=== PATIENT | female | born 1930 | race Caucasian/White ===

== ENCOUNTER 2017-09-14 13:12 | Inpatient (IN) | payer OTHER ==
[~2017-09-14] VITALS: Ht 154.9 cm; Wt 79.9 kg
[~2017-09-14 13:12] MED LIST: ASPI-232 PO; CALC500C70 PO; DIGO0.122 PO; DOXY100C76 PO; DTR5 PO; INSU1INJ SC; INSU70IN2 SC; LEVO25TA PO; LOSA1TAB PO; SENN-65 PO; SYN200 PO; VITA400C3 PO; WARF5TAB90 PO
[2017-09-14] MEDS ORDERED: INSULIN HUMAN REGULAR IV STA (13:28)
[2017-09-14] MEDS ORDERED: SODIUM CHLORIDE 0.9% 1000ML 1,000 ML IV STA ×2 (13:28→13:57)
[2017-09-14] MEDS ORDERED: NovoLIN-R INSULIN PER UNIT CHARGE ONE (13:43)
--- NOTE | 2017-09-14 14:16 | DIAGNOSTIC IMAGING REPORT ---
SINGLE VIEW CHEST CLINICAL HISTORY: Dyspnea. FINDINGS: An AP, portable, upright chest radiograph is compared to study dated 10/20/2014. The examination is degraded by portable technique and patient rotation. The heart is enlarged and there is atherosclerotic calcification of the thoracic aorta. The pulmonary vasculature is noncongested. Chronic interstitial thickening is similar to previous. Left basilar atelectasis is identified. No airspace consolidation or large pleural effusion is seen. There is no pneumothorax. The skeletal structures are osteopenic. Arthritic change is seen in the shoulders and thoracic spine. IMPRESSION: Cardiomegaly with no acute cardiopulmonary abnormality. Electronically signed by: Kar Kurtz M.D. 09/14/2017 2:15 PM Dictated Date/Time: 09/14/2017 2:14 PM
[2017-09-14] MEDS ORDERED: CEFTRIAXONE SOD INJ 1 GM ADDVIAL IV STA (14:53)
[2017-09-14 15:01] LABS: BASO % 0.3 %; BASO ABS # 0.03 K/uL (0-0.2); EOS % 0.6 %; EOS ABS # 0.05 K/uL (0-0.5); HEMATOCRIT 41.4 % (37-47); HEMOGLOBIN 14.5 g/dL (12.0-16.0); IG# 0.02 K/uL (0.00-0.02); LYMPH % 15.7 %; LYMPH ABS # 1.38 K/uL (1.2-3.4); MEAN CELL VOLUME 84.1 fL (80-100); MEAN CORPUSCULAR HEMOGLOBIN 29.5 pg (25-34); MEAN PLATELET VOLUME 10.6 fL (7.4-10.4); MONO % 9.2 %; MONO ABS # 0.81 K/uL (0.11-0.59); NEUT ABS # 6.52 K/uL (1.4-6.5); PLATELET COUNT 249 K/uL (130-400); RED CELL DISTRIBUTION WIDTH CV 14.8 % (11.5-14.5); RED CELL DISTRIBUTION WIDTH SD 45.7 fL (36.4-46.3); WHITE BLOOD COUNT 8.81 K/uL (4.8-10.8)
--- NOTE | 2017-09-14 15:01 | EMERGENCY ROOM VISIT NOTE ---
History Report prepared by Arianna: Vince Fiore Under the Supervision of: Dr. Jasvir Mao M.D. First contact with patient: 13:14 Stated Complaint: HYPERGLYCEMIA History of Present Illness The patient is a 87 year old white female with a past medical history of A-fib, diabetes (type 2) who presents to the ED by EMS with a cc of constant hyperglycemia. EMS reports that the patient's blood sugar was found to be over 600. They state that the patient has been reported to have been urinating herself, and drinking a large amount of water at home. Negative abdominal pain, chest pain, SOB, nausea, vomiting, fevers, chills. Patient reports taking her medications this morning as normal. HPI limited secondary to dementia. Source of History: patient, EMS History Limited By: dementia Symptom Intensity: over 600 Quality: other (hyperglycemia) Timing: constant Associated Symptoms: No fevers, No chills, No chest pain, No SOB, No nausea , No vomiting, No abdominal pain Review of Systems ROS limited secondary to dementia. Past Medical & Surgical Medical Problems: (1) A-fib (2) Diabetes mellitus, type II (3) Diastolic HF (heart failure) (4) HTN (hypertension) (5) Hypothyroidism (6) Lymphedema (7) Osteoarthritis Family History No significant family history Social History Smoking Status: Former Smoker Drug Use: none Marital Status: Housing Status: lives with significant other Occupation Status: retired Current/Historical Medications Scheduled Aspirin (Aspir-81), 81 PO HS Calcium/Vitamin D (Os-Natanael 500 Plus D), 1 TAB PO QAM Digoxin (Digoxin), 1 TAB PO QAM Insulin Isophan/Regular (Novolin 70/30), 0 SC BID17 Levothyroxine Sodium (Synthroid), 200 MCG PO QAM Losartan Potassium (Cozaar), 25 MG PO QAM Metoprolol Tartrate (Lopressor) (Lopressor), 25 MG PO QAM Senna/Docusate Sod (Senokot S), 1 TAB PO QAM Vitamin E (Vitamin E 400 Iu), 400 INTER.UNIT PO QAM Warfarin Sodium (Coumadin), 5 MG PO DAILY Allergies Coded Allergies: GABINO Inhibitors (Verified Allergy, Mild, Cough, 09/14/17) Amoxicillin (Verified Adverse Reaction, Mild, RASH, 09/14/17) Physical Exam Vital Signs Date Time Temp Pulse Resp B/P (MAP) Pulse Ox O2 Delivery O2 Flow Rate FiO2 09/14/17 14:50 114 151/116 94 Room Air 09/14/17 13:53 130 09/14/17 13:13 96 Room Air 09/14/17 13:13 36.5 128 24 184/114 96 Room Air Physical Exam GENERAL: Awake, alert, well-appearing, NAD. Smells of urine. HENT: Normocephalic, atraumatic. EYES: Normal conjunctiva. Sclera non-icteric. NECK: Supple. No nuchal rigidity. FROM. RESPIRATORY: CTAB, no rhonchi, wheezing, crackles CARDIAC: Tachycardic rate, irregular rhythm, no MRG ABDOMEN: Soft, NTND, BS+ MSK: No chest wall TTP. Bilateral lower extremity non-pitting edema with mild erythema up to the knee. NEURO: GCS 15, CN 2-12 intact, moves all 4s on command SKIN: No rash or jaundice noted. Medical Decision & Procedures ER Provider Diagnostic Interpretation: Radiology results as stated below per my review and radiologist interpretation: SINGLE VIEW CHEST FINDINGS: An AP, portable, upright chest radiograph is compared to study dated 10/20/2014. The examination is degraded by portable technique and patient rotation. The heart is enlarged and there is atherosclerotic calcification of the thoracic aorta. The pulmonary vasculature is noncongested. Chronic interstitial thickening is similar to previous. Left basilar atelectasis is identified. No airspace consolidation or large pleural effusion is seen. There is no pneumothorax. The skeletal structures are osteopenic. Arthritic change is seen in the shoulders and thoracic spine. IMPRESSION: Cardiomegaly with no acute cardiopulmonary abnormality. Electronically signed by: Kra Kurtz M.D. 09/14/2017 2:15 PM Laboratory Results 09/14/17 14:46 Red Blood Count 4.92, Mean Corpuscular Volume 84.1, Mean Corpuscular Hemoglobin 29.5, Mean Corpuscular Hemoglobin Concent 35.0, Mean Platelet Volume 10.6, Neutrophils (%) (Auto) 74.0, Lymphocytes (%) (Auto) 15.7, Monocytes (%) (Auto) 9.2, Eosinophils (%) (Auto) 0.6, Basophils (%) (Auto) 0.3, Neutrophils # (Auto) 6.52, Lymphocytes # (Auto) 1.38, Monocytes # (Auto) 0.81, Eosinophils # (Auto) 0.05, Basophils # (Auto) 0.03 09/14/17 14:46 Test 09/14/17 13:58 09/14/17 14:45 09/14/17 14:46 09/14/17 14:56 Urine Color YELLOW Urine Appearance CLEAR (CLEAR) Urine pH 6.0 (4.5-7.5) Urine Specific [place] 1.035 (1.000-1.030) Urine Protein NEG (NEG) Urine Glucose (UA) 3+ (NEG) Urine Ketones 1+ (NEG) Urine Occult Blood TRACE (NEG) Urine Nitrite POS (NEG) Urine Bilirubin NEG (NEG) Urine Urobilinogen NEG (NEG) Urine Leukocyte Esterase NEG (NEG) Urine WBC (Auto) 1-5 /hpf (0-5) Urine RBC (Auto) 0-4 /hpf (0-4) Urine Hyaline Casts (Auto) 1-5 /lpf (0-5) Urine Epithelial Cells (Auto) >30 /lpf (0-5) Urine Bacteria (Auto) 4+ (NEG) Phosphorus Level 2.4 mg/dl (2.5-4.9) Procalcitonin 0.12 ng/ml (0-0.5) White Blood Count 8.81 K/uL (4.8-10.8) Red Blood Count 4.92 M/uL (4.2-5.4) Hemoglobin 14.5 g/dL (12.0-16.0) Hematocrit 41.4 % (37-47) Mean Corpuscular Volume 84.1 fL (80-100) Mean Corpuscular Hemoglobin 29.5 pg (25-34) Mean Corpuscular Hemoglobin Concent 35.0 g/dl (32-36) Platelet Count 249 K/uL (130-400) Mean Platelet Volume 10.6 fL (7.4-10.4) Neutrophils (%) (Auto) 74.0 % Lymphocytes (%) (Auto) 15.7 % Monocytes (%) (Auto) 9.2 % Eosinophils (%) (Auto) 0.6 % Basophils (%) (Auto) 0.3 % Neutrophils # (Auto) 6.52 K/uL (1.4-6.5) Lymphocytes # (Auto) 1.38 K/uL (1.2-3.4) Monocytes # (Auto) 0.81 K/uL (0.11-0.59) Eosinophils # (Auto) 0.05 K/uL (0-0.5) Basophils # (Auto) 0.03 K/uL (0-0.2) RDW Standard Deviation 45.7 fL (36.4-46.3) RDW Coefficient of Variation 14.8 % (11.5-14.5) Immature Granulocyte % (Auto) 0.2 % Immature Granulocyte # (Auto) 0.02 K/uL (0.00-0.02) Prothrombin Time 50.1 SECONDS (9.0-12.0) Prothromb Time International Ratio 4.9 (0.9-1.1) Activated Partial Thromboplast Time 46.5 SECONDS (21.0-31.0) Partial Thromboplastin Ratio 1.8 Venous Blood pH 7.41 (7.36-7.41) Venous Blood Partial Pressure CO2 44 mmHg (38.0-50.0) Venous Blood Partial Pressure O2 31 mmHg Venous Blood HCO3 28 mmol/L Venous Blood Oxygen Saturation 60.7 % Venous Blood Base Excess 2.5 mEq/L Anion Gap 10.0 mmol/L (3-11) Est Creatinine Clear Calc Drug Dose 27.1 ml/min Estimated GFR () 39.0 Estimated GFR (Non- 33.6 BUN/Creatinine Ratio 23.4 (10-20) Calcium Level 9.3 mg/dl (8.5-10.1) Magnesium Level 2.4 mg/dl (1.8-2.4) Total Bilirubin 0.8 mg/dl (0.2-1) Aspartate Amino Transf (AST/SGOT) 14 U/L (15-37) Alanine Aminotransferase (ALT/SGPT) 26 U/L (12-78) Alkaline Phosphatase 199 U/L (45-117) Troponin I 0.030 ng/ml (0-0.045) Pro-B-Type Natriuretic Peptide 1202 pg/ml (0-1800) Total Protein 7.6 gm/dl (6.4-8.2) Albumin 3.1 gm/dl (3.4-5.0) Globulin 4.5 gm/dl (2.5-4.0) Albumin/Globulin Ratio 0.7 (0.9-2) Beta-Hydroxybutyric Acid 8.85 mg/dL (0.2-2.81) Digoxin Level 0.9 ng/ml (0.8-2.0) Bedside Lactic Acid Venous 3.85 mmol/L (0.90-1.70) Laboratory results reviewed by me Medications Administered Medications (Trade) Dose Ordered Sig/Ajith Route Start Time Stop Time Status Last Admin Dose Admin Insulin Human Regular (novoLIN-R) 5 units ONE STAT IV 09/14/17 13:28 09/14/17 13:30 DC 09/14/17 13:52 5 UNITS Sodium Chloride 1,000 ml @ 500 mls/hr Q2H STAT IV 09/14/17 13:28 09/14/17 15:27 DC 09/14/17 13:52 500 MLS/HR Sodium Chloride 1,000 ml @ 500 mls/hr Q2H STAT IV 09/14/17 13:57 09/14/17 15:56 DC 09/14/17 13:57 500 MLS/HR Ceftriaxone Sodium (Rocephin Inj) 1 gm NOW STAT IV 09/14/17 14:53 09/14/17 14:54 DC 09/14/17 14:53 1 GM ECG Per My Interpretation Indication: other (hyperglycemia) Rate (beats per minute): 109 Rhythm: atrial fibrillation (with RVR) Findings: RBBB, T-wave inversion (anterior, lateral), other (Wide QRS. ) ED Course 1321: The patient was evaluated in room B2. A complete history and physical exam was performed. 1540: Upon reexamination, the patient was resting comfortably. I discussed the test results and treatment plan with her. The patient will be evaluated for further management. Medical Decision The patient is a 87 year old white female with a past medical history of A-fib, diabetes (type 2) who presents to the ED by EMS with a cc of constant hyperglycemia. Differential diagnosis: Etiologies such as viral syndrome, otitis, pharyngitis, pneumonia, influenza, meningitis, urinary tract infection, sepsis, bacteremia, as well as others were entertained. Patient was seen and evaluated the bedside. Patient does have a chronic history of some A. fib and does have type 2 diabetes however upon review of her medication when she is supposed be taking insulin. Patient per EMS has had some increased polyuria and polydipsia. Patient was noted to have a sugar of greater than 600. Patient on exam does have some intermittent tachycardia that appears to be A. fib related. Bedside ultrasound was performed which did show A. fib with good EF and the patient's IVC was collapsible with respiratory variation. Patient was given 2 L of IV fluids and the patient had blood work completed. Patient's urinalysis concerning for UTI and this was given Rocephin. Patient's heart rate was improving with fluids. Patient was noted to have an elevated blood glucose. Patient's potassium and bicarb normal. Patient has a normal anion gap. Patient's lactate was mildly elevated at 3.8. Patient's white blood cell count was normal. Given the patient's concern for ability to take care of herself with her concomitant tachycardia, dehydration, UTI did discuss the patient with the hospitalist who agreed to further evaluate and treat the patient. Patient was admitted. Medication Reconcilliation Current Medication List: was personally reviewed by me Blood Pressure Screening Patient's blood pressure: Elevated blood pressure Blood pressure disposition: Referred to PCP Consults Time Called: 1540 Consulting Physician: Dr. Gurmeet Roberts Hospitalist Returned Call: [phone] Discussed the patient's case. The patient will be evaluated for further treatment and disposition. Impression Primary Impression: Dehydration Additional Impressions: A-fib Hyperglycemia UTI (urinary tract infection) Scribe Attestation The scribe's documentation has been prepared under my direction and personally reviewed by me in its entirety. I confirm that the note above accurately reflects all work, treatment, procedures, and medical decision making performed by me. Departure Information Dispostion Being Evaluated By Hospitalist Referrals Bobby Shah M.D. (PCP) Problem Qualifiers Additional Impressions: A-fib Atrial fibrillation type: unspecified Qualified Codes: I48.91 - Unspecified atrial fibrillation UTI (urinary tract infection) Urinary tract infection type: acute cystitis Hematuria presence: with hematuria Qualified Codes: N30.01 - Acute cystitis with hematuria
[2017-09-14] MEDS ORDERED: METO25TA56 PO (15:07)
[2017-09-14] MEDS ORDERED: LNX125 PO (15:07)
[2017-09-14] MEDS ORDERED: INSU70IN2 SC (15:25)
[2017-09-14 15:30] LABS: ALBUMIN 3.1 gm/dl (3.4-5.0); CALCIUM 9.3 mg/dl (8.5-10.1); CREATININE 1.41 mg/dl (0.60-1.20); INR 4.9 (0.9-1.1); TOTAL PROTEIN 7.6 gm/dl (6.4-8.2)
[2017-09-14 15:31] LABS: PTT PATIENT 46.5 SECONDS (21.0-31.0)
[2017-09-14] MEDS ORDERED: SODIUM CHLORIDE 0.9% 1000ML 1,000 ML IV ONE (15:53)
[2017-09-14] MEDS ORDERED: HHS GOAL RANGE 250-350 mg/dl ONE (16:00)
[2017-09-14] MEDS ORDERED: MAGNESIUM HYDROXIDE SUSP 30 ML UDC PO PRN (16:00)
[2017-09-14] MEDS ORDERED: MODERATE STRESS LEVEL ONE (16:00)
[2017-09-14] MEDS ORDERED: POLYETHYLENE (MIRALAX) 17 GM PACK PO PRN (16:00)
[2017-09-14] MEDS ORDERED: ACETAMINOPHEN 325 MG TAB PO PRN (16:00)
[2017-09-14] MEDS ORDERED: PHARMACY GLYCEMIC MGMT CONSULT PRN (16:00)
[2017-09-14] MEDS ORDERED: PENDING D5 1/2NS+20mEq KCL IVF SCH (16:00)
[2017-09-14] MEDS ORDERED: PENDING NSS+20mEq KCL IVF SCH (16:00)
[2017-09-14] MEDS ORDERED: ALUMINUM/MAGNESIUM/SIMETH (MAALOX MAX) 30 ML UDC PO PRN (16:00)
[2017-09-14] MEDS ORDERED: INSULIN IV INFUSION PROTOCOL SCH (16:31)
[2017-09-14] MEDS ORDERED: INSULIN HUMAN REGULAR IV BOLUS 2 UNIT in SYRINGE 0 ML IV SCH (17:15)
[2017-09-14 17:22] LABS: PHOSPHORUS 2.4 mg/dl (2.5-4.9)
[2017-09-14] MEDS ORDERED: INSULIN REGULAR 250 UNITS in SODIUM CHLORIDE 0.9% 250ML 250 ML IV SCH (17:30)
--- NOTE | 2017-09-14 18:31 | History and Physical ---
History & Physical Date & Time of Service: Sep 14, 2017 at 18:03 Chief Complaint: Hyperglycemia Primary Care Physician: Bobby Shah M.D. History of Present Illness Source: patient, clinic records, hospital records This is an 87yo F with a PMH of uncontrolled DM II (hgb a1c of 11.2 in Jun 2017) , dementia, A fib (on coumadin), diastolic HF, HTN, hypothyroidism and other medical problems listed below who presents with confusion and fatigue starting yesterday. Patient has had polyuria and polydipsia for the last few days as well as fatigue. Lives alone with her and depends on him for help with medication management. Patient has uncontrolled DM II and only takes 30u of her scheduled 50u of Novolin 70/30. noticed that she was confused and starting to slur her words this AM, so he called an ambulance. EMS found BSG to be >600. Patient states that she took 30u of insulin this AM. Denies fever, chills, lightheadedness, headache, visual changes, CP, SOB, abdominal pain, nausea, vomiting, dysuria, constipation, diarrhea or LE swelling. Has chronic wound on BLE and changes her dressings daily. Follows with [facility] for coumadin use. In ED, BSG was elevated to 516. Bicarb within normal limits, no anion gap. + UA with urine culture pending. No leukocytosis. Supratherapeutic INR of 4.9. EKG with A Fib at 109 bpm. Past Medical/Surgical History Medical Problems: (1) A-fib Permanent Comment: On coumadin Status: Chronic (2) Diabetes mellitus, type II Status: Chronic (3) Diastolic HF (heart failure) Status: Chronic (4) HTN (hypertension) Status: Chronic (5) Hypothyroidism Status: Chronic (6) Lymphedema Status: Chronic (7) Osteoarthritis Status: Chronic Family History No significant family history Social History Smoking Status: Former Smoker Drug Use: none Marital Status: Housing status: lives with significant other Occupational Status: retired Multi-Drug Resistant Organisms History of MDRO: Yes Type of MDRO: MRSA Allergies Coded Allergies: GABINO Inhibitors (Verified Allergy, Mild, Cough, 09/14/17) Amoxicillin (Verified Allergy, Mild, RASH, 09/15/17) Home Medications Scheduled Aspirin (Aspir-81), 81 PO HS Calcium/Vitamin D (Os-Natanael 500 Plus D), 1 TAB PO QAM Digoxin (Digoxin), 1 TAB PO QAM Insulin Isophan/Regular (Novolin 70/30), 0 SC BID17 Levothyroxine Sodium (Synthroid), 200 MCG PO QAM Losartan Potassium (Cozaar), 25 MG PO QAM Metoprolol Succinate (Metoprolol Succinate ER), 1 TAB PO DAILY Senna/Docusate Sod (Senokot S), 1 TAB PO QAM Warfarin Sod (Coumadin), 2.5 MG PO [id number] Warfarin Sod (Coumadin), 5 MG PO SuTh Review of Systems Ten systems reviewed and negative except as noted in the HPI. Physical Exam Vital Signs Date Time Temp Pulse Resp B/P (MAP) Pulse Ox O2 Delivery O2 Flow Rate FiO2 09/14/17 17:38 85 16 146/60 97 Room Air 09/14/17 16:54 98 16 127/70 95 Room Air 09/14/17 14:50 114 151/116 94 Room Air 09/14/17 13:53 130 09/14/17 13:13 96 Room Air 09/14/17 13:13 36.5 128 24 184/114 96 Room Air General Appearance: WD/WN, no apparent distress, + pertinent finding (Resting comfortably) Head: normocephalic, atraumatic Eyes: normal inspection, PERRL, sclerae normal ENT: normal ENT inspection, hearing grossly normal, pharynx normal (keith mucous membranes) Neck: supple, thyroid normal, trachea midline Respiratory/Chest: chest non-tender, lungs clear, normal breath sounds, no respiratory distress, no accessory muscle use Cardiovascular: no murmur, normal peripheral pulses, + irregularly irregular Abdomen/GI: non tender, soft, no organomegaly Back: normal inspection Extremities/Musculoskelatal: no calf tenderness, + pertinent finding (BLE with chronic venous stasis changes and overlying erythema and warmth. Multiple open wounds. ) Neurologic/Psych: no motor/sensory deficits, alert, normal mood/affect, oriented x 3 Skin: normal color, warm/dry Diagnostics Laboratory Results Results Past 24 Hours Test 09/14/17 13:58 09/14/17 14:45 09/14/17 14:46 09/14/17 14:55 Range/Units Urine Color YELLOW Urine Appearance CLEAR CLEAR Urine pH 6.0 4.5-7.5 Urine Specific [place] 1.035 1.000-1.030 Urine Protein NEG NEG Urine Glucose (UA) 3+ NEG Urine Ketones 1+ NEG Urine Occult Blood TRACE NEG Urine Nitrite POS NEG Urine Bilirubin NEG NEG Urine Urobilinogen NEG NEG Urine Leukocyte Esterase NEG NEG Urine WBC (Auto) 1-5 0-5 /hpf Urine RBC (Auto) 0-4 0-4 /hpf Urine Hyaline Casts (Auto) 1-5 0-5 /lpf Urine Epithelial Cells (Auto) >30 0-5 /lpf Urine Bacteria (Auto) 4+ NEG Phosphorus Level 2.4 2.5-4.9 mg/dl Magnesium Level 2.5 2.4 1.8-2.4 mg/dl Procalcitonin 0.12 0-0.5 ng/ml White Blood Count 8.81 4.8-10.8 K/uL Red Blood Count 4.92 4.2-5.4 M/uL Hemoglobin 14.5 12.0-16.0 g/dL Hematocrit 41.4 37-47 % Mean Corpuscular Volume 84.1 80-100 fL Mean Corpuscular Hemoglobin 29.5 25-34 pg Mean Corpuscular Hemoglobin Concent 35.0 32-36 g/dl Platelet Count 249 130-400 K/uL Mean Platelet Volume 10.6 7.4-10.4 fL Neutrophils (%) (Auto) 74.0 % Lymphocytes (%) (Auto) 15.7 % Monocytes (%) (Auto) 9.2 % Eosinophils (%) (Auto) 0.6 % Basophils (%) (Auto) 0.3 % Neutrophils # (Auto) 6.52 1.4-6.5 K/uL Lymphocytes # (Auto) 1.38 1.2-3.4 K/uL Monocytes # (Auto) 0.81 0.11-0.59 K/uL Eosinophils # (Auto) 0.05 0-0.5 K/uL Basophils # (Auto) 0.03 0-0.2 K/uL RDW Standard Deviation 45.7 36.4-46.3 fL RDW Coefficient of Variation 14.8 11.5-14.5 % Immature Granulocyte % (Auto) 0.2 % Immature Granulocyte # (Auto) 0.02 0.00-0.02 K/uL Prothrombin Time 50.1 9.0-12.0 SECONDS Prothromb Time International Ratio 4.9 0.9-1.1 Activated Partial Thromboplast Time 46.5 21.0-31.0 SECONDS Partial Thromboplastin Ratio 1.8 Venous Blood pH 7.41 7.36-7.41 Venous Blood Partial Pressure CO2 44 38.0-50.0 mmHg Venous Blood Partial Pressure O2 31 mmHg Venous Blood HCO3 28 mmol/L Venous Blood Oxygen Saturation 60.7 % Venous Blood Base Excess 2.5 mEq/L Sodium Level 136 136-145 mmol/L Potassium Level 4.0 3.5-5.1 mmol/L Chloride Level 101 98-107 mmol/L Carbon Dioxide Level 26 21-32 mmol/L Anion Gap 10.0 3-11 mmol/L Blood Urea Nitrogen 33 7-18 mg/dl Creatinine 1.41 0.60-1.20 mg/dl Est Creatinine Clear Calc Drug Dose 27.1 ml/min Estimated GFR () 39.0 Estimated GFR (Non- 33.6 BUN/Creatinine Ratio 23.4 10-20 Random Glucose 516 70-99 mg/dl Calcium Level 9.3 8.5-10.1 mg/dl Total Bilirubin 0.8 0.2-1 mg/dl Aspartate Amino Transf (AST/SGOT) 14 15-37 U/L Alanine Aminotransferase (ALT/SGPT) 26 12-78 U/L Alkaline Phosphatase 199 45-117 U/L Troponin I 0.030 0-0.045 ng/ml Pro-B-Type Natriuretic Peptide 1202 0-1800 pg/ml Total Protein 7.6 6.4-8.2 gm/dl Albumin 3.1 3.4-5.0 gm/dl Globulin 4.5 2.5-4.0 gm/dl Albumin/Globulin Ratio 0.7 0.9-2 Beta-Hydroxybutyric Acid 8.85 0.2-2.81 mg/dL Digoxin Level 0.9 0.8-2.0 ng/ml Bedside Glucose 489 70-90 mg/dl Test 09/14/17 14:56 09/14/17 16:24 09/14/17 16:53 Range/Units Bedside Lactic Acid Venous 3.85 0.90-1.70 mmol/L Arterial Blood pH 7.47 7.35-7.45 Arterial Blood Partial Pressure CO2 35 35-46 mmHg Arterial Blood Partial Pressure O2 85 80-95 mm/Hg Arterial Blood HCO3 25 19-24 mmol/L Arterial Blood Oxygen Saturation 96.9 90-95 % Arterial Blood Base Excess 1.6 -9-1.8 mEq/L Arterial Blood Gas Delivery ROOM AIR Kamlesh Test POS POS Lactic Acid Level 2.2 0.4-2.0 mmol/L Bedside Glucose 506 70-90 mg/dl Microbiology Results 09/14/17 Urine Culture, Received Pending Diagnostic Radiology CXR: IMPRESSION: Cardiomegaly with no acute cardiopulmonary abnormality. EKG Atrial fibrillation at 109 bpm , Low voltage QRS, Right bundle branch block, T wave abnormality, consider inferolateral ischemia No prior EKG available Impression Assessment and Plan Patient seen in collaboration with Dr. Levi. Please see attending addendum for assessment and plan. ATTENDING ADDENDUM : pt seen and examined , care co cordinated with Shanice Porter PA-C , 87yo F with poorly controlled DM II (hgb a1c of 11.2 in Jun 2017), dementia, A fib (on Coumadin), diastolic HF, HTN, hypothyroidism presented with confusion and fatigue starting yesterday. pt been symptomatic with -has been having increased fatigue , polyuria and polydipsia for the last few days has been taking lower dose of her Novolin 70/30 -30 U instead for 50 u pt is a very poor historian In ED, BSG was elevated to 516. Bicarb within normal limits, no anion gap. + UA with urine culture pending. No leukocytosis. Supratherapeutic INR of 4.9. EKG with A Fib at 109 bpm. P/E: as per Shanice Porter PA-C A/P : HYPERGLYCEMIA /HHS /POORLY CONTROLLED DM : presents with symptomatic polyuria /polydipsia/fatigue /confusion has not be taking Insulin 70/30 as directed pt found to be in HHS given IV insulin 5 U in ER , then started on IV insulin gtt aggressive hydration as pt is clinically dry ordered for Hb A1C ( last Acc in 06/2017 > 11) pharmacy consulted for glycemic management community educator pt needs out pt nursing visit /support to educate for proper monitoring of BSG and correct dose insulin administration R/O infectious cause precipitating HHS has bilateral lower ext cellulitis , empiric Abx with vanco/Primaxin ( allergy to PCN noted ) blood culture ordered + UA + ve Abx as above follow urine Cx CONFUSION /LETHARGY /METABOLIC ENCEPHALOPATHY : due to combination of HHS, infection , dehydration , UTI no focal neurological deficit noted cont management of precipitating factors as outlined above CHERYL ON CKD STAGE 3 : due to above cont IV hydration per [facility] protocol follow BMP SEPSIS DUE TO BILATERAL LOWER EXT CELLULITIS meets criteria for sepsis -presents with tachycardia /rapid Afib /CHERYL / confusion /elevated lactic acid source of infection either bilat lower ext cellulitis /UTI cont IV resuscitation , empiric broad spectrum Abx , follow culture report ID eval requested HTN : hold diuretics /ARB on beta roberto IVF fluids for dehydration /CHERYL HX OF AFIB ON COUMADIN : in rapid Afib for dehydration /infection cont Beta roberto and Digoxin Dig level therapeutic Coagulopathy due to sepsis Coumadin on hold follow daily INR FULL CODE DVT PROPHYLAXIS : INR elevated DISPOSITION : will need PT/OT eval for significant deconditioning will benefit with home health visiting nurse as pt need assistance /direction for medication /insulin dose Level of Care Telemetry Resuscitation Status FULL RESUSCITATION VTE Prophylaxis VTE Risk Assessment Done? Y/N: Yes Risk Level: Moderate Given or contraindicated: Warfarin (Coumadin)
[2017-09-14] MEDS ORDERED: SODIUM CHLORIDE 0.9% 1000ML 1,000 ML IV SCH (18:45)
[2017-09-14 18:55] VITALS: BP 133/74; PULSE 101; TEMP 36.5; O2SAT 99; BMI 32.2
[2017-09-14 19:01] VITALS: BP 123/62; PULSE 95; O2SAT 96
[2017-09-14] MEDS: D5W AND 1/2NSS + 20MEQ KCL 1,000 ML IV SCH (19:41)
--- NOTE | 2017-09-14 19:58 | DIAGNOSTIC IMAGING REPORT ---
ULTRASOUND VENOUS DOPPLER LWR EXT BILA CLINICAL HISTORY: Leg swelling and redness COMPARISON STUDY: No previous studies for comparison. FINDINGS: Real-time and color flow Doppler imaging were performed. Flow was seen within the femoral, popliteal and calf veins with no intraluminal thrombus demonstrated. The saphenous vein is patent. There is bilateral lower extremity edema. IMPRESSION: No evidence of lower extremity DVT. Electronically signed by: Aníbal Melvin M.D. 09/14/2017 7:56 PM Dictated Date/Time: 09/14/2017 7:56 PM
[2017-09-14 20:00] VITALS: O2SAT 96
[2017-09-14 20:02] VITALS: BP 145/69; PULSE 100; O2SAT 95
[2017-09-14 20:45] LABS: CALCIUM 8.8 mg/dl (8.5-10.1); CREATININE 1.3 mg/dl (0.60-1.20); PHOSPHORUS 1.7 mg/dl (2.5-4.9); POTASSIUM 3.6 mmol/L (3.5-5.1)
[2017-09-14] MEDS: INSULIN ASPART 100 UNITS/ML 3 ML PEN SC SCH (21:07)
[2017-09-14] MEDS ORDERED: CMD/25 PO ×2 (23:18)
[2017-09-14] MEDS ORDERED: TPRSR/25 PO (23:18)
[2017-09-14 23:28] VITALS: BP 95/59; PULSE 89; TEMP 36.6; O2SAT 96
[2017-09-15] MEDS ORDERED: PIPERACILL/TAZOBAC IV 3.375 GM in DEXTROSE 5% 100ML 100 ML IV SCH (00:15)
[2017-09-15] MEDS ORDERED: PIPERACILL/TAZOBAC CONSULT ACTIVE PRN (00:15)
[2017-09-15 00:16] LABS: CALCIUM 8.3 mg/dl (8.5-10.1); CREATININE 1.06 mg/dl (0.60-1.20); PHOSPHORUS 1.6 mg/dl (2.5-4.9); POTASSIUM 3.7 mmol/L (3.5-5.1)
[2017-09-15] MEDS ORDERED: POTASSIUM PHOS 3 MMOL/1 ML INFUSION IV STA (00:16)
[2017-09-15] MEDS ORDERED: POTASSIUM PHOSPHATE INJ 6 MMOL in SODIUM CHLORIDE 0.9% 250ML 250 ML IV ONE (00:30)
[2017-09-15] MEDS ORDERED: IMIPENEM/CILASTATIN IV 500 MG in D5W 100ML IV SCH (01:00)
[2017-09-15] MEDS ORDERED: VANCOMYCIN INJ 1,500 MG in SODIUM CHLORIDE 0.9% 500ML 500 ML IV SCH (03:00)
[2017-09-15 03:08] VITALS: BP 107/65; PULSE 88; TEMP 36.4; O2SAT 97
[2017-09-15] MEDS: NSS + 20MEQ KCL 1000ML 1,000 ML IV SCH ×3 (03:35→17:18)
[2017-09-15 03:48] LABS: HEMATOCRIT 38.2 % (37-47); HEMOGLOBIN 12.9 g/dL (12.0-16.0); MEAN CELL VOLUME 84.5 fL (80-100); MEAN CORPUSCULAR HEMOGLOBIN 28.5 pg (25-34); MEAN CORPUSCULAR HGB CONC 33.8 g/dl (32-36); MEAN PLATELET VOLUME 10.6 fL (7.4-10.4); PLATELET COUNT 217 K/uL (130-400); RED CELL DISTRIBUTION WIDTH CV 14.8 % (11.5-14.5); RED CELL DISTRIBUTION WIDTH SD 45.7 fL (36.4-46.3); WHITE BLOOD COUNT 9.11 K/uL (4.8-10.8)
[2017-09-15 04:03] LABS: INR 5.1 (0.9-1.1)
[2017-09-15] MEDS: D5W AND 1/2NSS + 20MEQ KCL 1,000 ML IV SCH (04:09)
[2017-09-15 04:12] LABS: ALBUMIN 2.3 gm/dl (3.4-5.0); CALCIUM 8.1 mg/dl (8.5-10.1); CREATININE 1.01 mg/dl (0.60-1.20); POTASSIUM 3.8 mmol/L (3.5-5.1)
[2017-09-15 04:25] LABS: PHOSPHORUS 2.1 mg/dl (2.5-4.9); TOTAL PROTEIN 5.9 gm/dl (6.4-8.2)
[2017-09-15 07:14] LABS: HEMOGLOBIN A1C 12.6 % (4.5-5.6)
[2017-09-15] MEDS ORDERED: VANCOMYCIN CONSULT ACTIVE PRN (07:15)
[2017-09-15] MEDS: INSULIN ASPART 100 UNITS/ML 3 ML PEN SC SCH ×5 (07:52→21:03)
[2017-09-15 07:55] VITALS: BP 127/81; PULSE 102; TEMP 37; O2SAT 97
[2017-09-15] MEDS ORDERED: VANCOMYCIN INJ 1,750 MG in SODIUM CHLORIDE 0.9% 500ML 500 ML IV ONE (08:00)
[2017-09-15 09:15] LABS: CALCIUM 7.9 mg/dl (8.5-10.1); CREATININE 1.09 mg/dl (0.60-1.20); HEMOGLOBIN A1C 12.9 % (4.5-5.6); PHOSPHORUS 1.8 mg/dl (2.5-4.9)
[2017-09-15] MEDS ORDERED: INSULIN GLARGINE SOLOSTAR 100 UNITS/ML 3 ML PEN SC ONE (11:00)
[2017-09-15 11:32] VITALS: BP 131/73; PULSE 95; TEMP 36.9; O2SAT 96
[2017-09-15] MEDS: DOCUSATE SODIUM/SENNA 50/8.6MG TAB PO SCH (11:53)
[2017-09-15] MEDS: CALCIUM 600MG + VIT D 400 IU TAB PO SCH (11:53)
[2017-09-15] MEDS: METOPROLOL SUCC 25MG EXT REL TAB PO SCH (11:53)
[2017-09-15] MEDS: LEVOTHYROXINE 200 MCG TAB PO SCH (11:53)
[2017-09-15] MEDS ORDERED: IMIPENEM-CILASTATIN 250 MG in DEXTROSE 5% 100ML 100 ML IV SCH (12:00)
[2017-09-15 13:30] LABS: CALCIUM 7.7 mg/dl (8.5-10.1); POTASSIUM 4.1 mmol/L (3.5-5.1)
[2017-09-15 13:31] LABS: PHOSPHORUS 1.7 mg/dl (2.5-4.9)
--- NOTE | 2017-09-15 14:17 | Progress Note ---
Internal Med Progress Note Date of Service: Sep 15, 2017. Provider Documentation: SUBJECTIVE: The patient was seen and examined Feels a little better Complains of high Sugar No other complaints OBJECTIVE: Vital Signs-as noted below Exam: General-no distress at rest Eyes-normal ENT-normal Neck-supple Lungs-Clear Heart-regular,no murmur Abdomen-Benign,no masses Extremities-No edema Legs are bandaged Neuro-AAOx3 Lab data as noted below. ASSESSMENT & PLAN: HYPERGLYCEMIA /HHS /POORLY CONTROLLED DM : -presents with symptomatic polyuria /polydipsia/fatigue /confusion -has not be taking Insulin 70/30 as directed -started on IV insulin 5 U in ER , then started on IV insulin gtt -aggressive hydration as pt is clinically dry -last Acc in 06/2017 > 11) and 12.9 now -diabetes education Bilateral lower ext cellulitis , empiric Abx with vanco/Primaxin ( allergy to PCN noted ) -blood culture ordered -+ UA + ve ,Culture =Gm neg organism -continue current antibiotic CONFUSION /LETHARGY /METABOLIC ENCEPHALOPATHY : -due to combination of HHS, infection , dehydration , UTI -no focal neurological deficit noted -clinically much better CHERYL ON CKD STAGE 3 : -due to above -cont IV hydration per [facility] protocol -follow BMP -improving renal function SEPSIS DUE TO BILATERAL LOWER EXT CELLULITIS -meets criteria for sepsis -presents with tachycardia /rapid Afib /CHERYL / confusion /elevated lactic acid -source of infection either bilat lower ext cellulitis /UTI -cont IV resuscitation , empiric broad spectrum Abx , follow culture report -ID eval requested HTN : hold diuretics /ARB on beta roberto IVF fluids for dehydration /CHERYL HX OF AFIB ON COUMADIN : in rapid Afib for dehydration /infection cont Beta roberto and Digoxin Dig level therapeutic Coagulopathy due to sepsis Coumadin on hold follow daily INR FULL CODE DVT PROPHYLAXIS : INR elevated DISPOSITION : -will need PT/OT eval for significant deconditioning -will benefit with home health visiting nurse as pt need assistance /direction for medication /insulin dose Vital Signs: Date Time Temp Pulse Resp B/P (MAP) Pulse Ox O2 Delivery O2 Flow Rate FiO2 09/15/17 12:00 Room Air 09/15/17 11:32 36.9 95 20 131/73 (92) 96 Room Air 09/15/17 08:00 Room Air 09/15/17 07:55 37.0 102 20 127/81 (96) 97 Room Air 09/15/17 04:00 Room Air 09/15/17 03:08 36.4 88 19 107/65 (79) 97 Room Air 09/15/17 00:01 Room Air 09/14/17 23:28 36.6 89 18 95/59 (71) 96 Room Air 09/14/17 20:02 100 21 145/69 (94) 95 Room Air 09/14/17 20:00 96 Room Air 09/14/17 19:01 95 21 123/62 (82) 96 Room Air 09/14/17 18:55 36.5 101 16 133/74 99 Room Air 09/14/17 17:38 85 16 146/60 97 Room Air 09/14/17 16:54 98 16 127/70 95 Room Air 09/14/17 14:50 114 151/116 94 Room Air Lab Results: Results Past 24 Hours Test 09/14/17 14:45 09/14/17 14:46 09/14/17 14:55 09/14/17 14:56 Range/Units Estimated Average Glucose 315 mg/dl Hemoglobin A1c 12.6 4.5-5.6 % Phosphorus Level 2.4 2.5-4.9 mg/dl Magnesium Level 2.5 2.4 1.8-2.4 mg/dl Procalcitonin 0.12 0-0.5 ng/ml White Blood Count 8.81 4.8-10.8 K/uL Red Blood Count 4.92 4.2-5.4 M/uL Hemoglobin 14.5 12.0-16.0 g/dL Hematocrit 41.4 37-47 % Mean Corpuscular Volume 84.1 80-100 fL Mean Corpuscular Hemoglobin 29.5 25-34 pg Mean Corpuscular Hemoglobin Concent 35.0 32-36 g/dl Platelet Count 249 130-400 K/uL Mean Platelet Volume 10.6 7.4-10.4 fL Neutrophils (%) (Auto) 74.0 % Lymphocytes (%) (Auto) 15.7 % Monocytes (%) (Auto) 9.2 % Eosinophils (%) (Auto) 0.6 % Basophils (%) (Auto) 0.3 % Neutrophils # (Auto) 6.52 1.4-6.5 K/uL Lymphocytes # (Auto) 1.38 1.2-3.4 K/uL Monocytes # (Auto) 0.81 0.11-0.59 K/uL Eosinophils # (Auto) 0.05 0-0.5 K/uL Basophils # (Auto) 0.03 0-0.2 K/uL RDW Standard Deviation 45.7 36.4-46.3 fL RDW Coefficient of Variation 14.8 11.5-14.5 % Immature Granulocyte % (Auto) 0.2 % Immature Granulocyte # (Auto) 0.02 0.00-0.02 K/uL Prothrombin Time 50.1 9.0-12.0 SECONDS Prothromb Time International Ratio 4.9 0.9-1.1 Activated Partial Thromboplast Time 46.5 21.0-31.0 SECONDS Partial Thromboplastin Ratio 1.8 Venous Blood pH 7.41 7.36-7.41 Venous Blood Partial Pressure CO2 44 38.0-50.0 mmHg Venous Blood Partial Pressure O2 31 mmHg Venous Blood HCO3 28 mmol/L Venous Blood Oxygen Saturation 60.7 % Venous Blood Base Excess 2.5 mEq/L Sodium Level 136 136-145 mmol/L Potassium Level 4.0 3.5-5.1 mmol/L Chloride Level 101 98-107 mmol/L Carbon Dioxide Level 26 21-32 mmol/L Anion Gap 10.0 3-11 mmol/L Blood Urea Nitrogen 33 7-18 mg/dl Creatinine 1.41 0.60-1.20 mg/dl Est Creatinine Clear Calc Drug Dose 27.1 ml/min Estimated GFR () 39.0 Estimated GFR (Non- 33.6 BUN/Creatinine Ratio 23.4 10-20 Random Glucose 516 70-99 mg/dl Calcium Level 9.3 8.5-10.1 mg/dl Total Bilirubin 0.8 0.2-1 mg/dl Aspartate Amino Transf (AST/SGOT) 14 15-37 U/L Alanine Aminotransferase (ALT/SGPT) 26 12-78 U/L Alkaline Phosphatase 199 45-117 U/L Troponin I 0.030 0-0.045 ng/ml Pro-B-Type Natriuretic Peptide 1202 0-1800 pg/ml Total Protein 7.6 6.4-8.2 gm/dl Albumin 3.1 3.4-5.0 gm/dl Globulin 4.5 2.5-4.0 gm/dl Albumin/Globulin Ratio 0.7 0.9-2 Beta-Hydroxybutyric Acid 8.85 0.2-2.81 mg/dL Digoxin Level 0.9 0.8-2.0 ng/ml Bedside Glucose 489 70-90 mg/dl Bedside Lactic Acid Venous 3.85 0.90-1.70 mmol/L Test 09/14/17 16:24 09/14/17 16:53 09/14/17 18:48 09/14/17 19:56 Range/Units Arterial Blood pH 7.47 7.35-7.45 Arterial Blood Partial Pressure CO2 35 35-46 mmHg Arterial Blood Partial Pressure O2 85 80-95 mm/Hg Arterial Blood HCO3 25 19-24 mmol/L Arterial Blood Oxygen Saturation 96.9 90-95 % Arterial Blood Base Excess 1.6 -9-1.8 mEq/L Arterial Blood Gas Delivery ROOM AIR Kamlesh Test POS POS Lactic Acid Level 2.2 0.4-2.0 mmol/L Bedside Glucose 506 355 325 70-90 mg/dl Test 09/14/17 20:17 09/14/17 20:49 09/14/17 22:08 09/14/17 23:07 Range/Units Venous Blood pH 7.44 7.36-7.41 Sodium Level 139 136-145 mmol/L Potassium Level 3.6 3.5-5.1 mmol/L Chloride Level 104 98-107 mmol/L Carbon Dioxide Level 25 21-32 mmol/L Anion Gap 10.0 3-11 mmol/L Blood Urea Nitrogen 28 7-18 mg/dl Creatinine 1.30 0.60-1.20 mg/dl Est Creatinine Clear Calc Drug Dose 29.2 ml/min Estimated GFR () 43.0 Estimated GFR (Non- 37.1 BUN/Creatinine Ratio 21.7 10-20 Random Glucose 270 70-99 mg/dl Lactic Acid Level 5.4 0.4-2.0 mmol/L Calcium Level 8.8 8.5-10.1 mg/dl Phosphorus Level 1.7 2.5-4.9 mg/dl Magnesium Level 2.1 1.8-2.4 mg/dl Bedside Glucose 362 303 295 70-90 mg/dl Test 09/14/17 23:53 09/15/17 00:02 09/15/17 00:24 09/15/17 01:11 Range/Units Venous Blood pH 7.45 7.36-7.41 Sodium Level 139 136-145 mmol/L Potassium Level 3.7 3.5-5.1 mmol/L Chloride Level 106 98-107 mmol/L Carbon Dioxide Level 26 21-32 mmol/L Anion Gap 7.0 3-11 mmol/L Blood Urea Nitrogen 27 7-18 mg/dl Creatinine 1.06 0.60-1.20 mg/dl Est Creatinine Clear Calc Drug Dose 35.8 ml/min Estimated GFR () 55.1 Estimated GFR (Non- 47.5 BUN/Creatinine Ratio 25.7 10-20 Random Glucose 287 70-99 mg/dl Calcium Level 8.3 8.5-10.1 mg/dl Phosphorus Level 1.6 2.5-4.9 mg/dl Magnesium Level 2.2 1.8-2.4 mg/dl Bedside Glucose 292 222 70-90 mg/dl Lactic Acid Level 2.6 0.4-2.0 mmol/L Test 09/15/17 01:31 09/15/17 01:45 09/15/17 02:05 09/15/17 03:07 Range/Units Bedside Glucose 214 242 238 255 70-90 mg/dl Test 09/15/17 03:39 09/15/17 03:58 09/15/17 05:01 09/15/17 05:58 Range/Units White Blood Count 9.11 4.8-10.8 K/uL Red Blood Count 4.52 4.2-5.4 M/uL Hemoglobin 12.9 12.0-16.0 g/dL Hematocrit 38.2 37-47 % Mean Corpuscular Volume 84.5 80-100 fL Mean Corpuscular Hemoglobin 28.5 25-34 pg Mean Corpuscular Hemoglobin Concent 33.8 32-36 g/dl RDW Standard Deviation 45.7 36.4-46.3 fL RDW Coefficient of Variation 14.8 11.5-14.5 % Platelet Count 217 130-400 K/uL Mean Platelet Volume 10.6 7.4-10.4 fL Prothrombin Time 51.5 9.0-12.0 SECONDS Prothromb Time International Ratio 5.1 0.9-1.1 Venous Blood pH 7.43 7.36-7.41 Sodium Level 139 136-145 mmol/L Potassium Level 3.8 3.5-5.1 mmol/L Chloride Level 107 98-107 mmol/L Carbon Dioxide Level 26 21-32 mmol/L Anion Gap 6.0 3-11 mmol/L Blood Urea Nitrogen 26 7-18 mg/dl Creatinine 1.01 0.60-1.20 mg/dl Est Creatinine Clear Calc Drug Dose 37.5 ml/min Estimated GFR () 58.4 Estimated GFR (Non- 50.4 BUN/Creatinine Ratio 25.3 10-20 Random Glucose 216 70-99 mg/dl Lactic Acid Level 2.6 0.4-2.0 mmol/L Calcium Level 8.1 8.5-10.1 mg/dl Phosphorus Level 2.1 2.5-4.9 mg/dl Magnesium Level 2.1 1.8-2.4 mg/dl Total Bilirubin 0.6 0.2-1 mg/dl Direct Bilirubin 0.2 0-0.2 mg/dl Aspartate Amino Transf (AST/SGOT) 13 15-37 U/L Alanine Aminotransferase (ALT/SGPT) 20 12-78 U/L Alkaline Phosphatase 144 45-117 U/L Total Protein 5.9 6.4-8.2 gm/dl Albumin 2.3 3.4-5.0 gm/dl Globulin 3.6 2.5-4.0 gm/dl Albumin/Globulin Ratio 0.6 0.9-2 Beta-Hydroxybutyric Acid 2.08 0.2-2.81 mg/dL Bedside Glucose 174 237 262 70-90 mg/dl Test 09/15/17 07:04 09/15/17 07:57 09/15/17 08:28 09/15/17 09:22 Range/Units Bedside Glucose 243 256 186 70-90 mg/dl Venous Blood pH 7.43 7.36-7.41 Sodium Level 138 136-145 mmol/L Potassium Level 4.0 3.5-5.1 mmol/L Chloride Level 106 98-107 mmol/L Carbon Dioxide Level 25 21-32 mmol/L Anion Gap 7.0 3-11 mmol/L Blood Urea Nitrogen 23 7-18 mg/dl Creatinine 1.09 0.60-1.20 mg/dl Est Creatinine Clear Calc Drug Dose 35.1 ml/min Estimated GFR () 53.2 Estimated GFR (Non- 45.9 BUN/Creatinine Ratio 20.9 10-20 Random Glucose 251 70-99 mg/dl Estimated Average Glucose 324 mg/dl Hemoglobin A1c 12.9 4.5-5.6 % Calcium Level 7.9 8.5-10.1 mg/dl Phosphorus Level 1.8 2.5-4.9 mg/dl Magnesium Level 2.0 1.8-2.4 mg/dl Test 09/15/17 10:13 09/15/17 11:02 09/15/17 11:58 09/15/17 12:52 Range/Units Bedside Glucose 184 205 211 70-90 mg/dl Venous Blood pH 7.44 7.36-7.41 Sodium Level 137 136-145 mmol/L Potassium Level 4.1 3.5-5.1 mmol/L Chloride Level 107 98-107 mmol/L Carbon Dioxide Level 23 21-32 mmol/L Anion Gap 7.0 3-11 mmol/L Blood Urea Nitrogen 21 7-18 mg/dl Creatinine 1.00 0.60-1.20 mg/dl Est Creatinine Clear Calc Drug Dose 38.2 ml/min Estimated GFR () 59.1 Estimated GFR (Non- 51.0 BUN/Creatinine Ratio 21.1 10-20 Random Glucose 205 70-99 mg/dl Lactic Acid Level 3.4 0.4-2.0 mmol/L Calcium Level 7.7 8.5-10.1 mg/dl Phosphorus Level 1.7 2.5-4.9 mg/dl Magnesium Level 2.0 1.8-2.4 mg/dl Test 09/15/17 13:17 09/15/17 13:59 Range/Units Bedside Glucose 203 154 70-90 mg/dl
--- NOTE | 2017-09-15 14:46 | Pharmacy Progress Note ---
Pharmacy Antibiotic Consult Date of Service: Sep 15, 2017. Pharmacy Dosing Scope Pharmacy is consulted to initiate Vancomycin IV dosing therapy, order appropriate labs and adjust drug dose/frequency. Subjective The patient is a 87 year old female admitted on Sep 14, 2017 at 15:49. Objective Height (Feet): 5 Height (Inches): 1.00 Weight (Kilograms): 78.200 Lab Results (24hrs): Test 09/14/17 14:45 09/14/17 14:46 09/14/17 14:56 09/14/17 16:24 Estimated Average Glucose 315 mg/dl Hemoglobin A1c 12.6 % (4.5-5.6) Procalcitonin 0.12 ng/ml (0-0.5) White Blood Count 8.81 K/uL (4.8-10.8) Red Blood Count 4.92 M/uL (4.2-5.4) Hemoglobin 14.5 g/dL (12.0-16.0) Hematocrit 41.4 % (37-47) Mean Corpuscular Volume 84.1 fL (80-100) Mean Corpuscular Hemoglobin 29.5 pg (25-34) Mean Corpuscular Hemoglobin Concent 35.0 g/dl (32-36) Platelet Count 249 K/uL (130-400) Mean Platelet Volume 10.6 fL (7.4-10.4) Neutrophils (%) (Auto) 74.0 % Lymphocytes (%) (Auto) 15.7 % Monocytes (%) (Auto) 9.2 % Eosinophils (%) (Auto) 0.6 % Basophils (%) (Auto) 0.3 % Neutrophils # (Auto) 6.52 K/uL (1.4-6.5) Lymphocytes # (Auto) 1.38 K/uL (1.2-3.4) Monocytes # (Auto) 0.81 K/uL (0.11-0.59) Eosinophils # (Auto) 0.05 K/uL (0-0.5) Basophils # (Auto) 0.03 K/uL (0-0.2) RDW Standard Deviation 45.7 fL (36.4-46.3) RDW Coefficient of Variation 14.8 % (11.5-14.5) Immature Granulocyte % (Auto) 0.2 % Immature Granulocyte # (Auto) 0.02 K/uL (0.00-0.02) Prothrombin Time 50.1 SECONDS (9.0-12.0) Prothromb Time International Ratio 4.9 (0.9-1.1) Activated Partial Thromboplast Time 46.5 SECONDS (21.0-31.0) Partial Thromboplastin Ratio 1.8 Venous Blood pH 7.41 (7.36-7.41) Venous Blood Partial Pressure CO2 44 mmHg (38.0-50.0) Venous Blood Partial Pressure O2 31 mmHg Venous Blood HCO3 28 mmol/L Venous Blood Oxygen Saturation 60.7 % Venous Blood Base Excess 2.5 mEq/L Total Bilirubin 0.8 mg/dl (0.2-1) Aspartate Amino Transf (AST/SGOT) 14 U/L (15-37) Alanine Aminotransferase (ALT/SGPT) 26 U/L (12-78) Alkaline Phosphatase 199 U/L (45-117) Troponin I 0.030 ng/ml (0-0.045) Pro-B-Type Natriuretic Peptide 1202 pg/ml (0-1800) Total Protein 7.6 gm/dl (6.4-8.2) Albumin 3.1 gm/dl (3.4-5.0) Globulin 4.5 gm/dl (2.5-4.0) Albumin/Globulin Ratio 0.7 (0.9-2) Beta-Hydroxybutyric Acid 8.85 mg/dL (0.2-2.81) Digoxin Level 0.9 ng/ml (0.8-2.0) Bedside Lactic Acid Venous 3.85 mmol/L (0.90-1.70) Arterial Blood pH 7.47 (7.35-7.45) Arterial Blood Partial Pressure CO2 35 mmHg (35-46) Arterial Blood Partial Pressure O2 85 mm/Hg (80-95) Arterial Blood HCO3 25 mmol/L (19-24) Arterial Blood Oxygen Saturation 96.9 % (90-95) Arterial Blood Base Excess 1.6 mEq/L (-9-1.8) Arterial Blood Gas Delivery ROOM AIR Kamlesh Test POS (POS) Test 09/15/17 03:39 09/15/17 08:28 09/15/17 12:52 09/15/17 13:17 White Blood Count 9.11 K/uL (4.8-10.8) Red Blood Count 4.52 M/uL (4.2-5.4) Hemoglobin 12.9 g/dL (12.0-16.0) Hematocrit 38.2 % (37-47) Mean Corpuscular Volume 84.5 fL (80-100) Mean Corpuscular Hemoglobin 28.5 pg (25-34) Mean Corpuscular Hemoglobin Concent 33.8 g/dl (32-36) RDW Standard Deviation 45.7 fL (36.4-46.3) RDW Coefficient of Variation 14.8 % (11.5-14.5) Platelet Count 217 K/uL (130-400) Mean Platelet Volume 10.6 fL (7.4-10.4) Prothrombin Time 51.5 SECONDS (9.0-12.0) Prothromb Time International Ratio 5.1 (0.9-1.1) Lactic Acid Level 2.6 mmol/L (0.4-2.0) 3.4 mmol/L (0.4-2.0) Total Bilirubin 0.6 mg/dl (0.2-1) Direct Bilirubin 0.2 mg/dl (0-0.2) Aspartate Amino Transf (AST/SGOT) 13 U/L (15-37) Alanine Aminotransferase (ALT/SGPT) 20 U/L (12-78) Alkaline Phosphatase 144 U/L (45-117) Total Protein 5.9 gm/dl (6.4-8.2) Albumin 2.3 gm/dl (3.4-5.0) Globulin 3.6 gm/dl (2.5-4.0) Albumin/Globulin Ratio 0.6 (0.9-2) Beta-Hydroxybutyric Acid 2.08 mg/dL (0.2-2.81) Venous Blood pH 7.43 (7.36-7.41) 7.44 (7.36-7.41) Sodium Level 138 mmol/L (136-145) 137 mmol/L (136-145) Potassium Level 4.0 mmol/L (3.5-5.1) 4.1 mmol/L (3.5-5.1) Chloride Level 106 mmol/L (98-107) 107 mmol/L (98-107) Carbon Dioxide Level 25 mmol/L (21-32) 23 mmol/L (21-32) Anion Gap 7.0 mmol/L (3-11) 7.0 mmol/L (3-11) Blood Urea Nitrogen 23 mg/dl (7-18) 21 mg/dl (7-18) Creatinine 1.09 mg/dl (0.60-1.20) 1.00 mg/dl (0.60-1.20) Est Creatinine Clear Calc Drug Dose 35.1 ml/min 38.2 ml/min Estimated GFR () 53.2 59.1 Estimated GFR (Non- 45.9 51.0 BUN/Creatinine Ratio 20.9 (10-20) 21.1 (10-20) Random Glucose 251 mg/dl (70-99) 205 mg/dl (70-99) Estimated Average Glucose 324 mg/dl Hemoglobin A1c 12.9 % (4.5-5.6) Calcium Level 7.9 mg/dl (8.5-10.1) 7.7 mg/dl (8.5-10.1) Phosphorus Level 1.8 mg/dl (2.5-4.9) 1.7 mg/dl (2.5-4.9) Magnesium Level 2.0 mg/dl (1.8-2.4) 2.0 mg/dl (1.8-2.4) Bedside Glucose 203 mg/dl (70-90) Test 09/15/17 13:59 Bedside Glucose 154 mg/dl (70-90) Assessment & Plan Assessment 87 year old with poorly controlled DM, Stage III CKD, chronic B LE cellulitis presented to [facility] with confusion and fatigue. C/o polyuria and polydipsia for a few days. Recently treated with doxycycline. Vancomycin and cefepime dosing per pharmacy for sepsis secondary to cellulitis/ UTI. * Urine culture with gram negative bacilli * Nasal swab negative for MRSA. * Renal function at baseline. * History of pseudomonas in leg wound Plan Vancomycin: * Pt received a 1500mg (19mg/kg) Loading dose in the ER * She was then re-loaded with 1750mg (22.4mg/kg) 5 hours later erroneously * With her given kidney disease, no further doses will be ordered until vanc level drops below 20. * Random vanc level ordered for tomorrow am with labs. * Goal trough for sepsis with cellulitis source: 15-20 mcg/mL Cefepime * 2 gm q 24 hours * Dose adjusted for crcl 30-60 ml/min * Target dose 2 gm q 12 hours Pharmacy will continue to follow and will adjust dose/frequency as necessary. Thank you
--- NOTE | 2017-09-15 14:47 | Pharmacy Progress Note ---
Glycemic Control Intl Consult Date of Service Sep 15, 2017. Scope Glycemic Pharmacist consulted by Dr Levi on 09/14/17 for glycemic control and to write orders per [facility] inpatient glycemic control protocol Objective Weight (Kilograms): 78.200 Accuchecks BSG (last 24hrs): Test 09/14/17 14:46 09/14/17 14:55 09/14/17 16:53 09/14/17 18:48 Random Glucose 516 mg/dl (70-99) Bedside Glucose 489 mg/dl (70-90) 506 mg/dl (70-90) 355 mg/dl (70-90) Test 09/14/17 19:56 09/14/17 20:17 09/14/17 20:49 09/14/17 22:08 Bedside Glucose 325 mg/dl (70-90) 362 mg/dl (70-90) 303 mg/dl (70-90) Random Glucose 270 mg/dl (70-99) Test 09/14/17 23:07 09/14/17 23:53 09/15/17 00:02 09/15/17 01:11 Bedside Glucose 295 mg/dl (70-90) 292 mg/dl (70-90) 222 mg/dl (70-90) Random Glucose 287 mg/dl (70-99) Test 09/15/17 01:31 09/15/17 01:45 09/15/17 02:05 09/15/17 03:07 Bedside Glucose 214 mg/dl (70-90) 242 mg/dl (70-90) 238 mg/dl (70-90) 255 mg/dl (70-90) Test 09/15/17 03:39 09/15/17 03:58 09/15/17 05:01 09/15/17 05:58 Random Glucose 216 mg/dl (70-99) Bedside Glucose 174 mg/dl (70-90) 237 mg/dl (70-90) 262 mg/dl (70-90) Test 09/15/17 07:04 09/15/17 07:57 09/15/17 08:28 09/15/17 09:22 Bedside Glucose 243 mg/dl (70-90) 256 mg/dl (70-90) 186 mg/dl (70-90) Random Glucose 251 mg/dl (70-99) Test 09/15/17 10:13 09/15/17 11:02 09/15/17 11:58 09/15/17 12:52 Bedside Glucose 184 mg/dl (70-90) 205 mg/dl (70-90) 211 mg/dl (70-90) Random Glucose 205 mg/dl (70-99) Test 09/15/17 13:17 09/15/17 13:59 Bedside Glucose 203 mg/dl (70-90) 154 mg/dl (70-90) Laboratory Data (last 24hrs) Test 09/14/17 14:45 09/14/17 14:46 09/14/17 20:17 09/14/17 23:53 Hemoglobin A1c 12.6 % Anion Gap 10.0 mmol/L 10.0 mmol/L 7.0 mmol/L BUN/Creatinine Ratio 23.4 21.7 25.7 Blood Urea Nitrogen 33 mg/dl 28 mg/dl 27 mg/dl Creatinine 1.41 mg/dl 1.30 mg/dl 1.06 mg/dl Potassium Level 4.0 mmol/L 3.6 mmol/L 3.7 mmol/L Sodium Level 136 mmol/L 139 mmol/L 139 mmol/L White Blood Count 8.81 K/uL Red Blood Count 4.92 M/uL Hemoglobin 14.5 g/dL Hematocrit 41.4 % Mean Corpuscular Volume 84.1 fL Mean Corpuscular Hemoglobin 29.5 pg Mean Corpuscular Hemoglobin Concent 35.0 g/dl Platelet Count 249 K/uL Mean Platelet Volume 10.6 fL Neutrophils (%) (Auto) 74.0 % Lymphocytes (%) (Auto) 15.7 % Monocytes (%) (Auto) 9.2 % Eosinophils (%) (Auto) 0.6 % Basophils (%) (Auto) 0.3 % Neutrophils # (Auto) 6.52 K/uL Lymphocytes # (Auto) 1.38 K/uL Monocytes # (Auto) 0.81 K/uL Eosinophils # (Auto) 0.05 K/uL Basophils # (Auto) 0.03 K/uL Test 09/15/17 03:39 09/15/17 08:28 09/15/17 12:52 Anion Gap 6.0 mmol/L 7.0 mmol/L 7.0 mmol/L BUN/Creatinine Ratio 25.3 20.9 21.1 Blood Urea Nitrogen 26 mg/dl 23 mg/dl 21 mg/dl Creatinine 1.01 mg/dl 1.09 mg/dl 1.00 mg/dl Potassium Level 3.8 mmol/L 4.0 mmol/L 4.1 mmol/L Sodium Level 139 mmol/L 138 mmol/L 137 mmol/L White Blood Count 9.11 K/uL Hemoglobin A1c 12.9 % HbA1c Test 09/15/17 08:28 Hemoglobin A1c 12.9 % (4.5-5.6) H Recent Pertinent Medications Outpatient Anti-diabetic Regimen: * Novolog 70/30 - 30 units in the morning (prescribed twice daily) * A1c = 12.9 % 09/15/17 The patient is currently receiving: * Basal insulin: Lantus -- units every -- hours * Correctional Insulin: Novolog Correction per scale ACHS Goal Range: Low 140 mg/dL - High 180 mg/dL Correction Factor: -- mg/dL/unit * Prandial insulin: Per carb ratio of 1 unit per -- grams CHO consumed * Insulin infusion : rates ranging from 1.4-2.3 units/hr Risk Factors for Insulin Resistance: * Infection: empiric sepsis treatment- cefepime and vancomycin * Diet: type 2 diabetic diet Assessment & Plan ASSESSMENT: * Ms Ayesha Rose is an 87 y/o F from home who has a PMH of dementia, Afib, HF, HTN, hypothyroidism, and uncontrolled type 2 diabetes (HbA1C goal range is around 8-8.5% per the Elements of Diabetes Care Scoring Scale). She presents with hyperglycemia, possibly HHS, and sepsis. Patient was initially started on an insulin infusion yesterday and was gently re-hydrated. * Since the patient was very noncompliant at home and her HbA1C is very uncontrolled, weight-based strategy was utilized. Used a full weight-based stress of 2 Lantus dose to "load" patient. Insulin infusion was instructing nursing to hold 3 hours after given so it was discontinued. For the evening, provided a scale of 0, 10, and 15 units (about weight-based stress of 1 and 2) in case the patient had hyperglycemia and resistance after the infusion was turned off. * For Novolog, utilized weight-based stress of 2 dosing as a starting point. Overnight-accucheck at 0200 added to ensure 24 hour coverage. * ADA & AACE recommend a goal blood sugar range 140-180 mg/dl for the majority of critically ill & non-critically ill patients. PLAN FOR INPATIENT GLYCEMIC CONTROL: * Basal insulin with LANTUS 30 units SQ x 1 then 0-15 units tonight SQ (0 units for BSG less than 140 mg/dL and 15 units for BSG 180 mg/dL or greater) * Correctional Insulin with NOVOLOG per scale ACHS or Q6hrs while NPO * Goal Range: Low 140 mg/dL - High 180 mg/dL * Correction Factor: 30 mg/dL/unit * Nutritional / Prandial insulin per carb ratio of 1 unit per 10 grams CHO consumed * Please note that the plan above was derived based on current level of insulin resistance and hospital stress. These recommendations are appropriate for inpatient admission only. Plan of care upon discharge will need to be reassessed to avoid potential outpatient hypo/hyperglycemia. Thank you.
[2017-09-15 15:01] VITALS: BP 127/76; PULSE 87; TEMP 36.7; O2SAT 99
[2017-09-15] MEDS: DIGOXIN 0.125 MG TAB PO SCH (17:17)
[2017-09-15] MEDS: CEFEPIME IV 2,000 MG in SYRINGE 7.5 ML IV SCH (18:05)
[2017-09-15 19:09] VITALS: BP 124/73; PULSE 91; TEMP 37.1; O2SAT 96
[2017-09-15] MEDS ORDERED: INSULIN GLARGINE SOLOSTAR 100 UNITS/ML 3 ML PEN SC SCH (21:00)
[2017-09-15 23:43] VITALS: BP 126/72; PULSE 95; TEMP 37.1; O2SAT 97
[2017-09-16] MEDS ORDERED: VANCOMYCIN INJ 1,250 MG in SODIUM CHLORIDE 0.9% 250ML 250 ML IV SCH (02:00)
[2017-09-16] MEDS ORDERED: INSULIN ASPART 100 UNITS/ML 3 ML PEN SC SCH (02:00)
[2017-09-16 03:13] VITALS: BP 118/76; PULSE 87; TEMP 36.5; O2SAT 97
[2017-09-16] MEDS: LEVOTHYROXINE 200 MCG TAB PO SCH (05:49)
[2017-09-16 06:58] LABS: HEMATOCRIT 40.2 % (37-47); HEMOGLOBIN 13.5 g/dL (12.0-16.0); MEAN CELL VOLUME 84.8 fL (80-100); MEAN CORPUSCULAR HEMOGLOBIN 28.5 pg (25-34); MEAN CORPUSCULAR HGB CONC 33.6 g/dl (32-36); MEAN PLATELET VOLUME 10.3 fL (7.4-10.4); PLATELET COUNT 196 K/uL (130-400); RED CELL DISTRIBUTION WIDTH CV 15.3 % (11.5-14.5); RED CELL DISTRIBUTION WIDTH SD 47.2 fL (36.4-46.3)
[2017-09-16 07:02] LABS: INR 3.1 (0.9-1.1)
[2017-09-16 07:10] VITALS: BP 174/79; PULSE 90; TEMP 37; O2SAT 97
[2017-09-16 07:37] LABS: ALBUMIN 2.1 gm/dl (3.4-5.0); CALCIUM 7.7 mg/dl (8.5-10.1); CREATININE 0.83 mg/dl (0.60-1.20); PHOSPHORUS 2.3 mg/dl (2.5-4.9); POTASSIUM 4.1 mmol/L (3.5-5.1); TOTAL PROTEIN 5.6 gm/dl (6.4-8.2)
[2017-09-16] MEDS: DOCUSATE SODIUM/SENNA 50/8.6MG TAB PO SCH (07:47)
[2017-09-16] MEDS: CALCIUM 600MG + VIT D 400 IU TAB PO SCH (08:06)
[2017-09-16] MEDS: METOPROLOL SUCC 25MG EXT REL TAB PO SCH (08:06)
[2017-09-16] MEDS: INSULIN ASPART 100 UNITS/ML 3 ML PEN SC SCH ×4 (08:07→20:47)
[2017-09-16] MEDS: INSULIN GLARGINE SOLOSTAR 100 UNITS/ML 3 ML PEN SC SCH ×2 (08:08→20:45)
--- NOTE | 2017-09-16 08:41 | Pharmacy Progress Note ---
Pharmacy Abx Dose Short Note Date of Service Sep 16, 2017. Assessment & Plan Assessment 87 year old female receiving Vancomycin and cefepime for treatment of cellulitis , UTI and related sepsis. Day # 2 of antimicrobial therapy. Urine culture resulted with pansensitive E coli, would recommend de-escalation of cefepime to rocephin or keflex. Plan Vancomycin * Random level of 16.6 mcg/mL is therapeutic. * Will initiate dosing of 1250 mg (16mg/kg) IV every 20 hours * Goal trough level : 15 to 20 mcg/mL * Trough level ordered for: 09/18 @0030 Pharmacy will continue to follow and will adjust dose/frequency as necessary. Thank you.
[2017-09-16] MEDS: VANCOMYCIN INJ 1,250 MG in SODIUM CHLORIDE 0.9% 250ML 250 ML IV SCH (09:08)
[2017-09-16 12:05] VITALS: BP 140/84; PULSE 79; TEMP 36.9; O2SAT 96
--- NOTE | 2017-09-16 13:24 | Progress Note ---
Internal Med Progress Note Date of Service: Sep 16, 2017. Provider Documentation: SUBJECTIVE: The patient was seen and examined Feels Much better Complains of high Sugar .No other complaints No other issues OBJECTIVE: Vital Signs-as noted below Exam: General-no distress at rest Eyes-normal ENT-normal Neck-supple Lungs-Clear Heart-regular,no murmur Abdomen-Benign,no masses Extremities-No edema Legs are bandaged Neuro-AAOx3 Lab data as noted below. ASSESSMENT & PLAN: HYPERGLYCEMIA /HHS /POORLY CONTROLLED DM : -presents with symptomatic polyuria /polydipsia/fatigue /confusion -has not be taking Insulin 70/30 as directed -started on IV insulin 5 U in ER , then started on IV insulin gtt -aggressive hydration as pt is clinically dry -last Acc in 06/2017 > 11) and 12.9 now -diabetes education -appreciate Pharmacy input Bilateral lower ext cellulitis , empiric Abx with vanco/Primaxin ( allergy to PCN noted ) -blood culture ordered -+ UA + ve ,Culture -E Coli-pansensitive -continue current antibiotic CONFUSION /LETHARGY /METABOLIC ENCEPHALOPATHY : -due to combination of HHS, infection , dehydration , UTI -no focal neurological deficit noted -clinically much better CHERYL ON CKD STAGE 3 : -due to above -cont IV hydration per [facility] protocol -follow BMP -improving renal function Normalized SEPSIS DUE TO BILATERAL LOWER EXT CELLULITIS -meets criteria for sepsis -presents with tachycardia /rapid Afib /CHERYL / confusion /elevated lactic acid -source of infection either bilat lower ext cellulitis /UTI -cont IV resuscitation , empiric broad spectrum Abx , follow culture report -ID eval requested -awaiting input HTN : hold diuretics /ARB on beta roberto IVF fluids for dehydration /CHERYL HX OF AFIB ON COUMADIN : in rapid Afib for dehydration /infection cont Beta roberto and Digoxin Dig level therapeutic Coagulopathy due to sepsis Coumadin on hold follow daily INR FULL CODE DVT PROPHYLAXIS : INR elevated DISPOSITION : -will need PT/OT eval for significant deconditioning -will benefit with home health visiting nurse as pt need assistance /direction for medication /insulin dose Vital Signs: Date Time Temp Pulse Resp B/P (MAP) Pulse Ox O2 Delivery O2 Flow Rate FiO2 09/16/17 12:05 36.9 79 20 140/84 (102) 96 Room Air 09/16/17 12:00 Room Air 09/16/17 08:00 Room Air 09/16/17 07:10 37.0 90 18 174/79 (110) 97 Room Air 09/16/17 04:00 Room Air 09/16/17 03:13 36.5 87 20 118/76 (90) 97 Room Air 09/16/17 00:02 Room Air 09/15/17 23:43 37.1 95 19 126/72 (90) 97 Room Air 09/15/17 20:00 Room Air 09/15/17 19:09 37.1 91 20 124/73 (90) 96 Room Air 09/15/17 17:17 97 09/15/17 16:00 Room Air 09/15/17 15:01 36.7 87 18 127/76 (93) 99 Room Air Lab Results: Results Past 24 Hours Test 09/15/17 13:59 09/15/17 15:05 09/15/17 16:10 09/15/17 17:11 Range/Units Bedside Glucose 154 118 124 148 70-90 mg/dl Test 09/15/17 21:00 09/16/17 02:07 09/16/17 06:14 09/16/17 06:47 Range/Units Bedside Glucose 223 84 95 70-90 mg/dl White Blood Count 8.10 4.8-10.8 K/uL Red Blood Count 4.74 4.2-5.4 M/uL Hemoglobin 13.5 12.0-16.0 g/dL Hematocrit 40.2 37-47 % Mean Corpuscular Volume 84.8 80-100 fL Mean Corpuscular Hemoglobin 28.5 25-34 pg Mean Corpuscular Hemoglobin Concent 33.6 32-36 g/dl RDW Standard Deviation 47.2 36.4-46.3 fL RDW Coefficient of Variation 15.3 11.5-14.5 % Platelet Count 196 130-400 K/uL Mean Platelet Volume 10.3 7.4-10.4 fL Prothrombin Time 31.7 9.0-12.0 SECONDS Prothromb Time International Ratio 3.1 0.9-1.1 Sodium Level 141 136-145 mmol/L Potassium Level 4.1 3.5-5.1 mmol/L Chloride Level 111 98-107 mmol/L Carbon Dioxide Level 23 21-32 mmol/L Anion Gap 7.0 3-11 mmol/L Blood Urea Nitrogen 17 7-18 mg/dl Creatinine 0.83 0.60-1.20 mg/dl Est Creatinine Clear Calc Drug Dose 46.6 ml/min Estimated GFR () 74.0 Estimated GFR (Non- 63.9 BUN/Creatinine Ratio 20.5 10-20 Random Glucose 113 70-99 mg/dl Calcium Level 7.7 8.5-10.1 mg/dl Phosphorus Level 2.3 2.5-4.9 mg/dl Magnesium Level 2.1 1.8-2.4 mg/dl Total Bilirubin 0.8 0.2-1 mg/dl Direct Bilirubin 0.2 0-0.2 mg/dl Aspartate Amino Transf (AST/SGOT) 18 15-37 U/L Alanine Aminotransferase (ALT/SGPT) 19 12-78 U/L Alkaline Phosphatase 130 45-117 U/L Total Protein 5.6 6.4-8.2 gm/dl Albumin 2.1 3.4-5.0 gm/dl Globulin 3.5 2.5-4.0 gm/dl Albumin/Globulin Ratio 0.6 0.9-2 Thyroid Stimulating Hormone (TSH) 13.700 0.300-4.500 uIu/ml Random Vancomycin Level 16.6 mcg/ml Test 09/16/17 10:47 09/16/17 11:08 Range/Units Thyroxine (T4) 5.4 4.5-10.9 mcg/dl Free Triiodothyronine 1.41 2.30-4.20 pg/ml Bedside Glucose 153 70-90 mg/dl
--- NOTE | 2017-09-16 13:39 | Pharmacy Progress Note ---
Pharmacy Glycemic Short Note 2 Date of Service Sep 16, 2017. OUTPATIENT ANTIDIABETIC REGIMEN: * Novolog 70/30- 30 units in the morning * HbA1C = 12.9% ASSESSMENT: * Yesterday, Ms Ayesha Rose was titrated off an insulin infusion. She received 45 units of Lantus and an additional 15 units of Novolog for a total of 60 units plus infusion infusion discontinued at 1430. * Fasting this morning was 95 mg/dL. Estimate that the patient is stable on a total daily dose of Lantus 30 as this was the amount that successfully discontinued the infusion yesterday after only 3 hours and also produced a fasting blood sugar of 95 mg/dL this morning. Scheduled Lantus 15 units twice daily. * For Novolog, weight-based stress of 2 was ordered yesterday. It did not appear effective as the patient's blood sugar increased significantly after dinner to 223 mg/dL.... I suspect this is secondary to insulin resistance. Continue this Novolog for today to establish it's true effectiveness. Fasting blood sugar today was 95 mg/dL and lunch was 153 mg/dL which is respectable. Expect patient to feel hypoglycemic at normal blood sugars secondary to high HbA1C therefore okay with higher blood sugars. * Ms Ayesha Rose is an 87 y/o F from home who has a PMH of dementia, Afib, HF, HTN, hypothyroidism, and uncontrolled type 2 diabetes (HbA1C goal range is around 8-8.5% per the Elements of Diabetes Care Scoring Scale). She presents with hyperglycemia, possibly HHS, and sepsis. Patient was initially started on an insulin infusion yesterday and was gently re-hydrated. * Since the patient was very noncompliant at home and her HbA1C is very uncontrolled, weight-based strategy was utilized. Used a full weight-based stress of 2 Lantus dose to "load" patient. Insulin infusion was instructing nursing to hold 3 hours after given so it was discontinued. For the evening, provided a scale of 0, 10, and 15 units (about weight-based stress of 1 and 2) in case the patient had hyperglycemia and resistance after the infusion was turned off. * For Novolog, utilized weight-based stress of 2 dosing as a starting point. Overnight-accucheck at 0200 added to ensure 24 hour coverage. * ADA & AACE recommend a goal blood sugar range 140-180 mg/dl for the majority of critically ill & non-critically ill patients. PLAN FOR INPATIENT GLYCEMIC CONTROL: * Basal insulin * Lantus 15 units SQ BID * Bolus insulin * NovoLog per scale ACHS or Q6hrs while NPO * Goal Range: Low 110 mg/dL - High 140 mg/dL * Correction Factor: 30 mg/dL/unit * Nutritional / Prandial insulin per carb ratio of 1 unit per 8 grams CHO consumed PLAN FOR DISCHARGE: * Patient's HbA1C is extremely uncontrolled... counseling is important for her caregiver. Patient may be a better candidate for Lantus as this is a once daily injection rather than twice daily like Novolog 70/30.
[2017-09-16 15:30] VITALS: Ht 154.9 cm; Wt 79.9 kg
[2017-09-16 15:51] VITALS: BP 156/84; PULSE 86; TEMP 36.2; O2SAT 99
[2017-09-16] MEDS: DIGOXIN 0.125 MG TAB PO SCH (16:44)
[2017-09-16] MEDS: CEFEPIME IV 2,000 MG in SYRINGE 7.5 ML IV SCH (17:36)
[2017-09-16 19:22] VITALS: BP 164/74; PULSE 90; TEMP 36.9; O2SAT 98
[2017-09-16] MEDS: NSS + 20MEQ KCL 1000ML 1,000 ML IV SCH (20:37)
[2017-09-16 23:06] VITALS: BP 138/84; PULSE 86; TEMP 36.4; O2SAT 98
[2017-09-17] VITALS (10 sets, daily range): BP systolic 134–176; BP diastolic 73–103; PULSE 83–92; TEMP 36.4–37; O2SAT 96–99
[2017-09-17] MEDS: VANCOMYCIN INJ 1,250 MG in SODIUM CHLORIDE 0.9% 250ML 250 ML IV SCH (05:10)
[2017-09-17] MEDS: LEVOTHYROXINE 200 MCG TAB PO SCH (05:11)
[2017-09-17 05:53] LABS: HEMATOCRIT 41.1 % (37-47); HEMOGLOBIN 13.8 g/dL (12.0-16.0); MEAN CELL VOLUME 84.9 fL (80-100); MEAN CORPUSCULAR HEMOGLOBIN 28.5 pg (25-34); MEAN CORPUSCULAR HGB CONC 33.6 g/dl (32-36); MEAN PLATELET VOLUME 10.3 fL (7.4-10.4); PLATELET COUNT 179 K/uL (130-400); RED CELL DISTRIBUTION WIDTH CV 15.3 % (11.5-14.5); RED CELL DISTRIBUTION WIDTH SD 47.2 fL (36.4-46.3); WHITE BLOOD COUNT 7.85 K/uL (4.8-10.8)
[2017-09-17 06:26] LABS: ALBUMIN 2.1 gm/dl (3.4-5.0); CALCIUM 7.7 mg/dl (8.5-10.1); CREATININE 0.8 mg/dl (0.60-1.20); POTASSIUM 4.2 mmol/L (3.5-5.1)
[2017-09-17 06:29] LABS: PHOSPHORUS 2.5 mg/dl (2.5-4.9); TOTAL PROTEIN 5.8 gm/dl (6.4-8.2)
[2017-09-17 06:30] LABS: INR 1.8 (0.9-1.1)
[2017-09-17] MEDS: CALCIUM 600MG + VIT D 400 IU TAB PO SCH (08:29)
[2017-09-17] MEDS: DOCUSATE SODIUM/SENNA 50/8.6MG TAB PO SCH (08:29)
[2017-09-17] MEDS: METOPROLOL SUCC 25MG EXT REL TAB PO SCH (08:29)
[2017-09-17] MEDS: INSULIN ASPART 100 UNITS/ML 3 ML PEN SC SCH ×4 (08:35→20:59)
[2017-09-17] MEDS: INSULIN GLARGINE SOLOSTAR 100 UNITS/ML 3 ML PEN SC SCH ×2 (08:36→21:00)
[2017-09-17] MEDS: NSS + 20MEQ KCL 1000ML 1,000 ML IV SCH (10:50)
--- NOTE | 2017-09-17 12:24 | Progress Note ---
Internal Med Progress Note Date of Service: Sep 17, 2017. Provider Documentation: SUBJECTIVE: The patient was seen and examined Feels Much better Complains of high Sugar .No other complaints No other issues-denies any urinary symptoms Generally weak but no other issue OBJECTIVE: Vital Signs-as noted below Exam: General-no distress at rest Eyes-normal ENT-normal Neck-supple Lungs-Clear Heart-regular,no murmur Abdomen-Benign,no masses Extremities-No edema Legs are bandaged Neuro-AAOx3 Lab data as noted below. ASSESSMENT & PLAN: HYPERGLYCEMIA /HHS /POORLY CONTROLLED DM : -presents with symptomatic polyuria /polydipsia/fatigue /confusion -has not be taking Insulin 70/30 as directed -started on IV insulin 5 U in ER , then started on IV insulin gtt -aggressive hydration as pt is clinically dry -last Acc in 06/2017 > 11) and 12.9 now -diabetes education -appreciate Pharmacy input -Blood sugar is controlled Bilateral lower ext cellulitis , empiric Abx with vanco/Primaxin ( allergy to PCN noted ) -blood culture ordered -+ UA + ve ,Culture -E Coli-pansensitive -continue current antibiotic -Will adjust antibiotic after reviewing the leg cellulitis CONFUSION /LETHARGY /METABOLIC ENCEPHALOPATHY : -due to combination of HHS, infection , dehydration , UTI -no focal neurological deficit noted -clinically much better -resolved CHERYL ON CKD STAGE 3 : -due to above -cont IV hydration per [facility] protocol -follow BMP -improving renal function Normalized SEPSIS DUE TO BILATERAL LOWER EXT CELLULITIS -meets criteria for sepsis -presents with tachycardia /rapid Afib /CHERYL / confusion /elevated lactic acid -source of infection either bilat lower ext cellulitis /UTI -cont IV resuscitation , empiric broad spectrum Abx , follow culture report -ID evaluation requested -awaiting input HTN : hold diuretics /ARB on beta roberto IVF fluids for dehydration /CHERYL HX OF AFIB ON COUMADIN : in rapid Afib for dehydration /infection cont Beta roberto and Digoxin Dig level therapeutic Coagulopathy due to sepsis Coumadin on hold follow daily INR FULL CODE DVT PROPHYLAXIS : INR elevated 1.8 on 09/17/17 Start Coumadin DISPOSITION : -will need PT/OT eval for significant deconditioning -will benefit with home health visiting nurse as pt need assistance /direction for medication /insulin dose -will need rehab Vital Signs: Date Time Temp Pulse Resp B/P (MAP) Pulse Ox O2 Delivery O2 Flow Rate FiO2 09/17/17 11:47 36.8 90 20 96 09/17/17 11:30 36.4 84 20 154/91 (112) 98 Room Air 09/17/17 08:30 Room Air 09/17/17 07:30 36.8 90 20 165/103 (123) 96 Room Air 09/17/17 04:00 Room Air 09/17/17 03:10 36.9 85 19 134/73 (93) 98 Room Air 09/17/17 00:02 Room Air 09/16/17 23:06 36.4 86 18 138/84 (102) 98 Room Air 09/16/17 20:00 Room Air 09/16/17 19:22 36.9 90 18 164/74 (104) 98 Room Air 09/16/17 16:44 95 09/16/17 16:00 Room Air 09/16/17 15:51 36.2 86 20 156/84 (108) 99 Room Air Lab Results: Results Past 24 Hours Test 09/16/17 16:32 09/16/17 20:47 09/17/17 05:33 09/17/17 05:39 Range/Units Bedside Glucose 102 113 70-90 mg/dl White Blood Count 7.85 4.8-10.8 K/uL Red Blood Count 4.84 4.2-5.4 M/uL Hemoglobin 13.8 12.0-16.0 g/dL Hematocrit 41.1 37-47 % Mean Corpuscular Volume 84.9 80-100 fL Mean Corpuscular Hemoglobin 28.5 25-34 pg Mean Corpuscular Hemoglobin Concent 33.6 32-36 g/dl RDW Standard Deviation 47.2 36.4-46.3 fL RDW Coefficient of Variation 15.3 11.5-14.5 % Platelet Count 179 130-400 K/uL Mean Platelet Volume 10.3 7.4-10.4 fL Prothrombin Time 18.2 9.0-12.0 SECONDS Prothromb Time International Ratio 1.8 0.9-1.1 Sodium Level 142 136-145 mmol/L Potassium Level 4.2 3.5-5.1 mmol/L Chloride Level 110 98-107 mmol/L Carbon Dioxide Level 27 21-32 mmol/L Anion Gap 5.0 3-11 mmol/L Blood Urea Nitrogen 12 7-18 mg/dl Creatinine 0.80 0.60-1.20 mg/dl Est Creatinine Clear Calc Drug Dose 48.3 ml/min Estimated GFR () 77.4 Estimated GFR (Non- 66.8 BUN/Creatinine Ratio 14.7 10-20 Random Glucose 110 70-99 mg/dl Calcium Level 7.7 8.5-10.1 mg/dl Phosphorus Level 2.5 2.5-4.9 mg/dl Magnesium Level 1.8 1.8-2.4 mg/dl Total Bilirubin 0.7 0.2-1 mg/dl Direct Bilirubin 0.2 0-0.2 mg/dl Aspartate Amino Transf (AST/SGOT) 24 15-37 U/L Alanine Aminotransferase (ALT/SGPT) 21 12-78 U/L Alkaline Phosphatase 132 45-117 U/L Total Protein 5.8 6.4-8.2 gm/dl Albumin 2.1 3.4-5.0 gm/dl Globulin 3.7 2.5-4.0 gm/dl Albumin/Globulin Ratio 0.6 0.9-2 Venous Blood pH 7.45 7.36-7.41 Test 09/17/17 06:31 09/17/17 11:27 Range/Units Bedside Glucose 121 157 70-90 mg/dl Microbiology Results 09/16/17 C.difficile Toxin B Gene (PCR) - Final, Complete No C. difficile toxin B gene detected
--- NOTE | 2017-09-17 15:31 | Medical Consult ---
Consultation Date of Consultation: Sep 17, 2017. Attending Physician: Bhumika Ko M.D. Reason for Consultation: Sepsis, lower extremity cellulitis History of Present Illness 87-year-old female with history of poorly controlled diabetes mellitus, atrial fibrillation, chronic lower extremity edema who was admitted on September 14 with 1-2 day history of progressively worsening confusion with slurred speech. Also has had increasing leg swelling with weeping from leg wounds. She was brought to the hospital where she was found to have severe hyperglycemia, as well as early sepsis with evidence of lower extremity cellulitis. She was started on broad-spectrum IV antibiotics and treated for hyperglycemia. Blood cultures have been negative, urine culture growing E coli. Patient has been afebrile, has noted some improvement in her lower extremity erythema. Past Medical/Surgical History Medical Problems: (1) A-fib Permanent Comment: On coumadin Status: Chronic (2) Dehydration Status: Acute (3) Hyperglycemia Status: Acute (4) UTI (urinary tract infection) Status: Acute Medical Problems: (1) A-fib (2) Diabetes mellitus, type II (3) Diastolic HF (heart failure) (4) HTN (hypertension) (5) Hypothyroidism (6) Lymphedema (7) Osteoarthritis Family History No significant family history Social History Smoking Status: Former Smoker Drug Use: none Marital Status: Housing Status: lives with significant other Occupation Status: retired Allergies Coded Allergies: GABINO Inhibitors (Verified Allergy, Mild, Cough, 09/14/17) Amoxicillin (Verified Allergy, Mild, RASH, 09/15/17) Current Inpatient Medications Current Inpatient Medications Medications (Trade) Dose Ordered Sig/Ajith Route Start Time Stop Time Status Last Admin Dose Admin Acetaminophen (Tylenol Tab) 650 mg Q4H PRN PO 09/14/17 16:00 10/14/17 15:59 Al Hydrox/Mg Hydrox/Simethicone (Maalox Max Susp) 15 ml Q4H PRN PO 09/14/17 16:00 10/14/17 15:59 Magnesium Hydroxide (Milk Of Magnesia Susp) 30 ml Q12H PRN PO 09/14/17 16:00 10/14/17 15:59 Polyethylene (Miralax Powder Packet) 17 gm DAILY PRN PO 09/14/17 16:00 10/14/17 15:59 Miscellaneous Information (Consult Glycemic Management Pharmacy) 1 ea UD PRN N/A 09/14/17 16:00 10/14/17 15:59 Potassium Chloride/Dextrose/ Sod Cl 1,000 ml @ 125 mls/hr Q8H IV 09/14/17 19:15 10/14/17 19:14 Future Hold 09/15/17 04:09 125 MLS/HR Potassium Chloride/Sodium Chloride 1,000 ml @ 75 mls/hr [id number] IV 09/15/17 03:30 10/15/17 03:29 Future hold 09/17/17 10:50 75 MLS/HR Miscellaneous Information (Consult) 1 ea UD PRN N/A 09/15/17 07:15 09/25/17 07:14 Calcium/Vitamin D (Caltrate Plus Tab) 1 tab QAM PO 09/15/17 09:00 10/15/17 08:59 09/17/17 08:29 1 TAB Digoxin (Lanoxin Tab) 0.125 mg DAILY@1600 PO 09/15/17 16:00 10/15/17 15:59 09/16/17 16:44 0.125 MG Levothyroxine Sodium (Synthroid Tab) 200 mcg DAILYBB PO 09/15/17 10:00 10/15/17 09:59 09/17/17 05:11 200 MCG Metoprolol Succinate (Toprol Xl Tab) 25 mg DAILY PO 09/15/17 09:00 10/15/17 08:59 09/17/17 08:29 25 MG Senna/Docusate Sodium (Senokot S Tab) 1 tab QAM PO 09/15/17 09:00 10/15/17 08:59 09/17/17 08:29 1 TAB Insulin Aspart (novoLOG ASPART) SLIDING SCALE ACHS SC 09/15/17 16:15 10/15/17 16:14 09/17/17 11:55 7 UNITS Cefepime HCl 2000 mg/Syringe 20 ml @ 5 mls/min Q24H IV 09/15/17 18:00 09/25/17 17:59 09/16/17 17:36 5 MLS/MIN Insulin Glargine (Lantus Solostar Pen) 15 units BID SC 09/16/17 09:00 10/16/17 08:59 09/17/17 08:36 15 UNITS Vancomycin HCl 1250 mg/Sodium Chloride 275 ml @ 125 mls/hr Q20H IV 09/16/17 09:00 09/25/17 08:59 09/17/17 05:10 125 MLS/HR Review of Systems Constitutional: + weakness, No fever Eyes: No problem reported ENT: No problem reported Respiratory: No problem reported Cardiovascular: No problem reported Abdomen: No problem reported Musculoskeletal: + swelling Genitourinary - Female: No problem reported Neurologic: + problem reported (See HPI) Psychiatric: No problem reported Endocrine: No problem reported Hematologic / Lymphatic: No problem reported Integumentary: + new/changing skin lesions Allergic / Immunologic: No problem reported Physical Exam Date Time Temp Pulse Resp B/P (MAP) Pulse Ox O2 Delivery O2 Flow Rate FiO2 09/17/17 14:50 36.7 83 18 176/94 (121) 99 09/17/17 12:53 37.0 92 18 147/84 (105) 97 Room Air 09/17/17 11:47 36.8 90 20 96 09/17/17 11:30 36.4 84 20 154/91 (112) 98 Room Air 09/17/17 08:30 Room Air 09/17/17 07:30 36.8 90 20 165/103 (123) 96 Room Air 09/17/17 04:00 Room Air 09/17/17 03:10 36.9 85 19 134/73 (93) 98 Room Air 09/17/17 00:02 Room Air 09/16/17 23:06 36.4 86 18 138/84 (102) 98 Room Air 09/16/17 20:00 Room Air 09/16/17 19:22 36.9 90 18 164/74 (104) 98 Room Air 09/16/17 16:44 95 09/16/17 16:00 Room Air 09/16/17 15:51 36.2 86 20 156/84 (108) 99 Room Air General Appearance: WD/WN, no apparent distress Head: normocephalic, atraumatic Eyes: normal inspection, EOMI, sclerae normal ENT: normal ENT inspection, hearing grossly normal, pharynx normal Neck: supple, no adenopathy, thyroid normal, trachea midline Respiratory/Chest: chest non-tender, lungs clear, normal breath sounds, no respiratory distress Cardiovascular: no gallop, no murmur, + irregularly irregular Abdomen/GI: normal bowel sounds, non tender, soft, no organomegaly Back: normal inspection, no CVA tenderness Extremities/Musculoskelatal: no calf tenderness, + inflammation, + swelling Neurologic/Psych: alert, normal mood/affect, oriented x 3 Skin: normal color, no rash, + pertinent finding (Erythema and swelling of both lower extremities below the knee) Lymphatic: no adenopathy Laboratory Results RUN DATE: 09/16/17 [facility] LAB PAGE 1 RUN TIME: 0900 Specimen Inquiry PATIENT: KELLEE CYR LOC: CRaffy2T U # : [id number] AGE/SX: 87/F ROOM: [facility] REG : 09/14/[address]: Bhumika Ko M.D. : 1930 BED: 1 DIS : STATUS: ADM IN TLOC: SPEC #: [id number] CECY: 09/14/17-2121 STATUS: COMP REQ #: [id number] RECD: 09/14/[address]: Jasvir Mao M.D. SOURCE: URINE CATH ENTR: 09/14/17-14[address] [facility] DR: Bobby Shah M.D. [facility]: ORDERED: CULTURE UR CATH Procedure Result Verified Site URINE CULTURE Final 09/16/17-0900 Organism 1 ESCHERICHIA COLI COLONY COUNT >100,000 CFU/ml SENS SENSITIVITY TO FOLLOW 1. ESCHERICHIA COLI Target Route Dose RX AB Cost M.I.C. IQ ------ ----- ------ -- ------ -------- - ------ TRIMET/SULFA S <=2/38 AMPICILLIN S <=8 AMPICILLIN/SUL S <=8/4 CEFAZOLIN S <=8 CEFOXITIN I 16 CEFOTAXIME S <=2 CEFTRIAXONE S <=1 CEFEPIME S <=4 CEFUROXIME I 16 IMIPENEM S <=1 GENTAMICIN S <=4 TOBRAMYCIN S <=4 AMIKACIN S <=16 CIPROFLOXACIN S <=1 LEVOFLOXACIN S <=2 ERTAPENEM S <=1 NITROFURANTOIN S <=32 PIP/TAZO S <=16 S = SENSITIVE I = INTERMEDIATE R = RESISTANT END OF REPORT Last 24 Hours Test 09/16/17 16:32 09/16/17 20:47 09/17/17 05:33 09/17/17 05:39 Bedside Glucose 102 mg/dl 113 mg/dl White Blood Count 7.85 K/uL Red Blood Count 4.84 M/uL Hemoglobin 13.8 g/dL Hematocrit 41.1 % Mean Corpuscular Volume 84.9 fL Mean Corpuscular Hemoglobin 28.5 pg Mean Corpuscular Hemoglobin Concent 33.6 g/dl RDW Standard Deviation 47.2 fL RDW Coefficient of Variation 15.3 % Platelet Count 179 K/uL Mean Platelet Volume 10.3 fL Prothrombin Time 18.2 SECONDS Prothromb Time International Ratio 1.8 Sodium Level 142 mmol/L Potassium Level 4.2 mmol/L Chloride Level 110 mmol/L Carbon Dioxide Level 27 mmol/L Anion Gap 5.0 mmol/L Blood Urea Nitrogen 12 mg/dl Creatinine 0.80 mg/dl Est Creatinine Clear Calc Drug Dose 48.3 ml/min Estimated GFR () 77.4 Estimated GFR (Non- 66.8 BUN/Creatinine Ratio 14.7 Random Glucose 110 mg/dl Calcium Level 7.7 mg/dl Phosphorus Level 2.5 mg/dl Magnesium Level 1.8 mg/dl Total Bilirubin 0.7 mg/dl Direct Bilirubin 0.2 mg/dl Aspartate Amino Transf (AST/SGOT) 24 U/L Alanine Aminotransferase (ALT/SGPT) 21 U/L Alkaline Phosphatase 132 U/L Total Protein 5.8 gm/dl Albumin 2.1 gm/dl Globulin 3.7 gm/dl Albumin/Globulin Ratio 0.6 Venous Blood pH 7.45 Test 09/17/17 06:31 09/17/17 11:27 Bedside Glucose 121 mg/dl 157 mg/dl Patient Name: KELLEE CYR Unit Number: [id number] Dictated: 09/14/171955 Transcribed: 09/14/171955 ARG Printed Date/Time: [~ rep prt dt]/[~ rep prt tm] [~ rep ct labl] - [~ rep ct ivnm] [facility] [place] [address] Dictated: 09/14/171955 Transcribed: 09/14/171955 ARG Printed Date/Time: [~ rep prt dt]/[~ rep prt tm] [~ rep ct labl] - [~ rep ct ivnm] [~ rep ct add3]] ULTRASOUND VENOUS DOPPLER LWR EXT BILA CLINICAL HISTORY: Leg swelling and redness COMPARISON STUDY: No previous studies for comparison. FINDINGS: Real-time and color flow Doppler imaging were performed. Flow was seen within the femoral, popliteal and calf veins with no intraluminal thrombus demonstrated. The saphenous vein is patent. There is bilateral lower extremity edema. IMPRESSION: No evidence of lower extremity DVT. Electronically signed by: Aníbal Melvin M.D. 09/14/2017 7:56 PM Dictated Date/Time: 09/14/2017 7:56 PM The status of this report is Signed. Draft = Not yet reviewed or approved by Radiologist. Signed = Reviewed and approved by Radiologist. <AttendingPhy>Bhumika Ko M.D.</AttendingPhy> <FamilyPhy>Bobby Shah M.D.</FamilyPhy> <PrimaryPhy>Bobby Shah M.D.</PrimaryPhy> < UnitNumber>[id number]</UnitNumber> <VisitNumber>[id number]</VisitNumber> < PatientName>KELLEE CYR</PatientName> <DateOfBirth>1930</DateOfBirth> <Location>C.MSICU</Location> <ServiceDate>09/14/17</ServiceDate> <MNE>ESINDI</ MNE> <OrderingPhy>Shanice Porter P.A.-C.</OrderingPhy> <OrderingPhyMNE>f rep ord dr galindo</OrderingPhyMNE> <DictatingPhyMNE>f rep dict dr galindo</DictatingPhyMNE> < CCListMNE>f rep ct mne</CCListMNE> <AdmittingPhyMNE>f pt admit dr galindo</ AdmittingPhyMNE> <AttendingPhyMNE>f pt attend dr galindo</AttendingPhyMNE> <ConsultingPhyMNE>f pt consult dr galindo</ConsultingPhyMNE> <FamilyPhyMNE>f pt fam dr galindo</FamilyPhyMNE> <OtherPhyMNE>f pt other dr galindo</OtherPhyMNE> < PrimaryPhyMNE>f pt prim care dr galindo</PrimaryPhyMNE> <ReferringPhyMNE>f pt referring dr galindo</ReferringPhyMNE> Assessment & Plan 87-year-old female with E coli urinary tract infection as well as probable lower extremity cellulitis in the setting of chronic lymphedema. With think the patient could be transitioned in the near future to oral antibiotics, and was adjust combination of Bactrim and levofloxacin, likely in the range of 7-10 days. Will follow.
[2017-09-17] MEDS ORDERED: NURSING DECISION MEDICATION ORDER SCH (16:45)
[2017-09-17] MEDS: DIGOXIN 0.125 MG TAB PO SCH (16:56)
[2017-09-17] MEDS: CEFEPIME IV 2,000 MG in SYRINGE 7.5 ML IV SCH (18:18)
[2017-09-17] MEDS: EUCERIN CR 120 GM JAR EXT SCH (21:10)
[2017-09-18] MEDS ORDERED: VANCOMYCIN TROUGH ONE ×2 (00:30→01:30)
[2017-09-18] MEDS: NSS + 20MEQ KCL 1000ML 1,000 ML IV SCH ×2 (01:32→17:48)
[2017-09-18] MEDS: VANCOMYCIN INJ 1,250 MG in SODIUM CHLORIDE 0.9% 250ML 250 ML IV SCH ×2 (01:32→12:58)
[2017-09-18] MEDS: LEVOTHYROXINE 200 MCG TAB PO SCH (06:16)
[2017-09-18 07:38] VITALS: BP 151/87; PULSE 84; TEMP 37.1; O2SAT 98
[2017-09-18 07:45] VITALS: O2SAT 98
[2017-09-18 08:05] LABS: HEMATOCRIT 42.2 % (37-47); HEMOGLOBIN 14.3 g/dL (12.0-16.0); MEAN CELL VOLUME 85.4 fL (80-100); MEAN CORPUSCULAR HEMOGLOBIN 28.9 pg (25-34); MEAN CORPUSCULAR HGB CONC 33.9 g/dl (32-36); MEAN PLATELET VOLUME 11.1 fL (7.4-10.4); PLATELET COUNT 204 K/uL (130-400); RED CELL DISTRIBUTION WIDTH CV 15.3 % (11.5-14.5); RED CELL DISTRIBUTION WIDTH SD 47.9 fL (36.4-46.3); WHITE BLOOD COUNT 7.52 K/uL (4.8-10.8)
[2017-09-18 08:16] LABS: INR 1.2 (0.9-1.1)
[2017-09-18] MEDS: CALCIUM 600MG + VIT D 400 IU TAB PO SCH (08:16)
[2017-09-18] MEDS: DOCUSATE SODIUM/SENNA 50/8.6MG TAB PO SCH (08:16)
[2017-09-18] MEDS: EUCERIN CR 120 GM JAR EXT SCH ×2 (08:16→21:08)
[2017-09-18] MEDS: METOPROLOL SUCC 25MG EXT REL TAB PO SCH (08:16)
[2017-09-18] MEDS: INSULIN GLARGINE SOLOSTAR 100 UNITS/ML 3 ML PEN SC SCH ×2 (08:18→21:18)
[2017-09-18 08:40] LABS: CREATININE 0.7 mg/dl (0.60-1.20)
[2017-09-18] MEDS: INSULIN ASPART 100 UNITS/ML 3 ML PEN SC SCH ×4 (09:06→21:00)
--- NOTE | 2017-09-18 12:44 | Pharmacy Progress Note ---
Pharmacy Abx Dose Short Note Date of Service Sep 18, 2017. Assessment & Plan Assessment 87 year old female receiving vancomycin and cefepime for treatment of cellulitis Day # 4 of antimicrobial therapy. Plan Vancomycin * Trough level of 14.7 mcg/mL is subtherapeutic for individual with PMH of MRSA with vancomycin BYRON of 2. * Change to 1250 mg IV every 16 hours (25% dose increase) * Goal trough level for cellulitis with MRSA with vancomycin BYRON of 2 : 15 to 20 mcg/mL * Re-order trough if patient is expected to continue for longer than one or two more days Pharmacy will continue to follow and will adjust dose/frequency as necessary. Thank you.
[2017-09-18 15:05] VITALS: BP 123/78; PULSE 88; TEMP 36.7; O2SAT 97
--- NOTE | 2017-09-18 15:25 | Pharmacy Progress Note ---
Pharmacy Glycemic Short Note 2 Date of Service Sep 18, 2017. OUTPATIENT ANTIDIABETIC REGIMEN: * Novolog 70/30- 30 units in the morning * HbA1C = 12.9% ASSESSMENT: * Yesterday, Ms Ayesha Rose received 30 units of Lantus and an additional 16 units of Novolog for a total of 46 units. Blood sugars were [phone] mg/dL. * Fasting this morning was 94 mg/dL which was decreased from yesterday. Estimate that the patient is stable on a total daily dose of Lantus ~25... the patient does not have as much insulin resistance currently so a true dose can be seen. Lantus 30 units left a fasting blood sugar of 94 mg/dL so will reduce slightly by 20% to 12 units twice daily. * For Novolog, the patient's blood sugars climbed throughout the day so reasonable to tightened to weight-based stress of 3. * Ms Ayesha Rose is an 87 y/o F from home who has a PMH of dementia, Afib, HF, HTN, hypothyroidism, and uncontrolled type 2 diabetes (HbA1C goal range is around 8-8.5% per the Elements of Diabetes Care Scoring Scale). She presents with hyperglycemia, possibly HHS, and sepsis. Patient was initially started on an insulin infusion yesterday and was gently re-hydrated. Since the patient was very noncompliant at home and her HbA1C is very uncontrolled, weight-based strategy was utilized for titration off of an insulin infusion. * Fasting this morning was 95 mg/dL. Estimate that the patient is stable on a total daily dose of Lantus 30 as this was the amount that successfully discontinued the infusion yesterday after only 3 hours and also produced a fasting blood sugar of 95 mg/dL this morning. Scheduled Lantus 15 units twice daily. * For Novolog, weight-based stress of 2 was ordered yesterday. It did not appear effective as the patient's blood sugar increased significantly after dinner to 223 mg/dL.... I suspect this is secondary to insulin resistance. Continue this Novolog for today to establish it's true effectiveness. Fasting blood sugar today was 95 mg/dL and lunch was 153 mg/dL which is respectable. Expect patient to feel hypoglycemic at normal blood sugars secondary to high HbA1C therefore okay with higher blood sugars. PLAN FOR INPATIENT GLYCEMIC CONTROL: * Basal insulin * Lantus 12 units SQ BID * Bolus insulin * NovoLog per scale ACHS or Q6hrs while NPO * Goal Range: Low 110 mg/dL - High 140 mg/dL * Correction Factor: 20 mg/dL/unit * Nutritional / Prandial insulin per carb ratio of 1 unit per 6 grams CHO consumed PLAN FOR DISCHARGE: * Patient's HbA1C is extremely uncontrolled... counseling is important for her caregiver. Patient may be a better candidate for Lantus as this is a once daily injection rather than twice daily like Novolog 70/30.
[2017-09-18 16:00] VITALS: O2SAT 97
[2017-09-18] MEDS: DIGOXIN 0.125 MG TAB PO SCH (16:19)
[2017-09-18] MEDS: WARFARIN SOD 3 MG TAB PO SCH (16:19)
[2017-09-18] MEDS: CEFEPIME IV 2,000 MG in SYRINGE 7.5 ML IV SCH (18:02)
--- NOTE | 2017-09-18 18:44 | Progress Note ---
Medicine Progress Note Date & Time of Visit: Sep 18, 2017 at 18:17. Subjective Pt was seen and examined Sitting in chair comfortable with next to her Pt said that she feels fine said that pt is back to baseline Denies any chest pain, palpitation, dizziness and SOB Objective Last 8 Hrs Date Time Temp Pulse Resp B/P (MAP) Pulse Ox O2 Delivery O2 Flow Rate FiO2 09/18/17 16:19 86 09/18/17 16:00 97 Room Air 09/18/17 15:05 36.7 88 20 123/78 (93) 97 Room Air Physical Exam: General- No acute distress Head- atraumatic Eyes- PERRL, EOMI ENT- oropharynx clear Neck- supple, no JVD Lungs- No wheezing Heart- regular rhythm Abdomen- normal bowel sounds Extremities-no calf tenderness Neuro- alert, oriented x 3; PERRL Skin- warm & dry Laboratory Results: Last 24 Hours Test 09/17/17 20:42 09/18/17 00:08 09/18/17 07:51 09/18/17 08:14 Bedside Glucose 220 mg/dl 94 mg/dl Vancomycin Level Trough 14.7 mcg/ml White Blood Count 7.52 K/uL Red Blood Count 4.94 M/uL Hemoglobin 14.3 g/dL Hematocrit 42.2 % Mean Corpuscular Volume 85.4 fL Mean Corpuscular Hemoglobin 28.9 pg Mean Corpuscular Hemoglobin Concent 33.9 g/dl RDW Standard Deviation 47.9 fL RDW Coefficient of Variation 15.3 % Platelet Count 204 K/uL Mean Platelet Volume 11.1 fL Prothrombin Time 12.7 SECONDS Prothromb Time International Ratio 1.2 Venous Blood pH 7.43 Creatinine 0.70 mg/dl Est Creatinine Clear Calc Drug Dose 55.2 ml/min Estimated GFR () 90.9 Estimated GFR (Non- 78.5 Test 09/18/17 11:44 09/18/17 16:40 Bedside Glucose 155 mg/dl 201 mg/dl Assessment & Plan SEPSIS Meet sepsis criteria on admission tachycardia, tachypnea, elevated lactic acid and confusion Possible related to b/l LE ext cellulitis and UTI Received IVF Was starting on broad spectrum abx Blood cx did not collect On Vanco and cefepime HYPERGLYCEMIA /HHS /POORLY CONTROLLED DM : Presents with symptomatic polyuria /polydipsia/fatigue /confusion Was starting on IV insulin drip Recent Hba1c 12.9 diabetes education consulted BS has been controlled Pharmacy on board for glycemic management B/L LE Cellulitis in the setting of chronic lymphedema. Doppler showed no evidence of lower extremity DVT. No blood cx collected On Cefepime and Vanco IV ID on board recommended to transition to oral Bactrim and Levaquin to complete 7 -10 days course UTI Urine cx positive for Ecoli Continue Cefepime IV CONFUSION /LETHARGY /METABOLIC ENCEPHALOPATHY : Mostly related to HHS and infection Back to baseline Resolved CHERYL ON CKD STAGE 3 Mostly related to dehydration On IVF Will d/c IVF Continue monitor BMP HTN : Continue holding diuretics /ARB BP stable HX OF AFIB Rate control now Continue Digoxin and metoprolol Resumed Coumadin CODE STATUS FULL CODE DVT PROPHYLAXIS : INR 1.2 today DISPOSITION : Continue PT/OT May benefit from rehab Current Inpatient Medications: Current Inpatient Medications Medications (Trade) Dose Ordered Sig/Ajith Route Start Time Stop Time Status Last Admin Dose Admin Acetaminophen (Tylenol Tab) 650 mg Q4H PRN PO 09/14/17 16:00 10/14/17 15:59 Al Hydrox/Mg Hydrox/Simethicone (Maalox Max Susp) 15 ml Q4H PRN PO 09/14/17 16:00 10/14/17 15:59 Magnesium Hydroxide (Milk Of Magnesia Susp) 30 ml Q12H PRN PO 09/14/17 16:00 10/14/17 15:59 Polyethylene (Miralax Powder Packet) 17 gm DAILY PRN PO 09/14/17 16:00 10/14/17 15:59 Miscellaneous Information (Consult Glycemic Management Pharmacy) 1 ea UD PRN N/A 09/14/17 16:00 10/14/17 15:59 Potassium Chloride/Sodium Chloride 1,000 ml @ 75 mls/hr [id number] IV 09/15/17 03:30 10/15/17 03:29 Future hold 09/18/17 17:48 75 MLS/HR Miscellaneous Information (Consult) 1 ea UD PRN N/A 09/15/17 07:15 09/25/17 07:14 Calcium/Vitamin D (Caltrate Plus Tab) 1 tab QAM PO 09/15/17 09:00 10/15/17 08:59 09/18/17 08:16 1 TAB Digoxin (Lanoxin Tab) 0.125 mg DAILY@1600 PO 09/15/17 16:00 10/15/17 15:59 09/18/17 16:19 0.125 MG Levothyroxine Sodium (Synthroid Tab) 200 mcg DAILYBB PO 09/15/17 10:00 10/15/17 09:59 09/18/17 06:16 200 MCG Metoprolol Succinate (Toprol Xl Tab) 25 mg DAILY PO 09/15/17 09:00 10/15/17 08:59 09/18/17 08:16 25 MG Senna/Docusate Sodium (Senokot S Tab) 1 tab QAM PO 09/15/17 09:00 10/15/17 08:59 09/18/17 08:16 1 TAB Insulin Aspart (novoLOG ASPART) SLIDING SCALE ACHS SC 09/15/17 16:15 10/15/17 16:14 09/18/17 17:55 9 UNITS Cefepime HCl 2000 mg/Syringe 20 ml @ 5 mls/min Q24H IV 09/15/17 18:00 09/25/17 17:59 09/18/17 18:02 5 MLS/MIN Multi-Ingredient Ointment (Eucerin Unscented Cr) 1 appln BID EXT 09/17/17 20:00 10/17/17 19:59 09/18/17 08:16 1 APPLN Insulin Glargine (Lantus Solostar Pen) 12 units BID SC 09/18/17 08:00 10/18/17 07:59 Future hold Vancomycin HCl 1250 mg/Sodium Chloride 275 ml @ 125 mls/hr Q16H IV 09/18/17 14:00 09/25/17 13:59 09/18/17 12:58 125 MLS/HR Warfarin Sodium (Coumadin Tab) 3 mg DAILY@16 PO 09/18/17 16:00 10/18/17 15:59 09/18/17 16:19 3 MG
--- NOTE | 2017-09-18 21:02 | Infectious Disease Progress Nt ---
Progress Note Date of Service Sep 18, 2017. Subjective Pt evaluation today including: conversation w/ patient, conversation w/ family , physical exam, chart review, lab review, review of studies, conversation w/ [employer] identity management consultant, review of inpatient medication list Patient's mental status back to baseline according to . Remains afebrile. Hemodynamically stable. Urine culture with E coli. All Other Systems: Reviewed and Negative Medications Current Inpatient Medications Medications (Trade) Dose Ordered Sig/Ajith Route Start Time Stop Time Status Last Admin Dose Admin Acetaminophen (Tylenol Tab) 650 mg Q4H PRN PO 09/14/17 16:00 10/14/17 15:59 Al Hydrox/Mg Hydrox/Simethicone (Maalox Max Susp) 15 ml Q4H PRN PO 09/14/17 16:00 10/14/17 15:59 Magnesium Hydroxide (Milk Of Magnesia Susp) 30 ml Q12H PRN PO 09/14/17 16:00 10/14/17 15:59 Polyethylene (Miralax Powder Packet) 17 gm DAILY PRN PO 09/14/17 16:00 10/14/17 15:59 Miscellaneous Information (Consult Glycemic Management Pharmacy) 1 ea UD PRN N/A 09/14/17 16:00 10/14/17 15:59 Miscellaneous Information (Consult) 1 ea UD PRN N/A 09/15/17 07:15 09/25/17 07:14 Calcium/Vitamin D (Caltrate Plus Tab) 1 tab QAM PO 09/15/17 09:00 10/15/17 08:59 09/18/17 08:16 1 TAB Digoxin (Lanoxin Tab) 0.125 mg DAILY@1600 PO 09/15/17 16:00 10/15/17 15:59 09/18/17 16:19 0.125 MG Levothyroxine Sodium (Synthroid Tab) 200 mcg DAILYBB PO 09/15/17 10:00 10/15/17 09:59 09/18/17 06:16 200 MCG Metoprolol Succinate (Toprol Xl Tab) 25 mg DAILY PO 09/15/17 09:00 10/15/17 08:59 09/18/17 08:16 25 MG Senna/Docusate Sodium (Senokot S Tab) 1 tab QAM PO 09/15/17 09:00 10/15/17 08:59 09/18/17 08:16 1 TAB Insulin Aspart (novoLOG ASPART) SLIDING SCALE ACHS SC 09/15/17 16:15 10/15/17 16:14 09/18/17 17:55 9 UNITS Cefepime HCl 2000 mg/Syringe 20 ml @ 5 mls/min Q24H IV 09/15/17 18:00 09/25/17 17:59 09/18/17 18:02 5 MLS/MIN Multi-Ingredient Ointment (Eucerin Unscented Cr) 1 appln BID EXT 09/17/17 20:00 10/17/17 19:59 09/18/17 08:16 1 APPLN Insulin Glargine (Lantus Solostar Pen) 12 units BID SC 09/18/17 08:00 10/18/17 07:59 Future hold Vancomycin HCl 1250 mg/Sodium Chloride 275 ml @ 125 mls/hr Q16H IV 09/18/17 14:00 09/25/17 13:59 09/18/17 12:58 125 MLS/HR Warfarin Sodium (Coumadin Tab) 3 mg DAILY@16 PO 09/18/17 16:00 10/18/17 15:59 09/18/17 16:19 3 MG Objective Vital Signs Date Time Temp Pulse Resp B/P (MAP) Pulse Ox O2 Delivery O2 Flow Rate FiO2 09/18/17 16:19 86 09/18/17 16:00 97 Room Air 09/18/17 15:05 36.7 88 20 123/78 (93) 97 Room Air 09/18/17 08:36 Room Air 09/18/17 08:35 Room Air 09/18/17 08:30 Room Air 09/18/17 07:45 98 Room Air 09/18/17 07:38 37.1 84 15 151/87 (108) 98 Room Air 09/18/17 00:10 Room Air 09/17/17 23:34 83 156/81 (106) 09/17/17 23:24 36.6 84 20 169/93 (118) 99 Room Air Physical Exam General Appearance: WD/WN, no apparent distress Eyes: normal inspection, EOMI, sclerae normal ENT: normal ENT inspection, pharynx normal Neck: supple, no adenopathy, thyroid normal, trachea midline Respiratory/Chest: chest non-tender, lungs clear, normal breath sounds, no respiratory distress Cardiovascular: regular rate, rhythm, no gallop, no murmur Abdomen: normal bowel sounds, non tender, soft, no organomegaly Extremities: non-tender, no calf tenderness, normal capillary refill Neurologic/Psychiatric: alert, oriented x 3 Skin: normal color, warm/dry, no rash Lymphatic: no adenopathy Laboratory Results RUN DATE: 09/16/17 [facility] LAB PAGE 1 RUN TIME: 0900 Specimen Inquiry PATIENT: KELLEE CYR LOC: Mehran2Thanh U # : [id number] AGE/SX: 87/F ROOM: [facility] REG : 09/14/[address]: Bhumika Ko M.D. : 1930 BED: 1 DIS : STATUS: ADM IN TLOC: SPEC #: [id number] CECY: 09/14/17135 STATUS: COMP REQ #: [id number] RECD: 09/14/17-[address]: Jasvir Mao M.D. SOURCE: URINE CATH ENTR: 09/14/17-[address] [facility] [address]: Bobby Shah M.D[facility]: ORDERED: CULTURE UR CATH Procedure Result Verified Site URINE CULTURE Final 09/16/17-0900 Organism 1 ESCHERICHIA COLI COLONY COUNT >100,000 CFU/ml SENS SENSITIVITY TO FOLLOW 1. ESCHERICHIA COLI Target Route Dose RX AB Cost M.I.C. IQ ------ ----- ------ -- ------ -------- - ------ TRIMET/SULFA S <=2/38 AMPICILLIN S <=8 AMPICILLIN/SUL S <=8/4 CEFAZOLIN S <=8 CEFOXITIN I 16 CEFOTAXIME S <=2 CEFTRIAXONE S <=1 CEFEPIME S <=4 CEFUROXIME I 16 IMIPENEM S <=1 GENTAMICIN S <=4 TOBRAMYCIN S <=4 AMIKACIN S <=16 CIPROFLOXACIN S <=1 LEVOFLOXACIN S <=2 ERTAPENEM S <=1 NITROFURANTOIN S <=32 PIP/TAZO S <=16 S = SENSITIVE I = INTERMEDIATE R = RESISTANT END OF REPORT Last 24 Hours Test 09/18/17 00:08 09/18/17 07:51 09/18/17 08:14 09/18/17 11:44 Vancomycin Level Trough 14.7 mcg/ml White Blood Count 7.52 K/uL Red Blood Count 4.94 M/uL Hemoglobin 14.3 g/dL Hematocrit 42.2 % Mean Corpuscular Volume 85.4 fL Mean Corpuscular Hemoglobin 28.9 pg Mean Corpuscular Hemoglobin Concent 33.9 g/dl RDW Standard Deviation 47.9 fL RDW Coefficient of Variation 15.3 % Platelet Count 204 K/uL Mean Platelet Volume 11.1 fL Prothrombin Time 12.7 SECONDS Prothromb Time International Ratio 1.2 Venous Blood pH 7.43 Creatinine 0.70 mg/dl Est Creatinine Clear Calc Drug Dose 55.2 ml/min Estimated GFR () 90.9 Estimated GFR (Non- 78.5 Bedside Glucose 94 mg/dl 155 mg/dl Test 09/18/17 16:40 Bedside Glucose 201 mg/dl Assessment and Plan 87-year-old female with E coli urinary tract infection as well as probable lower extremity cellulitis in the setting of chronic lymphedema. Would think think the patient could be transitioned in the near future to oral antibiotics, and recommend combination of Bactrim and levofloxacin, likely in the range of 7- 10 days. Will follow.
[2017-09-18 23:17] VITALS: BP 147/83; PULSE 78; TEMP 36.5; O2SAT 98
[2017-09-19] MEDS: VANCOMYCIN INJ 1,250 MG in SODIUM CHLORIDE 0.9% 250ML 250 ML IV SCH (05:57)
[2017-09-19] MEDS: LEVOTHYROXINE 200 MCG TAB PO SCH (06:00)
[2017-09-19 07:28] VITALS: BP 146/87; PULSE 86; TEMP 36.5; O2SAT 98
[2017-09-19] MEDS: CALCIUM 600MG + VIT D 400 IU TAB PO SCH (07:53)
[2017-09-19] MEDS: METOPROLOL SUCC 25MG EXT REL TAB PO SCH (07:53)
[2017-09-19] MEDS: EUCERIN CR 120 GM JAR EXT SCH ×2 (07:53→20:10)
[2017-09-19] MEDS: DOCUSATE SODIUM/SENNA 50/8.6MG TAB PO SCH (07:54)
[2017-09-19] MEDS: INSULIN ASPART 100 UNITS/ML 3 ML PEN SC SCH ×4 (08:36→20:21)
[2017-09-19] MEDS: INSULIN GLARGINE SOLOSTAR 100 UNITS/ML 3 ML PEN SC SCH ×2 (08:37→20:22)
[2017-09-19 10:05] LABS: INR 1.1 (0.9-1.1)
--- NOTE | 2017-09-19 15:40 | Pharmacy Progress Note ---
Pharmacy Glycemic Short Note 2 Date of Service Sep 19, 2017. OUTPATIENT ANTIDIABETIC REGIMEN: * Novolog 70/30- 30 units in the morning * HbA1C = 12.9% ASSESSMENT: * Yesterday, Ms Ayesha Rose received 27 units of Lantus and an additional 27 units of Novolog for a total of 54 units. Blood sugars were [phone] mg /dL. * Fasting this morning was 106 mg/dL which was increased from yesterday. Estimate that the patient is stable on a total daily dose of Lantus ~27. Therefore increased dose to 14 units twice daily. * For Novolog, the patient's blood sugars appeared relatively stable so continue current regimen. * Ms Ayesha Rose is an 87 y/o F from home who has a PMH of dementia, Afib, HF, HTN, hypothyroidism, and uncontrolled type 2 diabetes (HbA1C goal range is around 8-8.5% per the Elements of Diabetes Care Scoring Scale). She presents with hyperglycemia, possibly HHS, and sepsis. Patient was initially started on an insulin infusion and was gently re-hydrated. Since the patient was very noncompliant at home and her HbA1C is very uncontrolled, weight-based strategy was utilized for titration off of an insulin infusion. Patient was eventually decreased to approximately weight-based stress of 2 Lantus and weight-based stress of 3 Novolog. PLAN FOR INPATIENT GLYCEMIC CONTROL: * Basal insulin * Lantus 14 units SQ BID * Bolus insulin * NovoLog per scale ACHS or Q6hrs while NPO * Goal Range: Low 110 mg/dL - High 140 mg/dL * Correction Factor: 20 mg/dL/unit * Nutritional / Prandial insulin per carb ratio of 1 unit per 6 grams CHO consumed PLAN FOR DISCHARGE: * Patient's HbA1C is extremely uncontrolled... counseling is important for her caregiver. Patient may be a better candidate for Lantus as this is a once daily injection rather than twice daily like Novolog 70/30.
[2017-09-19 15:50] VITALS: BP 135/77; PULSE 85; TEMP 36.6; O2SAT 100
[2017-09-19] MEDS: DIGOXIN 0.125 MG TAB PO SCH (16:12)
[2017-09-19] MEDS: WARFARIN SOD 3 MG TAB PO SCH (16:12)
[2017-09-19] MEDS ORDERED: LEVOFLOXACIN 500 MG TAB PO ONE (17:42)
--- NOTE | 2017-09-19 17:55 | Progress Note ---
Medicine Progress Note Date & Time of Visit: Sep 19, 2017 at 17:46. Subjective Pt was seen and examined Sitting in chair comfortable with no distress Pt said that she feels fine Denies any chest pain, palpitation, dizziness and SOB Objective Last 8 Hrs Date Time Temp Pulse Resp B/P (MAP) Pulse Ox O2 Delivery O2 Flow Rate FiO2 09/19/17 16:12 86 09/19/17 16:00 Room Air 09/19/17 15:50 36.6 85 18 135/77 (96) 100 Room Air Physical Exam: General- No acute distress Head- atraumatic Eyes- PERRL, EOMI ENT- oropharynx clear Neck- supple, no JVD Lungs- No wheezing Heart- regular rhythm Abdomen- normal bowel sounds Extremities-no calf tenderness Neuro- alert, oriented x 3; PERRL Skin- warm & dry Laboratory Results: Last 24 Hours Test 09/18/17 21:06 09/19/17 07:40 09/19/17 09:31 09/19/17 11:52 Bedside Glucose 137 mg/dl 106 mg/dl 196 mg/dl Prothrombin Time 12.0 SECONDS Prothromb Time International Ratio 1.1 Test 09/19/17 16:37 Bedside Glucose 309 mg/dl Assessment & Plan SEPSIS Meet sepsis criteria on admission tachycardia, tachypnea, elevated lactic acid and confusion Possible related to b/l LE ext cellulitis and UTI Received IVF Was starting on broad spectrum abx Blood cx did not collect On Vanco and cefepime Will change abx to Bactrim and Levaquin Continue monitor HYPERGLYCEMIA /HHS /POORLY CONTROLLED DM : Presents with symptomatic polyuria /polydipsia/fatigue /confusion Was starting on IV insulin drip Recent Hba1c 12.9 diabetes education consulted BS has been controlled Pharmacy on board for glycemic management B/L LE Cellulitis in the setting of chronic lymphedema. Doppler showed no evidence of lower extremity DVT. No blood cx collected On Cefepime and Vanco IV ID on board recommended to transition to oral Bactrim and Levaquin to complete 7 -10 days course UTI Urine cx positive for Ecoli Received Cefepime IV Changed abx to Bactrim/Levaquin CONFUSION /LETHARGY /METABOLIC ENCEPHALOPATHY : Mostly related to HHS and infection Back to baseline Resolved CHERYL ON CKD STAGE 3 Mostly related to dehydration Received Continue monitor BMP HTN : Continue holding diuretics /ARB BP stable HX OF AFIB Rate control now Continue Digoxin and metoprolol Resumed Coumadin CODE STATUS FULL CODE DVT PROPHYLAXIS : INR 1.1 today will start on heparin subq DISPOSITION : Continue PT/OT Waiting for placement to rehab Consultants: ID Current Inpatient Medications: Current Inpatient Medications Medications (Trade) Dose Ordered Sig/Ajith Route Start Time Stop Time Status Last Admin Dose Admin Acetaminophen (Tylenol Tab) 650 mg Q4H PRN PO 09/14/17 16:00 10/14/17 15:59 Al Hydrox/Mg Hydrox/Simethicone (Maalox Max Susp) 15 ml Q4H PRN PO 09/14/17 16:00 10/14/17 15:59 Magnesium Hydroxide (Milk Of Magnesia Susp) 30 ml Q12H PRN PO 09/14/17 16:00 10/14/17 15:59 Polyethylene (Miralax Powder Packet) 17 gm DAILY PRN PO 09/14/17 16:00 10/14/17 15:59 Miscellaneous Information (Consult Glycemic Management Pharmacy) 1 ea UD PRN N/A 09/14/17 16:00 10/14/17 15:59 Miscellaneous Information (Consult) 1 ea UD PRN N/A 09/15/17 07:15 09/25/17 07:14 Calcium/Vitamin D (Caltrate Plus Tab) 1 tab QAM PO 09/15/17 09:00 10/15/17 08:59 09/19/17 07:53 1 TAB Digoxin (Lanoxin Tab) 0.125 mg DAILY@1600 PO 09/15/17 16:00 10/15/17 15:59 09/19/17 16:12 0.125 MG Levothyroxine Sodium (Synthroid Tab) 200 mcg DAILYBB PO 09/15/17 10:00 10/15/17 09:59 09/19/17 06:00 200 MCG Metoprolol Succinate (Toprol Xl Tab) 25 mg DAILY PO 09/15/17 09:00 10/15/17 08:59 09/19/17 07:53 25 MG Senna/Docusate Sodium (Senokot S Tab) 1 tab QAM PO 09/15/17 09:00 10/15/17 08:59 09/18/17 08:16 1 TAB Insulin Aspart (novoLOG ASPART) SLIDING SCALE ACHS SC 09/15/17 16:15 10/15/17 16:14 09/19/17 12:58 8 UNITS Cefepime HCl 2000 mg/Syringe 20 ml @ 5 mls/min Q24H IV 09/15/17 18:00 09/25/17 17:59 09/18/17 18:02 5 MLS/MIN Multi-Ingredient Ointment (Eucerin Unscented Cr) 1 appln BID EXT 09/17/17 20:00 10/17/17 19:59 09/19/17 07:53 1 APPLN Vancomycin HCl 1250 mg/Sodium Chloride 275 ml @ 125 mls/hr Q16H IV 09/18/17 14:00 09/25/17 13:59 09/19/17 05:57 125 MLS/HR Warfarin Sodium (Coumadin Tab) 3 mg DAILY@16 PO 09/18/17 16:00 10/18/17 15:59 09/19/17 16:12 3 MG Insulin Glargine (Lantus Solostar Pen) 14 units BID SC 09/19/17 20:00 10/19/17 19:59
[2017-09-19] MEDS: SULFAMETHOXAZOLE/TRIMETHOPRIM 400/80MG TAB PO SCH (18:50)
[2017-09-19] MEDS: HEPARIN SOD 5000 UNIT/0.5 ML CARP SQ SCH (20:22)
[2017-09-19] MEDS ORDERED: INSULIN HUMAN REGULAR PER UNIT 5 UNITS in SYRINGE 4.95 ML IV SCH (21:30)
[2017-09-20] MEDS: INSULIN ASPART 100 UNITS/ML 3 ML PEN SC SCH ×4 (00:09→12:47)
[2017-09-20 00:11] VITALS: BP 141/84; PULSE 82; TEMP 36.4; O2SAT 96
[2017-09-20] MEDS: LEVOTHYROXINE 200 MCG TAB PO SCH (06:17)
[2017-09-20] MEDS: SULFAMETHOXAZOLE/TRIMETHOPRIM 400/80MG TAB PO SCH (06:17)
[2017-09-20 07:13] LABS: INR 1.2 (0.9-1.1)
[2017-09-20 07:38] LABS: CALCIUM 8.3 mg/dl (8.5-10.1); CREATININE 0.94 mg/dl (0.60-1.20); POTASSIUM 4.3 mmol/L (3.5-5.1)
[2017-09-20 07:49] VITALS: BP 146/84; PULSE 84; TEMP 36.7; O2SAT 95
[2017-09-20 08:15] VITALS: O2SAT 95
[2017-09-20] MEDS: DOCUSATE SODIUM/SENNA 50/8.6MG TAB PO SCH (08:15)
[2017-09-20] MEDS: METOPROLOL SUCC 25MG EXT REL TAB PO SCH (08:15)
[2017-09-20] MEDS: EUCERIN CR 120 GM JAR EXT SCH (08:15)
[2017-09-20] MEDS: CALCIUM 600MG + VIT D 400 IU TAB PO SCH (08:15)
[2017-09-20 08:26] VITALS: O2SAT 95
[2017-09-20] MEDS: HEPARIN SOD 5000 UNIT/0.5 ML CARP SQ SCH (08:27)
[2017-09-20] MEDS: INSULIN GLARGINE SOLOSTAR 100 UNITS/ML 3 ML PEN SC SCH (09:20)
--- NOTE | 2017-09-20 12:30 | Pharmacy Progress Note ---
Pharmacy Glycemic Short Note 2 Date of Service Sep 20, 2017. OUTPATIENT ANTIDIABETIC REGIMEN: * Novolog 70/30- 30 units in the morning * HbA1C = 12.9% Test 09/19/17 16:37 09/19/17 20:18 09/20/17 00:04 09/20/17 03:55 Bedside Glucose 309 mg/dl (70-90) 386 mg/dl (70-90) 297 mg/dl (70-90) 193 mg/dl (70-90) Test 09/20/17 06:48 09/20/17 07:35 09/20/17 11:34 Random Glucose 260 mg/dl (70-99) Bedside Glucose 266 mg/dl (70-90) 339 mg/dl (70-90) ASSESSMENT: * BSGs uncontrolled over past 24 hours, pt to go to [facility] today * Will increase Lantus and tighten Novolog parameters while inpatient and empirically increase doses for discharge PLAN FOR INPATIENT GLYCEMIC CONTROL: * Basal insulin - INCREASE * Lantus 20 units SQ BID * Bolus insulin * NovoLog per scale ACHS or Q6hrs while NPO * Goal Range: Low 110 mg/dL - High 140 mg/dL * TIGHTEN: Correction Factor: 15 mg/dL/unit * TIGHTEN: Nutritional / Prandial insulin per carb ratio of 1 unit per 5 grams CHO consumed PLAN FOR DISCHARGE: * Recommend discontinuing Novolog 70/30 * Lantus 20 units BID * Novolog 8 units with meals * Titrate insulins to goal blood sugar
--- NOTE | 2017-09-20 12:37 | Progress Note ---
Medicine Progress Note Date & Time of Visit: Sep 20, 2017 at 12:23. Subjective Pt was seen and examined Sitting in chair with no distress Pt said that she feels fine Son was at bedside and updated provide Denies any fever, palpitation, dizziness and SOB Objective Last 8 Hrs Date Time Temp Pulse Resp B/P (MAP) Pulse Ox O2 Delivery O2 Flow Rate FiO2 09/20/17 08:26 95 Room Air 09/20/17 08:15 95 Room Air 09/20/17 07:49 36.7 84 18 146/84 (104) 95 Room Air Physical Exam: General- No acute distress Head- atraumatic Eyes- PERRL, EOMI ENT- oropharynx clear Neck- supple, no JVD Lungs- No wheezing Heart- regular rhythm Abdomen- normal bowel sounds Extremities-no calf tenderness, LE wound with discoloration, right leg wrapped with dressing. Neuro- alert, oriented x 3; PERRL Skin- warm & dry Laboratory Results: Last 24 Hours Test 09/19/17 16:37 09/19/17 20:18 09/20/17 00:04 09/20/17 03:55 Bedside Glucose 309 mg/dl 386 mg/dl 297 mg/dl 193 mg/dl Test 09/20/17 06:48 09/20/17 07:35 09/20/17 11:34 Prothrombin Time 12.7 SECONDS Prothromb Time International Ratio 1.2 Sodium Level 135 mmol/L Potassium Level 4.3 mmol/L Chloride Level 102 mmol/L Carbon Dioxide Level 26 mmol/L Anion Gap 7.0 mmol/L Blood Urea Nitrogen 14 mg/dl Creatinine 0.94 mg/dl Est Creatinine Clear Calc Drug Dose 41.1 ml/min Estimated GFR () 63.7 Estimated GFR (Non- 54.9 BUN/Creatinine Ratio 14.7 Random Glucose 260 mg/dl Calcium Level 8.3 mg/dl Bedside Glucose 266 mg/dl 339 mg/dl Assessment & Plan SEPSIS Meet sepsis criteria on admission tachycardia, tachypnea, elevated lactic acid and confusion Possible related to b/l LE ext cellulitis and UTI Received IVF Was starting on broad spectrum abx Blood cx did not collect On Vanco and cefepime, that was d/c yesterday Continue Bactrim and Levaquin for 7 more days Continue monitor HYPERGLYCEMIA /HHS /POORLY CONTROLLED DM : Presents with symptomatic polyuria /polydipsia/fatigue /confusion Was starting on IV insulin drip Recent Hba1c 12.9 diabetes education consulted BS has been fluctuated Pharmacy on board for glycemic management Case discussed with pharmacist that recommended to discharge on Lantus 20mg BID and Novolog 8 units with meals Continue monitor BS closely and titrate lantus if needed BS goal range between 110 to 140 B/L LE Cellulitis in the setting of chronic lymphedema. Doppler showed no evidence of lower extremity DVT. No blood cx collected On Cefepime and Vanco IV ID on board recommended to transition to oral Bactrim and Levaquin to complete 7 -10 days course UTI Urine cx positive for Ecoli Received Cefepime IV Already on Bactrim/Levaquin CONFUSION /LETHARGY /METABOLIC ENCEPHALOPATHY : Mostly related to HHS and infection Back to baseline Resolved CHERYL ON CKD STAGE 3 Mostly related to dehydration Received Continue monitor BMP Resolved HTN : Continue holding diuretics /ARB BP stable HX OF AFIB Rate control now Continue Digoxin and metoprolol Continue Coumadin Monitor INR CODE STATUS FULL CODE DVT PROPHYLAXIS : Starting on heparin subq yesterday DISPOSITION : Continue PT/OT Discharge to [facility] today Consultants: ID Current Inpatient Medications: Current Inpatient Medications Medications (Trade) Dose Ordered Sig/Ajith Route Start Time Stop Time Status Last Admin Dose Admin Acetaminophen (Tylenol Tab) 650 mg Q4H PRN PO 09/14/17 16:00 10/14/17 15:59 Al Hydrox/Mg Hydrox/Simethicone (Maalox Max Susp) 15 ml Q4H PRN PO 09/14/17 16:00 10/14/17 15:59 Magnesium Hydroxide (Milk Of Magnesia Susp) 30 ml Q12H PRN PO 09/14/17 16:00 10/14/17 15:59 Polyethylene (Miralax Powder Packet) 17 gm DAILY PRN PO 09/14/17 16:00 10/14/17 15:59 Miscellaneous Information (Consult Glycemic Management Pharmacy) 1 ea UD PRN N/A 09/14/17 16:00 10/14/17 15:59 Calcium/Vitamin D (Caltrate Plus Tab) 1 tab QAM PO 09/15/17 09:00 10/15/17 08:59 09/20/17 08:15 1 TAB Digoxin (Lanoxin Tab) 0.125 mg DAILY@1600 PO 09/15/17 16:00 10/15/17 15:59 2/28/18 16:12 0.125 MG Levothyroxine Sodium (Synthroid Tab) 200 mcg DAILYBB PO 09/15/17 10:00 10/15/17 09:59 09/20/17 06:17 200 MCG Metoprolol Succinate (Toprol Xl Tab) 25 mg DAILY PO 09/15/17 09:00 10/15/17 08:59 09/20/17 08:15 25 MG Senna/Docusate Sodium (Senokot S Tab) 1 tab QAM PO 09/15/17 09:00 10/15/17 08:59 09/20/17 08:15 1 TAB Insulin Aspart (novoLOG ASPART) SLIDING SCALE ACHS SC 09/15/17 16:15 10/15/17 16:14 09/20/17 09:19 12 UNITS Multi-Ingredient Ointment (Eucerin Unscented Cr) 1 appln BID EXT 09/17/17 20:00 10/17/17 19:59 09/20/17 08:15 1 APPLN Warfarin Sodium (Coumadin Tab) 3 mg DAILY@16 PO 09/18/17 16:00 10/18/17 15:59 09/19/17 16:12 3 MG Insulin Glargine (Lantus Solostar Pen) 14 units BID SC 09/19/17 20:00 10/19/17 19:59 09/20/17 09:20 14 UNITS Trimethoprim/ Sulfamethoxazole (Septra 400/80MG Tab) 1 tab Q12H PO 09/19/17 18:30 09/29/17 18:29 09/20/17 06:17 1 TAB Levofloxacin (Levaquin Tab) 500 mg DAILY@1600 PO 09/20/17 16:00 09/30/17 15:59 Heparin Sodium (Porcine) (Heparin Sq 5000 Unit/0.5ml) 5,000 unit Q12@0800,2000 SQ 09/19/17 20:00 10/19/17 19:59 09/20/17 08:27 5,000 UNIT
[2017-09-20] MEDS ORDERED: SPT/ PO (12:45)
[2017-09-20] MEDS ORDERED: NVLGIPEN SC (12:45)
[2017-09-20] MEDS ORDERED: INSULIN HUMAN REGULAR PER UNIT 5 UNITS in SYRINGE 4.95 ML IV SCH (12:45)
[2017-09-20] MEDS ORDERED: INSDGIPEN SC (12:45)
[2017-09-20] MEDS ORDERED: LVQ500 PO (12:45)
--- NOTE | 2017-09-20 12:53 | Discharge Instructions ---
Discharge Instructions Date of Service Sep 20, 2017. Admission Reason for Admission: A Fib, Dehydration, Hyperglycemia, Uti Discharge Discharge Diagnosis / Problem: Sepsis, Uncontrolled Diabetes, Urinary tract infection, Acute Kidney injury Discharge Goals Goal(s): Decrease discomfort, Improve function, Improve disease control Activity Recommendations Activity Limitations: resume your previous activity (as tolerated) . Instructions / Follow-Up Instructions / Follow-Up Follow up with your primary care provider once discharge from [facility] Complete Antibiotic course with Levaquin and Bactrim Follow up with wound care clinic Continue daily wound care Continue PT/OT Fall precaution Continue coumadin and check INR (INR 1.2 today) Continue monitor Blood sugar closely Your physician will titrate the lantus insulin if needed. BS goal between 110 to 140 Novolog 8 units sub q with meals. Please follow a healthy diabetes diet and limited concentrated sweet Current Hospital Diet Patient's current hospital diet: Diabetes Type 2 Diet, AHA Diet (Heart Healthy) Discharge Diet Recommended Diet: Diabetes Type 2 Diet Pending Studies Studies pending at discharge: no Laboratory Results Hemoglobin A1c Test 09/15/17 08:28 Range/Units Estimated Average Glucose 324 mg/dl Hemoglobin A1c 12.9 H 4.5-5.6 % Medical Emergencies . Who to Call and When: Medical Emergencies: If at any time you feel your situation is an emergency, please call 911 immediately. . Non-Emergent Contact Non-Emergency issues call your: Primary Care Provider Call Non-Emergent contact if: you have a fever, you have any medication questions . . "Provider Documentation" section prepared by Shelby Lange. .
[2017-09-20 13:00] VITALS: BP 146/84; PULSE 84; TEMP 36.7; O2SAT 95
--- NOTE | 2017-09-20 13:04 | Discharge Summary ---
Discharge Summary Date of Service Sep 20, 2017. Discharge Summary Admission Date: Sep 14, 2017 at 15:49 Discharge Date: Sep 20, 2017 Discharge Disposition: [facility] facility Principal Diagnosis: SEPSIS Secondary Diagnoses/Problems: HYPERGLYCEMIA /HHS /POORLY CONTROLLED DM Urinary tract infection Acute Kidney injury on CKD stage 3 B/L LE Cellulitis in the setting of chronic lymphedema. HX OF AFIB HTN Procedures: [~ rep ct add3]] ULTRASOUND VENOUS DOPPLER LWR EXT BILA CLINICAL HISTORY: Leg swelling and redness COMPARISON STUDY: No previous studies for comparison. FINDINGS: Real-time and color flow Doppler imaging were performed. Flow was seen within the femoral, popliteal and calf veins with no intraluminal thrombus demonstrated. The saphenous vein is patent. There is bilateral lower extremity edema. IMPRESSION: No evidence of lower extremity DVT. Electronically signed by: Aníbal Melvin M.D. 09/14/2017 7:56 PM Dictated Date/Time: 09/14/2017 7:56 PM [~ rep ct add3]] SINGLE VIEW CHEST CLINICAL HISTORY: Dyspnea. FINDINGS: An AP, portable, upright chest radiograph is compared to study dated 10/20/2014. The examination is degraded by portable technique and patient rotation. The heart is enlarged and there is atherosclerotic calcification of the thoracic aorta. The pulmonary vasculature is noncongested. Chronic interstitial thickening is similar to previous. Left basilar atelectasis is identified. No airspace consolidation or large pleural effusion is seen. There is no pneumothorax. The skeletal structures are osteopenic. Arthritic change is seen in the shoulders and thoracic spine. IMPRESSION: Cardiomegaly with no acute cardiopulmonary abnormality. Electronically signed by: Kar Kurtz M.D. 09/14/2017 2:15 PM Dictated Date/Time: 09/14/2017 2:14 PM Consultations: ID Medication Reconciliation New Medications: Insulin Aspart (Novolog Flexpen) 100 Units/Ml Inj 8 UNITS SC UD for 30 Days 8 units subq with meals Insulin Glargine (Lantus Solostar) 100 Unit/Ml Inj 20 UNITS SC BID for 30 Days Levofloxacin (Levofloxacin) 500 Mg Tab 500 MG PO DAILY@1600 for 7 Days, TAB Trimethoprim/Sulfamethoxazole (Bactrim 400MG/80MG) 1 Ea Tab 1 TAB PO Q12H for 7 Days, #14 TAB Continued Medications: Aspirin (Aspir-81) 81 Mg Tab 81 PO HS Calcium/Vitamin D (Os-Natanael 500 Plus D) Tab 1 TAB PO QAM Digoxin (Digoxin) 0.125 Mg Tab 1 TAB PO QAM Levothyroxine Sodium (Synthroid) 200 Mcg Tab 200 MCG PO QAM Losartan Potassium (Cozaar) 25 Mg Tab 25 MG PO QAM Metoprolol Succinate (Metoprolol Succinate ER) 25 Mg Tabcr 1 TAB PO DAILY Senna/Docusate Sod (Senokot S) 1 Tab Tab 1 TAB PO QAM, #30 TAB Warfarin Sod (Coumadin) 2.5 Mg Tab 2.5 MG PO MoTuWeFrSa, TAB Warfarin Sod (Coumadin) 2.5 Mg Tab 5 MG PO SuTh, TAB Discontinued Medications: Insulin Isophan/Regular (Novolin 70/30) Susp 0 SC BID17 30 UNITS BREAKFAST/20 UNITS SUPPER Patient is taking differently: is only taking 30 units with breakfast. Admission Information HPI (per Admitting provider): This is an 87yo F with a PMH of uncontrolled DM II (hgb a1c of 11.2 in Jun 2017) , dementia, A fib (on coumadin), diastolic HF, HTN, hypothyroidism and other medical problems listed below who presents with confusion and fatigue starting yesterday. Patient has had polyuria and polydipsia for the last few days as well as fatigue. Lives alone with her and depends on him for help with medication management. Patient has uncontrolled DM II and only takes 30u of her scheduled 50u of Novolin 70/30. noticed that she was confused and starting to slur her words this AM, so he called an ambulance. EMS found BSG to be >600. Patient states that she took 30u of insulin this AM. Denies fever, chills, lightheadedness, headache, visual changes, CP, SOB, abdominal pain, nausea, vomiting, dysuria, constipation, diarrhea or LE swelling. Has chronic wound on BLE and changes her dressings daily. Follows with [facility] for coumadin use. In ED, BSG was elevated to 516. Bicarb within normal limits, no anion gap. + UA with urine culture pending. No leukocytosis. Supratherapeutic INR of 4.9. EKG with A Fib at 109 bpm. Physical Exam (per Admitting): General Appearance: WD/WN, no apparent distress, + pertinent finding ( Resting comfortably) Head: normocephalic, atraumatic Eyes: normal inspection, PERRL, sclerae normal ENT: normal ENT inspection, hearing grossly normal, pharynx normal (keith mucous membranes) Neck: supple, thyroid normal, trachea midline Respiratory/Chest: chest non-tender, lungs clear, normal breath sounds, no respiratory distress, no accessory muscle use Cardiovascular: no murmur, normal peripheral pulses, + irregularly irregular Abdomen/GI: non tender, soft, no organomegaly Back: normal inspection Extremities/Musculoskelatal: no calf tenderness, + pertinent finding (BLE with chronic venous stasis changes and overlying erythema and warmth. Multiple open wounds. ) Neurologic/Psych: no motor/sensory deficits, alert, normal mood/affect, oriented x 3 Skin: normal color, warm/dry Hospital Course SEPSIS Meet sepsis criteria on admission tachycardia, tachypnea, elevated lactic acid and confusion Possible related to b/l LE ext cellulitis and UTI Received IVF Was starting on broad spectrum abx Blood cx did not collect On Vanco and cefepime, that was d/c yesterday Continue Bactrim and Levaquin for 7 more days Continue monitor HYPERGLYCEMIA /HHS /POORLY CONTROLLED DM : Presents with symptomatic polyuria /polydipsia/fatigue /confusion Was starting on IV insulin drip Recent Hba1c 12.9 diabetes education consulted BS has been fluctuated Pharmacy on board for glycemic management Case discussed with pharmacist that recommended to discharge on Lantus 20mg BID and Novolog 8 units with meals Continue monitor BS closely and titrate lantus if needed BS goal range between 110 to 140 B/L LE Cellulitis in the setting of chronic lymphedema. Doppler showed no evidence of lower extremity DVT. No blood cx collected On Cefepime and Vanco IV ID on board recommended to transition to oral Bactrim and Levaquin to complete 7 -10 days course UTI Urine cx positive for Ecoli Received Cefepime IV Already on Bactrim/Levaquin CONFUSION /LETHARGY /METABOLIC ENCEPHALOPATHY : Mostly related to HHS and infection Back to baseline Resolved CHERYL ON CKD STAGE 3 Mostly related to dehydration Received Continue monitor BMP Resolved HTN : Continue holding diuretics /ARB BP stable HX OF AFIB Rate control now Continue Digoxin and metoprolol Continue Coumadin Monitor INR CODE STATUS FULL CODE DVT PROPHYLAXIS : Starting on heparin subq yesterday DISPOSITION : Continue PT/OT Discharge to [facility] today Total time spent on discharge = 40 min This includes examination of the patient, discharge planning, medication reconciliation, and communication with other providers. Discharge Instructions Discharge Instructions Date of Service Sep 20, 2017. Admission Reason for Admission: A Fib, Dehydration, Hyperglycemia, Uti Discharge Discharge Diagnosis / Problem: Sepsis, Uncontrolled Diabetes, Urinary tract infection, Acute Kidney injury Discharge Goals Goal(s): Decrease discomfort, Improve function, Improve disease control Activity Recommendations Activity Limitations: resume your previous activity (as tolerated) . Instructions / Follow-Up Instructions / Follow-Up Follow up with your primary care provider once discharge from [facility] Complete Antibiotic course with Levaquin and Bactrim Follow up with wound care clinic Continue daily wound care Continue PT/OT Fall precaution Continue coumadin and check INR (INR 1.2 today) Continue monitor Blood sugar closely Your physician will titrate the lantus insulin if needed. BS goal between 110 to 140 Novolog 8 units sub q with meals. Please follow a healthy diabetes diet and limited concentrated sweet Current Hospital Diet Patient's current hospital diet: Diabetes Type 2 Diet, AHA Diet (Heart Healthy) Discharge Diet Recommended Diet: Diabetes Type 2 Diet Pending Studies Studies pending at discharge: no Laboratory Results Hemoglobin A1c Test 09/15/17 08:28 Range/Units Estimated Average Glucose 324 mg/dl Hemoglobin A1c 12.9 H 4.5-5.6 % Medical Emergencies . Who to Call and When: Medical Emergencies: If at any time you feel your situation is an emergency, please call 911 immediately. . Non-Emergent Contact Non-Emergency issues call your: Primary Care Provider Call Non-Emergent contact if: you have a fever, you have any medication questions . . "Provider Documentation" section prepared by Shelby Lange. . Additional Copies To Bobby Shah M.D.
[2017-09-20] MEDS ORDERED: LEVOFLOXACIN 500 MG TAB PO SCH (16:00)
[2017-09-20] MEDS ORDERED: INSULIN GLARGINE SOLOSTAR 100 UNITS/ML 3 ML PEN SC SCH (20:00)
== END 2017-09-20 13:20 | DRG 871 ==
LOC: EDBD 13:12 → C.EDB 13:13 → C.MSICU 15:49 → EDBEDREQ 16:38 → CANRESERV 17:02 → ENRESERV 17:02 → C.2T 21:51 → ENRESERV 09-17 11:33 → C.4E 09-17 12:50
PROVIDERS: ADMIT Hospitalist; ATTEND Internal Medicine
DX: A41.9 Sepsis, unspecified organism (principal); G93.41 Metabolic encephalopathy; I50.30 Unspecified diastolic (congestive) heart failure; N39.0 Urinary tract infection, site not specified; N17.9 Acute kidney failure, unspecified; R65.20 Severe sepsis without septic shock; I13.0 Hypertensive heart and chronic kidney disease with heart failure and stage 1 through stage 4 chronic kidney disease, or unspecified chronic kidney disease; L03.116 Cellulitis of left lower limb; L03.115 Cellulitis of right lower limb; I48.91 Unspecified atrial fibrillation; N18.3 Chronic kidney disease, stage 3 (moderate); E11.9 Type 2 diabetes mellitus without complications; M19.90 Unspecified osteoarthritis, unspecified site; Z79.01 Long term (current) use of anticoagulants; Z88.1 Allergy status to other antibiotic agents; E86.0 Dehydration; F03.90 Unspecified dementia, unspecified severity, without behavioral disturbance, psychotic disturbance, mood disturbance, and anxiety; E03.9 Hypothyroidism, unspecified; I89.0 Lymphedema, not elsewhere classified; Z87.891 Personal history of nicotine dependence

== ENCOUNTER → 2017-09-24 | Outpatient (CLI) | payer OTHER ==
[~2017-09-24] MED LIST changes: +CMD/25 PO; -DIGO0.122 PO; -DOXY100C76 PO; -DTR5 PO; +INSDGIPEN SC; -INSU1INJ SC; -INSU70IN2 SC; -LEVO25TA PO; +LNX125 PO; +LVQ500 PO; +NVLGIPEN SC; +SPT/ PO; +TPRSR/25 PO; -VITA400C3 PO; -WARF5TAB90 PO
[2017-09-24 09:13] LABS: INR 1.3 (0.9-1.1)
[2017-09-24 09:21] LABS: BLOOD UREA NITROGEN 15 mg/dl (7-18); CALCIUM 8.3 mg/dl (8.5-10.1); CARBON DIOXIDE 25 mmol/L (21-32); CREATININE 0.86 mg/dl (0.60-1.20); GLUCOSE 79 mg/dl (70-99); POTASSIUM 4.2 mmol/L (3.5-5.1); SODIUM 134 mmol/L (136-145)
== END | disposition home or self-care (01) ==
LOC: C.LABCC 08:30
PROVIDERS: ATTEND Internal Medicine
DX: I48.91 Unspecified atrial fibrillation (principal)

== ENCOUNTER → 2017-10-01 | Outpatient (CLI) | payer OTHER ==
[2017-10-01 09:29] LABS: INR 7.6 (0.9-1.1)
== END ==
LOC: C.LABCC 08:54
PROVIDERS: ATTEND Internal Medicine
DX: I48.91 Unspecified atrial fibrillation (principal)

== ENCOUNTER → 2017-10-02 | Outpatient (CLI) | payer OTHER ==
[2017-10-02 10:35] LABS: INR 6.8 (0.9-1.1)
== END ==
LOC: C.LABCC 09:59
PROVIDERS: ATTEND Internal Medicine
DX: I48.91 Unspecified atrial fibrillation (principal)

== ENCOUNTER → 2017-10-04 | Outpatient (CLI) | payer OTHER ==
[2017-10-04 12:42] LABS: INR 1.2 (0.9-1.1)
== END ==
LOC: C.LABCC 12:16
PROVIDERS: ATTEND Internal Medicine
DX: I48.91 Unspecified atrial fibrillation (principal)

== ENCOUNTER → 2017-10-12 | Outpatient (CLI) | payer OTHER ==
[2017-10-12 08:45] LABS: INR 4.4 (0.9-1.1)
== END ==
LOC: C.LABCC 07:35
PROVIDERS: ATTEND Internal Medicine
DX: I48.91 Unspecified atrial fibrillation (principal)

== ENCOUNTER → 2017-10-15 | Outpatient (CLI) | payer OTHER ==
[2017-10-15 08:49] LABS: INR 2.9 (0.9-1.1)
== END ==
LOC: C.LABCC 07:50
PROVIDERS: ATTEND Internal Medicine
DX: I48.91 Unspecified atrial fibrillation (principal)

== ENCOUNTER → 2017-10-22 | Outpatient (CLI) | payer OTHER | LOC: C.LABCC 08:15 | PROVIDERS: ATTEND Internal Medicine | DX: E03.9 Hypothyroidism, unspecified (principal) ==

== ENCOUNTER → 2017-10-25 | Outpatient (CLI) | payer OTHER ==
[2017-10-25 09:33] LABS: INR 3.5 (0.9-1.1)
== END | disposition home or self-care (01) ==
LOC: C.LABCC 07:44
PROVIDERS: ATTEND Internal Medicine
DX: I48.91 Unspecified atrial fibrillation (principal)

== ENCOUNTER → 2017-10-29 | Outpatient (CLI) | payer OTHER ==
[2017-10-29 09:57] LABS: BASO % 1.1 %; BASO ABS # 0.08 K/uL (0-0.2); EOS % 3.9 %; EOS ABS # 0.29 K/uL (0-0.5); HEMATOCRIT 41.7 % (37-47); HEMOGLOBIN 14.1 g/dL (12.0-16.0); IG# 0.03 K/uL (0.00-0.02); LYMPH % 21.4 %; LYMPH ABS # 1.61 K/uL (1.2-3.4); MEAN CELL VOLUME 85.5 fL (80-100); MEAN CORPUSCULAR HEMOGLOBIN 28.9 pg (25-34); MEAN CORPUSCULAR HGB CONC 33.8 g/dl (32-36); MEAN PLATELET VOLUME 11.5 fL (7.4-10.4); MONO % 10.6 %; NEUT % 62.6 %; NEUT ABS # 4.71 K/uL (1.4-6.5); PLATELET COUNT 233 K/uL (130-400); RED CELL DISTRIBUTION WIDTH CV 15.6 % (11.5-14.5); RED CELL DISTRIBUTION WIDTH SD 49.5 fL (36.4-46.3); WHITE BLOOD COUNT 7.52 K/uL (4.8-10.8)
[2017-10-29 10:17] LABS: BLOOD UREA NITROGEN 14 mg/dl (7-18); CALCIUM 8.9 mg/dl (8.5-10.1); CARBON DIOXIDE 26 mmol/L (21-32); CREATININE 0.82 mg/dl (0.60-1.20); GLUCOSE 156 mg/dl (70-99); POTASSIUM 3.7 mmol/L (3.5-5.1); SODIUM 138 mmol/L (136-145)
[2017-10-29 10:18] LABS: INR 5.2 (0.9-1.1)
--- NOTE | 2017-11-12 07:36 | CODING QUERY NO DIAGNOSIS ---
TREATMENT RENDERED WITHOUT A DIAGNOSIS To promote full compliance with coding requirements relating to patient care, physician participation is requested in all cases of auditing coder uncertainty. Please assist us with providing a diagnosis/symptom for the test(s) below: A diagnosis/symptom was not documented on your Order. A valid diagnosis/symptom is required to bill all insurances. Please remember that we are unable to code a diagnosis of rule out, probable, possible, questionable, or suspected. Tests that require a diagnosis: DOS: 10/29/17 * PARTIAL RENAL PROFILE DIAGNOSIS: * CBC W/ AUO DIFF DIAGNOSIS: * PT/INR DIAGNOSIS: Provider Signature: Date: Thank you Rachael Aragon [employer] Information Management Once completed, please kindly fax back to [phone] For questions please call [phone]
== END ==
LOC: C.LABCC 09:13
PROVIDERS: ATTEND Internal Medicine
DX: Z01.89 Encounter for other specified special examinations (principal)

== ENCOUNTER → 2017-10-30 | Outpatient (CLI) | payer OTHER ==
[2017-10-30 09:17] LABS: INR 4.3 (0.9-1.1)
== END ==
LOC: C.LABCC 08:44
PROVIDERS: ATTEND Internal Medicine
DX: I48.91 Unspecified atrial fibrillation (principal)

== ENCOUNTER → 2018-03-11 | Outpatient (CLI) | payer OTHER ==
[~2018-03-11] MED LIST changes: -ASPI-232 PO; +CEFD1CAP14 PO; +DOXY100C76 PO; +LEVO1TAB34 PO; -LVQ500 PO; -SPT/ PO
== END | disposition home or self-care (01) ==
LOC: C.LABSPEC 13:14
PROVIDERS: ATTEND Emergency Medicine
DX: S81.802A Unspecified open wound, left lower leg, initial encounter (principal); X58.XXXA Exposure to other specified factors, initial encounter

== ENCOUNTER 2018-12-22 00:08 | Inpatient (IN) ==
[2018-12-22 00:51] LABS: Basophils # (auto) 0.04 K/uL (0-0.2); Basophils % (auto) 0.5 %; Eosinophils # (auto) 0.13 K/uL (0-0.5); Eosinophils % (auto) 1.5 %; Hematocrit (blood only) 41.6 % (37-47); Hemoglobin 14.2 g/dL (12.0-16.0); Immature Granulocytes # (auto) 0.02 K/uL (0.00-0.02); Immature Granulocytes % (auto) 0.2 %; Lymphocytes # (auto) 1.49 K/uL (1.2-3.4); Lymphocytes % (auto) 17.1 %; Mean Corpuscular Hgb Conc 34.1 g/dL (32-36); Mean Corpuscular Volume 80.6 fL (80-100); Mean Platelet Volume 10.5 fL (7.4-10.4); Monocytes # (auto) 0.98 K/uL (0.11-0.59); Monocytes % (auto) 11.3 %; Neutrophils # (auto) 6.05 K/uL (1.4-6.5); Neutrophils % (auto) 69.4 %; Platelet Count 210 K/uL (130-400); RDW Coefficient of Variation 14.8 % (11.5-14.5); Red Blood Count 5.16 M/uL (4.2-5.4); White Blood Count 8.71 K/uL (4.8-10.8)
[2018-12-22 01:01] LABS: Appearance Urine Clear (Clear); Bilirubin Urine Negative (Negative); Blood Urine Negative (Negative); Color Urine Dark Yellow; Glucose Urine UA 1+ (Negative); Ketones Urine Trace (Negative); Leukocyte Esterase Urine Negative (Negative); Nitrite Urine Negative (Negative); Protein Urine Negative (Negative); Specific Gravity Urine 1.019 (1.000-1.030); Urobilinogen Urine Negative (Negative)
[2018-12-22 01:09] LABS: BUN Creatinine Ratio 16.8 (10-20); Blood Urea Nitrogen 13 mg/dl (7-18); Calcium 9.1 mg/dl (8.5-10.1); Carbon Dioxide 26 mmol/L (21-32); Chloride 103 mmol/L (98-107); Est GFR (African American) 76.8; Est GFR (Non-African American) 66.3; Glucose 172 mg/dl (70-99); Potassium 3.3 mmol/L (3.5-5.1); Prothrombin Time 10.6 Seconds (9.0-12.0); Sodium 137 mmol/L (136-145)
[2018-12-22 01:19] LABS: Troponin I 0.034 ng/ml (0-0.045)
[2018-12-22] MEDS ORDERED: POTASSIUM CHLORIDE / WTR 10 MEQ/100 ML PLCT IV STA (03:55)
[2018-12-22] MEDS ORDERED: NITROGLYCERIN SL 0.4 MG/TAB TAB SL PRN (05:06)
[2018-12-22] MEDS ORDERED: ONDANSETRON INJ 2 MG/ML 2 ML VIAL IV PRN (05:06)
[2018-12-22] MEDS ORDERED: ACETAMINOPHEN 325 MG TAB PO PRN (05:06)
[2018-12-22] MEDS ORDERED: SODIUM CHLORIDE 0.9% 1000ML 1,000 ML IV SCH (05:06)
[2018-12-22] MEDS ORDERED: POLYETHYLENE (MIRALAX) 17 GM PACK PO PRN (05:06)
[2018-12-22] MEDS ORDERED: DEXTROSE 50% 50 ML SYRINGE IV PRN (05:45)
[2018-12-22] MEDS ORDERED: GLUCAGON FOR INJ 1 MG VIAL SQ PRN (05:45)
[2018-12-22] MEDS ORDERED: GLUCOSE 10 TABS/TUBE PO PRN (05:45)
[2018-12-22] MEDS ORDERED: CARBOHYDRATES FOR HYPOGLYCEMIA PO PRN (05:45)
[2018-12-22] MEDS ORDERED: GLUCOSE 40% GEL 15 GM TUBE PO PRN (05:45)
[2018-12-22 06:13] LABS: Basophils # (auto) 0.04 K/uL (0-0.2); Basophils % (auto) 0.5 %; Eosinophils # (auto) 0.14 K/uL (0-0.5); Eosinophils % (auto) 1.8 %; Hematocrit (blood only) 42.6 % (37-47); Hemoglobin 14.8 g/dL (12.0-16.0); Immature Granulocytes # (auto) 0.03 K/uL (0.00-0.02); Immature Granulocytes % (auto) 0.4 %; Lymphocytes # (auto) 1.26 K/uL (1.2-3.4); Lymphocytes % (auto) 16.4 %; Mean Corpuscular Hgb Conc 34.7 g/dL (32-36); Mean Corpuscular Volume 79.2 fL (80-100); Mean Platelet Volume 10.6 fL (7.4-10.4); Monocytes % (auto) 9.1 %; Neutrophils # (auto) 5.49 K/uL (1.4-6.5); Neutrophils % (auto) 71.8 %; Platelet Count 169 K/uL (130-400); RDW Coefficient of Variation 14.8 % (11.5-14.5); RDW Standard Deviation 42.5 fL (36.4-46.3); Red Blood Count 5.38 M/uL (4.2-5.4); White Blood Count 7.66 K/uL (4.8-10.8)
--- NOTE | 2018-12-22 06:40 | Emergency Department Note ---
Entered by Marlys Bradley acting as a scribe for Rizwan Renae MD ED Provider Note Name: Ayesha Rose Age: 88 F Arrives Via: EMS Informant: EMS. Patient. CC: Altered Mental Status. HPI: 88 year old female arrives for evaluation of AMS. She was brought to the ED via EMS from the [facility]. The patient had a fall that resulted in a head bleed recently and was discharged from [place] just a few days ago. She denies any headache. EMS states her BSG was 56 in the field, so they gave her D10. The patient is diabetic and takes Insulin. She denies any chest pain. She does admit to some right sided weakness. ROS: See above HPI for pertinent positives & negatives. A total of 10 systems reviewed and were otherwise negative. Past Medical History: See below. Past Surgical History: See below. Family History: See below. Social History: Lives at [facility]. Home Medications: See below. Allergies: GABINO inhibitors, Amoxicillin. Physical: Vitals: Temp 36.6 C, BP 144/72, P 65, R 18, O2 97% Exam: GENERAL: Patient is elderly, tired appearing, slow to respond. EYES: No scleral icterus, unremarkable pupils. ENT: Mucous membranes moist, no nasal congestion. NECK: No masses appreciated, no meningismus, trachea is midline. RESPIRATORY: No dyspnea. Clear to auscultation and equal bilaterally. No wheeze, no rhonchi. CARDIOVASCULAR: Regular rate and rhythm. No murmurs, rubs, gallops appreciated. GASTROINTESTINAL: Abdomen soft, non-tender, no peritonitis. Bowel sounds positive. No masses appreciated. BACK: No midline tenderness, no CVA tenderness EXTREMITIES: Normal motion all extremities, no cyanosis, no edema. NEUROLOGIC: Sleepy, awakens to voice, no acute motor or sensory deficits, mild weakness of right arm compared to left, but difficult to be sure due to sleepiness of patient, cranial nerves grossly intact. SKIN: No rash, no jaundice, no diaphoresis. GCS 14 ED Course: Prior Medical Record, Triage/Nursing Notes, Medications, Allergies reviewed by Me Vital Signs: reviewed and remarkable for wnl Labs: Reviewed and unremarkable Interventions: [place] Imaging: X ray results are stated below per my interpretation: Chest: 1 view: No infiltrate, no effusion, normal cardiac border. [facility] Radiologist interpretation reviewed by me: AUGUSTINE similar to previous imaging last week EKG: Indication is weakness. Sinus rhythm, rate of 85. No ectopy, no ischemia. RBBB. Similar to EKG from December 14, 2018. Consults: Dr Maggi Roberts Hospitalist Reassessments/Times: 0011: First evaluation of patient. Blood pressure: Normal. No Referral necessary Disposition: Hospitalization Differentials: Differential: Toxicological, Infectious, Stroke, SAH, Trauma, Electrolyte Abnormality, Hypoglycemia, Alcohol Intoxication, Drug Intoxication, Cardiac Abnormality, Sepsis, Meningitis/Encephalitis, Trauma, Excited Delirium, Serotonin Syndrome, Psychiatric, amongst other pathologies entertained amongst other pathologies. Medical Decision Makin old female recent ICH with admission to [facility] then transferred to [facility] earlier in day and then transferred here due to weakness and lethargy and apparently right arm weakness. Hypoglycemic for EMS which after D10 did have improvement in AMS. She continues to be quite somnolent even 2 hours after getting here (as well as vague right arm weakness) to point where I do not feel that she likely would do well transferring back to [facility]. BSG staying OK here. CT head without change in bleed. Labs OK and no evidence infection appreciated. Hospitalist consulted and will bring in for further management monitoring. Unclear why still quite somnolent though may be all post head injury or from prolonged hypoglycemia. Impression: Altered Mental Status Hypoglycemia Right Arm Weakness Intracranial Hemorrhage Rizwan Renae MD The scribe's documentation has been prepared under my direction and personally reviewed by me in its entirety. I confirm that the note above accurately reflects all work, treatment, procedures, and medical decision making performed by me. Impression & Plan Altered mental status, Hypoglycemia, Right arm weakness, Intracranial hemorrhage Past Med/Surg History Medical History RBBB (Chronic) A-fib (Chronic) "On coumadin " Hypothyroidism (Chronic) Diabetes mellitus, type II (Chronic) Osteoarthritis (Chronic) Diastolic HF (heart failure) (Chronic) Lymphedema (Chronic) HTN (hypertension) (Chronic) CHF (congestive heart failure) (Chronic) Chronic emphysema syndrome (Chronic) Diabetes (Chronic) Diabetic neuropathy associated with diabetes mellitus due to underlying condition (Chronic) HTN, goal to be determined (Chronic) Hyperthyroidism (Chronic) MRSA (methicillin resistant Staphylococcus aureus) (Chronic) Surgical History S/P cataract extraction (Chronic) History of surgical removal of ganglion cyst (Resolved) Family History Other Diabetes Hypertension Lung cancer No pertinent family history Social History Preferred Language: Sierra Leonean Communication Ability: Effective 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: No Beliefs That Will Affect Care: None marital status: Current Living Situation: Longterm Current Living Situation Comment: [facility] current occupational status: retired Other Information That Helps Us Care for You: No Feels Safe at Home: Yes Smoking Status: Unknown if ever smoked Results & Data Vital Signs Vital Signs - 24 hr 12/22/18 00:21 12/22/18 00:49 12/22/18 02:30 Temperature 36.6 C Temperature Source Oral Sepsis Recent Fever Within 48 Hours No Sepsis Action Taken by Nursing No Action Required Pulse Rate 85 Pulse Rate [Apical] 59 L Pulse Rhythm Regular Pulse Rhythm [Apical] Irregular Pulse Strength Normal Respiratory Rate 21 14 14 Respiratory Effort / Characteristics Non-Labored Non-Labored Spontaneous Respiratory Depth Normal Normal Normal Respiratory Pattern Regular Regular Blood Pressure 157/71 H Blood Pressure [Right Arm] 116/69 134/68 Blood Pressure Mean 99 Blood Pressure Mean [Right Arm] 84 90 Blood Pressure Position Lying Blood Pressure Position [Right Arm] Lying Pulse Oximetry 98 97 100 Oxygen Delivery Method Room Air Room Air Nasal Cannula Oxygen Flow Rate 2 2 Home Medications Current Medication List: was personally reviewed by me Laboratory Data Attestation: I reviewed the patient's lab results. Result diagrams: 12/22/18 05:54 12/22/18 00:25 Lab Results 12/22/18 12/22/18 12/22/18 Range/Units 00:16 00:25 00:25 WBC 8.71 (4.8-10.8) K/uL RBC 5.16 (4.2-5.4) M/uL Hgb 14.2 (12.0-16.0) g/dL Hct 41.6 (37-47) % MCV 80.6 (80-100) fL MCH 27.5 (25-34) pg MCHC 34.1 (32-36) g/dL RDW Std Deviation 43.0 (36.4-46.3) fL RDW Coeff of Angelique 14.8 H (11.5-14.5) % Plt Count 210 (130-400) K/uL MPV 10.5 H (7.4-10.4) fL Immature Gran % (Auto) 0.2 % Neut % (Auto) 69.4 % Lymph % (Auto) 17.1 % Burke % (Auto) 11.3 % Eos % (Auto) 1.5 % Baso % (Auto) 0.5 % Immature Gran # (Auto) 0.02 (0.00-0.02) K/uL Neut # (Auto) 6.05 (1.4-6.5) K/uL Lymph # (Auto) 1.49 (1.2-3.4) K/uL Burke # (Auto) 0.98 H (0.11-0.59) K/uL Eos # (Auto) 0.13 (0-0.5) K/uL Baso # (Auto) 0.04 (0-0.2) K/uL PT 10.6 (9.0-12.0) Seconds INR 1.0 (0.9-1.1) Sodium (136-145) mmol/L Potassium (3.5-5.1) mmol/L Chloride (98-107) mmol/L Carbon Dioxide (21-32) mmol/L Anion Gap (3-11) BUN (7-18) mg/dl Creatinine (0.6-1.2) mg/dl Est Cr Clr Drug Dosing Est GFR ( Amer) Est GFR (Non-Af Amer) BUN/Creatinine Ratio (10-20) Glucose (70-99) mg/dl POC Glucose 227 H (70-99) Calcium (8.5-10.1) mg/dl Troponin I (0-0.045) ng/ml TSH (0.300-4.500) uIu/ml Urine Color Urine Appearance (Clear) Urine pH (4.5-7.5) Ur Specific [place] (1.000-1.030) Urine Protein (Negative) Urine Glucose (UA) (Negative) Urine Ketones (Negative) Urine Blood (Negative) Urine Nitrite (Negative) Urine Bilirubin (Negative) Urine Urobilinogen (Negative) Ur Leukocyte Esterase (Negative) Digoxin (0.8-2.0) ng/ml 06/02/19 06/02/19 06/02/19 Range/Units 00:25 00:25 00:52 WBC (4.8-10.8) K/uL RBC (4.2-5.4) M/uL Hgb (12.0-16.0) g/dL Hct (37-47) % MCV (80-100) fL MCH (25-34) pg MCHC (32-36) g/dL RDW Std Deviation (36.4-46.3) fL RDW Coeff of Angelique (11.5-14.5) % Plt Count (130-400) K/uL MPV (7.4-10.4) fL Immature Gran % (Auto) % Neut % (Auto) % Lymph % (Auto) % Burke % (Auto) % Eos % (Auto) % Baso % (Auto) % Immature Gran # (Auto) (0.00-0.02) K/uL Neut # (Auto) (1.4-6.5) K/uL Lymph # (Auto) (1.2-3.4) K/uL Burke # (Auto) (0.11-0.59) K/uL Eos # (Auto) (0-0.5) K/uL Baso # (Auto) (0-0.2) K/uL PT (9.0-12.0) Seconds INR (0.9-1.1) Sodium 137 (136-145) mmol/L Potassium 3.3 L D (3.5-5.1) mmol/L Chloride 103 (98-107) mmol/L Carbon Dioxide 26 (21-32) mmol/L Anion Gap 8.0 (3-11) BUN 13 (7-18) mg/dl Creatinine 0.80 (0.6-1.2) mg/dl Est Cr Clr Drug Dosing Not Reportable Est GFR ( Amer) 76.8 Est GFR (Non-Af Amer) 66.3 BUN/Creatinine Ratio 16.8 (10-20) Glucose 172 H (70-99) mg/dl POC Glucose (70-99) Calcium 9.1 (8.5-10.1) mg/dl Troponin I 0.034 (0-0.045) ng/ml TSH 1.060 (0.300-4.500) uIu/ml Urine Color Dark Yellow Urine Appearance Clear (Clear) Urine pH 6.0 (4.5-7.5) Ur Specific [place] 1.019 (1.000-1.030) Urine Protein Negative (Negative) Urine Glucose (UA) 1+ H (Negative) Urine Ketones Trace H (Negative) Urine Blood Negative (Negative) Urine Nitrite Negative (Negative) Urine Bilirubin Negative (Negative) Urine Urobilinogen Negative (Negative) Ur Leukocyte Esterase Negative (Negative) Digoxin 0.7 L (0.8-2.0) ng/ml 12/22/18 Range/Units 01:43 WBC (4.8-10.8) K/uL RBC (4.2-5.4) M/uL Hgb (12.0-16.0) g/dL Hct (37-47) % MCV (80-100) fL MCH (25-34) pg MCHC (32-36) g/dL RDW Std Deviation (36.4-46.3) fL RDW Coeff of Angelique (11.5-14.5) % Plt Count (130-400) K/uL MPV (7.4-10.4) fL Immature Gran % (Auto) % Neut % (Auto) % Lymph % (Auto) % Burke % (Auto) % Eos % (Auto) % Baso % (Auto) % Immature Gran # (Auto) (0.00-0.02) K/uL Neut # (Auto) (1.4-6.5) K/uL Lymph # (Auto) (1.2-3.4) K/uL Burke # (Auto) (0.11-0.59) K/uL Eos # (Auto) (0-0.5) K/uL Baso # (Auto) (0-0.2) K/uL PT (9.0-12.0) Seconds INR (0.9-1.1) Sodium (136-145) mmol/L Potassium (3.5-5.1) mmol/L Chloride (98-107) mmol/L Carbon Dioxide (21-32) mmol/L Anion Gap (3-11) BUN (7-18) mg/dl Creatinine (0.6-1.2) mg/dl Est Cr Clr Drug Dosing Est GFR ( Amer) Est GFR (Non-Af Amer) BUN/Creatinine Ratio (10-20) Glucose (70-99) mg/dl POC Glucose 111 H (70-99) Calcium (8.5-10.1) mg/dl Troponin I (0-0.045) ng/ml TSH (0.300-4.500) uIu/ml Urine Color Urine Appearance (Clear) Urine pH (4.5-7.5) Ur Specific [place] (1.000-1.030) Urine Protein (Negative) Urine Glucose (UA) (Negative) Urine Ketones (Negative) Urine Blood (Negative) Urine Nitrite (Negative) Urine Bilirubin (Negative) Urine Urobilinogen (Negative) Ur Leukocyte Esterase (Negative) Digoxin (0.8-2.0) ng/ml Administered Medications Sodium Chloride (Nss 1000ml) 1,000 mls @ 75 mls/hr IV .[id number] PAYAM Stop: 01/21/19 05:05 Last Admin: 12/22/18 06:25 Dose: 75 mls/hr Documented by: [id number] Discontinued Medications Potassium Chloride (K Víctor / Wtr) 10 meq in 100 mls @ 100 mls/hr IV Q1H STA Stop: 12/22/18 04:54 Last Infusion: 12/22/18 06:25 Dose: 0 mls/hr Documented by: [id number] Admin: 12/22/18 04:02 Dose: 100 mls/hr Documented by: [id number] ECG Data Attestation: I personally reviewed and interpreted this ECG as follows: Indication: weakness Rate (beats per minute): 85 Rhythm: normal sinus Findings: + RBBB; no acute ischemic change and no ectopy Comparison ECG Date: from (12/14/2018) Change: no significant change Discharge Plan Visit Data *Final* Discharge Date/Time: 12/22/18 04:22 Chief Complaint: Altered Mental Status Stated Complaint: ALTERED MENTAL STATUS ED Provider: Rizwan Renae Discharge Problem: Altered mental status, Hypoglycemia, Right arm weakness, Intracranial hemorrhage Patient Disposition: Admitted As Inpatient Discharge Instructions Interventions: ED Discharge Assessment Last Done: 12/22/18 04:22 Discharge Problem: Altered mental status Qualifiers: Altered mental status type: somnolence Qualified Code(s): R40.0 - Somnolence The scribe's documentation has been prepared under my direction and personally reviewed by me in its entirety. I confirm that the note above accurately reflects all work, treatment, procedures, and medical decision making performed by me.
[2018-12-22] MEDS: LEVOTHYROXINE SODIUM 200 MCG TABLET PO SCH (06:52)
[2018-12-22 06:57] LABS: BUN Creatinine Ratio 19.6 (10-20); Calcium 9.3 mg/dl (8.5-10.1); Creatinine Clr Calc Pharmacy 52.7 ml/min; Est GFR (African American) 92.5; Est GFR (Non-African American) 79.8; Magnesium 1.8 mg/dl (1.8-2.4); Potassium 4.1 mmol/L (3.5-5.1)
--- NOTE | 2018-12-22 07:42 | History and Physical Report ---
DATE OF ADMISSION: 12/22/2018 CHIEF COMPLAINT: Altered mental status. HISTORY OF PRESENT ILLNESS: This is an 88-year-old female with past medical history significant for type 2 diabetes, hypothyroidism, diastolic heart failure, hypertension, chronic atrial fibrillation, closed compression fracture of L2 vertebra on brace, osteoarthritis, recent subdural hematoma, lymphedema was brought in from [facility] because of altered mental status. The patient was here in the ER on 12/14/2018 with fall and at that time the CT scan showed subdural hematoma over the left cerebral hemisphere having a maximum thickness of 1 cm. Her INR was 5. At that time, she was given IV vitamin K and Kcentra and transferred to [place], seen by Neurosurgery. She was observed there for about a week. Coumadin was held and patient did okay and she was transferred to [facility] to follow up with Neurosurgery in 2 weeks with repeat CAT scan. And to hold coumadin until seen by Neurosurgery. She was just discharged yesterday to [facility] and up there she was found to have confused and question of not moving the right upper extremity and EMS was called and she was brought in here. On the way by the EMS sugars were checked, blood sugar was 50, and D10 was given and sugars improved. After sugars improved, she was able to move her right upper extremity but still was somewhat confused. CT of the head was done which showed subdural hematoma, has no significant change from previous ct scan but official reading is pending. All her labs were okay and hemodynamics were stable. We were called for admission. Currently, patient is more awake, can tell her name, thinks she is at [facility]. Does not remember when she went to [facility], does not remember what happened, could not tell the date and time. Does not remember when she had her last food, obeys simple commands. When asked to move her lower extremities, she did not obey, but she was able to move her upper extremities and lift her hands up though not significantly high. We could not get much history from the patient at this time. Tried to call [facility] but were could not able to reach the nursing staff there. ALLERGIES: GABINO INHIBITORS AND AMOXICILLIN. PAST MEDICAL HISTORY: As mentioned above. PAST SURGICAL HISTORY: Ganglion removed from the ankle. MEDICATIONS: Currently the patient is on Tylenol 650 mg p.o. q. 6 hours p.r.n. pain, heparin subQ 5000 units t.i.d. for 14 days, digoxin 125 mcg p.o. daily, Cozaar 25 mg p.o. daily, levothyroxine 200 mcg daily, Toprol-XL 25 mg p.o. daily, Novolin 70/30, 34 units before breakfast and 23 units before supper, lactobacillus 4 tablets b.i.d., calcium 500 mg p.o. b.i.d., beta carotene 15 mg daily, vitamin E 400 units p.o. daily. FAMILY HISTORY: Significant for mother had hypertension, sister has hypertension, diabetes and one sister of lung cancer. SOCIAL HISTORY: , lives with her , but right now she is at [facility] No smoking history. No alcohol, no drug use. REVIEW OF SYMPTOMS: Could not obtain complete review of symptoms, because of patient's altered mental status. PHYSICAL EXAMINATION: GENERAL: The patient is alert and awake, oriented to name only, who speaks in low voice, not in acute distress. VITAL SIGNS: Temperature 36.6, pulse 59, respiratory rate 14, blood pressure 134/68, oxygen 100% on 2 liters. HEENT: No pallor, no icterus. Pupils equal, round, reactive to light. NECK: No JVD, no neck masses, no carotid bruits. CARDIOVASCULAR: S1, S2 heard, regular rate and rhythm, no murmur, no gallop. RESPIRATORY SYSTEM: Normal AP diameter. No accessory muscle use. No wheezing, no crackles. Spinal brace seen. ABDOMEN: Soft, bowel sounds present. Nontender. No distention. CENTRAL NERVOUS SYSTEM: Alert and awake, oriented to name only. Obeys simple commands, able to move her upper extremities. EXTREMITIES: Chronic lower extremity lymphedema and chronic skin changes. LABORATORY DATA: WBC 8.7, hemoglobin 14.2, hematocrit 41.6, platelets 210. PT 10.6, INR 1. Sodium 137, potassium 3.3, chloride 103, bicarbonate 26, BUN 13, creatinine 0.8, serum glucose 172. Troponin-I 0.034. TSH 1.06. Urinalysis negative, digoxin 0.7. Chest x-ray: No acute findings seen. EKG undetermined rhythm with rate of 85, left axis deviation, right bundle branch block. CT of the head, unofficial report, no significant change of subdural hematoma. ASSESSMENT AND PLAN: This is an 88-year-old female who recently had a fall at home and had subdural hematoma in the left hemisphere of 1 cm thickness transferred to [place],monitored for about a week, Coumadin on hold, transferred to [facility], was brought in because of confusion. 1. Altered mental status, possible secondary to hypoglycemia. The patient's sugar was 50 when checked with EMS, sugars were given and her mental status was slightly better, but she is still confused.Initially not able to move right hand, but now she is moving right upper extremity, though not fully. Patient still seem too weak. CT of the head no significant change in recent subdural hematoma. We will wait for the official report. We will check ABG and ammonia level too. Rest of the labs are okay so far. We will monitor in tele floor. Consult Neurology for further recommendations. Monitor blood sugars. 2. Subdural hematoma. Coumadin on hold. We will follow the official CAT scan report, seems to be same as before. She was supposed to follow with Neurosurgery in couple of weeks. To hold Coumadin until seen by neurosurgery. 3. Hypokalemia. We will replace.Had few doses of Keppra. 4. The patient has dementia. We will monitor for any delirium. 5. Diabetes. Hold Novolin 70/30.Insulin sliding scale with goal range of 140- 180. Monitor the blood sugars. 6. History of atrial fibrillation, rate controlled with Toprol-XL and digoxin. Coumadin on hold. Rates are under control. 7. Diastolic congestive heart failure. The patient is getting gentle fluids. Monitor for any volume overload. On digoxin and Cozaar. 8. Hypertension, on Cozaar, Toprol-XL. We will monitor the blood pressure. 9. Hypothyroidism. Continue Synthroid. 10. Compression fracture of L2 on brace. PT and OT when patient is more stable. 11. Deep venous thrombosis prophylaxis. The patient was discharged on heparin subQ for 14 days, but we will hold for now[facility] 12. Disposition: Admit to tele floor. Code status was DNR at last admission, but not able to reach the [facility]. We will contact the in a.m. and clarify the code status. We will keep full code until then. Expect discharge back to [facility] when stable. PT and OT prior to discharge. Social Service to help with discharge planning. MELLO
[2018-12-22 07:50] LABS: HCO3 ABG 23 mmol/L (19-24); Oxygen Saturation ABG 96.9 % (90-95); PCO2 ABG 33 mmHg (35-46); PO2 ABG 84 mm/Hg (80-95); pH ABG 7.46 (7.35-7.45)
[2018-12-22 07:54] LABS: Allen Test Pos (Pos)
--- NOTE | 2018-12-22 08:18 | Hospitalist Progress Note ---
Date of Service December 22, 2018 Assessment & Plan (1) Altered mental status: Altered Mental Status Subdural Hematoma Hypoglycemia noted by EMS History of Epilepsy Atrial Fibrillation Dementia by history? - This is a patient who was on 12/14/18 transferred from [facility] emergency room to [facility] because of Subdural hematoma over the left cerebral hemisphere having a maximum thickness of 1 cm and review of the available [facility] medical record notes on [facility] that INR was reversed and coumadin was held, patient was monitored with CT head exams and no acute imaging changes, no operative intervention of subdural hematoma, and patient discharged to [facility] on 12/20/18 -as per review of the [facility] notes on 12/21/18 "some change in cognition. Unable to complete sentences. RUE weakness, unable to grasp with right hand -as per admission History and Physical the patient's sugar was 50 when checked with EMS, sugars were given and her mental status was slightly better, but she is still confused.Initially not able to move right hand, but now she is moving right upper extremity, though not fully -Head CT on current admission on 12/22/18 has not show any acute midline shift and the subdural hematoma appears stable in size -Patient also has history of being on Keppra 500 mg BID which is listed in [facility] records to treat "other epilepsy": does not appear there is any generalized seizure as per history or currently - continue Keppra as 500 mg IV q12 hours while in the hospital -will obtain PT/OT/speech and swallow evaluations -Arterial blood gas unremarkable, will send ammonia level 32 - no reported history of cirrhosis -atrial fibrillation can increase risks of stroke however patient has subdural hematoma and risk of bleeding may be increased -neurology consult Atrial Fibrillation Diastolic congestive heart failure Hypertension -heart rate is controlled -continue metoprolol succinate 25 mg daily and digoxin if passes speech and swallow exams -5 mg IV metoprolol q4 hours if heart rate above 110 bpm -check digoxin levels -hold anticoagulation -continue Losartan if patient does not have swallowing deficits Diabetes Mellitus Type 2 on rn long term care current use of insulin -hypoglycemia as per EMS -Hold Novolin 70/30. -Insulin sliding scale with goal range of 140-180. -Monitor the blood sugars. -check HbA1c Hypothyroidism -TSH is normal -continue home dose oral Levothyroxine if patient has no swallowing deficits Compression fracture of L2 -has brace -PT/OT mild Hypokalemia , mild Hypomagnesemia -serum potassium corrected -serum magnesium 1.8, will give IV magnesium and recheck Deep venous thrombosis prophylaxis. SCDs. Sumit Mcgill Subjective I have seen and examined the patient this morning at 8 AM in order to get early baseline assessment of the patient as this the first time for me to meet the patient. She is sleeping flat on bed with protective bracing to support the back. She opens her eyes when woken from sleep. She is able to follow commands such as give hand oracle dba. She is able to wiggle the toes when asked to move the feet. She denies acute pain when asked. Her pupils are equal and reactive to light. Patient returns to sleep after physician left the room. Physical Exam Constitutional: comfortable Eyes: PERRL, conjunctivae normal, anicteric sclerae EOM intact bilaterally Neck: trachea midline, no thyromegaly normal visual inspection Respiratory: normal respiratory effort, lungs clear to auscultation Cardiovascular: RRR, no murmur, no edema Gastrointestinal (Abdomen): normal bowel sounds, soft, nontender, no hepatosplenomegaly Musculoskeletal: Head/Neck/Chest: normocephalic and head atraumatic Neurologic: She is sleeping flat on bed with protective bracing to support the back. She opens her eyes when woken from sleep. She is able to follow commands such as give hand oracle dba. She is able to wiggle the toes when asked to move the feet. She denies acute pain when asked. Her pupils are equal and reactive to light. Patient returns to sleep after physician left the room Psychiatric: Orientation: alert and cooperative Results & Data Vital Signs (Past 12 Hours) Vital Signs Temp Pulse Pulse Pulse Resp BP BP 12/22/18 08:06 36.4 C L 56 L 18 129/58 L 12/22/18 07:59 36.8 C 77 19 12/22/18 05:15 36.9 C 65 18 12/22/18 04:03 14 12/22/18 02:30 59 L 14 12/22/18 00:49 14 12/22/18 00:21 36.6 C 85 21 157/71 H BP Pulse Ox 12/22/18 08:06 100 12/22/18 07:59 117/60 98 12/22/18 05:15 144/72 H 97 12/22/18 04:03 134/68 95 12/22/18 02:30 134/68 100 12/22/18 00:49 116/69 97 12/22/18 00:21 98 (1) Altered mental status Altered mental status type: unspecified Qualified Code(s): R41.82 - Altered mental status, unspecified
[2018-12-22] MEDS ORDERED: METOPROLOL TARTRATE 1 MG/ML VIAL IV PRN (08:45)
[2018-12-22] MEDS ORDERED: PNEUMOCOCCAL ADMINISTRATION CHARGE ONE (08:45)
[2018-12-22] MEDS ORDERED: PNEUMOCOCCAL POLYSACCHARIDES 25 MCG/0.5 ML VIAL/SYR IM ONE (08:45)
[2018-12-22] MEDS ORDERED: MAGNESIUM SULFATE / D5W 1 GM/100 ML BAG IV ONE (08:49)
[2018-12-22] MEDS ORDERED: BETA CAROTENE PO SCH (09:00)
[2018-12-22] MEDS: INSULIN ASPART 100 UNITS/ML 3 ML PEN SC SCH ×4 (09:09→21:19)
[2018-12-22] MEDS: METOPROLOL SUCC 25MG EXT REL TAB PO SCH ×2 (09:26→11:40)
[2018-12-22] MEDS: CALCIUM 600MG + VIT D 400 IU TAB PO SCH (09:26)
[2018-12-22] MEDS: LACTOBACILLUS ACIDOPHILUS (FLORANEX) TAB PO SCH ×2 (09:26→19:33)
[2018-12-22] MEDS: LOSARTAN POTASSIUM 25 MG TAB PO SCH ×2 (09:26→11:41)
[2018-12-22] MEDS: TOCOPHERYL, DL-ALPHA 400 UNITS CAP PO SCH ×2 (09:27→11:41)
--- NOTE | 2018-12-22 10:29 | CT Scan Report ---
CT SCAN OF THE BRAIN WITHOUT IV CONTRAST CLINICAL HISTORY: Change in mental status. COMPARISON STUDY: CT of the brain dated 12/14/2018. TECHNIQUE: Unenhanced axial CT scan of the brain is performed from the vertex to the skull base. A do se lowering technique was utilized adhering to the principles of ALARA. CT DOSE: 537.48 mGy.cm FINDINGS: Brain parenchyma: Again seen is a mixed attenuation subdural hemorrhage along the left convexity. Thi s measures up to 2.2 cm in diameter and effaces the subjacent cortical sulci. There is no left right midline shift. No new foci of hemorrhage are identified. Left cerebellar encephalomalacia is unchange d. There are age-related involutional changes noting mild to moderate subcortical and periventricula r microangiopathic change. There is no parenchymal hemorrhage or evidence of acute territorial ischem ia by CT criteria. Santana-white matter differentiation is preserved. Mineralization is noted in the bas al ganglia. A calcification is again seen in the left periventricular white matter. Ventricles, sulci, cisterns: Prominent secondary to involutional change. Intracranial vasculature: There is atherosclerotic calcification of the cavernous carotid and vertebr al arteries. Calvarium: Unremarkable. Sinuses and mastoids: The visualized paranasal sinuses are clear. There is a trace right mastoid effu sary. The left mastoid air cells are well pneumatized. Orbits: The bony orbits are grossly intact. IMPRESSION: 1. There is been no significant change in size of a mixed attenuation subdural hemorrhage along the l eft convexity as compared to 12/14/2018 (differences in reported size are related to measurement techn ique). This effaces the subjacent cortical sulci, with no left right midline shift. 2. No new focus of hemorrhage is identified. There is no evidence of acute territorial ischemia by CT criteria. Electronically signed by: Kar Kurtz M.D. 12/22/2018 10:28 AM
--- NOTE | 2018-12-22 11:34 | Communication Note ---
Date of Service: December 22, 2018 I have examined Mrs. Mcgill today, reviewed her history and her chart and imaging studies He currently is confused may have some language deficits with word finding, and has a mild right hemiparesis which may be pre-existing due to the recent subdural hematoma but some of which could have been a new development tickly in light of the history that suggest she had a new onset right-sided weakness and can while at [facility] yesterday My suggestions would be to check an EEG to be sure she did not have a focal seizure with postictal confusion and hemiparesis, a noncontrast MRI to see if she has had an embolic event from her atrial fibrillation now off anticoagulation due to her subdural and to check a Keppra level which at her age may actually be in the therapeutic range at a dosage of 500 mg Full consultation has been dictated Orders have been entered in the chart for the above studies Sumit Hedrick
--- NOTE | 2018-12-22 12:34 | XRay Report ---
SINGLE VIEW CHEST CLINICAL HISTORY: Change in mental status. FINDINGS: An AP, portable, upright chest radiograph is compared to study dated 04/08/2018. The heart i s enlarged and there is atherosclerotic calcification of the thoracic aorta. The pulmonary vasculatur e is noncongested. Chronic interstitial thickening is similar to previous. There is mild left basilar atelectasis. No airspace consolidation or large pleural effusion is identified. No pneumothorax is s een. The skeletal structures are osteopenic. The bony thorax is grossly intact. IMPRESSION: Cardiomegaly with no acute cardiopulmonary abnormality. Electronically signed by: Kar Kurtz M.D. 12/22/2018 12:32 PM
--- NOTE | 2018-12-22 12:59 | Magnetic Resonance Report ---
MRI OF THE BRAIN WITHOUT IV CONTRAST CLINICAL HISTORY: Change in mental status. Subdural hematoma. COMPARISON STUDY: CT of the brain dated 12/22/2018. TECHNIQUE: MRI of the brain was performed utilizing various T1 and T2-weighted sequences in the axial , sagittal, and coronal planes. IV contrast was not administered for this examination. FINDINGS: Brain parenchyma: There is age-related involutional change noting mild to moderate subcortical and pe riventricular microangiopathic disease. Again seen is a heterogeneous subdural hemorrhage along the l eft convexity. This measures up to 1.9 cm in thickness and effaces the subjacent cortical sulci. Ther e is no left to right midline shift. There is no parenchymal hematoma. There is no restricted diffusi on to identified typical for acute ischemia. Restricted diffusion is noted within the subdural hemorr gonzalez. Santana-white matter differentiation is preserved. Left cerebellar encephalomalacia is unchanged and consistent with a remote infarct. Small chronic lacunar infarcts identified in the right cerebell ar hemisphere. The cerebellar tonsils are normal in configuration. Ventricles, sulci, and cisterns: Prominent secondary to involutional change. Pituitary and sella: Unremarkable. Intracranial vasculature: Normal flow voids are maintained at the skull base. Orbits: The bony orbits are grossly intact. Orbital contents are normal in appearance. Sinuses and mastoids: There is a small left mastoid effusion. The right mastoid air cells and the par anasal sinuses are clear. Calvarium: Unremarkable. Cervical cord: Partially visualized cervical spinal cord is normal in morphology and signal intensity . IMPRESSION: 1. There is unchanged appearance of a subdural hemorrhage along the left convexity as compared to dee dee mcwilliams's earlier CT scan. 2. No additional foci of hemorrhage are identified. 3. There is no evidence of acute ischemia. Electronically signed by: Kar Kurtz M.D. 12/22/2018 12:58 PM
--- NOTE | 2018-12-22 13:30 | Consultation Report ---
DATE OF CONSULTATION: 12/22/[address] [place]. She is in room 207. HISTORY OF PRESENT ILLNESS: Ayesha is 88 years old, currently a resident of [facility] where she has been transferred following trauma to her lumbar spine with an L2 vertebral fracture and subdural hematoma involving the left hemisphere which was treated conservatively at [place], due to its small size, the presence of cerebral atrophy and lack of shift of midline structures. The subdural region of maximum width of 1.3 cm iis unchanged fromhe CAT scan done on admission here shows no basic supervisor records change fall. Other problems include hypothyroidism, diastolic heart failure, hypertension, chronic atrial fibrillation, osteoarthritis and lymphedema. She was initially seen in our Emergency Room on 12/14 after a fall with subsequent trauma to the head and back, and was transferred to [place], referred the reader to the notes that are currently on the chart outlining her hospital stay. She was to be followed up by neurosurgery in about 2 weeks. She was to not take her chronic anticoagulation with Coumadin until cleared by them and was also on Keppra 500 mg twice a day as prophylaxis against seizures, although apparently she never had any seizures. It is hard for me to establish what her baseline status was at the time of discharge from [place], but apparently at [facility], she developed confusion, right-sided weakness, some of which improved and was brought here to the Emergency Room. On route, the glucose level was 50. She received some D50, may have improved a little bit in regards to that, but currently in the hospital remains confused, disoriented and still has some right upper extremity and lower extremity weakness. PAST MEDICAL HISTORY: Pretty much as outlined above. ALLERGIES: SHE HAS ALLERGIES TO GABINO INHIBITORS, AMOXICILLIN. PAST SURGICAL HISTORY: Reveals a ganglion from her right ankle and is otherwise pretty clean. No operative intervention was done for the lumbar compression fracture or the subdural. MEDICATIONS: Include Tylenol, subQ heparin for DVT prophylaxis, digoxin, Cozaar, levothyroxine, Toprol, Novolin, lactobacillus tablets, calcium, beta carotene, vitamin E, and Keppra 500 twice a day. FAMILY HISTORY: Reveals mother with hypertension, sister with hypertension and diabetes. One sister dying of lung cancer. SOCIAL HISTORY: Reveals her to be , living with her , but not currently due to her residence in [facility]. She has never been a smoker, does not use alcohol. REVIEW OF SYSTEMS: Systems review really could not be obtained directly from the patient, but there apparently was no recent fevers, sweats, chills. No clear history of any new issues referable to head, eyes, ears, nose and throat, cardiovascular, pulmonary, gastrointestinal, genitourinary, musculoskeletal, dermatologic or endocrinologic systems other than those related to her chronic ongoing past medical problems and the fall with the compression fracture, now requiring brace and the subdural hematoma. PHYSICAL EXAMINATION: GENERAL: On neurologic examination today, the patient is drowsy. She can be aroused. She is not oriented. She knows her name. She knows she lives in [place], but cannot tell me that she is in [employer] now and did mention [facility], but even that was vague. She does not recall being in [place] nor does she recall what happened yesterday. VITAL SIGNS: Her vital signs revealed temperature of 36, pulse was 59, respiratory rate was 14, blood pressure 134/68, oxygen 100%. The EKG monitoring looks to me to be rate controlled atrial fibrillation, although I wonder if there are a few P waves here and there. I will defer interpretation of it to the cardiology. HEAD, EYES, EARS, NOSE, AND THROAT: Unremarkable. NEUROLOGIC: There is no head or eye deviation to either side. I can draft roller picker a visual field cut. There may be a slight right upper motor neuron facial asymmetry. Speech is a little garbled at times, but she is very lethargic. Tongue protrudes in the midline. She does have a slight right hemiparesis. The arm drifts when I pulled it out in front of her and does pronate a bit. She really makes very few volitional efforts with the right arm. She will withdraw the right leg to noxious stimuli and there is some venous stasis pigment and edema. Reflexes are absent at the ankles, knees, reduced bilaterally in the upper extremities. Toe sign is downgoing. No Billy signs are seen on the right. IMAGING STUDIES: Include a CT scan which in my opinion is little change from the one done several weeks ago other than the fact that the subdural now looks like it is getting more typical or chronic subdural with breakdown of hemoglobin deposits. At this point, I am not sure what happened yesterday at [facility]. Unfortunately, I do not have a good baseline on this patient's mental status, but if this is a significant change and she is in atrial fibrillation and she is not on anticoagulation, one of the points of the differential would be an embolic shower involving left hemisphere and this certainly would not be seen on a CT scan. I am going to suggest we do a noncontrast MRI just to see if there are any new areas of infarction. Another issue would be potential seizure. I am going to check an EEG and I am going to check a Keppra level, although the latter will not be available in the chart for at least a week. We will look at things tomorrow and get back to her, but some of this is academic as she really should not be back on any form of anticoagulation other than the subQ heparin until cleared by neurosurgery in several weeks' time. MELLO
[2018-12-22] MEDS ORDERED: DIGOXIN 0.125 MG TAB PO SCH (16:00)
[2018-12-22] MEDS ORDERED: INSULIN GLARGINE SOLOSTAR 100 UNITS/ML 3 ML PEN SQ ONE (16:15)
[2018-12-22] MEDS ORDERED: INSULIN GLARGINE SOLOSTAR 100 UNITS/ML 3 ML PEN SC STA (17:52)
[2018-12-22 17:59] LABS: Beta-Hydroxybutyrate 1.22 mg/dl (0.2-2.81)
[2018-12-22] MEDS ORDERED: INSULIN GLARGINE SOLOSTAR 100 UNITS/ML 3 ML PEN SC ONE (21:00)
[2018-12-23] MEDS: LEVOTHYROXINE SODIUM 200 MCG TABLET PO SCH (04:56)
[2018-12-23 06:29] LABS: Estimated Average Glucose 220 mg/dl; Hemoglobin A1C 9.3 % (4.5-5.6)
[2018-12-23] MEDS ORDERED: INSULIN GLARGINE SOLOSTAR 100 UNITS/ML 3 ML PEN SC STA (07:19)
[2018-12-23] MEDS ORDERED: INSULIN ASPART 100 UNITS/ML 3 ML PEN SC ONE (07:20)
[2018-12-23] MEDS: INSULIN ASPART 100 UNITS/ML 3 ML PEN SC SCH ×4 (08:05→21:17)
[2018-12-23] MEDS: LOSARTAN POTASSIUM 25 MG TAB PO SCH (08:07)
[2018-12-23] MEDS: CALCIUM 600MG + VIT D 400 IU TAB PO SCH (08:07)
[2018-12-23] MEDS: LACTOBACILLUS ACIDOPHILUS (FLORANEX) TAB PO SCH ×2 (08:07→21:57)
[2018-12-23] MEDS: TOCOPHERYL, DL-ALPHA 400 UNITS CAP PO SCH (08:07)
[2018-12-23] MEDS: METOPROLOL SUCC 25MG EXT REL TAB PO SCH (08:08)
[2018-12-23] MEDS: SODIUM CHLORIDE 0.9% 500 ML IV SCH ×2 (08:12→12:14)
[2018-12-23 08:43] LABS: Albumin Globulin Ratio 0.7 (0.9-2); Albumin Level 2.8 gm/dl (3.4-5.0); BUN Creatinine Ratio 22.3 (10-20); Bilirubin,Total 1.4 mg/dl (0.2-1); Calcium 8.7 mg/dl (8.5-10.1); Creatinine Clr Calc Pharmacy 36.8 ml/min; Est GFR (Non-African American) 55.3; Potassium 4.6 mmol/L (3.5-5.1); Total Protein 6.7 gm/dl (6.4-8.2)
[2018-12-23 08:54] LABS: Beta-Hydroxybutyrate 13.26 mg/dl (0.2-2.81)
[2018-12-23] MEDS ORDERED: INSULIN GLARGINE SOLOSTAR 100 UNITS/ML 3 ML PEN SC SCH ×3 (09:00→21:00)
[2018-12-23 09:07] LABS: Globulin 3.9 gm/dl (2.5-4.0)
[2018-12-23] MEDS ORDERED: PHARMACY GLYCEMIC MGMT CONSULT PRN (11:12)
[2018-12-23] MEDS ORDERED: INSULIN REGULAR 250 UNITS in SODIUM CHLORIDE 0.9% 247.5 ML IV SCH (11:15)
--- NOTE | 2018-12-23 12:08 | Hospitalist Progress Note ---
Date of Service December 23, 2018 Assessment & Plan (1) Altered mental status: Altered Mental Status likely secondary to metabolic Encephalopathy from hypoglycemia Hypoglycemia noted by EMS Subdural Hematoma History of Epilepsy Atrial Fibrillation Dementia by history? - This is a patient who was on 12/14/18 transferred from [facility] emergency room to [facility] because of Subdural hematoma over the left cerebral hemisphere having a maximum thickness of 1 cm and review of the available [facility] medical record notes on [facility] that INR was reversed and coumadin was held, patient was monitored with CT head exams and no acute imaging changes, no operative intervention of subdural hematoma, and patient discharged to [facility] on 12/20/18 -as per review of the [facility] notes on 12/21/18 "some change in cognition. Unable to complete sentences. RUE weakness, unable to grasp with right hand -as per admission History and Physical the patient's sugar was 50 when checked with EMS, sugars were given and her mental status was slightly better, but she is still confused.Initially not able to move right hand, but now she is moving right upper extremity, though not fully -as of the current workup by 12/23/18 the most likely cause of of initial symptoms likely metabolic Encephalopathy from hypoglycemia because patient's mental status has improved rather quickly and when insulin was given cautiously the serum glucose has been seen to go as high as 400. This suggests that patient functions usually at a high glucose level and hypoglycemia may play a big role in mental status -Head CT on current admission on 12/22/18 has not show any acute midline shift and the subdural hematoma appears stable in size, patient passed speech and swallow testing on 12/23/18, MRI brain on 12/23/18 with no evidence of stroke, await EEG results -continue PT/OT evaluations -continue Keppra 550 mg BID -would hold off coumadin for now given presence of subdural hematoma Diabetes Mellitus Type 2 on [place] current use of insulin with complications of hypoglycemia and then hyperglycemia HbA1c 9.3 -hypoglycemia as per EMS to the 50s -as of the current workup by 12/23/18 the most likely cause of of initial symptoms likely metabolic Encephalopathy from hypoglycemia because patient's mental status has improved rather quickly and when insulin was given cautiously the serum glucose has been seen to go as high as 400. This suggests that patient functions usually at a high glucose level and hypoglycemia may play a big role in mental status -gradually have increased short acting aspart and long acting Lantus while inpatient to adjust for patient's hyperglycemia especially when now eating more, additional IV fluids given, pharmacy glycemic control consult requested for further assistance Atrial Fibrillation Diastolic congestive heart failure Hypertension -heart rate is controlled -continue metoprolol succinate 25 mg -5 mg IV metoprolol q4 hours if heart rate above 110 bpm -resume digoxin -hold anticoagulation for now because of subdural hematoma -continue Losartan Hypothyroidism -TSH is normal -continue home dose oral Levothyroxine if patient has no swallowing deficits Compression fracture of L2 -has brace -PT/OT mild Hypokalemia , mild Hypomagnesemia -serum potassium corrected -serum magnesium corrected Deep venous thrombosis prophylaxis. SCDs. hold anticoagulation for now because of subdural hematoma Sumit Mcgill and son Eliud ([phone]). Full code status is affirmed by patient's as patient defers this decision to him Subjective Patient seen and examined at the bedside. She is able to move the upper extremities and eat the food for herself. she is able to move the lower extremities while sitting on the hospital bed. Patient cooperative and pleasant and follows directions. Patient denies acute pain. no shortness of breath. breathing on room air. no vomiting. no fever. serum glucose has been difficult to manage as serum glucose as elevated as 400. but patient appears to be poorly controlled diabetic and this appears to be her mental baseline Physical Exam Constitutional: comfortable Eyes: PERRL, conjunctivae normal, anicteric sclerae EOM intact bilaterally Neck: trachea midline, no thyromegaly normal visual inspection Respiratory: normal respiratory effort, lungs clear to auscultation Cardiovascular: RRR, no murmur, no edema Gastrointestinal (Abdomen): normal bowel sounds, soft, nontender, no hepatosplenomegaly Musculoskeletal: Head/Neck/Chest: normocephalic and head atraumatic Psychiatric: Orientation: alert and cooperative Results & Data Vital Signs (Past 12 Hours) Vital Signs Temp Pulse Resp BP Pulse Ox 12/23/18 11:06 36.5 C 74 20 103/59 L 100 12/23/18 07:10 36.5 C 77 17 147/83 H 95 12/23/18 04:26 36.5 C 77 17 119/53 L 95 12/23/18 00:13 36.9 C 78 17 117/64 95 (1) Altered mental status Altered mental status type: unspecified Qualified Code(s): R41.82 - Altered mental status, unspecified
[2018-12-23] MEDS ORDERED: INSULIN ASPART 100 UNITS/ML 3 ML PEN SC SCH (13:00)
--- NOTE | 2018-12-23 13:23 | Procedure Note ---
EEG Procedure Note Date of Service December 23, 2018 Start / End Times Start Time: 0800 End Time: 0830 Referring Physician Sumit Hedrick MD History Recent left hemispheric subdural hematoma now with increased confusion and right hemiparesis question post ictal paralysis Home Medication List Home Medications Medication Instructions Recorded Confirmed Type digoxin 0.125 mg PO DAILY 04/08/18 12/22/18 History insulin NPH and regular human 23 unit SUBCUT QPM 04/08/18 12/22/18 History insulin NPH and regular human 34 unit SUBCUT QAM 04/08/18 12/22/18 History levothyroxine 200 mcg PO DAILY 04/08/18 12/22/18 History losartan 25 mg PO DAILY 04/08/18 12/22/18 History metoprolol succinate 25 mg PO DAILY 04/08/18 12/22/18 History Lactobacillus acidoph-L.bulgar 4 tab PO BID 12/22/18 12/22/18 History [Floranex] acetaminophen 650 mg PO Q6H PRN MDD 3g/24hr 12/22/18 12/22/18 History beta carotene 15 mg PO DAILY 12/22/18 12/22/18 History calcium carbonate-vitamin D3 1 tab PO DAILY 12/22/18 12/22/18 History [Calcium 500 + D] heparin (porcine) 5,000 unit SUBCUT Q8H 12/22/18 12/22/18 History levetiracetam [Keppra] 500 mg PO BID 12/22/18 12/22/18 History vitamin E 400 unit PO DAILY 12/22/18 12/22/18 History Inpatient Medication List Insulin Aspart (Novolog Flexpen) 0 units SC [facility]; Protocol Stop: 01/22/19 11:29 Last Admin: 12/23/18 11:49 Dose: 12 units Documented by: [id number] Cosigned by: [id number] Lactobacillus Acidophilus (Floranex) 4 tab PO BID [facility] Stop: 01/21/19 08:59 Last Admin: 12/23/18 08:07 Dose: 4 tab Documented by: [id number] Admin: 12/22/18 19:33 Dose: 4 tab Documented by: [id number] Admin: 12/22/18 09:26 Dose: Not Given Documented by: [id number] [facility]: 01/21/19 06:29 Last Admin: 12/23/18 04:56 Dose: 200 mcg Documented by: [id number] Admin: 12/22/18 06:52 Dose: Not Given Documented by: [id number] Losartan Potassium (Cozaar) 25 mg PO DAILY [facility] Stop: 01/21/19 08:59 Last Admin: 12/23/18 08:07 Dose: 25 mg Documented by: [id number] Admin: 12/22/18 11:41 Dose: 25 mg Documented by: [id number] Metoprolol Succinate (Toprol Xl) 25 mg PO DAILY [facility] Stop: 01/21/19 08:59 Last Admin: 12/23/18 08:08 Dose: 25 mg Documented by: [id number] Admin: 12/22/18 11:40 Dose: 25 mg Documented by: [id number] Multivitamins/Minerals (Caltrate Plus) 1 tab PO DAILY [facility] Stop: 01/21/19 08:59 Last Admin: 12/23/18 08:07 Dose: 1 tab Documented by: [id number] Admin: 12/22/18 09:26 Dose: Not Given Documented by: [id number] Vitamin E (Vitamin E) 400 units PO DAILY [facility] Stop: 01/21/19 08:59 Last Admin: 12/23/18 08:07 Dose: 400 units Documented by: [id number] Admin: 12/22/18 11:41 Dose: 400 units Documented by: [id number] Discontinued Medications Digoxin (Lanoxin) 0.125 mg PO DAILY@1600 [facility] Stop: 01/21/19 15:59 Last Admin: 12/22/18 17:34 Dose: 0.125 mg Documented by: [id number] Potassium Chloride (K íVctor / Wtr) 10 meq in 100 mls @ 100 mls/hr IV Q1H STA Stop: 12/22/18 04:54 Last Infusion: 12/22/18 06:25 Dose: 0 mls/hr Documented by: [id number] Admin: 12/22/18 04:02 Dose: 100 mls/hr Documented by: [id number] Sodium Chloride (Nss 1000ml) 1,000 mls @ 75 mls/hr IV .[id number] [facility] Stop: 01/21/19 05:05 Last Infusion: 12/22/18 09:25 Dose: 0 mls/hr Documented by: [id number] Admin: 12/22/18 06:25 Dose: 75 mls/hr Documented by: [id number] Levetiracetam 500 mg/ Dextrose 105 mls @ 420 mls/hr IV Q12H [facility] Stop: 01/21/19 08:59 Last Infusion: 12/23/18 08:25 Dose: 0 mls/hr Documented by: [id number] Admin: 12/23/18 08:06 Dose: 420 mls/hr Documented by: [id number] Infusion: 12/22/18 20:39 Dose: 0 mls/hr Documented by: [id number] Admin: 12/22/18 19:32 Dose: 420 mls/hr Documented by: [id number] Infusion: 12/22/18 10:54 Dose: 0 mls/hr Documented by: [id number] Admin: 12/22/18 09:55 Dose: 420 mls/hr Documented by: [id number] Magnesium Sulfate/Dextrose (Magnesium Sulfate / D5w) 1 gm in 100 mls @ 100 mls/hr IV ONE ONE Stop: 12/22/18 09:48 Last Infusion: 12/22/18 11:58 Dose: 0 mls/hr Documented by: [id number] Admin: 12/22/18 10:30 Dose: 100 mls/hr Documented by: [id number] Sodium Chloride (Nss) 500 mls @ 125 mls/hr IV .Q4H PAY[facility] Stop: 01/22/19 07:29 Last Admin: 12/23/18 12:14 Dose: Not Given Documented by: [id number] Infusion: 12/23/18 12:13 Dose: 0 mls/hr Documented by: [id number] Admin: 12/23/18 08:12 Dose: 125 mls/hr Documented by: [id number] Insulin Aspart (Novolog Flexpen) 0 units SC ACHS [facility] Stop: 01/21/19 07:29 Last Admin: 12/23/18 08:05 Dose: 12 units Documented by: [id number] Cosigned by: [id number] Admin: 12/22/18 21:19 Dose: 8 units Documented by: [id number] Cosigned by: [id number] Admin: 12/22/18 18:00 Dose: 10 units Documented by: [id number] Cosigned by: [id number] Admin: 12/22/18 13:47 Dose: 5 units Documented by: [id number] Cosigned by: [id number] Admin: 12/22/18 09:09 Dose: Not Given Documented by: [id number] Cosigned by: [id number] Insulin Aspart (Novolog Flexpen) 10 units SC ONCE ONE Stop: 12/23/18 07:21 Last Admin: 12/23/18 08:04 Dose: 10 units Documented by: [id number] Cosigned by: [id number] Insulin Glargine (Lantus Solostar Pen) 5 units SQ 1615 ONE Stop: 12/22/18 16:16 Last Admin: 12/22/18 17:36 Dose: 5 units Documented by: [id number] Cosigned by: [id number] Insulin Glargine (Lantus Solostar Pen) 5 units SC ONCE STA Stop: 12/22/18 17:53 Last Admin: 12/22/18 18:03 Dose: 5 units Documented by: [id number] Cosigned by: [id number] Insulin Glargine (Lantus Solostar Pen) 7 units SC 2100 ONE Stop: 12/22/18 21:01 Last Admin: 12/22/18 21:19 Dose: 7 units Documented by: [id number] Cosigned by: [id number] Insulin Glargine (Lantus Solostar Pen) 20 units SC ONCE STA Stop: 12/23/18 07:20 Last Admin: 12/23/18 08:02 Dose: 20 units Documented by: [id number] Cosigned by: [id number] Pneumococcal Polyvalent Vaccine (Pneumovax-23) 25 mcg IM .ONCE ONE Stop: 12/22/18 08:46 Last Admin: 12/22/18 16:51 Dose: Not Given Documented by: [id number] Description This is a 21 electrode EEG with a single channel dedicated to limited EKG. The electrodes were placed in accordance with the International 10-20 system. This EEG was performed as a bedside recording and is of reasonable technical quality with the exception of persistent C4 electrode artifact throughout the recording There is evidence for normal-appearing background rhythm in the alpha range of up to 9 Hz maximum frequency which is maximum posterior head regions but his voltage appears to be somewhat increased over the right hemisphere posteriorly Theta activity of moderate voltage is seen over the right hemisphere in amounts that would be considered normal in a woman of this age over the left hemisphere however the amplitude of the theta activity appears to be somewhat suppressed Beta activity appears bifrontally but is hard to distinguish from muscle artifact at times Photic stimulation provokes no significant changes Drowsiness and light sleep are not clearly recorded No time is or evidence for clear-cut potentially epileptogenic activity in the form of polyspike or spike-wave burst, focal sharp waves or focal spikes seen Interpretation This EEG demonstrates evidence for voltage reduction over the left hemisphere. This finding is not unusual in the presence of a subdural hematoma. There is h owever no evidence for underlying potentially epileptogenic activity. Clinical Correlation This is a mildly abnormal EEG revealing voltage suppression over the left hemisphere consistent with the known diagnosis of subdural hematoma but demonstrates no additional evidence for focal slow-wave activity or potentially epileptogenic discharges Sumit Hedrick MD
--- NOTE | 2018-12-23 13:47 | Pharmacy Report ---
Glycemic Control Consultation - Date of Service December 23, 2018 - Scope Scope: Glycemic Pharmacist consulted by Dr Canada on 12/23/18 for glycemic control and to write orders per [facility] inpatient glycemic control protocol - Objective Weight: 67.3 kg Accuchecks BSG (last 24hrs): 12/22/18 12/22/18 12/22/18 16:28 16:29 16:55 Glucose 334 H* POC Glucose 301 H* 264 H 12/22/18 12/22/18 12/23/18 20:20 20:22 07:08 Glucose POC Glucose 402 H* 337 H* 415 H* 12/23/18 12/23/18 12/23/18 08:02 09:57 11:11 Glucose 409 H* POC Glucose 317 H* 218 H Laboratory Data (last 24hrs): 12/22/18 12/23/18 16:55 08:02 Potassium 4.6 Carbon Dioxide 23 Anion Gap 9.0 Creatinine 0.93 Est Cr Clr Drug Dosing 36.8 Beta-Hydroxybutyric Acd 1.22 13.26 H HbA1c: 9.3 % (4.5-5.6) H 12/22/18 05:54 - Recent Pertinent Medications Outpatient Anti-diabetic Regimen: * NPH 34 u AM and 23 u PM * A1c = 9.3 % 12/22/18 - Assessment & Plan Assessment & Plan: ASSESSMENT: * Ms. Rose is an 88yo F known to the pharmacy glycemic service from previous admissions. PMHx: consistent with: AF, CHF, HTN, among others. Based on age and chronic co morbidities ADA recommends goal A1C <8/8.5%. A1C from 12/22/18 is 9.3%. * She p/w altered mentation. Encephalopathic in nature. [employer] endorses BSGs in the 50s. Over the subsequent 24hrs: BSGs in the 300s and 400s. This AM IVFs were started. Serum osmolality slightly hyper-osmolar. BHB elevated. CO2/Bi carbonate both WNL. * BSGs have improved to 200s. While IVFs are running and BSGs improving no indication for insulin infsn. PLAN FOR INPATIENT GLYCEMIC CONTROL: * Holding outpatient oral diabetes medications * Basal insulin * Lantus 20 units this AM per Hospitalist * Lantus scale BID per glycemic pharmacist starting this evening. Please see MAR for further details. * Bolus insulin * NovoLog per scale ACHS or Q6hrs while NPO * Goal Range: Low 110 mg/dL - High 140 mg/dL * Correction Factor: 25 mg/dL/unit * Nutritional / Prandial insulin per carb ratio of 1 unit per 8 grams CHO consumed * Please note that the plan above was derived based on current level of insulin resistance and hospital stress. These recommendations are appropriate for inpatient admission only. Plan of care upon discharge will need to be reassessed to avoid potential outpatient hypo/hyperglycemia. Thank you.
--- NOTE | 2018-12-23 15:50 | Communication Note ---
Date of Service: December 23, 2018 I saw Ayesha today. She is significantly improved from yesterday. He still disoriented as to location but then after some reminding realizes she is in [employer] and is happy to be here. She recalls being at [facility] for several days and was not content with the care she received there but details about this and are little vague Currently she is more alert more interactive the right upper extremity paralysis that was more evident yesterday is now almost resolved This may or may not be her baseline but certainly is an improvement Her MRI does not show evidence for any embolic infarctions or indeed any ischemic changes it might be related to the overlying subdural so a vascular event does not appear to be in the differential diagnosis any longer EEG really does not show any significant issues other than voltage suppression over the left hemisphere which is typical of a subdural and is not associated with any particular potentially epileptogenic discharges The most likely diagnosis for her episode of confusion and right hemiparesis would be a partial seizure and this setting I think we are going to continue the Keppra at her current dose wait for the level and once she stabilizes return her to [facility] hopefully within the next few days if she continues to improve at this rate Anticoagulation is still being held pending neurosurgical assessment and she continues to be on DVT prophylaxis with heparin which probably is at least part offering partial protection from embolic events originating in her atria I will check back with her tomorrow. Sumit Hedrick MD
[2018-12-23] MEDS: DIGOXIN 0.125 MG/2.5 ML UDP PO SCH (16:59)
[2018-12-23] MEDS: INSULIN GLARGINE SOLOSTAR 100 UNITS/ML 3 ML PEN SC SCH (21:16)
[2018-12-23] MEDS: levETIRAcetam 500 MG TAB PO SCH (21:57)
[2018-12-24] MEDS ORDERED: METOPROLOL TARTRATE 1 MG/ML VIAL IV STA (08:11)
[2018-12-24] MEDS ORDERED: METOPROLOL TARTRATE 1 MG/ML VIAL IV PRN (08:11)
--- NOTE | 2018-12-24 08:11 | Hospitalist Progress Note ---
Date of Service December 24, 2018 Assessment & Plan (1) Altered mental status: Altered Mental Status likely secondary to metabolic Encephalopathy from hypoglycemia Hypoglycemia noted by EMS Subdural Hematoma History of Epilepsy Atrial Fibrillation Dementia by history? - This is a patient who was on 12/14/18 transferred from [facility] emergency room to [facility] because of Subdural hematoma over the left cerebral hemisphere having a maximum thickness of 1 cm and review of the available [facility] medical record notes on [facility] that INR was reversed and coumadin was held, patient was monitored with CT head exams and no acute imaging changes, no operative intervention of subdural hematoma, and patient discharged to [facility] on 12/20/18 -as per review of the [facility] notes on 12/21/18 "some change in cognition. Unable to complete sentences. RUE weakness, unable to grasp with right hand -as per admission History and Physical the patient's sugar was 50 when checked with EMS, sugars were given and her mental status was slightly better, but she is still confused.Initially not able to move right hand, but now she is moving right upper extremity, though not fully -as of the current workup by 12/23/18 the most likely cause of of initial symptoms likely metabolic Encephalopathy from hypoglycemia because patient's mental status has improved rather quickly and when insulin was given cautiously the serum glucose has been seen to go as high as 400. This suggests that patient functions usually at a high glucose level and hypoglycemia may play a big role in mental status -Head CT on current admission on 12/22/18 has not show any acute midline shift and the subdural hematoma appears stable in size, patient passed speech and swallow testing on 12/23/18, MRI brain on 12/23/18 with no evidence of stroke -EEG really does not show any significant issues other than voltage suppression over the left hemisphere which is typical of a subdural and is not associated with any particular potentially epileptogenic discharges -continue Keppra 500 mg BID -would hold off coumadin for now given presence of subdural hematoma -will start low dose heparin 5000 units q12 hours for DVT prophylaxis on 12/24/18 Diabetes Mellitus Type 2 on metal hanger current use of insulin with complications of hypoglycemia and then hyperglycemia HbA1c 9.3 -hypoglycemia as per EMS to the 50s -as of the current workup by 12/23/18 the most likely cause of of initial symptoms likely metabolic Encephalopathy from hypoglycemia because patient's mental status has improved rather quickly and when insulin was given cautiously the serum glucose has been seen to go as high as 400. This suggests that patient functions usually at a high glucose level and hypoglycemia may play a big role in mental status -gradually have increased short acting aspart and long acting Lantus while in patient to adjust for patient's hyperglycemia especially when now eating more, additional IV fluids given, pharmacy glycemic control consult currently working on tighter glucose control Atrial Fibrillation Diastolic congestive heart failure Hypertension -increase metoprolol succinate 25 mg to 50 mg daily for better rate control -5 mg IV metoprolol q4 hours if heart rate above 110 bpm -resume digoxin -hold full dose anticoagulation for now because of subdural hematoma -continue Losartan Hypothyroidism -TSH is normal -continue home dose oral Levothyroxine if patient has no swallowing deficits Compression fracture of L2 -has brace -continue PT/OT evaluations mild Hypokalemia , mild Hypomagnesemia -serum potassium corrected -serum magnesium corrected Deep venous thrombosis prophylaxis. SCDs. will start low dose heparin 5000 units q12 hours for DVT prophylaxis Sumit Mcgill and son Eliud ([phone]). Full code status is affirmed by patient's as patient defers this decision to him Subjective Patient seen and examined at bedside. She had just finished her breakfast today. Her glucose since yesterday appears to be better controlled but will continue to watch her in telemetry harmon in case patient has any neurological events associated with blood sugars. Patient continues to have chronic atrial fibrillation. More tachycardic today. Patient does not appear to be experiencing discomfort such as palpitations. Patient awake and aler and cooperative on exam. breathing on room air. she is pleasant Physical Exam Constitutional: comfortable Eyes: PERRL, conjunctivae normal, anicteric sclerae EOM intact bilaterally ENMT: external ear and nose normal, oropharynx normal Neck: trachea midline, no thyromegaly normal visual inspection Respiratory: normal respiratory effort, lungs clear to auscultation Cardiovascular: Rate/Rhythm: + tachycardic and + irregularly irregular Gastrointestinal (Abdomen): normal bowel sounds, soft, nontender, no hepatosplenomegaly Musculoskeletal: Head/Neck/Chest: normocephalic and head atraumatic patient in a brace Neurologic: PERRL, EOMI, accommodation nl, no face palsy, no dysarthria Psychiatric: Orientation: alert and cooperative Results & Data Vital Signs (Past 12 Hours) Vital Signs Temp Pulse Resp BP Pulse Ox 12/24/18 07:24 37.1 C 83 13 144/76 H 94 12/24/18 04:34 37.0 C 86 18 144/62 H 96 (1) Altered mental status Altered mental status type: unspecified Qualified Code(s): R41.82 - Altered mental status, unspecified
[2018-12-24] MEDS: INSULIN ASPART 100 UNITS/ML 3 ML PEN SC SCH ×4 (08:49→20:14)
[2018-12-24] MEDS: CALCIUM 600MG + VIT D 400 IU TAB PO SCH (08:51)
[2018-12-24] MEDS: LACTOBACILLUS ACIDOPHILUS (FLORANEX) TAB PO SCH ×2 (08:51→20:24)
[2018-12-24] MEDS: LEVOTHYROXINE SODIUM 200 MCG TABLET PO SCH (08:51)
[2018-12-24] MEDS: METOPROLOL SUCC 50MG EXT REL TAB PO SCH (08:52)
[2018-12-24] MEDS: HEPARIN SOD 5,000 UNIT/0.5 ML VIAL SQ SCH ×2 (08:52→20:24)
[2018-12-24] MEDS: TOCOPHERYL, DL-ALPHA 400 UNITS CAP PO SCH (08:52)
[2018-12-24] MEDS: levETIRAcetam 500 MG TAB PO SCH ×2 (08:52→20:24)
[2018-12-24] MEDS: LOSARTAN POTASSIUM 25 MG TAB PO SCH (08:53)
[2018-12-24] MEDS ORDERED: INSULIN GLARGINE SOLOSTAR 100 UNITS/ML 3 ML PEN SC SCH (09:00)
[2018-12-24 09:12] LABS: Albumin Globulin Ratio 0.7 (0.9-2); Albumin Level 2.9 gm/dl (3.4-5.0); BUN Creatinine Ratio 19.8 (10-20); Bilirubin,Total 1.5 mg/dl (0.2-1); Calcium 9.2 mg/dl (8.5-10.1); Creatinine Clr Calc Pharmacy 38.9 ml/min; Est GFR (African American) 61.6; Est GFR (Non-African American) 53.2; Magnesium 2.2 mg/dl (1.8-2.4); Potassium 4.7 mmol/L (3.5-5.1); Total Protein 6.9 gm/dl (6.4-8.2)
[2018-12-24 09:23] LABS: Beta-Hydroxybutyrate 7.7 mg/dl (0.2-2.81)
[2018-12-24] MEDS: SODIUM CHLORIDE 0.9% 1000ML 1,000 ML IV SCH (12:25)
--- NOTE | 2018-12-24 14:51 | Pharmacy Report ---
Pharmacy Glycemic Short Note 2 - Date of Service December 24, 2018 - Glycemic Short BSG Results (Last 24 hours): 12/23/18 12/23/18 12/24/18 16:21 20:08 07:21 Glucose POC Glucose 89 114 H 291 H 12/24/18 12/24/18 08:32 11:18 Glucose 430 H* POC Glucose 388 H* OUTPATIENT ANTIDIABETIC REGIMEN: * NPH 34 units qam, 23 units qpm ASSESSMENT: * Patient BSG decreased nicely yesterday, but rebounded this morning, likely due to no HS lantus and potential need for fluid. Total daily Lantus dose increased today and maintenance fluids added at lunch time after discussion with Dr. Canada. May consider tightening novolog further if hyperglycemia persists. I am hesitant to make too many changes at once, given how quickly BSG downtrended yesterday. PLAN FOR INPATIENT GLYCEMIC CONTROL: * Hold outpatient oral diabetes medications * Basal insulin * Lantus 18 units SQ this morning * Lantus 14 or 18 units SQ this evening based on BSG (See protocol text in order) * Bolus insulin * NovoLog per scale ACHS or Q6hrs while NPO * Goal Range: Low 110 mg/dL - High 140 mg/dL * Correction Factor: 25 mg/dL/unit * Nutritional / Prandial insulin per carb ratio of 1 unit per 8 grams CHO consumed
--- NOTE | 2018-12-24 16:12 | Communication Note ---
Date of Service: December 24, 2018 I saw Mrs. Rose today and note that she is even more active and alert than she was yesterday with virtually no right-sided paresis and clear speech without much in way word finding deficits. She remains confused pleasantly and insists that she is going to go home and not to [facility] although I doubt this is going to be the case and frankly at this point we do not really have a diagnosis as to why she had the confusion and right-sided weakness reported at the [facility] I suspect that this was probably a focal seizure with some postictal weakness. Please a Keppra level is pending and probably will be for another few days but it 500 mg twice a day in an elderly woman I really emerged it any higher unless we see clear-cut evidence for recurrent or like activity. At this point neurology is going to sign off recommendations being that we continue the Keppra 500 twice a day and that she be assessed by neurosurgery as scheduled in [place] to is technician when it might be safe to return to Coumadin therapy for her atrial fibrillation prophylaxis. If she has recurrent episodes of confusion and right-sided weakness then we may end up increasing her Keppra dose to 750 twice a day but I would prefer to know what the current level is before doing so as I have had elderly individuals run paradoxically high levels of Keppra on relatively low doses I be happy to look at her again but for now neurology can see her on an as- needed basis or possibly in about 6 to 8 weeks after the current discharge and the policy regarding her Coumadin etc. it is a little more clear Sumit Hedrick MD
[2018-12-24] MEDS: DIGOXIN 0.125 MG/2.5 ML UDP PO SCH (18:18)
[2018-12-24] MEDS: INSULIN GLARGINE SOLOSTAR 100 UNITS/ML 3 ML PEN SC SCH (20:25)
[2018-12-25] MEDS: INSULIN ASPART 100 UNITS/ML 3 ML PEN SC SCH ×6 (00:09→21:10)
[2018-12-25] MEDS: SODIUM CHLORIDE 0.9% 1000ML 1,000 ML IV SCH ×3 (00:10→22:18)
[2018-12-25] MEDS: LEVOTHYROXINE SODIUM 200 MCG TABLET PO SCH (06:11)
[2018-12-25 06:28] LABS: Basophils # (auto) 0.08 K/uL (0-0.2); Eosinophils # (auto) 0.31 K/uL (0-0.5); Eosinophils % (auto) 3.8 %; Hematocrit (blood only) 44.9 % (37-47); Hemoglobin 15.3 g/dL (12.0-16.0); Immature Granulocytes # (auto) 0.03 K/uL (0.00-0.02); Immature Granulocytes % (auto) 0.4 %; Lymphocytes # (auto) 2.39 K/uL (1.2-3.4); Lymphocytes % (auto) 29.2 %; Mean Corpuscular Hgb Conc 34.1 g/dL (32-36); Mean Corpuscular Volume 81.2 fL (80-100); Mean Platelet Volume 10.6 fL (7.4-10.4); Monocytes # (auto) 0.82 K/uL (0.11-0.59); Neutrophils # (auto) 4.55 K/uL (1.4-6.5); Neutrophils % (auto) 55.6 %; Platelet Count 177 K/uL (130-400); RDW Coefficient of Variation 15.1 % (11.5-14.5); RDW Standard Deviation 43.6 fL (36.4-46.3); Red Blood Count 5.53 M/uL (4.2-5.4); White Blood Count 8.18 K/uL (4.8-10.8)
[2018-12-25 07:05] LABS: Albumin Level 2.9 gm/dl (3.4-5.0); BUN Creatinine Ratio 19.8 (10-20); Bilirubin Direct 0.2 mg/dl (0-0.2); Calcium 9.4 mg/dl (8.5-10.1); Creatinine Clr Calc Pharmacy 49.3 ml/min; Est GFR (African American) 81.7; Est GFR (Non-African American) 70.5; Potassium 3.8 mmol/L (3.5-5.1)
[2018-12-25 07:17] LABS: Albumin Globulin Ratio 0.7 (0.9-2); Bilirubin,Total 1.5 mg/dl (0.2-1); Total Protein 6.9 gm/dl (6.4-8.2)
[2018-12-25] MEDS: LACTOBACILLUS ACIDOPHILUS (FLORANEX) TAB PO SCH ×2 (08:25→21:14)
[2018-12-25] MEDS: LOSARTAN POTASSIUM 25 MG TAB PO SCH (08:25)
[2018-12-25] MEDS: TOCOPHERYL, DL-ALPHA 400 UNITS CAP PO SCH (08:25)
[2018-12-25] MEDS: levETIRAcetam 500 MG TAB PO SCH ×2 (08:25→21:14)
[2018-12-25] MEDS: METOPROLOL SUCC 50MG EXT REL TAB PO SCH (08:25)
[2018-12-25] MEDS: CALCIUM 600MG + VIT D 400 IU TAB PO SCH (08:25)
[2018-12-25] MEDS: HEPARIN SOD 5,000 UNIT/0.5 ML VIAL SQ SCH ×2 (08:26→21:15)
[2018-12-25] MEDS ORDERED: INSULIN GLARGINE SOLOSTAR 100 UNITS/ML 3 ML PEN SC SCH (09:00)
[2018-12-25] MEDS: DIGOXIN 0.125 MG/2.5 ML UDP PO SCH (16:37)
--- NOTE | 2018-12-25 17:37 | Hospitalist Progress Note ---
Date of Service December 25, 2018 Assessment & Plan (1) Altered mental status: Altered Mental Status likely secondary to metabolic Encephalopathy from hypoglycemia Hypoglycemia noted by EMS Subdural Hematoma History of Epilepsy Atrial Fibrillation Dementia by history? Per Dr. Canada's notes: - This is a patient who was on 12/14/18 transferred from [facility] emergency room to [facility] because of Subdural hematoma over the left cerebral hemisphere having a maximum thickness of 1 cm and review of the available [facility] medical record notes on [facility] that INR was reversed and coumadin was held, patient was monitored with CT head exams and no acute imaging changes, no operative intervention of subdural hematoma, and patient discharged to [facility] on 12/20/18 -as per review of the [facility] notes on 12/21/18 "some change in cognition. Sandra ble to complete sentences. RUE weakness, unable to grasp with right hand -as per admission History and Physical the patient's sugar was 50 when checked with EMS, sugars were given and her mental status was slightly better, but she is still confused.Initially not able to move right hand, but now she is moving right upper extremity, though not fully -as of the current workup by 12/23/18 the most likely cause of of initial symptoms likely metabolic Encephalopathy from hypoglycemia because patient's mental status has improved rather quickly and when insulin was given cautiously the serum glucose has been seen to go as high as 400. This suggests that patient functions usually at a high glucose level and hypoglycemia may play a big role in mental status -Head CT on current admission on 12/22/18 has not show any acute midline shift and the subdural hematoma appears stable in size, patient passed speech and swallow testing on 12/23/18, MRI brain on 12/23/18 with no evidence of stroke -EEG really does not show any significant issues other than voltage suppression over the left hemisphere which is typical of a subdural and is not associated with any particular potentially epileptogenic discharges -continue Keppra 500 mg BID -would hold off coumadin for now given presence of subdural hematoma -will start low dose heparin 5000 units q12 hours for DVT prophylaxis on 12/24/18 6 Patient, awake and alert, follows simple commands, moves extremities equally BSG is ranging from 10 5-2 18, monitor closely Diabetes Mellitus Type 2 on half-way current use of insulin with complications of hypoglycemia and then hyperglycemia HbA1c 9.3 -hypoglycemia as per EMS to the 50s . Pharmacy glycemic control consulted Atrial Fibrillation Diastolic congestive heart failure Hypertension -increase metoprolol succinate 25 mg to 50 mg daily for better rate control -5 mg IV metoprolol q4 hours if heart rate above 110 bpm -resume digoxin -hold full dose anticoagulation for now because of subdural hematoma -continue Losartan -Heart rate improved Hypothyroidism -TSH is normal -continue home dose oral Levothyroxine if patient has no swallowing deficits Compression fracture of L2 -has brace -continue PT/OT evaluations mild Hypokalemia , mild Hypomagnesemia -serum potassium corrected -serum magnesium corrected Deep venous thrombosis prophylaxis. SCDs. low dose heparin 5000 units q12 hours for DVT prophylaxis Sumit Mcgill and son Eliud ([phone]). Full code status is affirmed by patient's as patient defers this decision to him Disposition Patient's family requesting a different retirement facility upon discharge outpatient pharmacy manager working on referrals Subjective Follow-up for altered mental status, hypoglycemia Seen sitting up in bed, comfortable, pleasantly confused Per [employer], patient has been doing well since this morning Patient denies headache, dizziness, chest pain, shortness of breath, abdominal pain No other signs and symptoms noted Review of Systems Review of Systems: All systems reviewed & are unremarkable except as noted in HPI & below Physical Exam Physical Exam: General- oriented x 0, not in distress, speaks in sentences with no effort or accessory muscle use Head- atraumatic Eyes- PERRL, EOMI, anicteric ENT- oropharynx clear Neck- supple, no JVD, no adenopathy, no thyromegaly; carotids +2/2, no bruits appreciated Lungs- clear to auscultation bilaterally, no rales/wheezes Heart- normal rate, irregularly irregular rhythm; no murmur, no gallop, no rub appreciated Abdomen- normal bowel sounds, nondistended, soft, nontender, no masses or hepatosplenomegaly Extremities- no pretibial edema, no calf tenderness; peripheral pulses intact Neuro- alert, oriented x 3; CN 2-12 grossly intact; motor 5/5 bilaterally;sensation 100% on all extremities; no other gross focal neurologic deficits Skin- warm & dry Results & Data Vital Signs (Past 12 Hours) Vital Signs Temp Pulse Resp BP Pulse Ox 12/25/18 15:22 36.6 C 88 19 130/86 96 12/25/18 11:22 36.6 C 63 20 152/60 H 93 12/25/18 07:00 36.4 C L 73 16 140/76 98 Laboratory Results Laboratory Results - last 24 hr 12/24/18 12/24/18 12/25/18 20:11 23:58 04:08 WBC RBC Hgb Hct MCV MCH MCHC RDW Std Deviation RDW Coeff of Angelique Plt Count MPV Immature Gran % (Auto) Neut % (Auto) Lymph % (Auto) Young % (Auto) Eos % (Auto) Baso % (Auto) Immature Gran # (Auto) Neut # (Auto) Lymph # (Auto) Young # (Auto) Eos # (Auto) Baso # (Auto) Sodium Potassium Chloride Carbon Dioxide Anion Gap BUN Creatinine Est Cr Clr Drug Dosing Est GFR ( Amer) Est GFR (Non-Af Amer) BUN/Creatinine Ratio Glucose POC Glucose 130 H 127 H 98 Calcium Total Bilirubin Direct Bilirubin AST ALT Alkaline Phosphatase Total Protein Albumin Globulin Albumin/Globulin Ratio 12/25/18 12/25/18 12/25/18 06:03 06:03 07:17 WBC 8.18 RBC 5.53 H Hgb 15.3 Hct 44.9 MCV 81.2 MCH 27.7 MCHC 34.1 RDW Std Deviation 43.6 RDW Coeff of Angelique 15.1 H Plt Count 177 MPV 10.6 H Immature Gran % (Auto) 0.4 Neut % (Auto) 55.6 Lymph % (Auto) 29.2 Young % (Auto) 10.0 Eos % (Auto) 3.8 Baso % (Auto) 1.0 Immature Gran # (Auto) 0.03 H Neut # (Auto) 4.55 Lymph # (Auto) 2.39 Young # (Auto) 0.82 H Eos # (Auto) 0.31 Baso # (Auto) 0.08 Sodium 140 Potassium 3.8 D Chloride 108 H Carbon Dioxide 25 Anion Gap 7.0 BUN 15 Creatinine 0.76 Est Cr Clr Drug Dosing 49.3 Est GFR ( Amer) 81.7 Est GFR (Non-Af Amer) 70.5 BUN/Creatinine Ratio 19.8 Glucose 120 H POC Glucose 105 H Calcium 9.4 Total Bilirubin 1.5 H Direct Bilirubin 0.2 AST 26 ALT 24 Alkaline Phosphatase 115 Total Protein 6.9 Albumin 2.9 L Globulin 4.0 Albumin/Globulin Ratio 0.7 L 12/25/18 12/25/18 11:20 16:43 WBC RBC Hgb Hct MCV MCH MCHC RDW Std Deviation RDW Coeff of Angelique Plt Count MPV Immature Gran % (Auto) Neut % (Auto) Lymph % (Auto) Young % (Auto) Eos % (Auto) Baso % (Auto) Immature Gran # (Auto) Neut # (Auto) Lymph # (Auto) Young # (Auto) Eos # (Auto) Baso # (Auto) Sodium Potassium Chloride Carbon Dioxide Anion Gap BUN Creatinine Est Cr Clr Drug Dosing Est GFR ( Amer) Est GFR (Non-Af Amer) BUN/Creatinine Ratio Glucose POC Glucose 218 H 119 H Calcium Total Bilirubin Direct Bilirubin AST ALT Alkaline Phosphatase Total Protein Albumin Globulin Albumin/Globulin Ratio (1) Altered mental status Altered mental status type: unspecified Qualified Code(s): R41.82 - Altered mental status, unspecified
[2018-12-26] MEDS: INSULIN ASPART 100 UNITS/ML 3 ML PEN SC SCH ×6 (04:47→21:01)
[2018-12-26] MEDS: LEVOTHYROXINE SODIUM 200 MCG TABLET PO SCH (06:04)
[2018-12-26] MEDS: HEPARIN SOD 5,000 UNIT/0.5 ML VIAL SQ SCH ×2 (07:49→20:58)
[2018-12-26] MEDS: levETIRAcetam 500 MG TAB PO SCH ×2 (07:49→20:57)
[2018-12-26] MEDS: CALCIUM 600MG + VIT D 400 IU TAB PO SCH (07:50)
[2018-12-26] MEDS: LOSARTAN POTASSIUM 25 MG TAB PO SCH (07:50)
[2018-12-26] MEDS: LACTOBACILLUS ACIDOPHILUS (FLORANEX) TAB PO SCH ×2 (07:50→20:57)
[2018-12-26] MEDS: TOCOPHERYL, DL-ALPHA 400 UNITS CAP PO SCH (07:50)
[2018-12-26] MEDS: METOPROLOL SUCC 50MG EXT REL TAB PO SCH (07:50)
[2018-12-26] MEDS ORDERED: INSULIN GLARGINE SOLOSTAR 100 UNITS/ML 3 ML PEN SC SCH (09:00)
[2018-12-26] MEDS: SODIUM CHLORIDE 0.9% 1000ML 1,000 ML IV SCH (10:55)
[2018-12-26] MEDS: DIGOXIN 0.125 MG/2.5 ML UDP PO SCH (16:03)
[2018-12-26] MEDS: INSULIN GLARGINE SOLOSTAR 100 UNITS/ML 3 ML PEN SC SCH (21:16)
--- NOTE | 2018-12-26 22:04 | Hospitalist Progress Note ---
Date of Service delayed entry date of service noted below December 26, 2018 Assessment & Plan (1) Altered mental status: Altered Mental Status likely secondary to metabolic Encephalopathy from hypoglycemia Hypoglycemia noted by EMS Subdural Hematoma History of Epilepsy Atrial Fibrillation Dementia by history? Per Dr. aCnada's notes: - This is a patient who was on 12/14/18 transferred from [facility] emergency room to [facility] because of Subdural hematoma over the left cerebral hemisphere having a maximum thickness of 1 cm and review of the available [facility] medical record notes on [facility] that INR was reversed and coumadin was held, patient was monitored with CT head exams and no acute imaging changes, no operative intervention of subdural hematoma, and patient discharged to [facility] on 12/20/18 -as per review of the [facility] notes on 12/21/18 "some change in cognition. Unable to complete sentences. RUE weakness, unable to grasp with right hand -as per admission History and Physical the patient's sugar was 50 when checked with EMS, sugars were given and her mental status was slightly better, but she is still confused.Initially not able to move right hand, but now she is moving right upper extremity, though not fully -as of the current workup by 12/23/18 the most likely cause of of initial symptoms likely metabolic Encephalopathy from hypoglycemia because patient's mental status has improved rather quickly and when insulin was given cautiously the serum glucose has been seen to go as high as 400. This suggests that patient functions usually at a high glucose level and hypoglycemia may play a big role in mental status -Head CT on current admission on 12/22/18 has not show any acute midline shift and the subdural hematoma appears stable in size, patient passed speech and swallow testing on 12/23/18, MRI brain on 12/23/18 with no evidence of stroke -EEG really does not show any significant issues other than voltage suppression over the left hemisphere which is typical of a subdural and is not associated with any particular potentially epileptogenic discharges -continue Keppra 500 mg BID 12/26 remains awake and alert,no new focal deficits BSG is ranging from 102-230 for the Subdural Hematoma noted 12/14/18, - patient seen at [facility] - recommend to hold off coumadin until follow up with [facility] in 1 week - continue low dose heparin 5000 units q12 hours for DVT prophylaxis 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 with complications of hypoglycemia and then hyperglycemia HbA1c 9.3 -hypoglycemia as per EMS to the 50s Pharmacy glycemic control consulted Atrial Fibrillation Diastolic congestive heart failure Hypertension -increased metoprolol succinate 25 mg to 50 mg daily for better rate control -5 mg IV metoprolol q4 hours if heart rate above 110 bpm -resumed digoxin -hold full dose anticoagulation for now because of subdural hematoma -continue Losartan -Heart rate improved Hypothyroidism -TSH is normal -continue home dose oral Levothyroxine if patient has no swallowing deficits Compression fracture of L2 -has brace -continue PT/OT evaluations mild Hypokalemia , mild Hypomagnesemia -serum potassium corrected -serum magnesium corrected Deep venous thrombosis prophylaxis. SCDs. low dose heparin 5000 units q12 hours for DVT prophylaxis Disposition referral to [facility] in progress Subjective seen resting in bed, comfortable pleasantly confused states she feels fine overall denies pain, dyspnea, weakness or numbness no other symptoms Review of Systems Review of Systems: All systems reviewed & are unremarkable except as noted in HPI & below Physical Exam Physical Exam: General- oriented to person, not in distress, speaks in sentences with no effort or accessory muscle use Eyes- anicteric Neck- no JVD Lungs- clear BS BL Heart- normal rate, regular rhythm; no murmurs Abdomen- normal bowel sounds, nondistended, soft, nontender Extremities- no pretibial edema, no calf tenderness Neuro- alert, oriented x 1- person; no gross focal neurologic deficits Skin- warm & dry Results & Data Vital Signs (Past 12 Hours) Vital Signs Temp Pulse Resp BP Pulse Ox 12/26/18 19:50 36.9 C 95 H 20 155/82 H 97 12/26/18 16:04 81 12/26/18 11:25 36.5 C 69 15 177/66 H 97 Laboratory Results Laboratory Results - last 24 hr 12/26/18 12/26/18 12/27/18 16:22 20:35 02:15 POC Glucose 71 165 H 123 H 12/27/18 12/27/18 07:23 11:40 POC Glucose 88 230 H (1) Altered mental status Altered mental status type: unspecified Qualified Code(s): R41.82 - Altered mental status, unspecified
[2018-12-27] MEDS ORDERED: INSULIN ASPART 100 UNITS/ML 3 ML PEN SC SCH (02:00)
[2018-12-27] MEDS: LEVOTHYROXINE SODIUM 200 MCG TABLET PO SCH (06:13)
[2018-12-27] MEDS ORDERED: INSULIN GLARGINE SOLOSTAR 100 UNITS/ML 3 ML PEN SC SCH ×2 (09:00)
[2018-12-27] MEDS: INSULIN ASPART 100 UNITS/ML 3 ML PEN SC SCH ×4 (09:33→22:13)
[2018-12-27] MEDS: LACTOBACILLUS ACIDOPHILUS (FLORANEX) TAB PO SCH ×2 (09:35→20:02)
[2018-12-27] MEDS: METOPROLOL SUCC 50MG EXT REL TAB PO SCH (09:35)
[2018-12-27] MEDS: levETIRAcetam 500 MG TAB PO SCH ×2 (09:36→20:11)
[2018-12-27] MEDS: LOSARTAN POTASSIUM 25 MG TAB PO SCH (09:36)
[2018-12-27] MEDS: TOCOPHERYL, DL-ALPHA 400 UNITS CAP PO SCH (09:36)
[2018-12-27] MEDS: CALCIUM 600MG + VIT D 400 IU TAB PO SCH (09:36)
[2018-12-27] MEDS: HEPARIN SOD 5,000 UNIT/0.5 ML VIAL SQ SCH ×2 (09:36→20:02)
--- NOTE | 2018-12-27 14:07 | Hospitalist Progress Note ---
Date of Service December 27, 2018 Assessment & Plan (1) Altered mental status: Altered Mental Status likely secondary to metabolic Encephalopathy from hypoglycemia Hypoglycemia noted by EMS History of Recent Subdural Hematoma 12/14/18 History of Epilepsy Chronic Atrial Fibrillation Dementia by history? Per Dr. Canada's notes: - This is a patient who was on 12/14/18 transferred from [facility] emergency room to [facility] because of Subdural hematoma over the left cerebral hemisphere having a maximum thickness of 1 cm and review of the available [facility] medical record notes on [facility] that INR was reversed and coumadin was held, patient was monitored with CT head exams and no acute imaging changes, no operative intervention of subdural hematoma, and patient discharged to [facility] on 12/20/18 -as per review of the [facility] notes on 12/21/18 "some change in cognition. Unable to complete sentences. RUE weakness, unable to grasp with right hand -as per admission History and Physical the patient's sugar was 50 when checked with EMS, sugars were given and her mental status was slightly better, but she is still confused.Initially not able to move right hand, but now she is moving right upper extremity, though not fully -as of the current workup by 12/23/18 the most likely cause of of initial symptoms likely metabolic Encephalopathy from hypoglycemia because patient's mental status has improved rather quickly and when insulin was given cautiously the serum glucose has been seen to go as high as 400. This suggests that patient functions usually at a high glucose level and hypoglycemia may play a big role in mental status -Head CT on current admission on 12/22/18 has not show any acute midline shift and the subdural hematoma appears stable in size, patient passed speech and swallow testing on 12/23/18, MRI brain on 12/23/18 with no evidence of stroke -EEG really does not show any significant issues other than voltage suppression over the left hemisphere which is typical of a subdural and is not associated with any particular potentially epileptogenic discharges -continue Keppra 500 mg BID 12/27/18 remains awake and alert, no new focal deficits BSG is ranging from 88-230, noted to be rather wide ranged during admission Pharmacy Glycemic Control consulted for the Subdural Hematoma noted 12/14/18, - patient seen at [facility] - recommend to hold off coumadin until follow up with [facility] in 1 week - continue low dose heparin 5000 units q12 hours for DVT prophylaxis 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 with complications of hypoglycemia and then hyperglycemia HbA1c 9.3 -hypoglycemia as per EMS to the 50s BSG is ranging from 88-230, noted to be rather wide ranged during admission Pharmacy Glycemic Control consulted monitor Blood Glucose closely Atrial Fibrillation Diastolic congestive heart failure Hypertension -increased metoprolol succinate 25 mg to 50 mg daily for better rate control -5 mg IV metoprolol q4 hours if heart rate above 110 bpm -resumed digoxin -hold full dose anticoagulation for now because of subdural hematoma -continue Losartan -Heart rate improved Hypothyroidism -TSH is normal -continue home dose oral Levothyroxine if patient has no swallowing deficits Compression fracture of L2 -has brace -continue PT/OT evaluations mild Hypokalemia , mild Hypomagnesemia -serum potassium corrected -serum magnesium corrected Deep venous thrombosis prophylaxis. SCDs. low dose heparin 5000 units q12 hours for DVT prophylaxis Disposition return to [facility] ff up with PCP in 1 week Subjective ff up for encephalopathy, hypoglycemia seen resting in bed, watching TV states she feels fine overall pleasantly confused denies headache, dizziness, chest pain, dyspnea no other symptoms states she is agreeable for discharge to SNF today Review of Systems Review of Systems: All systems reviewed & are unremarkable except as noted in HPI & below Physical Exam Physical Exam: General- oriented x 2- person and place, not in distress, speaks in sentences with no effort or accessory muscle use Eyes- anicteric Neck- no JVD Lungs- clear BS BL Heart- normal rate, regular rhythm; no murmurs Abdomen- normal bowel sounds, nondistended, soft, nontender Extremities- no pretibial edema, no calf tenderness Neuro- alert, oriented x 2; no gross focal neurologic deficits Skin- warm & dry Results & Data Vital Signs (Past 12 Hours) Vital Signs Temp Pulse Resp BP Pulse Ox 12/27/18 11:43 36.9 C 68 19 134/79 98 12/27/18 07:16 36.9 C 98 H 19 148/83 H 97 12/27/18 03:29 36.6 C 82 18 160/90 H 94 Laboratory Results Laboratory Results - last 24 hr 12/26/18 12/26/18 12/27/18 16:22 20:35 02:15 POC Glucose 71 165 H 123 H 12/27/18 12/27/18 07:23 11:40 POC Glucose 88 230 H (1) Altered mental status Altered mental status type: unspecified Qualified Code(s): R41.82 - Altered mental status, unspecified
--- NOTE | 2018-12-27 15:44 | Pharmacy Report ---
PHA: Glycemic Control AP - Date of Service December 27, 2018 - Assessment & Plan Discussed discharge recommendations with Dr. Jj's request. Given her history of hypoglycemia it was requested to switch from NPH to a conservative lantus/novolog regimen. I discussed that the patient's insulin needs have fluc tuated largely will inpatient and thus her true estimated needs remain difficult to determine. It does appear that prandial BSGs trend high at lunch and low at dinner. Suggested 12 units of lantus qam based on a weightbased stress of 1 dosing regimen. I also recommended novolog mealtime coverage as follows: 3 units for a low carb meal and 6 units for a high carb meal. I did stress that close BSG monitoring and insulin titration would be needed immediately in the outpatient setting. Today the patient has received 10 units of lantus this morning. Per the provider, discharge today or tomorrow is likely. I will order an additional 5 units of lantus to be given this evening if she remains inpatient and continue current novolog scale.
[2018-12-27] MEDS: DIGOXIN 0.125 MG/2.5 ML UDP PO SCH (17:16)
[2018-12-27] MEDS ORDERED: INSULIN GLARGINE SOLOSTAR 100 UNITS/ML 3 ML PEN SC ONE (21:00)
[2018-12-28] MEDS: LEVOTHYROXINE SODIUM 200 MCG TABLET PO SCH (05:46)
[2018-12-28] MEDS: LOSARTAN POTASSIUM 25 MG TAB PO SCH (08:44)
[2018-12-28] MEDS: CALCIUM 600MG + VIT D 400 IU TAB PO SCH (08:44)
[2018-12-28] MEDS: LACTOBACILLUS ACIDOPHILUS (FLORANEX) TAB PO SCH (08:44)
[2018-12-28] MEDS: HEPARIN SOD 5,000 UNIT/0.5 ML VIAL SQ SCH (08:45)
[2018-12-28] MEDS: levETIRAcetam 500 MG TAB PO SCH (08:45)
[2018-12-28] MEDS: METOPROLOL SUCC 50MG EXT REL TAB PO SCH (08:45)
[2018-12-28] MEDS: TOCOPHERYL, DL-ALPHA 400 UNITS CAP PO SCH (08:46)
[2018-12-28] MEDS: INSULIN ASPART 100 UNITS/ML 3 ML PEN SC SCH ×2 (08:53→13:34)
[2018-12-28] MEDS ORDERED: INSULIN GLARGINE SOLOSTAR 100 UNITS/ML 3 ML PEN SC SCH (09:30)
[2018-12-28] MEDS ORDERED: AMLODIPINE BESYLATE 5 MG TAB PO SCH (10:00)
--- NOTE | 2018-12-28 10:04 | Pharmacy Report ---
Pharmacy Glycemic Short Note 2 - Date of Service December 28, 2018 - Glycemic Short BSG Results (Last 24 hours): 12/27/18 12/27/18 12/27/18 11:40 17:10 20:38 POC Glucose 230 H 81 174 H 12/28/18 12/28/18 12/28/18 08:48 08:49 08:51 POC Glucose 444 H* 380 H* 409 H* OUTPATIENT ANTIDIABETIC REGIMEN: * NPH 34 units qam, 23 units qpm ASSESSMENT: * Blood sugars looked better yesterday, 15 units of Basal total, but AM BSGs this morning in the 400s - but patient had already eaten when these blood sugars were obtained, so not true fasting blood sugars. RN corrected and covered carbs from breakfast, now 268mg/dl prior to lunch. * Will give 20 units of Lantus today (yesterday 15 units did not seem like enough, but on 12/26, 25 units was too much). * Likely discharge today. PLAN FOR INPATIENT GLYCEMIC CONTROL: * Basal insulin * Lantus 20 units daily * Bolus insulin * NovoLog per scale ACHS or Q6hrs while NPO * Goal Range: Low 110 mg/dL - High 140 mg/dL * Correction Factor: 35 mg/dL/unit * Nutritional / Prandial insulin per carb ratio of 1 unit per 9 grams CHO consumed DISCHARGE RECOMMENDATIONS: * Lantus 15 units SQ Daily * Novolog - 3 units with low carb meal, 6 units with high carb meal
[2018-12-28 10:50] LABS: BUN Creatinine Ratio 13.9 (10-20); Calcium 9.1 mg/dl (8.5-10.1); Creatinine Clr Calc Pharmacy 38.5 ml/min; Est GFR (African American) 67.5; Est GFR (Non-African American) 58.3; Potassium 4.1 mmol/L (3.5-5.1)
[2018-12-28 11:04] LABS: Beta-Hydroxybutyrate 5.75 mg/dl (0.2-2.81)
--- NOTE | 2018-12-28 11:43 | Hospitalist Progress Note ---
Date of Service December 28, 2018 Assessment & Plan (1) Altered mental status: Altered Mental Status likely secondary to metabolic Encephalopathy from Hypoglycemia Hypoglycemia noted by EMS History of Recent Subdural Hematoma 12/14/18 History of Epilepsy Chronic Atrial Fibrillation Dementia by history? Per Dr. Canada's notes: - This is a patient who was on 12/14/18 transferred from [facility] emergency room to [facility] because of Subdural hematoma over the left cerebral hemisphere having a maximum thickness of 1 cm and review of the available [facility] medical record notes on [facility] Connect that INR was reversed and coumadin was held, patient was monitored with CT head exams and no acute imaging changes, no operative intervention of subdural hematoma, and patient discharged to [facility] on 12/20/18 -as per review of the [facility] notes on 12/21/18 "some change in cognition. Unable to complete sentences. RUE weakness, unable to grasp with right hand -as per admission History and Physical the patient's sugar was 50 when checked with EMS, sugars were given and her mental status was slightly better, but she is still confused.Initially not able to move right hand, but now she is moving right upper extremity, though not fully -as of the current workup by 12/23/18 the most likely cause of of initial symptoms likely metabolic Encephalopathy from hypoglycemia because patient's mental status has improved rather quickly and when insulin was given cautiously the serum glucose has been seen to go as high as 400. This suggests that patient functions usually at a high glucose level and hypoglycemia may play a big role in mental status -Head CT on current admission on 12/22/18 has not show any acute midline shift and the subdural hematoma appears stable in size, patient passed speech and swallow testing on 12/23/18, MRI brain on 12/23/18 with no evidence of stroke -EEG really does not show any significant issues other than voltage suppression over the left hemisphere which is typical of a subdural and is not associated with any particular potentially epileptogenic discharges -continue Keppra 500 mg BID 12/28/2018 Patient is alert, oriented x2, no new gross focal neurologic deficits BSG is ranging from 88-230, noted to be rather wide ranged during admission On 12/28/2018, BS she is in the 300s, additional insulin given Pharmacy Glycemic Control consulted, recommendation on discharge: Lantus 15 units SQ Daily Novolog - 3 units with low carb meal, 6 units with high carb meal Monitor blood glucose levels closely before meals and at bedtime and adjust insulin regimen accordingly Subdural Hematoma - noted 12/14/18, - patient admitted to 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 with complications of hypoglycemia and then hyperglycemia HbA1c 9.3 -hypoglycemia as per EMS to the 50s BSG is ranging from 88-230, noted to be rather wide ranged during admission Pharmacy Glycemic Control consulted On 12/28/2018, BS she is in the 300s, additional insulin given Pharmacy Glycemic Control consulted, recommendation on discharge: Lantus 15 units SQ Daily Novolog - 3 units with low carb meal, 6 units with high carb meal Monitor blood glucose levels closely before meals and at bedtime and adjust insulin regimen accordingly Atrial Fibrillation Diastolic congestive heart failure Hypertension -increased metoprolol succinate 25 mg to 50 mg daily for better rate control -Heart rate improved -resumed digoxin -hold full dose anticoagulation for now because of subdural hematoma, follow-up with [facility] for recommendations regarding Coumadin -continued Losartan Hypothyroidism -TSH is normal -continue Levothyroxine Compression fracture of L2 -continue brace -continue PT/OT mild Hypokalemia , mild Hypomagnesemia Resolved Deep venous thrombosis prophylaxis. SCDs. low dose heparin 5000 units q12 hours for DVT prophylaxis Disposition return to [place] ff up with [facility] PRIMARY CARE PHYSICIAN DR. SWANSON ON Sunday01/02/19 AT 9:25AM. Follow-up with [facility] neurosurgery Dr. Mahajan in 1 week Subjective Follow-up for encephalopathy secondary to hypoglycemia Seen sitting up in bed, comfortable, watching TV Oriented to person and place Answers most questions appropriately Denies chest pain, shortness of breath, headache, dizziness, abdominal pain Denies any other symptoms States she feels fine and is agreeable for discharge to halfway facility today Review of Systems Review of Systems: All systems reviewed & are unremarkable except as noted in HPI & below Physical Exam Physical Exam: General- oriented x 2, not in distress, speaks in sentences with no effort or accessory muscle use Eyes- anicteric Neck- no JVD Lungs- clear breath sounds bilaterally, no crackles, no wheezing Heart- normal rate, regular rhythm; no murmurs Abdomen- normal bowel sounds, nondistended, soft, nontender Extremities- no pretibial edema, no calf tenderness Neuro- alert, oriented x 23; no new gross focal neurologic deficits Skin- warm & dry Results & Data Vital Signs (Past 12 Hours) Vital Signs Temp Pulse Resp BP Pulse Ox 12/28/18 11:25 36.4 C L 84 17 126/75 97 12/28/18 08:03 37.0 C 91 H 17 153/95 H 95 12/28/18 02:50 36.7 C 85 16 148/98 H 95 12/28/18 00:00 37.2 C 84 16 184/92 H 98 Laboratory Results Laboratory Results - last 24 hr 12/27/18 12/27/18 12/27/18 11:40 17:10 20:38 Sodium Potassium Chloride Carbon Dioxide Anion Gap BUN Creatinine Est Cr Clr Drug Dosing Est GFR ( Amer) Est GFR (Non-Af Amer) BUN/Creatinine Ratio Glucose POC Glucose 230 H 81 174 H Calcium Beta-Hydroxybutyric Acd 12/28/18 12/28/18 12/28/18 08:48 08:49 08:51 Sodium Potassium Chloride Carbon Dioxide Anion Gap BUN Creatinine Est Cr Clr Drug Dosing Est GFR ( Amer) Est GFR (Non-Af Amer) BUN/Creatinine Ratio Glucose POC Glucose 444 H* 380 H* 409 H* Calcium Beta-Hydroxybutyric Acd 12/28/18 09:58 Sodium 137 Potassium 4.1 Chloride 105 Carbon Dioxide 24 Anion Gap 8.0 BUN 12 Creatinine 0.89 Est Cr Clr Drug Dosing 38.5 Est GFR ( Amer) 67.5 Est GFR (Non-Af Amer) 58.3 BUN/Creatinine Ratio 13.9 Glucose 392 H* POC Glucose Calcium 9.1 Beta-Hydroxybutyric Acd 5.75 H (1) Altered mental status Altered mental status type: unspecified Qualified Code(s): R41.82 - Altered mental status, unspecified
--- NOTE | 2018-12-28 13:10 | Discharge Summary ---
Date of Service December 28, 2018 Admission HPI Per Admitting Provider CHIEF COMPLAINT: Altered mental status. HISTORY OF PRESENT ILLNESS: This is an 88-year-old female with past medical history significant for type 2 diabetes, hypothyroidism, diastolic heart failure, hypertension, chronic atrial fibrillation, closed compression fracture of L2 vertebra on brace, osteoarthritis, recent subdural hematoma, lymphedema was brought in from [facility] because of altered mental status. The patient was here in the ER on 12/14/2018 with fall and at that time the CT scan showed subdural hematoma over the left cerebral hemisphere having a maximum thickness of 1 cm. Her INR was 5. At that time, she was given IV vitamin K and Kcentra and transferred to [place], seen by Neurosurgery. She was observed there for about a week. Coumadin was held and patient did okay and she was transferred to [facility] to follow up with Neurosurgery in 2 weeks with repeat CAT scan. And to hold coumadin until seen by Neurosurgery. She was just discharged yesterday to [facility] and up there she was found to have confused and question of not moving the right upper extremity and EMS was called and she was brought in here. On the way by the EMS sugars were checked, blood sugar was 50, and D10 was given and sugars improved. After sugars improved, she was able to move her right upper extremity but still was somewhat confused. CT of the head was done which showed subdural hematoma, has no significant change from previous ct scan but official reading is pending. All her labs were okay and hemodynamics were stable. We were called for admission. Currently, patient is more awake, can tell her name, thinks she is at [facility]. Does not remember when she went to [facility], does not remember what happened, could not tell the date and time. Does not remember when she had her last food, obeys simple commands. When asked to move her lower extremities, she did not obey, but she was able to move her upper extremities and lift her hands up though not significantly high. We could not get much history from the patient at this time. Tried to call [facility] but were could not able to reach the nursing staff there. ALLERGIES: GABINO INHIBITORS AND AMOXICILLIN. PAST MEDICAL HISTORY: As mentioned above. PAST SURGICAL HISTORY: Ganglion removed from the ankle. MEDICATIONS: Currently the patient is on Tylenol 650 mg p.o. q. 6 hours p.r.n. pain, heparin subQ 5000 units t.i.d. for 14 days, digoxin 125 mcg p.o. daily, Cozaar 25 mg p.o. daily, levothyroxine 200 mcg daily, Toprol-XL 25 mg p.o. daily, Novolin 70/30, 34 units before breakfast and 23 units before supper, lactobacillus 4 tablets b.i.d., calcium 500 mg p.o. b.i.d., beta carotene 15 mg daily, vitamin E 400 units p.o. daily. FAMILY HISTORY: Significant for mother had hypertension, sister has hypertension, diabetes and one sister of lung cancer. SOCIAL HISTORY: , lives with her , but right now she is at [facility] No smoking history. No alcohol, no drug use. REVIEW OF SYMPTOMS: Could not obtain complete review of symptoms, because of patient's altered mental status. Admission Exam Per Admitting Provider GENERAL: The patient is alert and awake, oriented to name only, who speaks in low voice, not in acute distress. VITAL SIGNS: Temperature 36.6, pulse 59, respiratory rate 14, blood pressure 134/68, oxygen 100% on 2 liters. HEENT: No pallor, no icterus. Pupils equal, round, reactive to light. NECK: No JVD, no neck masses, no carotid bruits. CARDIOVASCULAR: S1, S2 heard, regular rate and rhythm, no murmur, no gallop. RESPIRATORY SYSTEM: Normal AP diameter. No accessory muscle use. No wheezing, no crackles. Spinal brace seen. ABDOMEN: Soft, bowel sounds present. Nontender. No distention. CENTRAL NERVOUS SYSTEM: Alert and awake, oriented to name only. Obeys simple commands, able to move her upper extremities. EXTREMITIES: Chronic lower extremity lymphedema and chronic skin changes. Principal Diagnosis Altered mental status, likely secondary to hypoglycemia Discharge Exam General- oriented x 2, not in distress, speaks in sentences with no effort or accessory muscle use Eyes- anicteric Neck- no JVD Lungs- clear breath sounds bilaterally, no crackles, no wheezing Heart- normal rate, regular rhythm; no murmurs Abdomen- normal bowel sounds, nondistended, soft, nontender Extremities- no pretibial edema, no calf tenderness Neuro- alert, oriented x 23; no new gross focal neurologic deficits Skin- warm & dry Discharge Data Allergies Allergy/AdvReac Type Severity Reaction Status Date / Time GABINO Inhibitors Allergy Mild Cough Verified 12/14/18 15:27 amoxicillin Allergy Mild RASH Verified 12/14/18 15:27 Consultations 12/22/18 02:28 ED Decision to Admit Stat 12/22/18 05:06 Consult Case Management - Discharge Planning Routine Consult Neurology Routine Ordered Studies 12/22/18 00:15 CT head/brain wo con Urgent CT SCAN OF THE BRAIN WITHOUT IV CONTRAST CLINICAL HISTORY: Change in mental status. COMPARISON STUDY: CT of the brain dated 12/14/2018. TECHNIQUE: Unenhanced axial CT scan of the brain is performed from the vertex to the skull base. A dose lowering technique was utilized adhering to the principles of ALARA. CT DOSE: 537.48 mGy.cm FINDINGS: Brain parenchyma: Again seen is a mixed attenuation subdural hemorrhage along the left convexity. This measures up to 2.2 cm in diameter and effaces the subjacent cortical sulci. There is no left right midline shift. No new foci of hemorrhage are identified. Left cerebellar encephalomalacia is unchanged. There are age-related involutional changes noting mild to moderate subcortical and p eriventricular microangiopathic change. There is no parenchymal hemorrhage or evidence of acute territorial ischemia by CT criteria. Santana-white matter differentiation is preserved. Mineralization is noted in the basal ganglia. A calcification is again seen in the left periventricular white matter. Ventricles, sulci, cisterns: Prominent secondary to involutional change. Intracranial vasculature: There is atherosclerotic calcification of the cavernous carotid and vertebral arteries. Calvarium: Unremarkable. Sinuses and mastoids: The visualized paranasal sinuses are clear. There is a trace right mastoid effusion. The left mastoid air cells are well pneumatized. Orbits: The bony orbits are grossly intact. IMPRESSION: 1. There is been no significant change in size of a mixed attenuation subdural hemorrhage along the left convexity as compared to 12/14/2018 (differences in reported size are related to measurement technique). This effaces the subjacent cortical sulci, with no left right midline shift. 2. No new focus of hemorrhage is identified. There is no evidence of acute territorial ischemia by CT criteria. 12/22/18 11:35 MR brain wo con Routine [facility], [place] [phone] Magnetic Resonance Report Patient: KELLEE CYR Date: 12/22/18 MR#: [id number]: [address] Acct ID:[id number]: [facility] [place] Zip: [place] [address] Age: 88Location: 2E Sex: F Room/Bed: [facility] Att Phy: Eliud Canada, MDDiagnosis: ALTERED MENTAL STATUS Shahida Phy: Eric EncisoyService Date: 12/22/18 Fam Phy: Interpreting Phy: Kar Kurtz MD Admit Phy: Jose D Tay MD Ordering Phy: Sumit Hedrick MD (MEDICINE) cc: ~ MRI OF THE BRAIN WITHOUT IV CONTRAST CLINICAL HISTORY: Change in mental status. Subdural hematoma. COMPARISON STUDY: CT of the brain dated 12/22/2018. TECHNIQUE: MRI of the brain was performed utilizing various T1 and T2-weighted sequences in the axial, sagittal, and coronal planes. IV contrast was not administered for this examination. FINDINGS: Brain parenchyma: There is age-related involutional change noting mild to moderate subcortical and periventricular microangiopathic disease. Again seen is a heterogeneous subdural hemorrhage along the left convexity. This measures up to 1.9 cm in thickness and effaces the subjacent cortical sulci. There is no left to right midline shift. There is no parenchymal hematoma. There is no restricted diffusion to identified typical for acute ischemia. Restricted diffusion is noted within the subdural hemorrhage. Santana-white matter differentiation is preserved. Left cerebellar encephalomalacia is unchanged and consistent with a remote infarct. Small chronic lacunar infarcts identified in the right cerebellar hemisphere. The cerebellar tonsils are normal in configuration. Ventricles, sulci, and cisterns: Prominent secondary to involutional change. Pituitary and sella: Unremarkable. Intracranial vasculature: Normal flow voids are maintained at the skull base. Orbits: The bony orbits are grossly intact. Orbital contents are normal in appearance. Sinuses and mastoids: There is a small left mastoid effusion. The right mastoid air cells and the paranasal sinuses are clear. Calvarium: Unremarkable. Cervical cord: Partially visualized cervical spinal cord is normal in morphology and signal intensity. IMPRESSION: 1. There is unchanged appearance of a subdural hemorrhage along the left convexity as compared to today's earlier CT scan. 2. No additional foci of hemorrhage are identified. 3. There is no evidence of acute ischemia. Hospital Course (1) Altered mental status: Altered Mental Status likely secondary to metabolic Encephalopathy from Hypoglycemia Hypoglycemia noted by EMS History of Recent Subdural Hematoma 12/14/18 Dementia by history? Per Dr. Canada's notes: - This is a patient who was on 12/14/18 transferred from [facility] emergency room to [facility] because of Subdural hematoma over the left cerebral hemisphere having a maximum thickness of 1 cm and review of the available [facility] medical record notes on [facility] Connect that INR was reversed and coumadin was held, patient was monitored with CT head exams and no acute imaging changes, no operative intervention of subdural hematoma, and patient discharged to [facility] on 12/20/18 -as per review of the [facility] notes on 12/21/18 "some change in cognition. Unable to complete sentences. RUE weakness, unable to grasp with right hand -as per admission History and Physical the patient's sugar was 50 when checked with EMS, sugars were given and her mental status was slightly better, but she is still confused.Initially not able to move right hand, but now she is moving right upper extremity, though not fully -as of the current workup by 12/23/18 the most likely cause of of initial symptoms likely metabolic Encephalopathy from hypoglycemia because patient's mental status has improved rather quickly and when insulin was given cautiously the serum glucose has been seen to go as high as 400. This suggests that patient functions usually at a high glucose level and hypoglycemia may play a big role in mental status -Head CT on current admission on 12/22/18 has not show any acute midline shift and the subdural hematoma appears stable in size, patient passed speech and swallow testing on 12/23/18, MRI brain on 12/23/18 with no evidence of stroke -EEG really does not show any significant issues other than voltage suppression over the left hemisphere which is typical of a subdural and is not associated with any particular potentially epileptogenic discharges -Neurologist consulted- Dr. Hedrick, no further interventions at this point Patient remained alert, oriented x2, no new gross focal neurologic deficits BSG is ranging from 88-230, noted to be rather wide ranged during admission On 12/28/2018, BS she is in the 300s, additional insulin given Pharmacy Glycemic Control consulted, recommendation on discharge: Lantus 15 units SQ Daily Novolog - 3 units with low carb meal, 6 units with high carb meal Monitor blood glucose levels closely before meals and at bedtime and adjust insulin regimen accordingly Subdural Hematoma - noted 12/14/18, - patient admitted to [facility] - evaluated by Neurosurgery - recommend to hold off coumadin until follow up with 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 with complications of hypoglycemia and then hyperglycemia HbA1c 9.3 -hypoglycemia as per EMS to the 50s BSG is ranging from 88-230, noted to be rather wide ranged during admission Pharmacy Glycemic Control consulted On 12/28/2018, BS she is in the 300s, additional insulin given Pharmacy Glycemic Control consulted, recommendation on discharge: Lantus 15 units SQ Daily Novolog - 3 units with low carb meal, 6 units with high carb meal Monitor blood glucose levels closely before meals and at bedtime and adjust insulin regimen accordingly Atrial Fibrillation Diastolic congestive heart failure Hypertension -increased metoprolol succinate 25 mg to 50 mg daily for better rate control -Heart rate improved -resumed digoxin -hold coumadin for now because of subdural hematoma, follow-up with [facility] Neurology in 1 week, for recommendations regarding Coumadin -continue Losartan Hypothyroidism -TSH is normal -continue Levothyroxine Compression fracture of L2 -continue brace -continue PT/OT mild Hypokalemia , mild Hypomagnesemia Resolved Deep venous thrombosis prophylaxis. SCDs. low dose heparin 5000 units q12 hours for DVT prophylaxis Disposition return to [place] ff up with [facility] PRIMARY CARE PHYSICIAN DR. SWANSON ON Sunday01/02/19 AT 9:25AM. Follow-up with [facility] neurosurgery Dr. Whitaker in 1 week Total Time Total Time Spent Total Time Spent (In Minutes): 50 minutes Discharge Plan Discharge Items Patient Disposition: Transfer Custodial Fac Reason For Visit: ALTERED MENTAL STATUS Discharge Diagnosis: ENCEPHALOPATHY SECONDARY TO HYPOGLYCEMIA Discharge Goals: Diagnostic testing and Therapeutic intervention Activity: As commented below Activity Comment: ALWAYS WITH ASSISTANCE- 2 PERSON, CONTINUE PT/OT Lifting: Wait until after follow-up appointment Exercise/Sports: Wait until after follow-up appointment Non-emergency contact: Primary Care Provider Call non-emergency contact if: you have any medication questions, your symptoms worsen and you have a fever Follow-up/Referrals: Moe Enciso [Primary Care Provider] - Diet: Carb Consistent or DM2 and Heart Healthy Addtl Provider Instructions: FOLLOW UP WITH [facility] PRIMARY CARE PHYSICIAN DR. SWANSON ON Sunday01/02/19 AT 9:25AM. FOLLOW-UP WITH [facility]. WHITAKER IN 1 WEEK. PLEASE REFER TO ACCOMPANYING HOSPITAL DISCHARGE SUMMARY FOR FURTHER DETAILS. Prescriptions: New metoprolol succinate 50 mg Tablet Extended Release 24 Hr 50 mg PO DAILY 30 Days Qty: 30 RF: 0 amlodipine [Norvasc] 5 mg Tablet 5 mg PO QAM 30 Days Qty: 30 RF: 0 Novolog Flexpen U-100 Insulin 100 unit/mL (3 mL) Insulin Pen 1 units SC ACHS 30 Days Qty: 0.3 RF: 2 heparin, porcine (PF) 5,000 unit/0.5 mL Syringe 5,000 unit subcut Q12 30 Days Qty: 30 RF: 0 Lantus Solostar U-100 Insulin 100 unit/mL (3 mL) Insulin Pen 15 units SC DAILY 30 Days Qty: 4.5 RF: 2 losartan 25 mg Tablet 25 mg PO DAILY 30 Days Qty: 30 RF: 0 levothyroxine 200 mcg Tablet 200 mcg PO DAILY 30 Days Qty: 30 RF: 0 digoxin 125 mcg Tablet 0.125 mg PO DAILY 30 Days Qty: 30 RF: 0 Continued acetaminophen 325 mg Tablet 650 mg PO Q6H MDD 3g/24hr PRN (Reason: Fever Or Pain) RF: 0 vitamin E 400 unit Capsule 400 unit PO DAILY RF: 0 calcium carbonate-vitamin D3 [Calcium 500 + D] 500 mg(1,250mg) -400 unit Tablet,Chewable 1 tab PO DAILY RF: 0 beta carotene 15 mg PO DAILY RF: 0 Lactobacillus acidoph-L.bulgar [Floranex] 1 million cell Tablet 4 tab PO BID RF: 0 Discontinued insulin NPH and regular human 100 unit/mL (70-30) Insulin Pen 34 unit SUBCUT QAM RF: 0 insulin NPH and regular human 100 unit/mL (70-30) Insulin Pen 23 unit SUBCUT QPM RF: 0 metoprolol succinate 25 mg Tablet Extended Release 24 Hr 25 mg PO DAILY RF: 0 levetiracetam [Keppra] 500 mg Tablet 500 mg PO BID RF: 0 heparin (porcine) 5,000 unit/mL (1 mL) Cartridge 5,000 unit SUBCUT Q8H RF: 0 Stand-Alone Forms: Pending Sale To [facility] Discharge Orders: Discharge Order (Routine); Ordered 12/28/18 Ordered By: Dimas Jj Skilled Items Patient informed of condition?: Yes DNR: No Discharge Level of Care: Skilled Communicable Disease: No Discharge Prognosis: Stable Admission Data Admit Date/Time: 12/22/18 03:54 Attending Provider: Dimas Jj Admit Provider: Jose D Tay Primary Care Provider: Moe Enciso Other Providers: Jose D Tay ; Geraldine Pimentel ; Sumit Hedrick Kathleen ; Sahil Dueñas ; Eliud Canada Service: Telemetry
== END 2018-12-28 14:24 | DRG 637 ==
LOC: ED 00:08 → 2E 03:51 → SUATTDRO 03:54 → 2E 04:22

== ENCOUNTER 2019-01-14 09:43 | Inpatient (IN) ==
[2019-01-14] MEDS ORDERED: SODIUM CHLORIDE 0.9% 1000ML 1,000 ML IV ONE (10:03)
--- NOTE | 2019-01-14 10:30 | XRay Report ---
XR chest 1V portable CLINICAL HISTORY: Sepsis COMPARISON STUDY: 12/22/2018 FINDINGS: The heart is mildly enlarged. There is no failure. There is no focal pulmonary consolidatio n. There are no pleural effusions.[ IMPRESSION: No active disease in the chest. Electronically signed by: Aníbal Melvin M.D. 01/14/2019 10:29 AM
[2019-01-14] MEDS ORDERED: SODIUM CHLORIDE 0.9% 1000ML 500 ML IV ONE ×2 (10:58→12:36)
[2019-01-14] MEDS ORDERED: VANCOMYCIN HCL 1,500 MG in SODIUM CHLORIDE 0.9% 500 ML IV ONE (10:58)
[2019-01-14] MEDS ORDERED: metroNIDAZOLE 500 MG/100 ML BAG IV STA (10:58)
[2019-01-14] MEDS ORDERED: VANCOMYCIN CONSULT ACTIVE PRN ×2 (10:58→15:13)
[2019-01-14] MEDS ORDERED: CEFEPIME 2,000 MG/20 ML VIAL IV STA (10:58)
[2019-01-14 11:08] LABS: HCO3 VBG 22 mmol/L; PCO2 VBG 40 mmHg (38-50); PO2 VBG 24 mmHg; pH VBG 7.37 (7.36-7.41)
[2019-01-14 11:09] LABS: Oxygen Saturation VBG < 60.0 %
[2019-01-14 11:11] LABS: Hemoglobin 16.4 g/dL (12.0-16.0); Mean Corpuscular Hgb Conc 34.2 g/dL (32-36); Mean Corpuscular Volume 82.5 fL (80-100); Mean Platelet Volume 11.3 fL (7.4-10.4); Platelet Count 143 K/uL (130-400); RDW Coefficient of Variation 16.8 % (11.5-14.5); RDW Standard Deviation 50.2 fL (36.4-46.3); Red Blood Count 5.82 M/uL (4.2-5.4); White Blood Count 12.87 K/uL (4.8-10.8)
[2019-01-14 11:31] LABS: Albumin Globulin Ratio 0.6 (0.9-2); Albumin Level 2.9 gm/dl (3.4-5.0); BUN Creatinine Ratio 16.6 (10-20); Calcium 9.2 mg/dl (8.5-10.1); Creatinine Clr Calc Pharmacy 31.8 ml/min; Est GFR (African American) 51.2; Est GFR (Non-African American) 44.1; Globulin 5.1 gm/dl (2.5-4.0); Magnesium 2.2 mg/dl (1.8-2.4); Phosphorus 1.9 mg/dl (2.5-4.9); Potassium 3.7 mmol/L (3.5-5.1)
[2019-01-14 11:33] LABS: Partial Thromboplastin Ratio 1.1; Partial Thromboplastin Time 28.5 Seconds (21.0-31.0); Prothrombin Time 10.6 Seconds (9.0-12.0)
[2019-01-14 11:34] LABS: Bilirubin,Total 2.2 mg/dl (0.2-1)
[2019-01-14] MEDS ORDERED: ACETAMINOPHEN 500 MG TAB PO STA (11:34)
[2019-01-14 11:41] LABS: Appearance Urine Cloudy (Clear); Bacteria Urine Automated 2+ (Negative); Bilirubin Urine Negative (Negative); Blood Urine Trace (Negative); Color Urine Dark Yellow; Glucose Urine UA Trace (Negative); Ketones Urine 1+ (Negative); Leukocyte Esterase Urine 2+ (Negative); Nitrite Urine Negative (Negative); Protein Urine Negative (Negative); RBC Urine Automated 0-4 /hpf (0-4); Specific Gravity Urine 1.016 (1.000-1.030); Urobilinogen Urine Negative (Negative); WBC Urine Automated >30 /hpf (0-5)
[2019-01-14 11:56] LABS: Basophils # (auto) 0.05 K/uL (0-0.2); Basophils % (auto) 0.4 %; Eosinophils # (auto) 0.07 K/uL (0-0.5); Eosinophils % (auto) 0.5 %; Immature Granulocytes # (auto) 0.06 K/uL (0.00-0.02); Immature Granulocytes % (auto) 0.5 %; Lymphocytes # (auto) 1.63 K/uL (1.2-3.4); Lymphocytes % (auto) 12.7 %; Monocytes # (auto) 1.25 K/uL (0.11-0.59); Monocytes % (auto) 9.7 %; Neutrophils # (auto) 9.81 K/uL (1.4-6.5); Neutrophils % (auto) 76.2 %
[2019-01-14] MEDS ORDERED: POTASSIUM PHOS 3 MMOL/1 ML INFUSION IV STA (15:13)
[2019-01-14] MEDS ORDERED: ONDANSETRON INJ 2 MG/ML 2 ML VIAL IV PRN (15:13)
[2019-01-14] MEDS ORDERED: ALUMINUM/MAGNESIUM SUSP 30 ML UDC PO PRN (15:13)
[2019-01-14] MEDS ORDERED: GLUCAGON FOR INJ 1 MG VIAL SQ PRN (15:13)
[2019-01-14] MEDS ORDERED: ACETAMINOPHEN 325 MG TAB PO PRN (15:13)
[2019-01-14] MEDS ORDERED: CEFEPIME CONSULT ACTIVE PRN (15:13)
[2019-01-14] MEDS ORDERED: POLYETHYLENE (MIRALAX) 17 GM PACK PO PRN (15:13)
[2019-01-14] MEDS ORDERED: GLUCOSE 10 TABS/TUBE PO PRN (15:13)
[2019-01-14] MEDS ORDERED: DEXTROSE 50% 50 ML SYRINGE IV PRN (15:13)
[2019-01-14] MEDS ORDERED: CARBOHYDRATES FOR HYPOGLYCEMIA PO PRN (15:13)
[2019-01-14] MEDS ORDERED: GLUCOSE 40% GEL 15 GM TUBE PO PRN (15:13)
[2019-01-14] MEDS ORDERED: MAGNESIUM HYDROXIDE SUSP 30 ML UDC PO PRN (15:13)
[2019-01-14] MEDS ORDERED: PHARMACY GLYCEMIC MGMT CONSULT PRN (15:20)
[2019-01-14] MEDS: NSS + 20MEQ KCL 20 MEQ/1,000 ML BAG IV SCH (15:55)
[2019-01-14] MEDS ORDERED: POTASSIUM PHOSPHATE 15 MMOL in SODIUM CHLORIDE 0.9% 250 ML IV ONE (16:00)
--- NOTE | 2019-01-14 16:07 | History & Physical Report ---
Date of Service January 14, 2019 Assessment & Plan (1) Sepsis: (2) Acute respiratory failure with hypoxia: This is an 88-year-old female who has a significant past medical history of T2DM, diastolic CHF, chronic atrial fibrillation off warfarin, HTN, OA DJD, L2 compression fracture, recent traumatic SDH secondary to fall while on warfarin who presents to [facility] ED secondary to be hypoxic during physical therapy at alf facility. In ED sepsis alert was called. She met sepsis criteria with SBP less than 100, RR greater than 24, WBC greater than 12 K Procalcitonin high at 0.65; LA 4.58 She required high flow O2 at 70% FIO2, but respiratory was able to wean to oxymask at 8L Blood cultures and urine cultures were obtained She received broad-spectrum IV antibiotics with vancomycin, cefepime, Flagyl She received 2 L IV fluid resuscitation CXR unremarkable Urinalysis concerning for infection Admit to PCU Continue broad-spectrum IV antibiotics with vancomycin, cefepime, Flagyl until cultures return Given new onset hypoxia order CT angiogram to rule out pulmonary embolism; although patient with recent SDH therefore is not an anticoagulant candidate Continue IVF 125cc/hr with 20meq KCL Lactic acid returned to normal - now 1.9 check stool for cdiff given reports of diarrhea follow blood and urine cultures repeat labs in a.m. (3) Subdural hematoma, post-traumatic: Had follow up with neurosurgery 01/08 at [place]; to follow up again end of January Had brain MRI 12/22 : There is unchanged appearance of a subdural hemorrhage along the left convexity as compared to today's earlier CT scan. off warfarin (4) Hypophosphatemia: replace repeat phos in a.m. (5) Chronic atrial fibrillation: rate controlled with metoprolol and digoxin off warfarin secondary to SDH (6) Hypothyroidism: continue levothyroxine (7) Compression fracture of L2: Secondary to all to wear LSO brace Participating in PT/OT at [facility] Once medically stable will need to re-initiate PT/OT (8) Diabetes mellitus, type II: A1c 9.3 Patient with labile blood sugars in setting of sepsis Patient on Lantus/NovoLog regimen at [facility] Will consult glycemic pharmacist for assistance (9) Diastolic HF (heart failure): Patient appears euvolemic, likely volume depleted Patient on metoprolol and losartan, but no diuretic Losartan on hold secondary to sepsis Monitor daily weights and volume status closely given aggressive IV fluid resuscitation (10) HTN (hypertension): Blood pressure on low side secondary to sepsis - will hold losartan and amlodipine (11) DVT prophylaxis: SCDS/TEDS only given recent SDH Disposition: case management consulted; pt currently resides at [facility] Follow up: PCP Dr. Shah upon discharge; pt currently under care of Dr. Jan Vazquez at [facility] for subacute rehab Patient was seen and examined in collaboration with Dr. Lange, please see addendum Starting 01/15/19 pt will be under the care of Dr. Canada History of Present Illness Chief Complaint: Hypoxia x 1 day. Primary Care Provider: [facility] This is an 88-year-old female who has a significant past medical history of T2DM, diastolic CHF, chronic atrial fibrillation off warfarin, HTN, OA DJD, L2 compression fracture, recent traumatic SDH secondary to fall while on warfarin who presents to [facility] ED secondary to be hypoxic during physical therapy at alf facility. Daughter and are at bedside. Daughter provides most of history as has dementia. Patient last known well on by her daughter, 01/09, except she did notice increased shortness of breath. She was seen yesterday by her son who noted her to be sleeping all day. Apparently when patient was in physical therapy today she was very short of breath, hypoxic satting 74 to 85% not responding to oxygen; therefore, referred to ED. Daughter notes increased confusion. There is also reports of diarrhea while at [facility]. ROS limited secondary to patient unreliable given increased confusion. She denies any recent cough, dizziness, lightheadedness, chest pain, hemoptysis, nausea, vomiting, abdominal pain, change in urinary habits. Daughter states she does have history of UTI during recent hospitalizations which presents with increased confusion as well. No known history of chronic oxygen use. Of significance patient was seen and evaluated and [facility] ED on 12/14/2018 secondary to fall which resulted in a traumatic SDH left cerebral hemisphere with INR of 5. This required transfer to [facility]. Her warfarin was stopped. She was then readmitted on 12/22 to [facility] secondary to altered mental status secondary to hypoglycemia with blood sugar of 50. She had a repeat CT scan of brain as well as MRI which reveals unchanged SDH. She has been at SNF since discharged from [facility]. Allergies Allergy/AdvReac Type Severity Reaction Status Date / Time GABINO Inhibitors Allergy Mild Cough Verified 01/14/19 12:00 amoxicillin Allergy Mild RASH Verified 01/14/19 12:00 Home Medications Home Medications Medication Instructions Recorded Confirmed Type Lactobacillus acidoph-L.bulgar 4 tab PO BID 12/22/18 01/14/19 History [Floranex] acetaminophen 650 mg PO Q6H PRN MDD 3g/24hr 12/22/18 01/14/19 History calcium carbonate-vitamin D3 1 tab PO DAILY 12/22/18 01/14/19 History [Calcium 500 + D] vitamin E 400 unit PO DAILY 12/22/18 01/14/19 History amlodipine [Norvasc] 5 mg PO QAM 30 Days #30 tab 12/28/18 01/14/19 Rx levothyroxine 200 mcg PO DAILY 30 Days #30 tab 12/28/18 01/14/19 Rx bisacodyl 10 mg NE DAILY PRN 01/14/19 01/14/19 History digoxin 125 mcg PO QAM 01/14/19 01/14/19 History insulin aspart U-100 [Novolog 8 units SC DAILY 01/14/19 01/14/19 History Flexpen U-100 Insulin] insulin aspart U-100 [Novolog 3 unit SUBCUT BIDM 01/14/19 01/14/19 History U-100 Insulin aspart] insulin glargine [Lantus Solostar 20 units SC QAM 01/14/19 01/14/19 History U-100 Insulin] insulin lispro [Humalog U-100 1 sliding scale dose SUBCUT 01/14/19 01/14/19 History Insulin] USEASDIRECTD PRN losartan 25 mg PO QAM 01/14/19 01/14/19 History metoprolol succinate 50 mg PO QAM 01/14/19 01/14/19 History Past Med/Surg History Medical History Subdural hematoma, post-traumatic (Acute) Chronic atrial fibrillation (Chronic) Hypothyroidism (Chronic) Compression fracture of L2 (Chronic) RBBB (Chronic) Osteoarthritis (Chronic) Lymphedema (Chronic) Hypothyroidism (Chronic) HTN (hypertension) (Chronic) Diastolic HF (heart failure) (Chronic) Diabetes mellitus, type II (Chronic) 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 Mother , house fire 82 No problems noted. Brother , CVA Stroke Other Diabetes Hypertension No pertinent family history Social History Preferred Language: Nicaraguan Communication Ability: Effective Household Assistant Required: No Beliefs That Will Affect Care: None marital status: Current Living Situation: Jail Current Living Situation Comment: [place] current occupational status: retired Feels Safe at Home: Yes Smoking Status: Unknown if ever smoked Hx Alcohol Use: No Hx Substance Use: No Review of Systems Review of Systems: As noted per HPI, 10 systems reviewed and negative unless noted above. Physical Exam Physical Exam: Gen: Elderly, female, lying in bed, alert and answers questions appropriately but pleasantly confused, NAD, on high flow NC Head: Normocephalic, Atraumatic Eyes: Sclera normal, no conjunctival injection, PERRLA, EOMI ENT: Gross hearing intact, normal pharynx, mucous membranes dry Neck: supple, no adenopathy, No JVD, no bruit, Resp: Clear to auscultation b/l, no wheeze, rales, rhonchi. Normal insp/exp effort, no accessory muscle use CV: irregular rate, irregular rhythm, no murmur, rub, gallop, or ectopy Abd: +BS x 4, soft, nontender, nondistended Musculoskeletal: moves extremities active rom x 4, strength intact, good pearl restorer strength Extremities: Bilateral venous stasis changes, no warmth, edema, negative Homans sign Skin: warm, moist, no rash, mild turgor, cap refill < 2sec Neuro: Alert and oriented to self only , speech normal, good mood/affect, cran nerve 2-12 intact grossly : deferred Results & Data Vital Signs (Past 12 Hours) Vital Signs Temp Pulse Pulse Resp BP BP Pulse Ox 01/14/19 15:46 36.6 C 77 20 100/59 L 95 01/14/19 15:13 36.5 C 81 29 H 94/54 L 95 01/14/19 13:31 84 82 24 95/57 L 99/57 L 93 01/14/19 13:30 84 26 H 94 01/14/19 13:23 85 18 96/60 L 92 01/14/19 13:14 87 23 109/62 94 01/14/19 13:09 90 20 122/69 94 01/14/19 13:04 84 22 85/68 L 94 01/14/19 13:01 93 H 26 H 85/68 L 94 01/14/19 13:00 82 23 93 01/14/19 12:32 85 27 H 93 01/14/19 12:31 89 24 100/59 L 93 01/14/19 12:30 85 23 94 01/14/19 12:01 87 24 98/73 L 95 01/14/19 12:00 91 H 24 94 01/14/19 11:32 90 23 92/62 L 94 01/14/19 11:31 86 22 92/62 L 93 01/14/19 11:30 90 23 93 01/14/19 11:22 96 H 22 113/61 94 01/14/19 11:15 90 28 H 113/61 93 01/14/19 11:09 92 H 24 93 01/14/19 11:01 88 30 H 75/60 L 94 01/14/19 11:00 97 H 33 H 93 01/14/19 10:30 93 H 100 H 43 H 91/51 L 84 L 01/14/19 10:20 79/42 L 95 01/14/19 10:08 97 H 29 H 91/51 L 86 L 01/14/19 10:00 37.8 C H 102 H 36 H 68/53 L 85 L 01/14/19 09:53 91 H 32 H 85 L 01/14/19 09:50 104 H 33 H 79/42 L 83 L Laboratory Results Short CBC 01/14/19 Range/Units 09:30 WBC 12.87 H (4.8-10.8) K/uL Hgb 16.4 H (12.0-16.0) g/dL Hct 48.0 H (37-47) % Plt Count 143 (130-400) K/uL BMP 01/14/19 09:30 Sodium 133 L Potassium 3.7 Chloride 100 Carbon Dioxide 23 BUN 19 H Creatinine 1.12 Glucose 241 H Calcium 9.2 Liver Function 01/14/19 Range/Units 09:30 Total Bilirubin 2.2 H (0.2-1) mg/dl AST 22 (15-37) U/L ALT 16 (12-78) U/L Alkaline Phosphatase 184 H (45-117) U/L Albumin 2.9 L (3.4-5.0) gm/dl Urine 01/14/19 Range/Units 11:20 Urine Color Dark Yellow Urine Appearance Cloudy A (Clear) Urine pH 5.0 (4.5-7.5) Ur Specific [place] 1.016 (1.000-1.030) Urine Protein Negative (Negative) Urine Glucose (UA) Trace H (Negative) Diagnostic Findings CXR: IMPRESSION: No active disease in the chest. Medications Administered Potassium Chloride/Sodium Chloride (Normal Saline W/20 Meq Kcl) 20 meq in 1,000 mls @ 125 mls/hr IV .Q8H PAYAM Stop: 01/15/19 07:59 Last Admin: 01/14/19 15:55 Dose: 80 mls/hr Documented by: [id number] Potassium Phosphate 15 mmol/ (Sodium Chloride) 255 mls @ 88 mls/hr IV NOW ONE Stop: 01/14/19 18:53 Last Admin: 01/14/19 15:55 Dose: 88 mls/hr Documented by: [id number] Discontinued Medications Acetaminophen (Tylenol) 1,000 mg PO NOW STA Stop: 01/14/19 11:35 Last Admin: 01/14/19 11:50 Dose: 1,000 mg Documented by: [id number] Sodium Chloride (Nss 1000ml) 1,000 mls @ 999 mls/hr IV .Q1H1M ONE Stop: 01/14/19 11:03 Last Infusion: 01/14/19 11:04 Dose: 0 mls/hr Documented by: [id number] Admin: 01/14/19 10:00 Dose: 999 mls/hr Documented by: [id number] Metronidazole (Flagyl) 500 mg in 100 mls @ 100 mls/hr IV NOW STA Stop: 01/14/19 11:57 Last Infusion: 01/14/19 13:03 Dose: 0 mls/hr Documented by: [id number] Admin: 01/14/19 11:34 Dose: 100 mls/hr Documented by: [id number] Sodium Chloride (Nss 1000ml) 500 mls @ 999 mls/hr IV .Q31M ONE Stop: 01/14/19 11:28 Last Infusion: 01/14/19 13:22 Dose: 0 mls/hr Documented by: [id number] Admin: 01/14/19 11:35 Dose: 999 mls/hr Documented by: [id number] Vancomycin HCl 1,500 mg/ (Sodium Chloride) 530 mls @ 200 mls/hr IV NOW ONE; Protocol Stop: 01/14/19 13:36 Last Infusion: 01/14/19 14:13 Dose: 0 mls/hr Documented by: [id number] Admin: 01/14/19 11:34 Dose: 200 mls/hr Documented by: [id number] Cefepime HCl (Maxipime) 2,000 mg in 20 mls @ 5 mls/min IV NOW STA; Protocol Stop: 01/14/19 11:01 Last Admin: 01/14/19 11:35 Dose: 5 mls/min Documented by: [id number] Sodium Chloride (Nss 1000ml) 500 mls @ 999 mls/hr IV .Q31M ONE Stop: 01/14/19 13:06 Last Infusion: 01/14/19 13:53 Dose: 0 mls/hr Documented by: [id number] Admin: 01/14/19 13:22 Dose: 999 mls/hr Documented by: [id number] ECG Rate (beats per minute): 100 Rhythm: atrial fibrillation Findings: + RBBB Code Status & VTE Plan Code Status Full code; no mechanical ventilation IVF, IV antibiotics and IV vasopressors okay VTE Prophylaxis Plan VTE Prophylaxis will be ordered: Yes Reason for no VTE drug order: Contraindicated Supervising Physician Co-Signing Physician Notes Pt was seen and examined. Agreed with Adrianna SOLIZ exam, assessment and plan. 88-year-old female who has a significant past medical history of T2DM, diastolic CHF, chronic atrial fibrillation off warfarin, HTN, OA DJD, L2 compression fracture, recent traumatic SDH secondary to fall while on warfarin who presents to [facility] ED for hypoxia. History obtained for daughter due to pt advanced dementia. As per daughter, Pt has been having worsening SOB. Pt has been very sleepy today and confused. She was recently transferred to [facility] for SDH. Her last MRI on 12/22 showed unchanged appearance of a subdural hemorrhage along the left convexity when compared to the last CT head. In the ER pt was found to have elevated procalcitonin, lactic acid, WBC and was saturated in the low 80's. UA showed positive leukocytes and bacteria. She placed on on high flow oxygen at 75%. Received IV abx with Vanco, cefepime, and metronidazole in the ER. Blood cx and urine cx collected. Continue IVF hydration. Due to pt required high flow oxygen with normal CXR, concerning for acute PE. I discussed with daughter and at bedside about the possible for PE due to low oxygen saturation. I also explained to daughter that if we found out patient has PE that we would not be able to put her on anticoagulant due to recent SDH and her last MRI head on 12/22 showed no change in the size of the SDH due to the risk of intracranial bleeding. Daughter understood and agreed. CTA chest done showed extensive bilateral acute pulmonary emboli involving the right main pulmonary artery and all lobar pulmonary arteries. Evidence of right heart strain. Will get echo and doppler of LE. Consider IVC filter placed if doppler positive for DVT. Pulmonology consult. Will monitor pt closely. Called daughter to inform her about the CTA chest finding that showed extensive b/l acute PE. Again i explained to her that patient is not a candidate for anti coagulant due to recent SDH. Daughter also understood the risk of not starting anticoagulant that can lead to worsening SOB, more blood clot travel to the lung and even from a saddle embolism. Daughter again understood and agreed with the vergara. Please refer to Adrianna SOLIZ documentation for other problems. MD Nazario (1) Sepsis Sepsis type: sepsis due to unspecified organism Qualified Code(s): A41.9 - Sepsis, unspecified organism
--- NOTE | 2019-01-14 16:13 | Pharmacy Report ---
Pharmacy Abx/Gly Intl Consult - Date of Service January 14, 2019 - Scope Pharmacy has been consulted by Adrianna Gilbert to manage vancomycin/cefepime and glycemic control for this patient as per the Pharmacy & Therapeutics Committee approved dosing protocols. - Subjective The patient is a 88 year old F admitted on 01/14/19 13:36. - Objective Vital Signs (Past 12hrs): Vital Signs Accuchecks BSG (last 24hrs): 01/14/19 09:30 Glucose 241 H Micro Results: 01/14/19 11:20 Urine Culture - Pending Urine,Straight Cath 01/14/19 10:28 Aerobic Blood Culture - Pending Blood Anaerobic Blood Culture - Pending 01/14/19 10:00 Aerobic Blood Culture - Pending Blood Anaerobic Blood Culture - Pending - Recent Pertinent Medications Recent Pertinent Medications/Risk Factors for Insulin Resist: Outpatient Anti-diabetic Regimen: * lantus 20 units, Aspart 8 units daily and 3 units BIDM * A1c = 6-2-19 % 12/22/18 The patient is currently receiving: * Basal insulin: Lantus 20 units this AM - per documentation from critical [facility] Risk Factors for Insulin Resistance: * Infection: possible sepsis * Diet: T2DM - Plan ANTIMICROBIAL THERAPY Vancomycin IV * Loading dose: 1500 mg x 1 given in ER * Ordered empirically for sepsis per provider - will start maintenance dose of vancomycin 1000 mg q 24 hrs to achieve an estimated trough ~15-20 mcg/ml * Estimated kinetics: t1/2~23 hrs, ke~0.04, CrCl ~31 * Ordered empirically - will order trough as necessary Cefepime * 2 gm iv q 12 hrs - appropriate for renal function (CrCl 30-60) INPATIENT GLYCEMIC CONTROL: Basal Insulin * Lantus 20 units (already took IRON ERECTOR) Bolus Insulin * NovoLog per scale ACHS or Q6hrs while NPO * Goal Range: Low 120 mg/dL - High 160 mg/dL * Correction Factor: 35 mg/dL/unit * Nutritional / Prandial insulin per carb ratio of 1 unit per 9 grams CHO consumed Pharmacy will follow patient and adjust orders on a daily basis. Thank you for allowing us to participate in this patients care.
--- NOTE | 2019-01-14 17:39 | Emergency Department Note ---
Entered by Chloe Stewart acting as a scribe for History of Present Illness General Chief complaint: Shortness of Breath/Dyspnea Source: patient Mode of arrival: EMS Limitations: altered mental status History of Present Illness Onset (ago): hour(s) (this morning) Location: chest Pain Consistency: + constant Quality: + other (Oxygen sat of 70 at home) Associated symptoms: no cough, no fever/chills (The patient denies fever,) and no other (The patient denies bowel symptoms and urinary symptoms) The HPI is limited secondary to altered mental status. The patient is an 88 white female w/ PMHx hyperthyroidism, type 2 diabetes, hypertension, and CHF who presents to the ED via EMS w/ CC of constant shortness of breath beginning this morning. The patient presents from [facility]. Per nursing staff, the patient had an oxygen saturation of 70 this morning. She notes that she has been in pain for years. The patient denies cough, fever, bowel symptoms, and urinary symptoms. Per note, the patient is on digoxin. Home Medications Home Medications Medication Instructions Recorded Confirmed Type Lactobacillus acidoph-L.bulgar 4 tab PO BID 12/22/18 01/14/19 History [Floranex] acetaminophen 650 mg PO Q6H PRN MDD 3g/24hr 12/22/18 01/14/19 History calcium carbonate-vitamin D3 1 tab PO DAILY 12/22/18 01/14/19 History [Calcium 500 + D] vitamin E 400 unit PO DAILY 12/22/18 01/14/19 History amlodipine [Norvasc] 5 mg PO QAM 30 Days #30 tab 12/28/18 01/14/19 Rx levothyroxine 200 mcg PO DAILY 30 Days #30 tab 12/28/18 01/14/19 Rx bisacodyl 10 mg MT DAILY PRN 01/14/19 01/14/19 History digoxin 125 mcg PO QAM 01/14/19 01/14/19 History insulin aspart U-100 [Novolog 8 units SC DAILY 01/14/19 01/14/19 History Flexpen U-100 Insulin] insulin aspart U-100 [Novolog 3 unit SUBCUT BIDM 01/14/19 01/14/19 History U-100 Insulin aspart] insulin glargine [Lantus Solostar 20 units SC QAM 01/14/19 01/14/19 History U-100 Insulin] insulin lispro [Humalog U-100 1 sliding scale dose SUBCUT 01/14/19 01/14/19 History Insulin] USEASDIRECTD PRN losartan 25 mg PO QAM 01/14/19 01/14/19 History metoprolol succinate 50 mg PO QAM 01/14/19 01/14/19 History Allergies Allergy/AdvReac Type Severity Reaction Status Date / Time GABINO Inhibitors Allergy Mild Cough Verified 01/14/19 12:00 amoxicillin Allergy Mild RASH Verified 01/14/19 12:00 Past Med/Surg History Medical History Subdural hematoma, post-traumatic (Acute) Chronic atrial fibrillation (Chronic) Hypothyroidism (Chronic) Compression fracture of L2 (Chronic) RBBB (Chronic) Osteoarthritis (Chronic) Lymphedema (Chronic) Hypothyroidism (Chronic) HTN (hypertension) (Chronic) Diastolic HF (heart failure) (Chronic) Diabetes mellitus, type II (Chronic) 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 Mother , house fire 83 No problems noted. 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 Other (The ROS is limited secondary to altered mental status. ) Physical Exam Vital Signs Vital Signs - 24 hr 01/14/19 09:50 01/14/19 09:53 01/14/19 10:00 Temperature 37.8 C H Temperature Source Rectal Sepsis Recent Fever Within 48 Hours No Sepsis Action Taken by Nursing Physician Notified Pulse Rate 104 H 91 H 102 H Pulse Rate [Apical] Pulse Rate from SpO2 Sensor 96 H 96 H Respiratory Rate 33 H 32 H 36 H Respiratory Effort / Characteristics Accessory Muscle Use Nasal Flaring Short of Breath Respiratory Depth Shallow Respiratory Pattern Tachypnea Blood Pressure 79/42 L 68/53 L Blood Pressure [Left Arm] Blood Pressure Mean 54 58 Blood Pressure Mean [Left Arm] Blood Pressure Position Lying Pulse Oximetry 83 L 85 L 85 L Oxygen Delivery Method High Flow Nasal Cannula Oxymask Oxygen Flow Rate 15 Fraction of Inspired Oxygen 01/14/19 10:08 01/14/19 10:20 01/14/19 10:30 Temperature Temperature Source Sepsis Recent Fever Within 48 Hours Sepsis Action Taken by Nursing Pulse Rate 97 H 93 H Pulse Rate [Apical] 100 H Pulse Rate from SpO2 Sensor 85 101 H Respiratory Rate 29 H 43 H Respiratory Effort / Characteristics Respiratory Depth Respiratory Pattern Blood Pressure 91/51 L Blood Pressure [Left Arm] 79/42 L 91/51 L Blood Pressure Mean 64 Blood Pressure Mean [Left Arm] 54 64 Blood Pressure Position Pulse Oximetry 86 L 95 84 L Oxygen Delivery Method Oxymask High Flow Nasal Cannula Oxygen Flow Rate 15 25 Fraction of Inspired Oxygen 70 01/14/19 11:00 01/14/19 11:01 01/14/19 11:09 Temperature Temperature Source Sepsis Recent Fever Within 48 Hours Sepsis Action Taken by Nursing Pulse Rate 97 H 88 Pulse Rate [Apical] 92 H Pulse Rate from SpO2 Sensor 91 H 88 Respiratory Rate 33 H 30 H 24 Respiratory Effort / Characteristics Spontaneous Respiratory Depth Respiratory Pattern Blood Pressure 75/60 L Blood Pressure [Left Arm] Blood Pressure Mean 65 Blood Pressure Mean [Left Arm] Blood Pressure Position Pulse Oximetry 93 94 93 Oxygen Delivery Method High Flow Nasal Cannula Oxygen Flow Rate 30 Fraction of Inspired Oxygen 85 01/14/19 11:15 01/14/19 11:22 01/14/19 11:30 Temperature Temperature Source Sepsis Recent Fever Within 48 Hours Sepsis Action Taken by Nursing Pulse Rate 90 90 Pulse Rate [Apical] 96 H Pulse Rate from SpO2 Sensor 90 90 Respiratory Rate 28 H 22 23 Respiratory Effort / Characteristics Respiratory Depth Respiratory Pattern Blood Pressure 113/61 Blood Pressure [Left Arm] 113/61 Blood Pressure Mean 78 Blood Pressure Mean [Left Arm] 78 Blood Pressure Position Pulse Oximetry 93 94 93 Oxygen Delivery Method High Flow Nasal Cannula Oxygen Flow Rate Fraction of Inspired Oxygen 01/14/19 11:31 01/14/19 11:32 01/14/19 12:00 Temperature Temperature Source Sepsis Recent Fever Within 48 Hours Sepsis Action Taken by Nursing Pulse Rate 86 90 91 H Pulse Rate [Apical] Pulse Rate from SpO2 Sensor 88 90 87 Respiratory Rate 22 23 24 Respiratory Effort / Characteristics Respiratory Depth Respiratory Pattern Blood Pressure 92/62 L 92/62 L Blood Pressure [Left Arm] Blood Pressure Mean 72 72 Blood Pressure Mean [Left Arm] Blood Pressure Position Pulse Oximetry 93 94 94 Oxygen Delivery Method High Flow Nasal Cannula Oxygen Flow Rate 25 Fraction of Inspired Oxygen 70 01/14/19 12:01 01/14/19 12:30 01/14/19 12:31 Temperature Temperature Source Sepsis Recent Fever Within 48 Hours Sepsis Action Taken by Nursing Pulse Rate 87 85 89 Pulse Rate [Apical] Pulse Rate from SpO2 Sensor 84 85 90 Respiratory Rate 24 23 24 Respiratory Effort / Characteristics Respiratory Depth Respiratory Pattern Blood Pressure 98/73 L 100/59 L Blood Pressure [Left Arm] Blood Pressure Mean 81 72 Blood Pressure Mean [Left Arm] Blood Pressure Position Pulse Oximetry 95 94 93 Oxygen Delivery Method High Flow Nasal Cannula High Flow Nasal Cannula High Flow Nasal Cannula Oxygen Flow Rate Fraction of Inspired Oxygen 01/14/19 12:32 01/14/19 13:00 01/14/19 13:01 Temperature Temperature Source Sepsis Recent Fever Within 48 Hours Sepsis Action Taken by Nursing Pulse Rate 85 82 93 H Pulse Rate [Apical] Pulse Rate from SpO2 Sensor 87 86 90 Respiratory Rate 27 H 23 26 H Respiratory Effort / Characteristics Respiratory Depth Respiratory Pattern Blood Pressure 85/68 L Blood Pressure [Left Arm] Blood Pressure Mean 73 Blood Pressure Mean [Left Arm] Blood Pressure Position Pulse Oximetry 93 93 94 Oxygen Delivery Method Oxygen Flow Rate Fraction of Inspired Oxygen 01/14/19 13:04 01/14/19 13:09 01/14/19 13:14 Temperature Temperature Source Sepsis Recent Fever Within 48 Hours Sepsis Action Taken by Nursing Pulse Rate 90 87 Pulse Rate [Apical] 84 Pulse Rate from SpO2 Sensor 89 89 Respiratory Rate 22 20 23 Respiratory Effort / Characteristics Respiratory Depth Respiratory Pattern Blood Pressure 122/69 109/62 Blood Pressure [Left Arm] 85/68 L Blood Pressure Mean 86 77 Blood Pressure Mean [Left Arm] 73 Blood Pressure Position Pulse Oximetry 94 94 94 Oxygen Delivery Method High Flow Nasal Cannula Oxygen Flow Rate Fraction of Inspired Oxygen 01/14/19 13:23 01/14/19 13:30 01/14/19 13:31 Temperature Temperature Source Sepsis Recent Fever Within 48 Hours Sepsis Action Taken by Nursing Pulse Rate 85 84 84 Pulse Rate [Apical] 82 Pulse Rate from SpO2 Sensor 93 H 85 84 Respiratory Rate 18 26 H 24 Respiratory Effort / Characteristics Respiratory Depth Respiratory Pattern Blood Pressure 96/60 L 95/57 L Blood Pressure [Left Arm] 99/57 L Blood Pressure Mean 72 69 Blood Pressure Mean [Left Arm] 71 Blood Pressure Position Pulse Oximetry 92 94 93 Oxygen Delivery Method Oxygen Flow Rate Fraction of Inspired Oxygen GENERAL: Moderately ill in appearance, moderate distress, oxygen mask in place. EYE EXAM: Normal conjunctiva. PERRL, no anisocoria and EOM's grossly intact w/o pain. OROPHARYNX: Moist mucus membranes. Grossly normal dentition. NECK: Supple, no nuchal rigidity, no adenopathy, non-tender. no signs of meningismus. LUNGS: Clear to auscultation. Normal chest wall mechanics. HEART: NSR, no MRG. ABDOMEN: Abdomen soft, non-tender, normo-active bowel sounds, no masses, no rebound or guarding. BACK: No CVA TTP. SKIN: No rashes and no bruising. Stage 1 sacral decubitus redness. UPPER EXTREMITIES: Upper extremities are grossly normal. LOWER EXTREMITIES: 1+ pitting edema. Redness consistence with venous stasis, no warmth, or fluctuance noted. NEURO EXAM: A&O x3, cranial nerves II-XII grossly intact, normal speech, moves all 4 extremities on command w/o issue. Course 0956: Past medical records reviewed. The patient was evaluated in room B2. A complete history and physical examination was performed. 1140: I reviewed the patient's case with Dr. Nazario Roberts. He will evaluate the patient for further management. 1226: I reviewed the patient's case with Adrianna Roberts. She will evaluate the patient for further management. Consultations Consultation #1: 1140: I reviewed the patient's case with Dr. Nazario Roberts. He will evaluate the patient for further management. Time: 11:40 Consultation #2: 1226: I reviewed the patient's case with Adrianna Roberts. She will evaluate the patient for further management. Time: 12:26 Administered Medications Potassium Chloride/Sodium Chloride (Normal Saline W/20 Meq Kcl) 20 meq in 1,000 mls @ 125 mls/hr IV .Q8H PAYAM Stop: 01/15/19 07:59 Last Admin: 01/14/19 15:55 Dose: 80 mls/hr Documented by: [id number] Potassium Phosphate 15 mmol/ (Sodium Chloride) 255 mls @ 88 mls/hr IV NOW ONE Stop: 01/14/19 18:53 Last Admin: 01/14/19 15:55 Dose: 88 mls/hr Documented by: [id number] Discontinued Medications Acetaminophen (Tylenol) 1,000 mg PO NOW STA Stop: 01/14/19 11:35 Last Admin: 01/14/19 11:50 Dose: 1,000 mg Documented by: [id number] Sodium Chloride (Nss 1000ml) 1,000 mls @ 999 mls/hr IV .Q1H1M ONE Stop: 01/14/19 11:03 Last Infusion: 01/14/19 11:04 Dose: 0 mls/hr Documented by: [id number] Admin: 01/14/19 10:00 Dose: 999 mls/hr Documented by: [id number] Metronidazole (Flagyl) 500 mg in 100 mls @ 100 mls/hr IV NOW STA Stop: 01/14/19 11:57 Last Infusion: 01/14/19 13:03 Dose: 0 mls/hr Documented by: [id number] Admin: 01/14/19 11:34 Dose: 100 mls/hr Documented by: [id number] Sodium Chloride (Nss 1000ml) 500 mls @ 999 mls/hr IV .Q31M ONE Stop: 01/14/19 11:28 Last Infusion: 01/14/19 13:22 Dose: 0 mls/hr Documented by: [id number] Admin: 01/14/19 11:35 Dose: 999 mls/hr Documented by: [id number] Vancomycin HCl 1,500 mg/ (Sodium Chloride) 530 mls @ 200 mls/hr IV NOW ONE; Protocol Stop: 01/14/19 13:36 Last Infusion: 01/14/19 14:13 Dose: 0 mls/hr Documented by: [id number] Admin: 01/14/19 11:34 Dose: 200 mls/hr Documented by: [id number] Cefepime HCl (Maxipime) 2,000 mg in 20 mls @ 5 mls/min IV NOW STA; Protocol Stop: 01/14/19 11:01 Last Admin: 01/14/19 11:35 Dose: 5 mls/min Documented by: [id number] Sodium Chloride (Nss 1000ml) 500 mls @ 999 mls/hr IV .Q31M ONE Stop: 01/14/19 13:06 Last Infusion: 01/14/19 13:53 Dose: 0 mls/hr Documented by: [id number] Admin: 01/14/19 13:22 Dose: 999 mls/hr Documented by: [id number] Medical Decision Making Differential Diagnosis Differential diagnoses Pneumonia, bronchitis, COPD/Asthma exacerbation, pneumothorax, pulmonary embolism, congestive heart failure, acute coronary syndrome as well as other etiologies were entertained. Medical Records Attestation: I reviewed the patient's medical records. Home Medications Current Medication List: was personally reviewed by me Laboratory Data Attestation: I reviewed the patient's lab results. Result diagrams: 01/14/19 09:30 01/14/19 09:30 Lab Results 01/14/19 01/14/19 01/14/19 Range/Units 09:30 09:30 09:30 WBC 12.87 H (4.8-10.8) K/uL RBC 5.82 H (4.2-5.4) M/uL Hgb 16.4 H (12.0-16.0) g/dL Hct 48.0 H (37-47) % MCV 82.5 (80-100) fL MCH 28.2 (25-34) pg MCHC 34.2 (32-36) g/dL RDW Std Deviation 50.2 H (36.4-46.3) fL RDW Coeff of Angelique 16.8 H (11.5-14.5) % Plt Count 143 (130-400) K/uL MPV 11.3 H (7.4-10.4) fL Immature Gran % (Auto) 0.5 % Neut % (Auto) 76.2 % Lymph % (Auto) 12.7 % Laurel % (Auto) 9.7 % Eos % (Auto) 0.5 % Baso % (Auto) 0.4 % Immature Gran # (Auto) 0.06 H (0.00-0.02) K/uL Neut # (Auto) 9.81 H (1.4-6.5) K/uL Lymph # (Auto) 1.63 (1.2-3.4) K/uL Laurel # (Auto) 1.25 H (0.11-0.59) K/uL Eos # (Auto) 0.07 (0-0.5) K/uL Baso # (Auto) 0.05 (0-0.2) K/uL PT 10.6 (9.0-12.0) Seconds INR 1.0 (0.9-1.1) APTT 28.5 (21.0-31.0) Seconds PTT Ratio 1.1 VBG pH (7.36-7.41) VBG pCO2 (38-50) mmHg VBG pO2 mmHg VBG HCO3 mmol/L VBG O2 Saturation % VBG Base Excess mEq/L Barometric Pressure mm/Hg Sodium (136-145) mmol/L Potassium (3.5-5.1) mmol/L Chloride (98-107) mmol/L Carbon Dioxide (21-32) mmol/L Anion Gap (3-11) BUN (7-18) mg/dl Creatinine (0.6-1.2) mg/dl Est Cr Clr Drug Dosing ml/min Est GFR ( Amer) Est GFR (Non-Af Amer) BUN/Creatinine Ratio (10-20) Glucose (70-99) mg/dl POC Lactic Acid Brien (0.90-1.70) mmol/L Calcium (8.5-10.1) mg/dl Phosphorus (2.5-4.9) mg/dl Magnesium (1.8-2.4) mg/dl Total Bilirubin (0.2-1) mg/dl AST (15-37) U/L ALT (12-78) U/L Alkaline Phosphatase (45-117) U/L NT-Pro-B Natriuret Pep (0-1800) pg/ml Total Protein (6.4-8.2) gm/dl Albumin (3.4-5.0) gm/dl Globulin (2.5-4.0) gm/dl Albumin/Globulin Ratio (0.9-2) Procalcitonin 0.65 H (0-0.5) ng/ml Urine Color Urine Appearance (Clear) Urine pH (4.5-7.5) Ur Specific [place] (1.000-1.030) Urine Protein (Negative) Urine Glucose (UA) (Negative) Urine Ketones (Negative) Urine Blood (Negative) Urine Nitrite (Negative) Urine Bilirubin (Negative) Urine Urobilinogen (Negative) Ur Leukocyte Esterase (Negative) Urine WBC (Auto) (0-5) /hpf Urine RBC (Auto) (0-4) /hpf U Hyaline Cast (Auto) (0-5) /lpf U Epithel Cells (Auto) (0-5) /lpf Urine Bacteria (Auto) (Negative) Digoxin (0.8-2.0) ng/ml 01/14/19 01/14/19 01/14/19 Range/Units 09:30 09:30 10:06 WBC (4.8-10.8) K/uL RBC (4.2-5.4) M/uL Hgb (12.0-16.0) g/dL Hct (37-47) % MCV (80-100) fL MCH (25-34) pg MCHC (32-36) g/dL RDW Std Deviation (36.4-46.3) fL RDW Coeff of Angelique (11.5-14.5) % Plt Count (130-400) K/uL MPV (7.4-10.4) fL Immature Gran % (Auto) % Neut % (Auto) % Lymph % (Auto) % Laurel % (Auto) % Eos % (Auto) % Baso % (Auto) % Immature Gran # (Auto) (0.00-0.02) K/uL Neut # (Auto) (1.4-6.5) K/uL Lymph # (Auto) (1.2-3.4) K/uL Laurel # (Auto) (0.11-0.59) K/uL Eos # (Auto) (0-0.5) K/uL Baso # (Auto) (0-0.2) K/uL PT (9.0-12.0) Seconds INR (0.9-1.1) APTT (21.0-31.0) Seconds PTT Ratio VBG pH (7.36-7.41) VBG pCO2 (38-50) mmHg VBG pO2 mmHg VBG HCO3 mmol/L VBG O2 Saturation % VBG Base Excess mEq/L Barometric Pressure mm/Hg Sodium 133 L (136-145) mmol/L Potassium 3.7 (3.5-5.1) mmol/L Chloride 100 (98-107) mmol/L Carbon Dioxide 23 (21-32) mmol/L Anion Gap 10.0 (3-11) BUN 19 H (7-18) mg/dl Creatinine 1.12 (0.6-1.2) mg/dl Est Cr Clr Drug Dosing 31.8 ml/min Est GFR ( Amer) 51.2 Est GFR (Non-Af Amer) 44.1 BUN/Creatinine Ratio 16.6 (10-20) Glucose 241 H (70-99) mg/dl POC Lactic Acid Brien 4.58 H (0.90-1.70) mmol/L Calcium 9.2 (8.5-10.1) mg/dl Phosphorus 1.9 L (2.5-4.9) mg/dl Magnesium 2.2 (1.8-2.4) mg/dl Total Bilirubin 2.2 H (0.2-1) mg/dl AST 22 (15-37) U/L ALT 16 (12-78) U/L Alkaline Phosphatase 184 H (45-117) U/L NT-Pro-B Natriuret Pep 862 (0-1800) pg/ml Total Protein 8.0 (6.4-8.2) gm/dl Albumin 2.9 L (3.4-5.0) gm/dl Globulin 5.1 H (2.5-4.0) gm/dl Albumin/Globulin Ratio 0.6 L (0.9-2) Procalcitonin (0-0.5) ng/ml Urine Color Urine Appearance (Clear) Urine pH (4.5-7.5) Ur Specific [place] (1.000-1.030) Urine Protein (Negative) Urine Glucose (UA) (Negative) Urine Ketones (Negative) Urine Blood (Negative) Urine Nitrite (Negative) Urine Bilirubin (Negative) Urine Urobilinogen (Negative) Ur Leukocyte Esterase (Negative) Urine WBC (Auto) (0-5) /hpf Urine RBC (Auto) (0-4) /hpf U Hyaline Cast (Auto) (0-5) /lpf U Epithel Cells (Auto) (0-5) /lpf Urine Bacteria (Auto) (Negative) Digoxin 1.2 (0.8-2.0) ng/ml 01/14/19 01/14/19 Range/Units 10:52 11:20 WBC (4.8-10.8) K/uL RBC (4.2-5.4) M/uL Hgb (12.0-16.0) g/dL Hct (37-47) % MCV (80-100) fL MCH (25-34) pg MCHC (32-36) g/dL RDW Std Deviation (36.4-46.3) fL RDW Coeff of Angelique (11.5-14.5) % Plt Count (130-400) K/uL MPV (7.4-10.4) fL Immature Gran % (Auto) % Neut % (Auto) % Lymph % (Auto) % Laurel % (Auto) % Eos % (Auto) % Baso % (Auto) % Immature Gran # (Auto) (0.00-0.02) K/uL Neut # (Auto) (1.4-6.5) K/uL Lymph # (Auto) (1.2-3.4) K/uL Laurel # (Auto) (0.11-0.59) K/uL Eos # (Auto) (0-0.5) K/uL Baso # (Auto) (0-0.2) K/uL PT (9.0-12.0) Seconds INR (0.9-1.1) APTT (21.0-31.0) Seconds PTT Ratio VBG pH 7.37 (7.36-7.41) VBG pCO2 40 (38-50) mmHg VBG pO2 24 mmHg VBG HCO3 22 mmol/L VBG O2 Saturation < 60.0 % VBG Base Excess -3.0 mEq/L Barometric Pressure 729.2 mm/Hg Sodium (136-145) mmol/L Potassium (3.5-5.1) mmol/L Chloride (98-107) mmol/L Carbon Dioxide (21-32) mmol/L Anion Gap (3-11) BUN (7-18) mg/dl Creatinine (0.6-1.2) mg/dl Est Cr Clr Drug Dosing ml/min Est GFR ( Amer) Est GFR (Non-Af Amer) BUN/Creatinine Ratio (10-20) Glucose (70-99) mg/dl POC Lactic Acid Brien (0.90-1.70) mmol/L Calcium (8.5-10.1) mg/dl Phosphorus (2.5-4.9) mg/dl Magnesium (1.8-2.4) mg/dl Total Bilirubin (0.2-1) mg/dl AST (15-37) U/L ALT (12-78) U/L Alkaline Phosphatase (45-117) U/L NT-Pro-B Natriuret Pep (0-1800) pg/ml Total Protein (6.4-8.2) gm/dl Albumin (3.4-5.0) gm/dl Globulin (2.5-4.0) gm/dl Albumin/Globulin Ratio (0.9-2) Procalcitonin (0-0.5) ng/ml Urine Color Dark Yellow Urine Appearance Cloudy A (Clear) Urine pH 5.0 (4.5-7.5) Ur Specific [place] 1.016 (1.000-1.030) Urine Protein Negative (Negative) Urine Glucose (UA) Trace H (Negative) Urine Ketones 1+ H (Negative) Urine Blood Trace H (Negative) Urine Nitrite Negative (Negative) Urine Bilirubin Negative (Negative) Urine Urobilinogen Negative (Negative) Ur Leukocyte Esterase 2+ H (Negative) Urine WBC (Auto) >30 H (0-5) /hpf Urine RBC (Auto) 0-4 (0-4) /hpf U Hyaline Cast (Auto) 5-10 H (0-5) /lpf U Epithel Cells (Auto) 10-20 H (0-5) /lpf Urine Bacteria (Auto) 2+ H (Negative) Digoxin (0.8-2.0) ng/ml Imaging Data Radiologist's Impression: Radiology results as stated below per my review and the radiologist's interpretation: XR chest 1V portable CLINICAL HISTORY: Sepsis COMPARISON STUDY: 12/22/2018 FINDINGS: The heart is mildly enlarged. There is no failure. There is no focal pulmonary consolidation. There are no pleural effusions.[ IMPRESSION: No active disease in the chest. Electronically signed by: Aníbal Melvin M.D. 01/14/2019 10:29 AM Dictated: 01/14/19 1028 Transcribed: 01/14/19 1028 ECG Data Attestation: I personally reviewed and interpreted this ECG as follows: Indication: SOB/dyspnea Rate (beats per minute): 100 Rhythm: atrial fibrillation Findings: + other (Wide QRS), + Q waves (inferiorly), + RBBB, + T-wave inversion (anteriorly) and + left axis deviation Comparison ECG Date: from (04/13/2008) Change: the following changes noted (Rhythm and branch block is changed. QRS is wider. Q wave in lead 2 and TWI in V3 are new. ) Blood Pressure Blood Pressure Findings: Low blood pressure Blood Pressure Disposition: further management by hospitalist MDM Narrative The HPI is limited secondary to altered mental status. The patient is an 88 white female w/ PMHx hyperthyroidism, type 2 diabetes, hypertension, and CHF who presents to the ED via EMS w/ CC of constant shortness of breath beginning this morning. [facility] with [facility] shortness of breath and was noted to be hypoxic. The patient does not wear oxygen at home. The patient was only about 70% at the care facility. The patient presented a code sepsis called as the patient was tachycardic hypotensive and hypoxic. Patient did have blood work completed patient was placed on high flow nasal cannula as I do not believe that the patient's blood pressure would tolerate BiPAP or CPAP at this time. The patient does not look significantly volume overloaded has clear breath sounds does have some redness in the lower extre mities but there is no calor and I believe this is more related to chronic venous stasis. Back was checked and she does have some stage I ulcerations with only some redness at the sacral decubiti. Patient was covered with broad-spectrum antibiotics. Patient did have a lactate of 4.5. The patient was initially given 1 L and as this improved her blood pressure I did order an additional 500 as the patient likely does have some hemoconcentration which is likely secondary to dehydration. Patient did have mild normal and a white count of 12. I did have a discussion with patient family member as well as the hospitalist service about the possibility PE given the profound hypoxia. I did discuss though that even if this was diagnosed with likely be contraindicated in terms of treatment as the patient did have a recent head bleed. The patient was looking much improved and the patient was ti trated down to the high flow nasal cannula. Patient's urinalysis does look concerning for infection. The patient is on digoxin but not on blood thinning medications. Patient's digoxin level was within normal limit. Patient was given strict follow-up, discharge, and return precautions. All questions were answered. Patient was deemed suitable for outpatient follow-up at this time. Patient agreed with the plan of care and was safely discharged home. Impression & Plan Sepsis, Hypoxia, Respiratory failure, A-fib Critical Care Time Critical Care Time: Yes Total Critical Care Time: 82 I have personally spent 82 minutes of critical care time in the direct management of this patient. This includes bedside care, interpretation of diag nostic studies, and testing, discussion with consultants, patient, and family members, and other required patient management activities. This 82 minutes is in excess of all separately billable procedures. Discharge Plan Visit Data *Final* Discharge Date/Time: 01/14/19 14:13 Chief Complaint: Shortness of Breath/Dyspnea ED Provider: Jasvir Mao Discharge Problem: Sepsis, Hypoxia, Respiratory failure, A-fib Patient Disposition: Admitted As Inpatient Discharge Instructions Interventions: ED Discharge Assessment Last Done: 01/14/19 14:13 Discharge Problem: Sepsis Qualifiers: Sepsis type: sepsis due to unspecified organism Qualified Code(s): A41.9 - Sepsis, unspecified organism Respiratory failure Qualifiers: Chronicity: unspecified Respiratory failure complication: unspecified whether with hypoxia or hypercapnia Qualified Code(s): J96.90 - Respiratory failure, unspecified, unspecified whether with hypoxia or hypercapnia A-fib Qualifiers: Atrial fibrillation type: unspecified Qualified Code(s): I48.91 - Unspecified atrial fibrillation The scribe's documentation has been prepared under my direction and personally reviewed by me in its entirety. I confirm that the note above accurately reflects all work, treatment, procedures, and medical decision making performed by me.
[2019-01-14] MEDS ORDERED: OPTIRAY 320 125ml IV PRN (17:56)
[2019-01-14] MEDS: INSULIN ASPART 100 UNITS/ML 3 ML PEN SC SCH ×2 (18:00→21:42)
--- NOTE | 2019-01-14 18:09 | CT Scan Report ---
CT angio chest PE protocol CLINICAL HISTORY: 88 years-old Female presenting with sepsis, clinical concern for pulmonary embolus. TECHNIQUE: Multidetector CT angiography of the chest was performed after administration of intravenou s contrast. 3-D volumetric and/or maximum intensity projection (MIP) images were subsequently reconst ructed for review. IV contrast: 87 mL of Optiray 320. One or more dose lowering techniques were used consistent with the principles of ALARA (as low as reasonably achievable), including automatic exposu re control, mA or kV adjustment to individual patient size, and/or use of iterative reconstruction. COMPARISON: Chest x-ray from earlier today. CT DOSE (mGy.cm): The estimated cumulative dose is 353.88 mGy.cm. FINDINGS: Supervisor P[employer] Manufacture topogram: Unremarkable. Pulmonary vasculature: The study is adequate for assessment of the pulmonary vascular tree. Extensive acute pulmonary emboli involving distal main right pulmonary artery and extensively within the lobar arteries of both lungs . Emboli extend into segmental pulmonary arteries most extensively in the lower lobes. Enlargement of the main pulmonary artery, which measures 3.5 cm in diameter. Flattening of the interventricular sep arnoldo with enlargement of the right heart. No intracardiac filling defect. Reflux of contrast into the IVC and hepatic veins. This likely indicates elevated right heart pressure. Remaining chest: Soft tissues: Thyroid not well visualized. Mild body wall edema may be present. No axillary, supracla vicular, mediastinal, or hilar lymphadenopathy. Atherosclerosis of the aorta. Multichamber enlargemen t of the heart. Coronary artery and aortic valve calcification. Trace pleural effusions may be presen t. Upper abdomen normal. Lungs and airways: No pneumothorax. Central airways patent. Pulmonary arteries enlarged relative to t he adjacent bronchi. Interlobular septal thickening in the lung bases. Mosaic attenuation throughout the lungs likely has a vascular etiology. Extensive dependent consolidation in the lower lobes. Addit ional consolidation in the lateral segment of the right middle lobe. Musculoskeletal: Degenerative changes of the spine. IMPRESSION: 1. Extensive bilateral acute pulmonary emboli involving the right main pulmonary artery and all loba r pulmonary arteries. Evidence of right heart strain. Echocardiographic and clinical correlation kacey mmended. 2. Extensive nominally dependent consolidation in the lungs as well as consolidation in the right mi ddle lobe. Pulmonary infarcts are not excluded. Alternatively based on the distribution, this may sug gest atelectasis in the lower lobes. The report will be called/faxed according to standard departmental protocol for a critical finding. Electronically signed by: Oneal Guallpa M.D. 01/14/2019 6:07 PM
[2019-01-14] MEDS: metroNIDAZOLE 500 MG/100 ML BAG IV SCH (20:21)
--- NOTE | 2019-01-14 21:39 | Ultrasound Report ---
US venous doppler LE CLINICAL HISTORY: 88 years-old Female presenting with extensive pulmonary emboli, r/o DVT. TECHNIQUE: Real-time grayscale and color and spectral Doppler ultrasound imaging of the veins of the bilateral lower extremities was performed. Compression and augmentation were also utilized. COMPARISON: 09/14/2017. FINDINGS: RIGHT: Common femoral vein: Patent. Greater saphenous vein (superficial): Patent. Deep femoral vein: Patent. Femoral vein: Patent. Popliteal vein: Patent. Calf veins: Patent. LEFT: Common femoral vein: Patent. Greater saphenous vein (superficial): Patent. Deep femoral vein: Patent. Femoral vein: Nonocclusive thrombus in the mid to distal portion. Popliteal vein: Not interrogated. Calf veins: Nonocclusive thrombus in the posterior tibial vein. Occlusive thrombus in the peroneal ve in. Thrombus noted in one of 2 duplicated anterior tibial veins. Other: None. IMPRESSION: 1. Occlusive and nonocclusive thrombus in the left lower extremity extending from the calf veins to the mid femoral vein proximally. 2. No evidence of deep venous thrombosis in the right lower extremity. Electronically signed by: Oneal Guallpa M.D. 01/14/2019 9:38 PM
[2019-01-14] MEDS: LACTOBACILLUS ACIDOPHILUS (FLORANEX) TAB PO SCH (21:44)
[2019-01-15] MEDS: INSULIN ASPART 100 UNITS/ML 3 ML PEN SC SCH ×7 (01:53→20:54)
[2019-01-15] MEDS: CEFEPIME 2,000 MG in SYRINGE 7.5 ML IV SCH ×2 (01:54→12:04)
[2019-01-15] MEDS: NSS + 20MEQ KCL 20 MEQ/1,000 ML BAG IV SCH (01:58)
[2019-01-15] MEDS: metroNIDAZOLE 500 MG/100 ML BAG IV SCH ×2 (04:39→10:51)
[2019-01-15] MEDS: LEVOTHYROXINE SODIUM 200 MCG TABLET PO SCH (06:14)
[2019-01-15 07:15] LABS: Basophils # (auto) 0.05 K/uL (0-0.2); Basophils % (auto) 0.5 %; Eosinophils # (auto) 0.07 K/uL (0-0.5); Eosinophils % (auto) 0.7 %; Hematocrit (blood only) 39.6 % (37-47); Hemoglobin 13.5 g/dL (12.0-16.0); Immature Granulocytes # (auto) 0.03 K/uL (0.00-0.02); Immature Granulocytes % (auto) 0.3 %; Lymphocytes # (auto) 0.97 K/uL (1.2-3.4); Lymphocytes % (auto) 9.6 %; Mean Corpuscular Hgb Conc 34.1 g/dL (32-36); Mean Corpuscular Volume 81.8 fL (80-100); Mean Platelet Volume 11.2 fL (7.4-10.4); Monocytes # (auto) 0.99 K/uL (0.11-0.59); Monocytes % (auto) 9.8 %; Neutrophils # (auto) 8.02 K/uL (1.4-6.5); Neutrophils % (auto) 79.1 %; Platelet Count 126 K/uL (130-400); RDW Coefficient of Variation 16.9 % (11.5-14.5); RDW Standard Deviation 50.7 fL (36.4-46.3); Red Blood Count 4.84 M/uL (4.2-5.4); White Blood Count 10.13 K/uL (4.8-10.8)
[2019-01-15 07:52] LABS: Albumin Globulin Ratio 0.5 (0.9-2); Albumin Level 2.1 gm/dl (3.4-5.0); BUN Creatinine Ratio 23.6 (10-20); Bilirubin,Total 1.3 mg/dl (0.2-1); Calcium 8.3 mg/dl (8.5-10.1); Creatinine Clr Calc Pharmacy 48.9 ml/min; Est GFR (African American) 85.8; Est GFR (Non-African American) 74.1; Globulin 3.9 gm/dl (2.5-4.0); Magnesium 2.1 mg/dl (1.8-2.4); Phosphorus 2.6 mg/dl (2.5-4.9); Potassium 4.5 mmol/L (3.5-5.1)
[2019-01-15] MEDS: CALCIUM 600MG + VIT D 400 IU TAB PO SCH (08:39)
[2019-01-15] MEDS: LACTOBACILLUS ACIDOPHILUS (FLORANEX) TAB PO SCH ×2 (08:39→20:52)
[2019-01-15] MEDS ORDERED: INSULIN GLARGINE SOLOSTAR 100 UNITS/ML 3 ML PEN SQ ONE (09:00)
[2019-01-15] MEDS ORDERED: INSULIN GLARGINE SOLOSTAR 100 UNITS/ML 3 ML PEN SC SCH (09:00)
--- NOTE | 2019-01-15 09:11 | Pharmacy Report ---
Pharmacy Glycemic Short Note 2 - Date of Service January 15, 2019 - Glycemic Short BSG Results (Last 24 hours): 01/14/19 01/14/19 01/14/19 09:30 16:31 20:09 Glucose 241 H POC Glucose 116 H 126 H 01/15/19 01/15/19 01/15/19 01:50 04:35 06:42 Glucose 173 H POC Glucose 147 H 197 H 01/15/19 06:46 Glucose POC Glucose 151 H OUTPATIENT ANTIDIABETIC REGIMEN: * Lantus 20 units Q AM * Novolog 3 units BID with meals * A1c = 9.3% ASSESSMENT: * Poorly controlled type 2 diabetic admitted w/ hypoxic respiratory failure, LLE venous thrombosis w/ extensive BL PEs * Glycemic Control Service has followed this patient on prior admissions. Will use data collected from prior admissions to guide dosing this admission * She tends to have erratic BSG swings, not always explainable. But based on prior data, she tends to become hyperglycemic prior to lunch leading me to believe her breakfast prandial insulin dose should be larger than with other meals as she tends to drop her BSG rapidly at dinner-time. * She may also be prone to overcorrection of elevated BSGs, thus will utilize a lower correctional insulin dose than we typically would use PLAN FOR INPATIENT GLYCEMIC CONTROL: * Basal insulin * Lantus 12 units SQ Q AM * HS Lantus dose to be determined by BSG: if less than 140 give 0 units; if 140 or greater give 4 units * Bolus insulin * NovoLog per scale ACHS or Q6hrs while NPO * Goal Range: Low 120 mg/dL - High 160 mg/dL * Correction Factor: 40 mg/dL/unit * Nutritional / Prandial insulin per carb ratio of 1 unit per 7 grams CHO consumed with breakfast, 1 unit per 8 grams CHO consumed with all other meals PLAN FOR DISCHARGE: * to be determined
--- NOTE | 2019-01-15 11:17 | Consultation ---
Date of Consultation January 15, 2019 Assessment & Plan (1) Pulmonary emboli: Pt with extensive BL PE with hypoxia and possible R heart strain. LLE DVT also noted. Pt discussed wtih Dr Shin. D/T extensive Bl PE, recommend IVC filter insertion. Pt and family agreeable. Decision regarding safety of AC up to medicine and/or neurology. IVC filter schedule later today. Patient was seen, examined, and chart reviewed. Agree with exam and treatment plan of the Vascular PA. I have discussed the risks options and benefits of the procedure with the patient. The patient understands the risks options and benefits and agrees to the procedure. Present on Admission?: Yes History of Present Illness Reason for Consultation: DVT/PE, hx SDH Attending Physician: Eliud Canada MD History of Present Illness 88 yo f with multiple medical problems, including a fib, HTN, CHF, DMII, hypothyroidism, admitted with acute extensive PE and LLE DVT, seen in consultation today for IVC filter insertion. Pt recently( 3 weeks) with SDH after head trauma from a fall at home and elevated INR of 5 at the time. Her AC was stopped d/t the SDH and pt has been at rehab since d/c from [facility]. Noted hypoxia at PT yesterday, so pt sent to [facility], and extensive BL PE noted on CTA chest. CTA also indicated R heart strain. Venous US demonstrated LLE DVT as well. Pt and family deny any prior hx of DVT or PE. Pt has increased confusion as well, however, confusion has been slowly worsening over past year or so per son. Pt unable to give meaningful hx. Denies pain or SOB. Requesting water to drink(currently NPO). Pt is NOK. Allergies Allergy/AdvReac Type Severity Reaction Status Date / Time GABINO Inhibitors Allergy Mild Cough Verified 01/14/19 12:00 amoxicillin Allergy Mild RASH Verified 01/14/19 12:00 Home Medications Home Medications Medication Instructions Recorded Confirmed Type Lactobacillus acidoph-L.bulgar 4 tab PO BID 12/22/18 01/14/19 History [Floranex] acetaminophen 650 mg PO Q6H PRN MDD 3g/24hr 12/22/18 01/14/19 History calcium carbonate-vitamin D3 1 tab PO DAILY 12/22/18 01/14/19 History [Calcium 500 + D] vitamin E 400 unit PO DAILY 12/22/18 01/14/19 History amlodipine [Norvasc] 5 mg PO QAM 30 Days #30 tab 12/28/18 01/14/19 Rx levothyroxine 200 mcg PO DAILY 30 Days #30 tab 12/28/18 01/14/19 Rx bisacodyl 10 mg MA DAILY PRN 01/14/19 01/14/19 History digoxin 125 mcg PO QAM 01/14/19 01/14/19 History insulin aspart U-100 [Novolog 8 units SC DAILY 01/14/19 01/14/19 History Flexpen U-100 Insulin] insulin aspart U-100 [Novolog 3 unit SUBCUT BIDM 01/14/19 01/14/19 History U-100 Insulin aspart] insulin glargine [Lantus Solostar 20 units SC QAM 01/14/19 01/14/19 History U-100 Insulin] insulin lispro [Humalog U-100 1 sliding scale dose SUBCUT 01/14/19 01/14/19 History Insulin] USEASDIRECTD PRN losartan 25 mg PO QAM 01/14/19 01/14/19 History metoprolol succinate 50 mg PO QAM 01/14/19 01/14/19 History Patient History Medical History Subdural hematoma, post-traumatic (Acute) Chronic atrial fibrillation (Chronic) Hypothyroidism (Chronic) Compression fracture of L2 (Chronic) RBBB (Chronic) Osteoarthritis (Chronic) Lymphedema (Chronic) Hypothyroidism (Chronic) HTN (hypertension) (Chronic) Diastolic HF (heart failure) (Chronic) Diabetes mellitus, type II (Chronic) 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 Mother , house fire 82 No problems noted. Brother , CVA Stroke Other Diabetes Hypertension No pertinent family history Social History Preferred Language: Lithuanian Communication Ability: Effective Powder Coater Required: No Beliefs That Will Affect Care: None marital status: Current Living Situation: [facility] Current Living Situation Comment: [facility] current occupational status: retired Feels Safe at Home: Yes Smoking Status: Unknown if ever smoked Hx Alcohol Use: No Hx Substance Use: No Review of Systems Review of Systems: Unobtainable due to cognitive status Physical Exam Constitutional: WD/WN, vitals as above well developed, well nourished, + ill appearing, + obese, + frail appearing, + disheveled, cooperative and comfortable; not in distress and not combative Eyes: PERRL, conjunctivae normal, anicteric sclerae EOM intact bilaterally ENMT: Ears: + hearing impairment Nose: no nasal discharge Mouth: + malodorous breath Neck: trachea midline, no thyromegaly no tracheal deviation, no neck crepitus and neck nontender Respiratory: does not use accessory muscles, no cough and no audible wheezes Auscultation: + diminished lung sounds and + crackles; no rhonchi and no whe ezes Cardiovascular: Rate/Rhythm: + irregularly irregular Heart Sounds: no gallop and no murmur Vessels: normal peripheral pulses, femoral pulses present, posterior tibial pulses present, dorsalis pedis pulses present, brachial pulses present and radial pulses present; no carotid bruit and no femoral bruit Extremities: normal capillary refill and + edema (LLE +2, ); no pedal edema Chest (Breasts): Chest: normal inspection of chest Gastrointestinal (Abdomen): normal bowel sounds, soft, nontender, no hepatosplenomegaly Inspection/Auscultation: abdomen normal to inspection and normal bowel sounds; abdomen not distended Percussion/Palpation: abdomen soft; abdomen nontender, no guarding, abdomen not rigid and no abdominal mass Musculoskeletal: Head/Neck/Chest: normocephalic, head atraumatic and neck supple Extremities: + limited ROM of extremities (d/t age) and + chronic stasis changes; + abnormal strength Skin: no rashes, warm and dry normal turgor; no rashes, no lesions, no ulc ers, no erythema, no eschar, no excoriations and no mottling Neurologic: moves all extremities, awake and + confused; no focal motor deficits Speech / Cognition: no expressive aphasia and no receptive aphasia Motor/Sensory: no tremor and no sensory deficit Cranial Nerves: EOM intact bilaterally, normal facial strength and tongue midline Psychiatric: Orientation: alert, oriented to person and cooperative; + not oriented to place and + not oriented to time Apperance: appropriately dressed, + disheveled and appeared stated age Affect: euthymic affect Thought Process: + thought process not linear or logical and + thought process not clear or coherent Cognition: attention grossly intact and language grossly intact; + recent memory not intact and + remote memory not intact Estimated Intelligence: average estimated intelligence Results & Data Vital Signs (Past 12 Hours) Vital Signs Temp Pulse Pulse Resp BP Pulse Ox 01/15/19 07:29 88 22 95 01/15/19 07:02 36.5 C 88 18 106/59 L 96 01/15/19 03:43 36.3 C L 82 19 110/65 97 01/14/19 23:59 75 01/14/19 23:43 36.3 C L 83 23 117/71 97
--- NOTE | 2019-01-15 11:31 | Pharmacy Report ---
Pharmacy Abx Dose Short Note - Date of Service January 15, 2019 - Assessment & Plan Assessment * 88 year old F receiving empiric abx therapy for treat of sepsis (VANCOMYCIN + CEFEPIME) possible urinary source, possible pulm source * Patient presented with hypoxic resp failure and was found to have DVT + extensive PEs * Empiric abx therapy has been ordered for 48 hrs * UA concerning for UTI, and urine cx is currently growing >100,000CFU/mL e coli, sensitivities are pending * Reported h/o MRSA * Procal on admit 0.65 * WBC trending down, currently afebrile Plan Vancomycin * Vancomycin 1500mg load x 1 01/14, then 1000mg IV Q 24 hrs ordered * Renal fxn has improved over the last 24 hrs, SCr 1.12 -->0.73 * Given improving renal fxn, will adjust maintenance dose to account for greater clearance * New maint dose: 1000mg (~16mg/kg) IV Q 18 hrs * Goal trough level for sepsis (with unclear source, possible pulm source) : 15 to 20 mcg/mL * Will check trough level if therapy continues beyond 48 hrs Cefepime * continue 2gm IV Q 12 hrs for eCrCl 30-60cc/min Pharmacy will continue to follow and will adjust dose/frequency as necessary. Thank you.
[2019-01-15] MEDS ORDERED: VANCOMYCIN HCL 1,000 MG in SODIUM CHLORIDE 0.9% 250 ML IV SCH (12:00)
[2019-01-15] MEDS ORDERED: LIDOCAINE HCL 1% 20 ML VIAL ONE (12:05)
--- NOTE | 2019-01-15 12:46 | Pre Anesthesia Assessment ---
Date of Service January 15, 2019 Pre Sedation Assessment Vital Signs Temp Pulse Pulse Pulse Resp BP BP 01/15/19 12:22 36.7 C 97 H 18 01/15/19 07:29 88 22 01/15/19 07:02 36.5 C 88 18 106/59 L 01/15/19 03:43 36.3 C L 82 19 110/65 01/14/19 23:59 75 01/14/19 23:43 36.3 C L 83 23 117/71 01/14/19 19:45 36.4 C L 78 21 108/63 01/14/19 15:46 36.6 C 77 20 100/59 L 01/14/19 15:13 36.5 C 81 29 H 94/54 L 01/14/19 13:31 84 82 24 95/57 L 99/57 L 01/14/19 13:30 84 26 H 01/14/19 13:23 85 18 96/60 L 01/14/19 13:14 87 23 109/62 01/14/19 13:09 90 20 122/69 01/14/19 13:04 84 22 85/68 L 01/14/19 13:01 93 H 26 H 85/68 L 01/14/19 13:00 82 23 BP Pulse Ox 01/15/19 12:22 113/70 94 01/15/19 07:29 95 01/15/19 07:02 96 01/15/19 03:43 97 01/14/19 23:59 01/14/19 23:43 97 01/14/19 19:45 94 01/14/19 15:46 95 01/14/19 15:13 95 01/14/19 13:31 93 01/14/19 13:30 94 01/14/19 13:23 92 01/14/19 13:14 94 01/14/19 13:09 94 01/14/19 13:04 94 01/14/19 13:01 94 01/14/19 13:00 93 Cardiovascular RRR, no murmur, no edema Respiratory normal respiratory effort, lungs clear to auscultation Pre-Sedation Airway Assessment Smoking Status: Unknown if ever smoked Hx Sleep Apnea: Yes Short, Thick Neck: No Thyromental Distance: > or= 3.5 Finger Breadths Oral Cavity: + WNL Mallampati Class: II ASA: ASA3 NPO Status Date of Last Intake of Fluids: 01/14/19 Time of Last Intake of Fluids: 23:00 Date of Last Intake of Solid Food: 01/14/19 Time of Last Intake of Solid Foods: 23:00 Procedure Planning Contraindications for Sedation: none Current Medications Reviewed: Yes Notes The planned sedation has been discussed with the patient. Informed Consent was obtained. I have identified the patient, determined the appropriateness of sedation and have assessed the patient immediately prior to the procedure. All medicine(s) and interventions are by my order.
--- NOTE | 2019-01-15 13:01 | Procedure Note ---
Angiogram Post Procedure Fluoroscopy Time (minutes): 0.27 Conscious Sedation Time (minutes): 0 Radiation (mGy): 25 Contrast: 20 Post Operative Report Pre & Post Diagnosis Operation Date: 01/15/19 10:45 Pre op dx: PE, DVT, contraindication for anticoagulation Post op dx: PE, DVT, contraindication for anticoagulation Procedure Operation Date: 01/15/19 10:45 Insertion vena cava filter, femoral approach Ultrasoun localization of the right femoral vein Surgeon Rcik Shin MD Office Mail Clerk None Estimated Blood Loss 0 Findings Consistent with Post-Op Diagnosis Specimens None Anesthesia Type Local Complications none Disposition Accompanied Patient To Recovery: No Disposition: Recovery Room Indications The patient is a 8-year-old white female who had a subdural hemorrhage earlier this month. She presented now to the hospital with significant pulmonary emboli deep venous thrombosis to right heart strain. She has contraindication anticoagulation to her subdural hematoma. Insertion of the filter was recommended. I have discussed the risks options and benefits of the procedure with the patient. The patient understands the risks options and benefits and agrees to the procedure. Description of Procedure The patient was brought to the angio suite and placed in the supine position. The right groin was prepped and draped in the usual fashion. The patient was identified and a timeout was performed. The right common femoral vein was located with ultrasound. It was patent, compressed easily, and had no filling defects. The vein was then punctured under ultrasound visualization. A guidewire was then passed centrally into the inferior vena cava under fluoroscopic guidance. The puncture site was then dilated and the filter sheath inserted. It was passed to the infra renal vena cava. A venacavagram was done which showed no cava clot and an acceptable size. The renal veins were identified. The filter was then passed through the sheath and deployed in the infra renal vena cava in an upright position. Satisfied with the positioning of the filter, the sheath was removed. Pressure was applied to the puncture site. Adequate hemostasis was obtained and a sterile dressing was applied. The patient left the operation room in satisfactory condition and tolerated the procedure well. All needle and sponge counts were correct at the end of the procedure. I attest to the content of the Intraoperative Record and any orders documented therein. Any exceptions are noted below.
[2019-01-15] MEDS ORDERED: VISIPAQUE IV PRN (13:08)
[2019-01-15] MEDS ORDERED: OPTIRAY 300 IV PRN (13:15)
--- NOTE | 2019-01-15 13:37 | Hospitalist Progress Note ---
Date of Service January 15, 2019 Assessment & Plan (1) Acute respiratory failure with hypoxia: This is an 88-year-old female who has a significant past medical history of T2DM, diastolic CHF, chronic atrial fibrillation off warfarin, HTN, OA DJD, L2 compression fracture, recent traumatic SDH secondary to fall while on warfarin who presents to [facility] ED secondary to be hypoxic during physical therapy at [facility] facility. Acute Respiratory Failure with Hypoxia Sepsis ruled out Suspect urinary tract infection versus colonization Acute Pulmonary Embolism with Acute (but mild) cor pulmonale from Acute Deep vein thrombosis of left lower extremity -Initially the symptoms were attributed to sepsis as sepsis alert was called in the ED on 01/14/19 (met sepsis criteria with SBP less than 100, RR greater than 24, WBC greater than 12 K Procalcitonin high at 0.65; LA 4.58) for which patient received IV fluids and IV antibiotics with vancomycin, cefepime, Flagyl -however, the likely cause of the symptoms is Acute Pulmonary Embolism with Acute (but mild) cor pulmonale with from Acute Deep vein thrombosis of left lower extremity (Occlusive and nonocclusive thrombus in the left lower extremity extending from the calf veins to the mid femoral vein) -patient has not been a candidate for systemic anticoagulation therapy since her diagnosis of Subdural hematoma over the left cerebral hemisphere in December 14, 2018 -discussed with cardiology service that echocardiogram on 01/15/19 shows mildly dilated right ventricle with right ventricular pressure elevated at 40mmhg to 50 mmhg and this is described by telephone with the interpreting profiler operator as a mild right heart strain. Given that there are issues with anticoagulation currently, Dr. Ballesteros advises IVC filter for which patient had IVC filter placed by vascular surgery Dr. Shin on 01/15/19 -appreciate pulmonary consultation recommendations -blood cultures from 01/14/19 have no growth to date and as of 01/15/19, will stop the vancomycin and Flagyl; will continue cefepime until urine cultures sen sitivities return, urine culture with E.coli -will continue merlos for now given recent IVC filter placement Subdural Hematoma , chronic -diagnosis of Subdural hematoma over the left cerebral hemisphere in December 14, 2018 Atrial Fibrillation chronic Diastolic congestive heart failure Hypertension -continue metoprolol and digoxin -hold Losartan for now Diabetes Mellitus Type 2 on manager long term care current use of insulin -given Lantus 6 units on 01/15/19 pre-op on 01/15/19 -will continue insulin as needed Hypothyroidism -continue Levothyroxine Compression fracture of L2 -to wear LSO brace when ambulating, will plan to re-initiate PT/OT Subjective Patient seen and examined before and after IVC filter placement. continues to be in atrial fibrillation with heart rate controlled. on nasal cannula oxygen. no acute distress. mentation at baseline. is verbal and cooperative Physical Exam Constitutional: comfortable Eyes: PERRL, conjunctivae normal, anicteric sclerae EOM intact bilaterally ENMT: external ear and nose normal, oropharynx normal Neck: trachea midline, no thyromegaly Respiratory: normal respiratory effort Auscultation: lungs clear to auscultation bilaterally Cardiovascular: Rate/Rhythm: regular rate and + irregularly irregular Gastrointestinal (Abdomen): normal bowel sounds, soft, nontender, no hepatosplenomegaly Musculoskeletal: Head/Neck/Chest: normocephalic and head atraumatic Skin: legs are nontender, right groin has dressing Neurologic: PERRL, EOMI, accommodation nl, no face palsy, no dysarthria Psychiatric: Orientation: alert and cooperative Results & Data Vital Signs (Past 12 Hours) Vital Signs Temp Pulse Pulse Resp BP BP BP 01/15/19 12:57 95 H 18 146/66 H 01/15/19 12:53 122 H 18 142/85 H 01/15/19 12:48 106 H 21 142/82 H 01/15/19 12:44 90 21 158/133 H 01/15/19 12:22 36.7 C 97 H 18 113/70 01/15/19 07:29 88 22 01/15/19 07:02 36.5 C 88 18 106/59 L 01/15/19 03:43 36.3 C L 82 19 110/65 Pulse Ox 01/15/19 12:57 97 01/15/19 12:53 92 01/15/19 12:48 94 01/15/19 12:44 90 01/15/19 12:22 94 01/15/19 07:29 95 01/15/19 07:02 96 01/15/19 03:43 97
[2019-01-15] MEDS: METOPROLOL SUCC 50MG EXT REL TAB PO SCH (13:38)
--- NOTE | 2019-01-15 14:37 | Pulmonary Consultation ---
Date of Consultation January 15, 2019 Assessment & Plan (1) Pulmonary emboli: Impression: 1. Acute hypoxic respiratory failure secondary to large bilateral PE. 2. Extensive venous thromboembolic event affecting the lung and the lower extremities. 3. Recent subdural and epidural hematoma due to fall 2020 4 days ago. 4. History of A. fib was on Coumadin and currently off anticoagulation. 5. History of COPD. Plan: 1. Agree with IVC filter placement. 2. Anticoagulation can be started after 4 weeks from subdural hematoma if there is no progression. 3. Her risk of intracranial bleed is higher than average due to risk of fall. 4. Other option would be embolectomy, however, it would require anticoagulation immediately after the procedure, the patient is not in the window for anti- Coblation at this point. 5. Discussed with the son at the bedside in details. Thank you, will follow. History of Present Illness Reason for Consultation: PE Requesting Physician: Dr. Lange Attending Physician: Eliud Canada MD History of Present Illness Dear Dr. Lange: Thank you for the kind referral of Mrs. Rose to pulmonary service. This is 88-year-old female with a history of recent fall, sustained left-sided epidural and subdural hematoma on December 22 24 days ago. The patient had a history of A. fib and was on Coumadin which was reversed at that time. She was deemed inoperable from a neurosurgical standpoint. The patient was discharged from [facility] and return back again to the hospital with increasing shortness of breath. Her shortness of breath does not appear to be related to her history of COPD in fact she underwent a CT of the chest which showed bilateral extensive pulmonary embolus with large clot burden. When I interviewed the patient, she was at rest, she denies any shortness of breath or chest pain, she wants to go home. All the information obtained from her son who was at the bedside. She did have bilateral leg edema according to the son, but she denies any hemoptysis, no pleuritic chest pain, no abdominal pain, no nausea or vomiting, no burping. She has no heartburn, no dizziness or loss of consciousness. She has been off the anticoagulation for the past 24 days. Her past medical history as mentioned above. Family history is not contributory. She has been taking her medications on a regular basis for A. fib rate control as well as insulin. Allergies Allergy/AdvReac Type Severity Reaction Status Date / Time GABINO Inhibitors Allergy Mild Cough Verified 01/14/19 12:00 amoxicillin Allergy Mild RASH Verified 01/14/19 12:00 Home Medications Home Medications Medication Instructions Recorded Confirmed Type Lactobacillus acidoph-L.bulgar 4 tab PO BID 12/22/18 01/14/19 History [Floranex] acetaminophen 650 mg PO Q6H PRN MDD 3g/24hr 12/22/18 01/14/19 History calcium carbonate-vitamin D3 1 tab PO DAILY 12/22/18 01/14/19 History [Calcium 500 + D] vitamin E 400 unit PO DAILY 12/22/18 01/14/19 History amlodipine [Norvasc] 5 mg PO QAM 30 Days #30 tab 12/28/18 01/14/19 Rx levothyroxine 200 mcg PO DAILY 30 Days #30 tab 12/28/18 01/14/19 Rx bisacodyl 10 mg MA DAILY PRN 01/14/19 01/14/19 History digoxin 125 mcg PO QAM 01/14/19 01/14/19 History insulin aspart U-100 [Novolog 8 units SC DAILY 01/14/19 01/14/19 History Flexpen U-100 Insulin] insulin aspart U-100 [Novolog 3 unit SUBCUT BIDM 01/14/19 01/14/19 History U-100 Insulin aspart] insulin glargine [Lantus Solostar 20 units SC QAM 01/14/19 01/14/19 History U-100 Insulin] insulin lispro [Humalog U-100 1 sliding scale dose SUBCUT 01/14/19 01/14/19 History Insulin] USEASDIRECTD PRN losartan 25 mg PO QAM 01/14/19 01/14/19 History metoprolol succinate 50 mg PO QAM 01/14/19 01/14/19 History Patient History Medical History Subdural hematoma, post-traumatic (Acute) Chronic atrial fibrillation (Chronic) Hypothyroidism (Chronic) Compression fracture of L2 (Chronic) RBBB (Chronic) Osteoarthritis (Chronic) Lymphedema (Chronic) Hypothyroidism (Chronic) HTN (hypertension) (Chronic) Diastolic HF (heart failure) (Chronic) Diabetes mellitus, type II (Chronic) 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 Mother , house fire 82 No problems noted. Brother , CVA Stroke Other Diabetes Hypertension No pertinent family history Social History Preferred Language: Sami Communication Ability: Impaired Ignition Expert Required: No Beliefs That Will Affect Care: None marital status: Current Living Situation: Senior Care Current Living Situation Comment: [place] current occupational status: retired Feels Safe at Home: Yes Smoking Status: Unknown if ever smoked Hx Alcohol Use: No Hx Substance Use: No Review of Systems Review of Systems: Review of system was very limited due to patient condition, however 8 systems were reviewed with her son and they were negative except for the above. Physical Exam Physical Exam: Elderly female, not in any apparent distress at rest, S1-S2, O2 saturation 97% on 6 L, no JVD, lungs with distant breath sounds, abdomen is obese but benign, edema in the periphery. Neurologically she is intact except for confusion, age-related. Results & Data Vital Signs (Past 12 Hours) Vital Signs Temp Pulse Pulse Resp BP BP BP 01/15/19 12:57 95 H 18 146/66 H 01/15/19 12:53 122 H 18 142/85 H 01/15/19 12:48 106 H 21 142/82 H 01/15/19 12:44 90 21 158/133 H 01/15/19 12:22 36.7 C 97 H 18 113/70 01/15/19 07:29 88 22 01/15/19 07:02 36.5 C 88 18 106/59 L 01/15/19 03:43 36.3 C L 82 19 110/65 Pulse Ox 01/15/19 12:57 97 01/15/19 12:53 92 01/15/19 12:48 94 01/15/19 12:44 90 01/15/19 12:22 94 01/15/19 07:29 95 01/15/19 07:02 96 01/15/19 03:43 97 Laboratory Results Her labs were reviewed which showed normal CBC, and acceptable BMP except for bicarb of 19. Diagnostic Findings CAT scan of the chest showed extensive bilateral PE, venous duplex also showed bilateral DVT.
[2019-01-15] MEDS: DIGOXIN 0.125 MG TAB PO SCH (15:58)
[2019-01-15] MEDS: INSULIN GLARGINE SOLOSTAR 100 UNITS/ML 3 ML PEN SC SCH (20:53)
[2019-01-16] MEDS: CEFEPIME 2,000 MG in SYRINGE 7.5 ML IV SCH (00:30)
[2019-01-16] MEDS ORDERED: VANCOMYCIN HCL 1,000 MG in SODIUM CHLORIDE 0.9% 250 ML IV SCH (06:00)
[2019-01-16] MEDS: LEVOTHYROXINE SODIUM 200 MCG TABLET PO SCH (06:04)
[2019-01-16 06:42] LABS: Creatinine Clr Calc Pharmacy 50.2 ml/min; Est GFR (African American) 88.8; Est GFR (Non-African American) 76.6
[2019-01-16] MEDS: cefTRIAXone SODIUM 1,000 MG in DEXTROSE 5% 50 ML IV SCH (08:31)
[2019-01-16] MEDS: LACTOBACILLUS ACIDOPHILUS (FLORANEX) TAB PO SCH ×2 (08:36→21:39)
[2019-01-16] MEDS: METOPROLOL SUCC 50MG EXT REL TAB PO SCH (08:36)
[2019-01-16] MEDS: CALCIUM 600MG + VIT D 400 IU TAB PO SCH (08:36)
--- NOTE | 2019-01-16 09:09 | Hospitalist Progress Note ---
Date of Service January 16, 2019 Assessment & Plan (1) Acute respiratory failure with hypoxia: This is an 88-year-old female who has a significant past medical history of T2DM, diastolic CHF, chronic atrial fibrillation off warfarin, HTN, OA DJD, L2 compression fracture, recent traumatic SDH secondary to fall while on warfarin who presents to [facility] ED secondary to be hypoxic during physical therapy at halfway facility. Acute Respiratory Failure with Hypoxia Sepsis ruled out urinary tract infection Acute Pulmonary Embolism with Acute (but mild) cor pulmonale from Acute Deep vein thrombosis of left lower extremity -Initially the symptoms were attributed to sepsis as sepsis alert was called in the ED on 01/14/19 (met sepsis criteria with SBP less than 100, RR greater than 24, WBC greater than 12 K Procalcitonin high at 0.65; LA 4.58) for which patient received IV fluids and IV antibiotics with vancomycin, cefepime, Flagyl -however, the likely cause of the symptoms is Acute Pulmonary Embolism with Acute (but mild) cor pulmonale with from Acute Deep vein thrombosis of left lower extremity (Occlusive and nonocclusive thrombus in the left lower extremity extending from the calf veins to the mid femoral vein) -patient has not been a candidate for systemic anticoagulation therapy since her diagnosis of Subdural hematoma over the left cerebral hemisphere in December 14, 2018 -discussed with cardiology service that echocardiogram on 01/15/19 shows mildly dilated right ventricle with right ventricular pressure elevated at 40mmhg to 50 mmhg and this is described by telephone with the interpreting tripper as a mild right heart strain. Given that there are issues with anticoagulation currently, Dr. Ballesteros advises IVC filter for which patient had IVC filter placed by vascular surgery Dr. Shin on 01/15/19 -blood cultures from 01/14/19 have no growth to date and as of 01/15/19, stopped the vancomycin and Flagyl; continued cefepime -urine culture returned as pansensitive E.coli on 01/16/19 and cefepime switched to ceftriaxone -will remove continue merlos on 01/16/19 and do trial of void -Discussed with pulmonary/ICU doctor Dr. Puentes and his recommendations would be to start systemic anticoagulation for the DVT/PE in the beginning of January 2019 as then patient would be more than 30 days removed from diagnosis of the subdural hematoma Subdural Hematoma , chronic -diagnosis of Subdural hematoma over the left cerebral hemisphere in December 14, 2018 -Discussed with pulmonary/ICU doctor Dr. Puentes and his recommendations would be to start systemic anticoagulation for the DVT/PE in the beginning of January 2019 as then patient would be more than 30 days removed from diagnosis of the subdural hematoma Atrial Fibrillation, chronic chronic Diastolic congestive heart failure Hypertension -continue metoprolol and digoxin -hold Losartan for now Diabetes Mellitus Type 2 on benefit authorizer current use of insulin -pharmacy glycemic control managing the insulin -diabetic diet Hypothyroidism -continue Levothyroxine Compression fracture of L2 -to wear LSO brace when ambulating, PT/OT with back brace Subjective Patient seen and examined at bedside. She is laying flat on the bed. no distress. breathing on nasal cannula oxygen. has merlos. patient reports she has been able to sit up in the bed from time to time and no acute back pain from her history of compression fractures. no vomiting. no chest pain Physical Exam Constitutional: comfortable Eyes: PERRL, conjunctivae normal, anicteric sclerae EOM intact bilaterally ENMT: external ear and nose normal, oropharynx normal Neck: trachea midline, no thyromegaly Respiratory: normal respiratory effort Auscultation: lungs clear to auscultation bilaterally Cardiovascular: Rate/Rhythm: regular rate and + irregularly irregular Gastrointestinal (Abdomen): normal bowel sounds, soft, nontender, no hepatosplenomegaly Musculoskeletal: Head/Neck/Chest: normocephalic and head atraumatic Neurologic: PERRL, EOMI, accommodation nl, no face palsy, no dysarthria Psychiatric: Orientation: alert and cooperative Results & Data Vital Signs (Past 12 Hours) Vital Signs Temp Pulse Pulse Resp BP Pulse Ox 01/16/19 06:30 36.7 C 87 21 133/77 99 01/16/19 03:43 36.6 C 95 H 19 129/83 99 01/16/19 00:00 36.8 C 108 H 22 126/80 98 01/15/19 23:59 93 H
[2019-01-16] MEDS ORDERED: INSULIN GLARGINE SOLOSTAR 100 UNITS/ML 3 ML PEN SC SCH (09:30)
--- NOTE | 2019-01-16 09:39 | Pharmacy Report ---
Pharmacy Glycemic Short Note 2 - Date of Service January 16, 2019 - Glycemic Short BSG Results (Last 24 hours): 01/15/19 01/15/19 01/15/19 11:40 12:18 16:17 POC Glucose 184 H 187 H 170 H 01/15/19 01/16/19 20:05 07:32 POC Glucose 182 H 174 H OUTPATIENT ANTIDIABETIC REGIMEN: * Lantus 20 units Q AM * Novolog 3 units BID with meals * A1c = 9.3% The patient is currently receiving: * Basal insulin: Lantus 12 units SQ Q AM Lantus SQ Q HS per the following scale: BSG less than 140 give 0 units, BSG 140 or greater 4 units * Correctional Insulin: Novolog Correction per scale ACHS Goal Range: Low 120 mg/dL - High 160 mg/dL Correction Factor: 40 mg/dL/unit * Prandial insulin: Per carb ratio of 1 unit per 7 grams CHO consumed with breakfast, 1 unit per 8 grams CHO consumed with all other meals ASSESSMENT: 01/16 * Patient was NPO yesterday AM for IVC placement, Hospitalist decreased AM basal insulin dose to 6 units (vs ordered 12 units) * Fasting BSGs have remained in the 170-180's range. Fasting BSG of 174 this AM with a total of 10 units Lantus on board. * She should receive the full AM dose of Lantus today, so I anticipate an improvement in BSGs * Novolog orders did prevent BSG from rising when used - will continue the same for now. Will follow post-prandial BSGs today. 01/15 * Poorly controlled type 2 diabetic admitted w/ hypoxic respiratory failure, LLE venous thrombosis w/ extensive BL PEs * Glycemic Control Service has followed this patient on prior admissions. Will use data collected from prior admissions to guide dosing this admission * She tends to have erratic BSG swings, not always explainable. But based on prior data, she tends to become hyperglycemic prior to lunch leading me to believe her breakfast prandial insulin dose should be larger than with other meals as she tends to drop her BSG rapidly at dinner-time. * She may also be prone to overcorrection of elevated BSGs, thus will utilize a lower correctional insulin dose than we typically would use PLAN FOR INPATIENT GLYCEMIC CONTROL: * Basal insulin * Lantus 12 units SQ Q AM * HS Lantus dose to be determined by BSG: if less than 140 give 0 units; if 140 or greater give 4 units * Bolus insulin * NovoLog per scale ACHS or Q6hrs while NPO * Goal Range: Low 120 mg/dL - High 160 mg/dL * Correction Factor: 40 mg/dL/unit * Nutritional / Prandial insulin per carb ratio of 1 unit per 7 grams CHO consumed with breakfast, 1 unit per 8 grams CHO consumed with all other meals PLAN FOR DISCHARGE: * to be determined
--- NOTE | 2019-01-16 10:35 | Pulmonology Progress Note ---
Date of Service January 16, 2019 Assessment & Plan (1) Pulmonary emboli: Impression: 1. Acute hypoxic respiratory failure secondary to large bilateral PE. 2. Extensive venous thromboembolic event affecting the lung and the lower extremities. 3. Recent subdural and epidural hematoma due to fall 2020 4 days ago. 4. History of A. fib was on Coumadin and currently off anticoagulation. 5. History of COPD. Plan: 1. IVC filter in place, appreciate vascular surgery. 2. Start anticoagulation January 20. She may return to Coumadin as a reversible agent. 3. Her risk of intracranial bleed is higher than average due to risk of fall. 4. Disposition plan per Dr. Canada 5. Discussed with Dr. Canada. Thank you, will follow as needed. Subjective No events overnight, the patient does not have any shortness of breath, denies any chest pain, she is status post IVC filter. The patient is a poor historian but denies any symptoms at this point. Review of Systems Review of Systems: Review of system was limited, but 8 systems were reviewed and were unremarkable. Physical Exam Physical Exam: Elderly female, does not appear to be in respiratory distress, O2 saturation 99% on nasal cannula, S1-S2, distant breath sounds, abdomen is benign, edema in the periphery. Neurologically she is intact. Results & Data Vital Signs (Past 12 Hours) Vital Signs Temp Pulse Pulse Resp BP Pulse Ox 01/16/19 06:30 36.7 C 87 21 133/77 99 01/16/19 03:43 36.6 C 95 H 19 129/83 99 01/16/19 00:00 36.8 C 108 H 22 126/80 98 01/15/19 23:59 93 H
[2019-01-16] MEDS: INSULIN ASPART 100 UNITS/ML 3 ML PEN SC SCH ×3 (11:34→21:37)
[2019-01-16] MEDS: DIGOXIN 0.125 MG TAB PO SCH (17:11)
[2019-01-16] MEDS: INSULIN GLARGINE SOLOSTAR 100 UNITS/ML 3 ML PEN SC SCH (21:36)
[2019-01-17] MEDS: LEVOTHYROXINE SODIUM 200 MCG TABLET PO SCH (05:54)
[2019-01-17 07:13] LABS: Creatinine Clr Calc Pharmacy 52.4 ml/min; Est GFR (African American) 91.2; Est GFR (Non-African American) 78.6
[2019-01-17 07:52] LABS: BUN Creatinine Ratio 21.4 (10-20); Calcium 9.3 mg/dl (8.5-10.1); Est GFR (African American) 92.1; Est GFR (Non-African American) 79.4; Magnesium 2.1 mg/dl (1.8-2.4); Potassium 3.8 mmol/L (3.5-5.1)
[2019-01-17] MEDS: INSULIN ASPART 100 UNITS/ML 3 ML PEN SC SCH ×4 (08:10→20:43)
[2019-01-17] MEDS: cefTRIAXone SODIUM 1,000 MG in DEXTROSE 5% 50 ML IV SCH (08:11)
[2019-01-17] MEDS: LACTOBACILLUS ACIDOPHILUS (FLORANEX) TAB PO SCH ×2 (08:11→20:37)
[2019-01-17] MEDS: METOPROLOL SUCC 50MG EXT REL TAB PO SCH (08:11)
[2019-01-17] MEDS: CALCIUM 600MG + VIT D 400 IU TAB PO SCH (08:11)
[2019-01-17] MEDS ORDERED: INSULIN GLARGINE SOLOSTAR 100 UNITS/ML 3 ML PEN SC SCH ×2 (09:00)
--- NOTE | 2019-01-17 11:00 | Pharmacy Report ---
Pharmacy Glycemic Short Note 2 - Date of Service January 17, 2019 - Glycemic Short BSG Results (Last 24 hours): 01/16/19 01/16/19 01/16/19 11:26 16:32 20:17 Glucose POC Glucose 218 H 259 H 253 H 01/17/19 01/17/19 06:17 07:06 Glucose 160 H POC Glucose 149 H OUTPATIENT ANTIDIABETIC REGIMEN: * Lantus 20 units Q AM * Novolog 3 units BID with meals * A1c = 9.3% The patient is currently receiving: * Basal insulin: Lantus 12 units SQ Q AM Lantus SQ Q HS per the following scale: BSG less than 140 give 0 units, BSG 140 or greater 4 units * Correctional Insulin: Novolog Correction per scale ACHS Goal Range: Low 120 mg/dL - High 160 mg/dL Correction Factor: 40 mg/dL/unit * Prandial insulin: Per carb ratio of 1 unit per 7 grams CHO consumed with breakfast, 1 unit per 8 grams CHO consumed with all other meals ASSESSMENT: 01/17 * Glycemic control poor yesterday, both fasting and post-prandial hyperglycemia observed * Novolog was not given w/ breakfast meal due to omission of dose from prior day's (01/15) charting on 01/16 AM's dose - thus RN not flagged to give dose * Fasting BSG improved today; FBS 149 with 16 units of Lantus on board. Will continue to titrate. * Will increase Novolog doses today, only slightly however as I believe that if she had more basal insulin on board yesterday her post-prandial BSGs would have been closer to goal. 01/16 * Patient was NPO yesterday AM for IVC placement, Hospitalist decreased AM basal insulin dose to 6 units (vs ordered 12 units) * Fasting BSGs have remained in the 170-180's range. Fasting BSG of 174 this AM with a total of 10 units Lantus on board. * She should receive the full AM dose of Lantus today, so I anticipate an improvement in BSGs * Novolog orders did prevent BSG from rising when used - will continue the same for now. Will follow post-prandial BSGs today. 01/15 * Poorly controlled type 2 diabetic admitted w/ hypoxic respiratory failure, LLE venous thrombosis w/ extensive BL PEs * Glycemic Control Service has followed this patient on prior admissions. Will use data collected from prior admissions to guide dosing this admission * She tends to have erratic BSG swings, not always explainable. But based on prior data, she tends to become hyperglycemic prior to lunch leading me to believe her breakfast prandial insulin dose should be larger than with other meals as she tends to drop her BSG rapidly at dinner-time. * She may also be prone to overcorrection of elevated BSGs, thus will utilize a lower correctional insulin dose than we typically would use PLAN FOR INPATIENT GLYCEMIC CONTROL: * Basal insulin (dose increase) * Lantus 16 units SQ Q AM * HS Lantus dose to be determined by BSG: if less than 140 give 0 units; if 140 or greater give 4 units * Bolus insulin (dose increase) * NovoLog per scale ACHS or Q6hrs while NPO * Goal Range: Low 110 mg/dL - High 140 mg/dL * Correction Factor: 35 mg/dL/unit * Nutritional / Prandial insulin per carb ratio of 1 unit per 6 grams CHO consumed with breakfast, 1 unit per 8 grams CHO consumed with all other meals PLAN FOR DISCHARGE: * to be determined
--- NOTE | 2019-01-17 16:48 | Hospitalist Progress Note ---
Date of Service January 17, 2019 Assessment & Plan (1) Acute respiratory failure with hypoxia: This is an 88-year-old female who has a significant past medical history of T2DM, diastolic CHF, chronic atrial fibrillation off warfarin, HTN, OA DJD, L2 compression fracture, recent traumatic SDH secondary to fall while on warfarin who presents to [facility] ED secondary to be hypoxic during physical therapy at halfway facility. Acute Respiratory Failure with Hypoxia Sepsis ruled out urinary tract infection Acute Pulmonary Embolism with Acute (but mild) cor pulmonale from Acute Deep vein thrombosis of left lower extremity -Initially the symptoms were attributed to sepsis as sepsis alert was called in the ED on 01/14/19 (met sepsis criteria with SBP less than 100, RR greater than 24, WBC greater than 12 K Procalcitonin high at 0.65; LA 4.58) for which patient received IV fluids and IV antibiotics with vancomycin, cefepime, Flagyl -however, the likely cause of the symptoms is Acute Pulmonary Embolism with Acute (but mild) cor pulmonale with from Acute Deep vein thrombosis of left lower extremity (Occlusive and nonocclusive thrombus in the left lower extremity extending from the calf veins to the mid femoral vein) -patient has not been a candidate for systemic anticoagulation therapy since her diagnosis of Subdural hematoma over the left cerebral hemisphere in December 14, 2018 -discussed with cardiology service that echocardiogram on 01/15/19 shows mildly dilated right ventricle with right ventricular pressure elevated at 40mmhg to 50 mmhg and this is described by telephone with the interpreting scholarship counselor as a mild right heart strain. Given that there are issues with anticoagulation currently, Dr. Ballesteros advises IVC filter for which patient had IVC filter placed by vascular surgery Dr. Shin on 01/15/19 -blood cultures from 01/14/19 have no growth to date and as of 01/15/19, stopped the vancomycin and Flagyl; continued cefepime -urine culture returned as pansensitive E.coli on 01/16/19 and cefepime switched to ceftriaxone -Discussed with pulmonary/ICU doctor Dr. Puentes and his recommendations would be to start systemic anticoagulation for the DVT/PE in the beginning of January 2019 as then patient would be more than 30 days removed from diagnosis of the subdural hematoma - 01/17/19 continue Ceftriaxone, send repeat urine analysis, patient breathing on room air Subdural Hematoma , chronic -diagnosis of Subdural hematoma over the left cerebral hemisphere in December 14, 2018 -Discussed with pulmonary/ICU doctor Dr. Puentes and his recommendations would be to start systemic anticoagulation for the DVT/PE in the beginning of January 2019 a s then patient would be more than 30 days removed from diagnosis of the subdural hematoma Atrial Fibrillation, chronic chronic Diastolic congestive heart failure Hypertension -continue metoprolol and digoxin -hold Losartan for now Diabetes Mellitus Type 2 on skilled nursing current use of insulin -pharmacy glycemic control managing the insulin -diabetic diet Hypothyroidism -continue Levothyroxine Compression fracture of L2 -to wear LSO brace when ambulating, PT/OT with back brace Case management notes shows that patient has authorization for halfway facility to [place]. will continue to monitor patient as inpatient on now while on IV antibiotics Subjective Patient denies acute pain. breathing on room air. denies shortness of breath. denies chest pain. no abdomen pain. no acute leg pains Physical Exam Constitutional: comfortable Eyes: PERRL, conjunctivae normal, anicteric sclerae EOM intact bilaterally ENMT: external ear and nose normal, oropharynx normal Neck: trachea midline, no thyromegaly Respiratory: normal respiratory effort Auscultation: lungs clear to auscultation bilaterally Cardiovascular: Rate/Rhythm: regular rate and + irregularly irregular Gastrointestinal (Abdomen): normal bowel sounds, soft, nontender, no hepatos plenomegaly Musculoskeletal: Head/Neck/Chest: normocephalic and head atraumatic left leg appears larger than right leg Neurologic: PERRL, EOMI, accommodation nl, no face palsy, no dysarthria Psychiatric: Orientation: alert and cooperative Results & Data Vital Signs (Past 12 Hours) Vital Signs Temp Pulse Pulse Resp BP Pulse Ox 01/17/19 15:49 36.4 C L 80 22 133/67 98 01/17/19 11:02 36.4 C L 92 H 30 H 116/68 97 01/17/19 08:00 36.9 C 102 H 102 H 18 107/74 96
[2019-01-17] MEDS: DIGOXIN 0.125 MG TAB PO SCH (17:14)
[2019-01-17] MEDS: INSULIN GLARGINE SOLOSTAR 100 UNITS/ML 3 ML PEN SC SCH (20:43)
[2019-01-18] MEDS: LEVOTHYROXINE SODIUM 200 MCG TABLET PO SCH (06:14)
[2019-01-18] MEDS: cefTRIAXone SODIUM 1,000 MG in DEXTROSE 5% 50 ML IV SCH (07:54)
[2019-01-18] MEDS: INSULIN ASPART 100 UNITS/ML 3 ML PEN SC SCH ×2 (07:55→12:35)
[2019-01-18] MEDS: METOPROLOL SUCC 50MG EXT REL TAB PO SCH (07:58)
[2019-01-18] MEDS: CALCIUM 600MG + VIT D 400 IU TAB PO SCH (07:58)
[2019-01-18] MEDS: LACTOBACILLUS ACIDOPHILUS (FLORANEX) TAB PO SCH (08:00)
[2019-01-18] MEDS ORDERED: LOSARTAN POTASSIUM 25 MG TAB PO SCH (09:00)
[2019-01-18] MEDS ORDERED: INSULIN GLARGINE SOLOSTAR 100 UNITS/ML 3 ML PEN SC SCH (09:00)
--- NOTE | 2019-01-18 09:04 | Pharmacy Report ---
Pharmacy Glycemic Short Note 2 - Date of Service January 18, 2019 - Glycemic Short BSG Results (Last 24 hours): 01/17/19 01/17/19 01/17/19 11:02 16:05 20:26 POC Glucose 223 H 275 H 200 H 01/18/19 07:25 POC Glucose 315 H* OUTPATIENT ANTIDIABETIC REGIMEN: * Lantus 20 units Q AM * Novolog 3 units BID with meals * A1c = 9.3% The patient is currently receiving: * Basal insulin: Lantus 16 units SQ Q AM Lantus SQ Q HS per the following scale: BSG less than 140 give 0 units, BSG 140 or greater 4 units * Correctional Insulin: Novolog Correction per scale ACHS Goal Range: Low 120 mg/dL - High 160 mg/dL Correction Factor: 35 mg/dL/unit * Prandial insulin: Per carb ratio of 1 unit per 6 grams CHO consumed with breakfast, 1 unit per 8 grams CHO consumed with all other meals ASSESSMENT: 01/18 * Patient rec'd 50 units of insulin yesterday (20 of this being basal) * BSGs remain elevated and fasting is significantly higher today. I suspect this is due to increased po intake and improved SCr since admission. * Est TDD ~ 60 units at this point. The current basal dose is significantly less than 1/2 of this so will give a large dose increase this AM. Will also tighten the Novolog parameters to be consistent with est TDD. I'm anticipating that breakfast carb ratio can eventually be loosened with more basal on board but will wait until BSGs improve to adjust this. 01/17 * Glycemic control poor yesterday, both fasting and post-prandial hyperglycemia observed * Novolog was not given w/ breakfast meal due to omission of dose from prior day's (01/15) charting on 01/16 AM's dose - thus RN not flagged to give dose * Fasting BSG improved today; FBS 149 with 16 units of Lantus on board. Will continue to titrate. * Will increase Novolog doses today, only slightly however as I believe that if she had more basal insulin on board yesterday her post-prandial BSGs would have been closer to goal. 01/16 * Patient was NPO yesterday AM for IVC placement, Hospitalist decreased AM basal insulin dose to 6 units (vs ordered 12 units) * Fasting BSGs have remained in the 170-180's range. Fasting BSG of 174 this AM with a total of 10 units Lantus on board. * She should receive the full AM dose of Lantus today, so I anticipate an improvement in BSGs * Novolog orders did prevent BSG from rising when used - will continue the same for now. Will follow post-prandial BSGs today. 01/15 * Poorly controlled type 2 diabetic admitted w/ hypoxic respiratory failure, LLE venous thrombosis w/ extensive BL PEs * Glycemic Control Service has followed this patient on prior admissions. Will use data collected from prior admissions to guide dosing this admission * She tends to have erratic BSG swings, not always explainable. But based on prior data, she tends to become hyperglycemic prior to lunch leading me to believe her breakfast prandial insulin dose should be larger than with other meals as she tends to drop her BSG rapidly at dinner-time. * She may also be prone to overcorrection of elevated BSGs, thus will utilize a lower correctional insulin dose than we typically would use PLAN FOR INPATIENT GLYCEMIC CONTROL: * Basal insulin (dose increase) * Lantus 25 units SQ Q AM * HS Lantus dose to be determined by BSG: if less than 140 give 0 units; if 140 or greater give 4 units * Bolus insulin (dose increase) * NovoLog per scale ACHS or Q6hrs while NPO * Goal Range: Low 110 mg/dL - High 140 mg/dL * Correction Factor: 25 mg/dL/unit * Nutritional / Prandial insulin per carb ratio of 1 unit per 5 grams CHO consumed * Regular insulin 6 units IV at lunch for sustained elevated BSG of 320 mg/dL PLAN FOR DISCHARGE: * Provided to Dr. Canada over the phone prior to discharge: * Lantus 25 units qAM * Novolog 8 units with each meal
--- NOTE | 2019-01-18 10:43 | Hospitalist Progress Note ---
Date of Service January 18, 2019 Assessment & Plan (1) Acute respiratory failure with hypoxia: This is an 88-year-old female who has a significant past medical history of T2DM, diastolic CHF, chronic atrial fibrillation off warfarin, HTN, OA DJD, L2 compression fracture, recent traumatic SDH secondary to fall while on warfarin who presents to [facility] ED secondary to be hypoxic during physical therapy at alf facility. Acute Respiratory Failure with Hypoxia Sepsis ruled out urinary tract infection Acute Pulmonary Embolism with Acute (but mild) cor pulmonale from Acute Deep vein thrombosis of left lower extremity -Initially the symptoms were attributed to sepsis as sepsis alert was called in the ED on 01/14/19 (met sepsis criteria with SBP less than 100, RR greater than 24, WBC greater than 12 K Procalcitonin high at 0.65; LA 4.58) for which patient received IV fluids and IV antibiotics with vancomycin, cefepime, Flagyl -however, the likely cause of the symptoms is Acute Pulmonary Embolism with Acute (but mild) cor pulmonale with from Acute Deep vein thrombosis of left lower extremity (Occlusive and nonocclusive thrombus in the left lower extremity extending from the calf veins to the mid femoral vein) -patient has not been a candidate for systemic anticoagulation therapy since her diagnosis of Subdural hematoma over the left cerebral hemisphere in December 14, 2018 -discussed with cardiology service that echocardiogram on 01/15/19 shows mildly dilated right ventricle with right ventricular pressure elevated at 40mmhg to 50 mmhg and this is described by telephone with the interpreting neck band operator as a mild right heart strain. Given that there are issues with anticoagulation currently, Dr. Ballesteros advises IVC filter for which patient had IVC filter placed by vascular surgery Dr. Shin on 01/15/19 -blood cultures from 01/14/19 have no growth to date and as of 01/15/19, stopped the vancomycin and Flagyl; continued cefepime -urine culture returned as pansensitive E.coli on 01/16/19 and cefepime switched to ceftriaxone -Discussed with pulmonary/ICU doctor Dr. Puentes and his recommendations would be to start systemic anticoagulation for the DVT/PE in January 20, 2019 as then patient would be more than 30 days removed from diagnosis of the subdural hematoma - Ceftriaxone duration completed on 01/18/19 -Main issue is that patient was diagnosed with acute pulmomary embolism from left leg deep vein thrombosis. 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 The coumadin prescription is to be started on January and patient will need follow up INR with primary care doctor (Primary care doctor appointment 01/22/2019 2:20 PM Provider Bobby Shah MD [facility]) Subdural Hematoma , chronic -diagnosis of Subdural hematoma over the left cerebral hemisphere in December 14, 2018 -(Neurosurgery doctor for the subdural hematoma 02/12/2019 10:40 AM Provider Traumatic Brain [facility] Atrial Fibrillation, chronic chronic Diastolic congestive heart failure Hypertension -continue metoprolol and digoxin -resumed Losartan Diabetes Mellitus Type 2 on [facility] current use of insulin -pharmacy glycemic control managing the insulin when inpatient -diabetic diet -For diabetes control: discharge on Lantus 25 units daily and Novolog 8 units TID Hypothyroidism -continue Levothyroxine chronic Compression fracture of L2 -Discharge to [facility] for physical rehabilitation Activity: to wear LSO brace when ambulating Discharge Diagnosis Acute Respiratory Failure with Hypoxia (hypoxia has resolved); Acute Pulmonary Embolism with Acute (but mild) cor pulmonale from Acute Deep vein thrombosis of left lower extremity; s/p IVC filter placed on 01/15/19, chronic Subdural Hematoma chronic, Atrial Fibrillation, chronic Diastolic congestive heart failure, Hypertension, Diabetes Mellitus Type 2 on [facility] current use of insulin; Hypothyroidism, chronic Compression fracture of L2, Urinary tract infection (treated with Iv antibiotics) Subjective Patient with baseline dementia. she is easily reoriented. coooperative on exam. No chest pain. no shortness of breath. breathing on room air. Physical Exam Constitutional: comfortable Eyes: PERRL, conjunctivae normal, anicteric sclerae EOM intact bilaterally ENMT: external ear and nose normal, oropharynx normal Neck: trachea midline, no thyromegaly Respiratory: normal respiratory effort Auscultation: lungs clear to auscultation bilaterally Cardiovascular: Rate/Rhythm: regular rate and + irregularly irregular Gastrointestinal (Abdomen): normal bowel sounds, soft, nontender, no hepatosplenomegaly Musculoskeletal: Head/Neck/Chest: normocephalic and head atraumatic Extremities: + lower extremity abnormal to inspection (left leg larger than right leg) Neurologic: PERRL, EOMI, accommodation nl, no face palsy, no dysarthria Psychiatric: Orientation: alert and cooperative Results & Data Vital Signs (Past 12 Hours) Vital Signs Temp Pulse Pulse Resp BP Pulse Ox 01/18/19 09:52 77 113/63 01/18/19 07:23 36.8 C 83 22 158/100 H 97 01/18/19 03:37 36.5 C 94 H 20 135/72 96 01/17/19 23:59 36.6 C 91 H 19 123/72 95
--- NOTE | 2019-01-18 10:48 | Discharge Summary ---
Date of Service January 18, 2019 Admission HPI Per Admitting Provider This is an 88-year-old female who has a significant past medical history of T2DM, diastolic CHF, chronic atrial fibrillation off warfarin, HTN, OA DJD, L2 compression fracture, recent traumatic SDH secondary to fall while on warfarin who presents to [facility] ED secondary to be hypoxic during physical therapy at custodial facility. Daughter and are at bedside. Daughter provides most of history as has dementia. Patient last known well on by her daughter, 01/09, except she did notice increased shortness of breath. She was seen yesterday by her son who noted her to be sleeping all day. Apparently when patient was in physical therapy today she was very short of breath, hypoxic satting 74 to 85% not responding to oxygen; therefore, referred to ED. Daughter notes increased confusion. There is also reports of diarrhea while at [facility]. ROS limited secondary to patient unreliable given increased confusion. She denies any recent cough, dizziness, lightheadedness, chest pain, hemoptysis, nausea, vomiting, abdominal pain, change in urinary habits. Daughter states she does have history of UTI during recent hospitalizations which presents with increased confusion as well. No known history of chronic oxygen use. Of significance patient was seen and evaluated and [facility] ED on 12/14/2018 secondary to fall which resulted in a traumatic SDH left cerebral hemisphere with INR of 5. This required transfer to [facility]. Her warfarin was stopped. She was then readmitted on 12/22 to [facility] secondary to altered mental status secondary to hypoglycemia with blood sugar of 50. She had a repeat CT scan of brain as well as MRI which reveals unchanged SDH. She has been at SNF since discharged from [facility]. Admission Exam Per Admitting Provider Gen: Elderly, female, lying in bed, alert and answers questions appropriately but pleasantly confused, NAD, on high flow NC Head: Normocephalic, Atraumatic Eyes: Sclera normal, no conjunctival injection, PERRLA, EOMI ENT: Gross hearing intact, normal pharynx, mucous membranes dry Neck: supple, no adenopathy, No JVD, no bruit, Resp: Clear to auscultation b/l, no wheeze, rales, rhonchi. Normal insp/exp effort, no accessory muscle use CV: irregular rate, irregular rhythm, no murmur, rub, gallop, or ectopy Abd: +BS x 4, soft, nontender, nondistended Musculoskeletal: moves extremities active rom x 4, strength intact, good program strategist strength Extremities: Bilateral venous stasis changes, no warmth, edema, negative Homans sign Skin: warm, moist, no rash, mild turgor, cap refill < 2sec Neuro: Alert and oriented to self only , speech normal, good mood/affect, cran nerve 2-12 intact grossly : deferred Principal Diagnosis Acute Respiratory Failure with Hypoxia (hypoxia has resolved); Acute Pulmonary Embolism with Acute (but mild) cor pulmonale from Acute Deep vein thrombosis of left lower extremity; s/p IVC filter placed on 01/15/19, chronic Subdural Hematoma chronic, Atrial Fibrillation, chronic Diastolic congestive heart failure, Hypertension, Diabetes Mellitus Type 2 on manager terminal current use of insulin; Hypothyroidism, chronic Compression fracture of L2, Urinary tract infection (treated with Iv antibiotics) Discharge Exam Constitutional comfortable Eyes PERRL, conjunctivae normal, anicteric sclerae EOM intact bilaterally ENMT external ear and nose normal, oropharynx normal Neck trachea midline, no thyromegaly Respiratory normal respiratory effort Auscultation: lungs clear to auscultation bilaterally Cardiovascular Rate/Rhythm: regular rate and + irregularly irregular Gastrointestinal (Abdomen) normal bowel sounds, soft, nontender, no hepatosplenomegaly Musculoskeletal Head/Neck/Chest: normocephalic and head atraumatic Extremities: + lower extremity abnormal to inspection (left leg larger than right leg) Neurologic PERRL, EOMI, accommodation nl, no face palsy, no dysarthria Psychiatric Orientation: alert and cooperative Discharge Data Allergies Allergy/AdvReac Type Severity Reaction Status Date / Time GABINO Inhibitors Allergy Mild Cough Verified 01/14/19 12:00 amoxicillin Allergy Mild RASH Verified 01/14/19 12:00 Consultations 01/14/19 11:41 ED Decision to Admit Stat 01/14/19 15:13 Consult Case Management - Discharge Planning Routine 01/14/19 18:24 Consult Pulmonology Routine 01/14/19 22:23 Consult Vascular Surgery Routine Procedures Performed Operation Date: 01/15/19 10:45 Actual Procedures p Insertion Of Vena Cava Filter, Right Femoral Approach, Ultrasound Localization Of Right Femoral Vein, Fluoroscopy For Positioning(Right) - Rick Shin MD Ordered Studies 01/14/19 14:36 CT angio chest PE protocol Urgent 01/14/19 18:23 US venous doppler LE BI Stat 01/15/19 12:04 EV IVC filter placement Routine Hospital Course (1) Acute respiratory failure with hypoxia: This is an 88-year-old female who has a significant past medical history of T2DM, diastolic CHF, chronic atrial fibrillation off warfarin, HTN, OA DJD, L2 compression fracture, recent traumatic SDH secondary to fall while on warfarin who presents to [facility] ED secondary to be hypoxic during physical therapy at custodial facility. Acute Respiratory Failure with Hypoxia Sepsis ruled out urinary tract infection Acute Pulmonary Embolism with Acute (but mild) cor pulmonale from Acute Deep vein thrombosis of left lower extremity -Initially the symptoms were attributed to sepsis as sepsis alert was called in the ED on 01/14/19 (met sepsis criteria with SBP less than 100, RR greater than 24, WBC greater than 12 K Procalcitonin high at 0.65; LA 4.58) for which patient received IV fluids and IV antibiotics with vancomycin, cefepime, Flagyl -however, the likely cause of the symptoms is Acute Pulmonary Embolism with Acute (but mild) cor pulmonale with from Acute Deep vein thrombosis of left lower extremity (Occlusive and nonocclusive thrombus in the left lower extremity extending from the calf veins to the mid femoral vein) -patient has not been a candidate for systemic anticoagulation therapy since her diagnosis of Subdural hematoma over the left cerebral hemisphere in December 14, 2018 -discussed with cardiology service that echocardiogram on 01/15/19 shows mildly dilated right ventricle with right ventricular pressure elevated at 40mmhg to 50 mmhg and this is described by telephone with the interpreting sccm administrator as a mild right heart strain. Given that there are issues with anticoagulation currently, Dr. Ballesteros advises IVC filter for which patient had IVC filter placed by vascular surgery Dr. Shin on 01/15/19 -blood cultures from 01/14/19 have no growth to date and as of 01/15/19, stopped the vancomycin and Flagyl; continued cefepime -urine culture returned as pansensitive E.coli on 01/16/19 and cefepime switched to ceftriaxone -Discussed with pulmonary/ICU doctor Dr. Puentes and his recommendations would be to start systemic anticoagulation for the DVT/PE in January 20, 2019 as then patient would be more than 30 days removed from diagnosis of the subdural hematoma - Ceftriaxone duration completed on 01/18/19 -Main issue is that patient was diagnosed with acute pulmomary embolism from left leg deep vein thrombosis. 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 The coumadin prescription is to be started on January and patient will need follow up INR with primary care doctor (Primary care doctor appointment 01/22/2019 2:20 PM Provider Bobby Shah MD Department [facility]) Subdural Hematoma , chronic -diagnosis of Subdural hematoma over the left cerebral hemisphere in December 14, 2018 -(Neurosurgery doctor for the subdural hematoma 02/12/2019 10:40 AM Provider Tra[facility] Brain Injury [facility] [place] [facility] ) Atrial Fibrillation, chronic chronic Diastolic congestive heart failure Hypertension -continue metoprolol and digoxin -resumed Losartan Diabetes Mellitus Type 2 on group home current use of insulin -pharmacy glycemic control managing the insulin when inpatient -diabetic diet -For diabetes control: discharge on Lantus 25 units daily and Novolog 8 units TID Hypothyroidism -continue Levothyroxine chronic Compression fracture of L2 -Discharge to [facility] for physical rehabilitation Activity: to wear LSO brace when ambulating Discharge Diagnosis Acute Respiratory Failure with Hypoxia (hypoxia has resolved); Acute Pulmonary Embolism with Acute (but mild) cor pulmonale from Acute Deep vein thrombosis of left lower extremity; s/p IVC filter placed on 01/15/19, chronic Subdural Hematoma chronic, Atrial Fibrillation, chronic Diastolic congestive heart failure, Hypertension, Diabetes Mellitus Type 2 on group home current use of insulin; Hypothyroidism, chronic Compression fracture of L2, Urinary tract infection (treated with Iv antibiotics) Total Time Total Time Spent Total Time Spent (In Minutes): 40 minutes Total Time Includes: Examination of the Patient, Discharge Planning, Medication Reconciliation and Communication With Other Providers Discharge Plan Discharge Items Patient Disposition: Transfer Alf Fac Reason For Visit: HYPOXIA, SEPSIS Discharge Diagnosis: Acute Respiratory Failure with Hypoxia (hypoxia has resolved); Acute Pulmonary Embolism with Acute (but mild) cor pulmonale from Acute Deep vein thrombosis of left lower extremity; s/p IVC filter placed on 01/15/19, chronic Subdural Hematoma chronic, Atrial Fibrillation, chronic Diastolic congestive heart failure, Hypertension, Diabetes Mellitus Type 2 on manager terminal current use of insulin; Hypothyroidism, chronic Compression fracture of L2, Urinary tract infection (treated with Iv antibiotics) Condition: Good Discharge Goals: Improve disease control Activity: Per 'Additional Instructions' section Non-emergency contact: Primary Care Provider and Specialist Call non-emergency contact if: you have any medication questions Follow-up/Referrals: [facility] [Primary Care Provider] - Diet: Carb Consistent or DM2 Addtl Provider Instructions: Discharge to [facility] for physical rehabilitation Activity: to wear LSO brace when ambulating Main issue is that patient was diagnosed with acute pulmomary embolism from left leg deep vein thrombosis. 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 The coumadin prescription is to be started on January and patient will need follow up INR with primary care doctor Primary care doctor appointment 01/22/2019 2:20 PM Provider Bobby Shah MD Department [facility] Neurosurgery doctor for the subdural hematoma 02/12/2019 10:40 AM Provider Traumatic Brain Injury [facility] [place] For diabetes control: discharge on Lantus 25 units daily and Novolog 8 units TID Prescriptions: New Lantus Solostar U-100 Insulin 100 unit/mL (3 mL) Insulin Pen 25 unit SC QAM 30 Days Qty: 8 RF: 0 Novolog Flexpen U-100 Insulin 100 unit/mL (3 mL) Insulin Pen 8 unit SC TID 30 Days Qty: 8 RF: 0 warfarin [Coumadin] 3 mg Tablet 3 mg PO DAILY@1600 30 Days Qty: 30 RF: 0 Continued vitamin E 400 unit Capsule 400 unit PO DAILY RF: 0 calcium carbonate-vitamin D3 [Calcium 500 + D] 500 mg(1,250mg) -400 unit Tablet,Chewable 1 tab PO DAILY RF: 0 levothyroxine 200 mcg Tablet 200 mcg PO DAILY 30 Days Qty: 30 RF: 0 bisacodyl 10 mg Suppository 10 mg MI DAILY PRN (Reason: Constipation) RF: 0 insulin lispro [Humalog U-100 Insulin] 100 unit/mL Solution 1 sliding scale dose SUBCUT USEASDIRECTD PRN (Reason: Hypoglycemia) RF: 0 metoprolol succinate 50 mg tablet extended release 24 hr 50 mg PO QAM RF: 0 losartan 25 mg tablet 25 mg PO QAM RF: 0 digoxin 125 mcg tablet 125 mcg PO QAM RF: 0 Discontinued acetaminophen 325 mg Tablet 650 mg PO Q6H MDD 3g/24hr PRN (Reason: Fever Or Pain) RF: 0 Lactobacillus acidoph-L.bulgar [Floranex] 1 million cell Tablet 4 tab PO BID RF: 0 amlodipine [Norvasc] 5 mg Tablet 5 mg PO QAM 30 Days Qty: 30 RF: 0 Novolog U-100 Insulin aspart 100 unit/mL Solution 3 unit SUBCUT BIDM RF: 0 Novolog Flexpen U-100 Insulin 100 unit/mL (3 mL) insulin pen 8 units SC DAILY RF: 0 Lantus Solostar U-100 Insulin 100 unit/mL (3 mL) insulin pen 20 units SC QAM RF: 0 Stand-Alone Forms: [facility] Discharge Orders: Discharge Order (Routine); Ordered 01/18/19 Ordered By: Eliud Canada Skilled Items Patient informed of condition?: Yes DNR: No (conditional code of no intubation but allows chest compression/defibrillati) Discharge Level of Care: Acute rehab Communicable Disease: No Discharge Prognosis: Stable Admission Data Admit Date/Time: 01/14/19 13:36 Attending Provider: Eliud Canada Admit Provider: Shelby Lange Primary Care Provider: Renetta Martinez Other Providers: Shelby Lange ; Monisha Puentes ; Rick Shin Service: Telemetry
[2019-01-18] MEDS ORDERED: INSULIN HUMAN REGULAR PER UNIT 6 UNITS in SYRINGE 5.94 ML IV ONE (11:15)
[2019-01-20] MEDS ORDERED: WARFARIN SOD 3 MG TAB PO SCH (16:00)
== END 2019-01-18 13:09 | DRG 166 ==
LOC: ED 09:43 → 2S 13:36 → SUATTDRO 13:36 → 2E 13:36